=== PATIENT | male | born 1930 | race Caucasian/White ===

== ENCOUNTER 2017-08-02 07:23 | Inpatient (IN) | payer OTHER, MEDICARE ==
[~2017-08-02] VITALS: Ht 157.5 cm; Wt 77.0 kg
[2017-08-02] MEDS ORDERED: IOHEXOL 350 MG/ML 50 ML BTL (for Cath Lab) OTHER ONE (07:24)
[2017-08-02] MEDS ORDERED: MULTTAB22 (08:24)
[2017-08-02] MEDS ORDERED: VITA500T4 PO (08:24)
[2017-08-02] MEDS ORDERED: ASPI-516 CHEW (08:24)
[2017-08-02] MEDS ORDERED: LISI2.5T3 PO (08:24)
[2017-08-02] MEDS ORDERED: ROSU1TAB8 PO (08:24)
[2017-08-02] MEDS ORDERED: PANT40TA3 PO (08:24)
[2017-08-02] MEDS ORDERED: METO50TA PO (08:24)
[2017-08-02] MEDS ORDERED: CHOL1TAB42 (08:24)
[2017-08-02 08:30] VITALS: BP 143/86; PULSE 64; RESP 18; TEMP 98.4; O2SAT 97
[2017-08-02 08:54] LABS: AUTOMATED NEUTROPHIL # 3.5 TH/MM3 (1.8-7.7); BASOPHIL # 0.1 TH/MM3 (0-0.2); BASOPHIL % 0.9 % (0.0-2.0); EOSINOPHIL # 0.4 TH/MM3 (0-0.4); EOSINOPHIL % 7.3 % (0.0-4.0); HEMATOCRIT 45.4 % (39.0-51.0); HEMOGLOBIN 15.6 GM/DL (13.0-17.0); LYMPH % 21.4 % (9.0-44.0); LYMPHOCYTE # 1.2 TH/MM3 (1.0-4.8); MEAN CELL VOLUME 101.2 FL (80.0-100.0); MEAN CORPUSCULAR HEMOGLOBIN 34.9 PG (27.0-34.0); MEAN CORPUSCULAR HGB CONC 34.5 % (32.0-36.0); MEAN PLATELET VOLUME 8.4 FL (7.0-11.0); MONO % 10.1 % (0.0-8.0); MONOCYTE # 0.6 TH/MM3 (0-0.9); NEUT % 60.3 % (16.0-70.0); PLATELET COUNT 110 TH/MM3 (150-450); RED BLOOD COUNT 4.48 MIL/MM3 (4.50-5.90); RED CELL DISTRIBUTION WIDTH 16.3 % (11.6-17.2); WHITE BLOOD COUNT 5.8 TH/MM3 (4.0-11.0)
[2017-08-02 09:03] LABS: INTERNATIONAL NORMALIZED RATIO 1.3 RATIO; PROTHROMBIN TIME - PATIENT 12.7 SEC (9.8-11.6)
[2017-08-02 09:16] LABS: BICARBONATE 25.7 MEQ/L (21.0-32.0); CALCIUM 9.3 MG/DL (8.5-10.1); CREATININE 1.1 MG/DL (0.60-1.30)
[2017-08-02] MEDS ORDERED: HEPARIN-NS/PF FLUSH BAG 2,000 ML IV FLUSH ONE (11:02)
[2017-08-02] MEDS ORDERED: HEPARIN SODIUM - IV 10,000 UNITS/10 ML VIAL ONE (11:03)
[2017-08-02] MEDS ORDERED: MIDAZOLAM HCL 2 MG/2 ML VIAL ONE (11:03)
--- NOTE | 2017-08-02 11:08 | EKG ---
Date Performed: 08/02/2017 Time Performed: 08:22:54 PTAGE: 87 years EKG: Atrial pacing Abnormal ECG NO PREVIOUS TRACING DOCTOR: Willy Alvarado Interpretating Date/Time 08/02/2017 11:06:43
[2017-08-02] MEDS ORDERED: SODIUM CHLOR 0.9% 250 ML INJ 250 ML IV PRN (12:15)
[2017-08-02] MEDS ORDERED: ONDANSETRON HCL 4 MG/2 ML VIAL IV PUSH PRN (12:15)
[2017-08-02] MEDS ORDERED: ATROPINE SULFATE 1 MG/ML VIAL IV PUSH PRN (12:15)
--- NOTE | 2017-08-02 12:16 | CATHPROC ---
[facility] HIS Report Study Information Study Number Admission Scheduled Start Study Start [id number] Aug 02 2017 7:23AM 08/02/2017 Aug 02 2017 10:05AM [facility] Cardiac Catheterization Admit Source Facility Department Other [facility] - [facility] Physician and Clinical Staff Initial Evaristo Wilkerson Process Safety Manager Olesya Mchugh,ABBEY Other cathlab, cathlab Recorder Yasmany Simental RCIS(BS) Scrub Lety Sadler,RT(R) (BS) Procedures Performed Procedure Location (Site) Vessel Name Coronary Angiograms LCA Left Coronary Coronary Angiograms RCA Right Coronary Equipment Time Nutrition Internship Description Size Mfg Part Number Used/Scraped ARROW INTERNATIONAL CATHETER, FR.7 BALLOON [id number] 10:34 FR 7 Used INC. WEDGE PRESSURE *[id number] TRANSDUCER, TRCase [employer] [id number] 10:34 SALMON SALDAÑA * Used W/STOCKCOCK *[id number] INTRODUCER SET, [id number] 11:16 COOK INC. FR 5 Used MICROPUNCTURE *[id number] [id number] *[id number] [id number] *[id number] 10:34 MEDLINE INDUSTRIES PACK, CCL CUSTOM * Used *[id number] 10:34 NLT SPINE PACER PEN, SKIN DUAL W/ RULER * Used *[id number] 11:09 MEDTRONIC JR 4.0 DXTERITY CATHETER FR 5 Used *[id number] 10:34 Youth Noise MEDICAL WIRE, 3MMJ .035 180CM 180CM Used *[id number] 11:41 MERIT MEDICAL WIRE, EXCHANGE 260CM 3MMJ 260CM Used *[id number] 10:34 NAMIC MANIFOLD, 2 PORT * Used *[id number] 10:34 NAMIC MANIFOLD, 4 PORT * Used *[id number] 10:34 NYCOMED OMNIPAQUE, 350 MG, 150ML 150ML [id number] Used [id number] 10:34 GONZALEZ MEDICAL BLANKET,WARM AIR CCL * Used *[id number] 10:34 TERUMO MEDICAL SHEATH, FR5 TERUMO (10CM) FR 5 Used *[id number] 11:42 TERUMO MEDICAL SHEATH, FR6 TERUMO (10CM) FR 6 Used *[id number] 10:34 TERUMO MEDICAL SHEATH, FR7 TERUMO (10CM) FR 7 Used *[id number] 11:42 VASCULAR SOLUTIONS PIGTAIL DUAL LUMEN CATHETER FR 6 5540 *[id number] Used Equipment Model, Serial, Lot Number and Expiration Data Description Model Number Serial Number Lot Number Expiration Date JR 4.0 DXTERITY CATHETER [id number] 02-26-2020 WIRE, EXCHANGE 260CM 3MMJ [id number] 05-19-2020 History: Current Medications Medication Dosage/Unit Route Frequency Last Date/Time Taken Statins (any) ASA Beta Lalit History: Allergies Allergy Reaction No Known Allergies History: Risk Factors Family History of Hypertension Dyslipidemia Previous [place] Previous Heart Failure Premature CAD No Yes No No No Prior Valve Prior PCI Prior CABG Surgery No No No Cerebrovascular Peripheral Artery Chronic Lung On Dialysis Diabetes Disease Disease Disease No Yes No No No History: Symptoms/Diagnosis Selection Items BETANCOURT SOB History: Stress Tests Stress or Imaging Studies Performed No History: Other Disease Selection Items HTN History: Other Current Smoker Method Quit Packs a Day Years Used Pack Years No Cigarettes 70 Years Ago 1 2 2 Labs Hgb (g/dl) Hct (%) WBC (l/cumm) Platelets (thousands) 11.60-17.00 35.00-51.00 4.00-11.00 150.00-450.00 15.0 45 4.9 110 Glucose (mg/dl) BUN (mg/dl) Creatinine (mg/dl) BUN:Creatinine (1:x) 74.00-106.00 7.00-18.00 0.50-1.30 10.00-20.00 99 23 1.1 20.9 Na (meq/l) K (meq/l) 136.00-145.00 3.50-5.10 138 4.1 INR (PTT:PT) 0.90-1.10 1.3 CPK-MB (ng/ML) 0.50-3.60 Not Drawn Medication Medication Total Dose (Bolus/Oral) Medication Total Dosage/Unit 1% XYLOCAINE 20 mL FENTANYL 25 mcg Medications (Bolus/Oral) Medication Time Given Dosage/Unit Administered By Reason FENTANYL 08/02/2017 11:14:08 AM 25 mcg Olesya Mchugh 25 mcg FENTANYL given in lab by Olesya Mchugh RN in Left Antecubital via Peripheral IV. Ordered by Evaristo Potts 1% XYLOCAINE 08/02/2017 11:14:19 AM 20 mL Evaristo Potts 20 mL 1% XYLOCAINE given in lab by Evaristo Potts in Right Groin via Subcutaneous. Medication (Drip) Medication Time Given Dosage/Unit Concentration/Unit Diluent (ml) Solutio n IV Solutions 08/02/2017 10:45:26 AM 0 mL (IV) 500 NaCl .9 Patient arrived on IV Solutions given by cathlab, cathlab in Left Antecubital via Peripheral IV. Pump /Drip Flow = 20 ml/hr using NaCl .9. Ordered by Evaristo Potts. Initial Case Assessment Cardiovascular HR Rhythm NIBP Chest Pain 65 nsr 154/86 0 Edema Present Skin color Skin None Normal Warm Dry Circulatory - Right Pulses Dorsalis Pedis Femoral 2 2 Scale (0,1,2,3,4,d) Circulatory - Left Pulses Dorsalis Pedis Femoral 2 2 Scale (0,1,2,3,4,d) Neurological State Oriented to time-place- Alert Moves all extremities person Respiration - General Respiration Rate SpO2 (%) (B/min) 15 95 Final Case Assessment Cardiovascular HR Rhythm NIBP Chest Pain 76 nsr 149/89 0 Edema Present Skin color Skin None Normal Warm Dry Circulatory - Right Pulses Dorsalis Pedis Femoral 2 2 Scale (0,1,2,3,4,d) Circulatory - Left Pulses Dorsalis Pedis Femoral 2 2 Scale (0,1,2,3,4,d) Neurological State Oriented to time-place- Alert Moves all extremities person Respiration - General Respiration Rate SpO2 (%) (B/min) 15 95 Chronological Log Time Study Chronological Log 10:45:19 Patient arrived via Bed. 10:45:19 Patient Name, D.O.B, / Armband Verified By R.N. 10:45:20 Consent signed by the physician and the patient and verified by the [facility] staff. 10:45:20 Pre-op and post- op instructions given; patient acknowledges understanding of instructions. 10:45:21 Verbal Stimulation=2 Physical Stimulation=2 Airway=2 Respiration=2 TOTAL=8. (0=absent, 1=li mited, 2=present) 10:45:21 Presedation assessment performed by [facility] RN. 10:45:22 Immediate Presedation assesment performed by physician. 10:45:23 Patient has been NPO for More than 6Hrs. 10:45:23 Skin Breakdown-none per patient 10:45:24 Patient Warmer Placed on the Table. 10:45:24 Anthony Prominences Protected 10:45:26 A # 20 IV was noted in the Antecubital (left). Grade = 0 Patient arrived on IV Solutions given by cathlab, cathlab in Left Antecubital via Peripheral IV . Pump/Drip Flow = 20 10:45:26 ml/hr using NaCl .9. Ordered by Evaristo Potts 10:45:27 History and physical on the chart or being dictated. 10:52:16 Reference ECG taken Assessment: Initial Case, HR=65 BPM, Rhythm=nsr, FPNI=670/86 mmhg, Chest Pain=0, Edema=None, Co wong=Normal, Skin = Warm, Dry Right Pulses: Lazaro Ped=2, Femoral=2 10:53:00 Left Pulses: Lazaro Ped=2, Femoral=2 Neurological: State=Alert, Ox3, STORY Respiration: Resp=15 B/min, SpO2=95 % Vitals capture started with the following parameters, Patient=Adult, Interval=5 min, Initial Pr nqekea=953 mmHg, 10:53:20 Deflation Rate=5 mmHg, Cuff placed on Left Leg 10:53:59 HA=382 bpm, ESAM=029/86 mmhg, SpO2=95.0 %, Resp=16 B/min, Pain=0, Juan Diego=10, Banegas=2 10:59:02 HR=68 bpm, WRAV=849/87 mmhg, SpO2=95.0 %, Resp=15 B/min, Pain=0, Juan Diego=10, Banegas=2 11:01:05 Bilateral groins prepped with 2% chlorhexidine, and draped after a 3 minute waiting time. 11:04:03 HR=68 bpm, QIIN=195/87 mmhg, SpO2=95.0 %, Resp=19 B/min, Pain=0, Juan Diego=10, Banegas=2 11:05:17 Pressure channel 1 zeroed. 11:05:18 MD paged 11:07:49 MD arrived. 11:07:55 Contrast Scanned 11:07:55 Immediate Presedation assesment performed by physician. 11:09:02 HR=63 bpm, YFWC=189/74 mmhg, SpO2=95.0 %, Resp=19 B/min, Pain=0, Juan Diego=10, Banegas=2 Time Out. Correct patient, correct procedure, correct physician, power injector not loaded with contrast with surgical 11:13:38 team present. Time Out Concurred by MD and individual staff in procedure. 11:13:45 Case Start 11:13:46 Verbal Stimulation=2 Physical Stimulation=2 Airway=2 Respiration=2 TOTAL=8. (0=absent, 1=li mited, 2=present) 11:14:01 HR=71 bpm, HLWR=258/82 mmhg, SpO2=95.0 %, Resp=19 B/min, Pain=0, Juan Diego=10, Banegas=2 25 mcg FENTANYL given in lab by Olesya Mchugh RN in Left Antecubital via Peripheral IV. Orde red by Delroy, 11:14:08 Evaristo Bocanegra. 11:14:19 20 mL 1% XYLOCAINE given in lab by Evaristo Potts in Right Groin via Subcutaneous. 11:16:01 Access site was Right Femoral Artery. 11:16:06 A INTRODUCER SET, MICROPUNCTURE FR 5 was advanced into the Fem Art (right) using the Percut aneous technique. A SHEATH, FR5 TERUMO (10CM) FR 5 was exchanged in the Fem Art (right). This was necessary in or anna to 11:16:27 accomodate a larger catheter. 11:17:56 Access site was Right Femoral Vein. 11:18:02 A INTRODUCER SET, MICROPUNCTURE FR 5 was advanced into the Fem Vein (right) using the Percu taneous technique. A SHEATH, FR7 TERUMO (10CM) FR 7 was exchanged in the Fem Art (right). This was necessary in or anna to 11:18:07 accomodate a larger catheter. 11:19:27 An injection in the Fem Art (right) was made through the SHEATH, FR5 TERUMO (10CM) FR 5. 11:19:33 A CATHETER, FR.7 BALLOON WEDGE PRESSURE FR 7 was inserted via Fem Vein (right) 11:19:41 HR=73 bpm, WEZB=951/82 mmhg, SpO2=91.0 %, Resp=15 B/min, Pain=0, Juan Diego=10, Banegas=2 11:24:07 HR=75 bpm, YFMK=143/79 mmhg, SpO2=92.0 %, Resp=14 B/min, Pain=0, Juan Diego=10, Banegas=2 Recorded Pressure: PCW, HR=76, Condition=Condition 1 11:25:36 (Pulmonary Capillary Wedge) PCW 11:26:17 Saturation: Site=PA (Pulmonary Artery) , O2=72.9 %, Hgb=15 gm/dl, Condition=Condition 1. Us ed in calculation. Recorded Pressure: MPA, HR=84, Condition=Condition 1 11:26:56 (Main Pulmonary Artery) MPA 46/20/32 11:27:10 Saturation: Site=Ao (Aorta) , O2=93.1 %, Hgb=15 gm/dl, Condition=Condition 1. Used in calcu lation. Recorded Pressure: RV, HR=71, Condition=Condition 1 11:28:11 (Right Ventricle) RV 42/4/9 Recorded Pressure: RA, HR=69, Condition=Condition 1 11:28:33 (Right Atrium) RA 11:28:44 [place] Daniel Catheter Removed A JR 4.0 DXTERITY CATHETER FR 5 was advanced over a wire. OMNIPAQUE, 350 MG, 150ML 150ML was us ed for 11:28:59 injections. 11:29:02 HR=72 bpm, OICY=056/88 mmhg, SpO2=95.0 %, Resp=15 B/min, Pain=0, Juan Diego=10, Banegas=2 Recorded Pressure: Ao, HR=71, Condition=Condition 1 11:31:14 (Aorta) Ao 159/73/110 11:32:11 The RCA was injected and visualized at various angles. OMNIPAQUE, 350 MG, 150ML 150ML used . 11:34:01 HR=82 bpm, TUKW=492/90 mmhg, SpO2=91.0 %, Resp=17 B/min, Pain=0, Juan Diego=10, Banegas=2 After removing the current catheter a JL 4.5 INFINITI CATHETER FR 5 was advanced over a WIRE, 3 MMJ .035 180CM 11:34:21 180CM. 11:36:24 The LCA was injected and visualized at various angles. OMNIPAQUE, 350 MG, 150ML 150ML used . After removing the current catheter a AL 1 INFINITI CATHETER FR 5 was advanced over a WIRE, 3MM J .035 180CM 11:38:19 180CM. 11:39:04 HR=77 bpm, WPUE=680/89 mmhg, SpO2=92.0 %, Resp=13 B/min, Pain=0, Juan Diego=10, Banegas=2 11:44:05 HR=77 bpm, VRRF=805/87 mmhg, SpO2=91.0 %, Resp=20 B/min, Pain=0, Juan Diego=10, Banegas=2 11:44:22 Catheter was removed A SHEATH, FR6 TERUMO (10CM) FR 6 was exchanged in the Fem Art (right). This was necessary in or anna to 11:44:24 accomodate a larger catheter. A PIGTAIL DUAL LUMEN CATHETER FR 6 was advanced over a wire. OMNIPAQUE, 350 MG, 150ML 150ML was used for 11:45:10 injections. 11:45:22 Pressure channel 2 zeroed. Recorded Pressure: LV, HR=75, Condition=Condition 1 11:47:16 (Left Ventricle) LV 162/8/16 Recorded Pressure: LV, Ao, HR=83, Condition=Condition 1 11:48:14 (Left Ventricle) LV 155/8/15, (Aorta) Ao 147/75/107 Recorded Pressure: LV, Ao, HR=55, Condition=Condition 1 11:48:42 (Left Ventricle) LV 159/6/17, (Aorta) Ao 142/51/96 11:49:02 HR=75 bpm, GQRJ=358/89 mmhg, SpO2=91.0 %, Resp=15 B/min, Pain=0, Juan Diego=10, Banegas=2 11:49:07 Catheter was removed 11:49:31 Case End Assessment: Final Case, HR=76 BPM, Rhythm=nsr, TICG=088/89 mmhg, Chest Pain=0, Edema=None, Katy r=Normal, Skin = Warm, Dry Right Pulses: Lazaro Ped=2, Femoral=2 11:49:37 Left Pulses: Lazaro Ped=2, Femoral=2 Neurological: State=Alert, Ox3, STORY Respiration: Resp=15 B/min, SpO2=95 % 11:49:46 Catheter(s) removed without difficulty 11:50:06 No case complications noted. 11:50:06 Cine recording checked. 11:50:08 Bedside Report will be given. 11:50:11 Verbal Stimulation=2 Physical Stimulation=2 Airway=2 Respiration=2 TOTAL=8. (0=absent, 1=li mited, 2=present) 11:50:19 A Left and Right Heart Cath was performed. 11:54:06 HR=74 bpm, LARM=622/88 mmhg, SpO2=93.0 %, Resp=16 B/min, Pain=0, Juan Diego=10, Banegas=2 11:56:25 Arterial Sheath removed; pressure applied to access site. 11:59:09 HR=76 bpm, KDYW=398/82 mmhg, SpO2=91.0 %, Resp=16 B/min, Pain=0, Juan Diego=10, Banegas=2 12:04:06 HR=72 bpm, OPLH=434/80 mmhg, SpO2=91.0 %, Resp=16 B/min, Pain=0, Juan Diego=10, Banegas=2 12:07:56 Venous Sheath removed; pressure applied to access site. 12:09:05 HR=73 bpm, UCCS=019/87 mmhg, SpO2=93.0 %, Resp=16 B/min 12:14:06 HR=76 bpm, AAOF=621/88 mmhg, SpO2=91.0 %, Resp=16 B/min 12:14:06 Hemostasis obtained 12:14:27 Sterile dressing applied to site 12:14:51 Patient moved to bed 12:15:00 Patient transported to DOCU. End Study - Contrast Media Used In Study Contrast Total Opened (mL) Total Used (mL) Total Wasted (mL) Omnipaque 40 40 0 End Study - Maximum Contrast Load Max Contrast Load (mL) 318.2 End Study - Radiation Exposure Fluoro Time (minutes) 9.0 End Study - Sheaths Sheaths Pulled By Sheath Hold Time (min) Lety Sadler 20 End Study - Patient Disposition Complications Transferred To Interventional Outcome No [facility] Holding No attempt made
--- NOTE | 2017-08-02 14:16 | PD.CAR.PN ---
CVT Progress Note Subjective/Hospital Course: pt seen and evaluated , full consult to follow RISK SCORES About the STS Risk Calculator Procedure: CAB Only Risk of Mortality: 4.488% Morbidity or Mortality: 25.388% Long Length of Stay: 13.595% Short Length of Stay: 20.052% Permanent Stroke: 3.269% Prolonged Ventilation: 16.745% DSW Infection: 0.336% Renal Failure: 5.293% Reoperation: 9.139% Objective: Vital Signs Date Time Temp Pulse Resp B/P (MAP) Pulse Ox O2 Delivery O2 Flow Rate FiO2 08/02/17 12:27 93 Room Air 08/02/17 08:30 98.4 64 18 143/86 (105) 97 Labs: Laboratory Tests Test 08/02/17 08:15 08/02/17 08:35 Blood Urea Nitrogen 23 MG/DL (7-18) Creatinine 1.10 MG/DL (0.60-1.30) Random Glucose 94 MG/DL (74-106) Calcium Level 9.3 MG/DL (8.5-10.1) Sodium Level 138 MEQ/L (136-145) Potassium Level 4.1 MEQ/L (3.5-5.1) Chloride Level 104 MEQ/L (98-107) Carbon Dioxide Level 25.7 MEQ/L (21.0-32.0) Anion Gap 8 MEQ/L (5-15) Estimat Glomerular Filtration Rate 63 ML/MIN (>89) White Blood Count 5.8 TH/MM3 (4.0-11.0) Red Blood Count 4.48 MIL/MM3 (4.50-5.90) Hemoglobin 15.6 GM/DL (13.0-17.0) Hematocrit 45.4 % (39.0-51.0) Mean Corpuscular Volume 101.2 FL (80.0-100.0) Mean Corpuscular Hemoglobin 34.9 PG (27.0-34.0) Mean Corpuscular Hemoglobin Concent 34.5 % (32.0-36.0) Red Cell Distribution Width 16.3 % (11.6-17.2) Platelet Count 110 TH/MM3 (150-450) Mean Platelet Volume 8.4 FL (7.0-11.0) Neutrophils (%) (Auto) 60.3 % (16.0-70.0) Lymphocytes (%) (Auto) 21.4 % (9.0-44.0) Monocytes (%) (Auto) 10.1 % (0.0-8.0) Eosinophils (%) (Auto) 7.3 % (0.0-4.0) Basophils (%) (Auto) 0.9 % (0.0-2.0) Neutrophils # (Auto) 3.5 TH/MM3 (1.8-7.7) Lymphocytes # (Auto) 1.2 TH/MM3 (1.0-4.8) Monocytes # (Auto) 0.6 TH/MM3 (0-0.9) Eosinophils # (Auto) 0.4 TH/MM3 (0-0.4) Basophils # (Auto) 0.1 TH/MM3 (0-0.2) CBC Comment DIFF FINAL Differential Comment Prothrombin Time 12.7 SEC (9.8-11.6) Prothromb Time International Ratio 1.3 RATIO Activated Partial Thromboplast Time 27.2 SEC (24.3-30.1) Result Diagram: 08/02/17 0835 08/02/17 0815 Juanita Cohen Aug 02, 2017 14:16
[2017-08-02 14:57] LABS: BILIRUBIN, URINE NEG (NEG); BLOOD, URINE SMALL (NEG); GLUCOSE,URINE NEG (NEG); KETONE, URINE NEG (NEG); MUCUS URINE FEW /lpf (OCC); NITRITE,URINE NEG (NEG); PH, URINE 6.5 (5.0-8.5); URINE COLOR YELLOW (YELLW/STRAW); URINE LEUKOCYTE ESTERASE NEG (NEG)
[2017-08-02 15:00] LABS: ALBUMIN 3.9 GM/DL (3.4-5.0); ALT (GPT) 40 U/L (12-78); AST (GOT) 38 U/L (15-37); DIRECT BILIRUBIN ADULT 0.1 MG/DL (0.0-0.2)
[2017-08-02 15:01] LABS: ALKALINE PHOSPHATASE 127 U/L (45-117); INDIRECT BILIRUBIN 0.5 MG/DL (0.0-0.8); TOTAL BILIRUBIN ADULT 0.6 MG/DL (0.2-1.0); TOTAL PROTEIN 8.4 GM/DL (6.4-8.2)
--- NOTE | 2017-08-02 15:22 | RADRPT ---
EXAM DATE/TIME: 08/02/2017 14:05 [facility] COMPARISON: No previous studies available for comparison. INDICATIONS : Evaluate for pneumonia, pneumothorax or communicable disease. Pre op for CABG. MEDICAL HISTORY : none known SURGICAL HISTORY : Pacemaker. ENCOUNTER: Initial ACUITY: 1 day PAIN SCORE: 0/10 LOCATION: Bilateral chest FINDINGS: The heart is enlarged. Left subclavian dual lead pacemaker has its tips in right atrium and right marisela tricle. Minimal bibasilar streakiness is noted. Degenerative changes are noted throughout the thoraci c spine. CONCLUSION: Cardiomegaly. Minimal bibasilar streakiness consistent with atelectasis or scarring.. Primitivo Chance MD on August 02, 2017 at 15:19 Board Certified Radiologist. This report was verified electronically.
--- NOTE | 2017-08-02 15:48 | RADRPT ---
EXAM DATE/TIME: 08/02/2017 14:47 [facility] COMPARISON: No previous studies available for comparison. INDICATIONS : Pre-op cardiac surgery. MEDICAL HISTORY : Hypertension. Bladder cancer. SURGICAL HISTORY : Cardiac catheterization. ENCOUNTER: Initial ACUITY: 1 day PAIN SCORE: 0/10 LOCATION: Bilateral legs. TECHNIQUE: Venous ultrasound of the left and right leg was performed from the inguinal ligament to the proximal calf. Real-time, color Doppler and spectral tracing, compression and augmentation techniques were us ed. FINDINGS: RIGHT LEG: There is normal compressibility of the deep venous system from the inguinal region to the proximal ca lf. No echogenic clot is seen in the lumen of the common femoral, femoral, popliteal, and posterior tibial veins. There is a normal response of the venous system to proximal and distal augmentation an d respiration. LEFT LEG: There is normal compressibility of the deep venous system from the inguinal region to the proximal ca lf. No echogenic clot is seen in the lumen of the common femoral, femoral, popliteal, and posterior tibial veins. There is a normal response of the venous system to proximal and distal augmentation an d respiration. CONCLUSION: No evidence of deep venous thrombosis within the lower extremities. Primitivo Chance MD on August 02, 2017 at 15:45 Board Certified Radiologist. This report was verified electronically.
--- NOTE | 2017-08-02 16:01 | RADRPT ---
EXAM DATE/TIME: 08/02/2017 15:11 [facility] COMPARISON: No previous studies available for comparison. INDICATIONS : Pre-op cardiac surgery. MEDICAL HISTORY : Hypertension. Bladder cancer. SURGICAL HISTORY : Cardiac catheterization. ENCOUNTER: Initial ACUITY: 1 day PAIN SCORE: 0/10 LOCATION: Bilateral neck PEAK SYSTOLIC VELOCITIES (cm/sec): ICA/CCA RATIO: Right: 1.7 Left: 1.1 ICA: Right: 97 Left: 72 CCA: Right: 58 Left: 68 ECA: Right: 214 Left: 126 VERTEBRAL: Right: 43 antegrade Left: 126 antegrade Elevated flow velocities and ICA/CCA ratios have been found to correlate with increased degrees of vessel stenosis, calculated as percentage of diameter relative to a normal segment of distal ICA/CCA FINDINGS: No hemodynamically significant stenoses within the internal carotid arteries bilaterally. There is pr obable 50-69% stenosis of the right external carotid artery. Mild calcified atherosclerotic plaque is noted bilaterally. Antegrade flow is noted within the vertebral arteries bilaterally. CONCLUSION: No hemodynamically significant stenosis within the internal carotid arteries grace del real. Primitivo Chance MD on August 02, 2017 at 15:57 Board Certified Radiologist. This report was verified electronically.
--- NOTE | 2017-08-02 16:24 | RADRPT ---
EXAM DATE/TIME: 08/02/2017 15:55 [facility] COMPARISON: No previous studies available for comparison. INDICATIONS : Preoperative CABG. RADIATION DOSE: 8.91 CTDIvol (mGy) MEDICAL HISTORY : Cardiovascular disease. Hypertension. Carcinoma, bladder. SURGICAL HISTORY : Pacemaker. ENCOUNTER: Initial ACUITY: 1 day PAIN SCALE: 0/10 LOCATION: chest TECHNIQUE: Volumetric scanning of the chest was performed. Using automated exposure control and adjustment of t he mA and/or kV according to patient size, radiation dose was kept as low as reasonably achievable to obtain optimal diagnostic quality images. DICOM format image data is available electronically for r eview and comparison. Follow-up recommendations for detected pulmonary nodules are based at a minimum on nodule size and pa tient risk factors according to Fleischner Society Guidelines. FINDINGS: LUNGS: Minimal scattered peripheral interstitial fibrotic changes are noted. There is no consolidation or pn eumothorax. No concerning pulmonary nodule is visualized. PLEURAE: There is no pleural thickening or pleural effusion. MEDIASTINUM: The heart and great vessels demonstrate no acute abnormality. There is no mediastinal or hilar lymph adenopathy. Coronary artery calcifications are noted. Left subclavian dual lead pacemaker has its tip s in the right atrium and right ventricle. AXILLAE: Within normal limits. No lymphadenopathy. MUSCULOSKELETAL: Degenerative changes and scoliosis of the thoracic spine are noted. MISCELLANEOUS: The visualized upper abdominal organs demonstrate no acute abnormality. CONCLUSION: 1. Coronary artery calcifications. 2. Minimal scattered peripheral interstitial fibrotic changes are noted. 3. Degenerative changes and scoliosis of the thoracic spine are noted. Primitivo Chance MD on August 02, 2017 at 16:17 Board Certified Radiologist. This report was verified electronically.
[2017-08-02 16:59] LABS: HEMOGLOBIN A1C 5.6 % (4.3-6.0)
--- NOTE | 2017-08-02 17:44 | MB ---
cc: Isa Medina MD, Jacqueline R ARNP DATE: 08/02/2017 HISTORY OF PRESENT ILLNESS: An 87-year-old male patient of [place], Dr. Brandon Parks, history of having some dizziness and lightheadedness for the last 3 weeks, some presyncope episodes, also preceded all the time by shortness of breath, which he has noticed more progressively over the past 1 month. The shortness of breath occurs with minimal exertion. He normally is very active. He walks about 3-4 miles, but back in January he purchased a mobile home and has been repairing that, but has been unable to do so secondary to the shortness of breath. He has a history of some mild aortic stenosis. Therefore, he underwent cardiac catheterization today to evaluate the valve further which showed a 10% stenosis in the left main, proximal LAD 95%, mid distal 70%, diagonal 80%, the circumflex is 90%, ejection fraction 58%. PA pressure is 46/20 with a wedge pressure of 12. Cardiac output of 5.2. Aortic valve area of 1.35. We were consulted to evaluate for coronary artery bypass grafting. 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 He has had a history of a stroke in the past with some residual oral paresthesias, paroxysmal ventricular tachycardia. PAST SURGICAL HISTORY: Surgeries include the pacer in situ, also a right hernia repair. ALLERGIES: NO KNOWN DRUG ALLERGIES. HOME MEDICATIONS: Aspirin. Lisinopril. Metoprolol. Multivitamin. Crestor. FAMILY HISTORY: Noncontributory. SOCIAL HISTORY: , 3 children, retired building attendant. Remote tobacco, quit 1949. REVIEW OF SYSTEMS: GENERAL: No night sweats, fever, heat and cold intolerance. SKIN: No psoriasis, itching or hives. HEENT: No blurred vision or hearing loss. He does wear dentures. RESPIRATORY: As above in the HPI. CARDIOVASCULAR: No chest pain. No paroxysmal nocturnal dyspnea or orthopnea. GASTROINTESTINAL: No diarrhea or vomiting. GENITOURINARY: No burning, frequency, urgency. CENTRAL NERVOUS SYSTEM: He has had a history of prior cerebrovascular accident. ENDOCRINOLOGY: No diabetes or hypothyroidism. PHYSICAL EXAMINATION: VITAL SIGNS: Blood pressure 140/80, heart rate is 64, temperature max 98.4, room air sat 94. The patient is awake, alert, and in no acute distress. HEENT: Head is normocephalic, atraumatic. Pupils equal and reactive. Oral mucosa pink, moist. NECK: Supple. No JVD. HEART: Sounds S1, S2, grade 2/6 systolic murmur. LUNGS: Clear to auscultation. No wheezes, rales or rhonchi. ABDOMEN: Soft, nontender. No masses or organomegaly. EXTREMITIES: Reveal no cyanosis, clubbing, or edema. LABORATORY DATA: Hemoglobin 15, hematocrit of 45, white cell count of 5.8, platelet count of 110. Sodium 130, potassium 4.1, BUN of 23, creatinine 1.10. INR 1.3. Urinalysis is unremarkable. MRSA screen undetected. CT chest: Some coronary artery calcifications and minimal peripheral interstitial fibrotic changes. Some degenerative changes in the spine. Carotid ultrasound showed no hemodynamically significant stenosis within the internal carotid arteries bilaterally. There was no DVT. ASSESSMENT AND PLAN: This is an 87-year-old male, STS score 4.4, being evaluated for coronary artery bypass grafting x3. The cardiac srivastava will be evaluated by Dr. Maribell Vela and evaluation for candidacy for bypass grafting further planning as per Dr. Isa Medina. Dictated by KAZ Rod MD [place]/TANIYA , 04:56 PM , 05:42 PM
[2017-08-02] MEDS ORDERED: INSULIN REGULAR (IV INFUSION) 100 UNITS in SODIUM CHLORIDE 0.9% INJ 99 ML IV PRN (17:45)
[2017-08-02] MEDS ORDERED: METOPROLOL TARTRATE 25 MG TAB PO SCH (17:45)
[2017-08-02] MEDS ORDERED: PAPAVERINE INJ 60 MG, NITROGLYCERIN INJ 100 MCG, DILTIAZEM INJ 100 MG in SODIUM CHLORID... IRRIGATION SCH (17:45)
[2017-08-02] MEDS ORDERED: DEXTROSE 50% IN WATER 50 ML VIAL(D50) IV PUSH PRN (17:45)
[2017-08-02] MEDS ORDERED: CHLORHEXIDINE GLUCONATE 4% SOLN 120 ML BTL TOPICAL SCH (17:45)
[2017-08-02] MEDS ORDERED: CEFAZOLIN INJ 500 MG in SODIUM CHLORIDE 0.9% IRR BTL 500 ML IRRIGATION SCH (17:45)
[2017-08-02] MEDS ORDERED: SODIUM CHLORIDE 0.9% FLUSH 10 ML FLUSH IV FLUSH PRN (17:45)
[2017-08-02 19:00] VITALS: BP 115/68; PULSE 90; PULSE 92; TEMP 98.1; O2SAT 92
[2017-08-02 20:00] VITALS: PULSE 100
[2017-08-02 20:09] LABS: HEMATOCRIT 43.6 % (39.0-51.0); MEAN CELL VOLUME 99.8 FL (80.0-100.0); MEAN CORPUSCULAR HEMOGLOBIN 34.5 PG (27.0-34.0); MEAN CORPUSCULAR HGB CONC 34.5 % (32.0-36.0); MEAN PLATELET VOLUME 8.2 FL (7.0-11.0); PLATELET COUNT 96 TH/MM3 (150-450); RED BLOOD COUNT 4.36 MIL/MM3 (4.50-5.90); RED CELL DISTRIBUTION WIDTH 15.8 % (11.6-17.2); WHITE BLOOD COUNT 7.4 TH/MM3 (4.0-11.0)
[2017-08-02 20:23] LABS: INTERNATIONAL NORMALIZED RATIO 1.3 RATIO; PROTHROMBIN TIME - PATIENT 12.8 SEC (9.8-11.6)
--- NOTE | 2017-08-02 20:55 | RADRPT ---
EXAM DATE/TIME: 08/02/2017 14:55 [facility] COMPARISON: US LEG BILATERAL VENOUS DOPPLER, August 02, 2017, 14:47. INDICATIONS : Pre-op cardiac surgery. MEDICAL HISTORY : Hypertension. Bladder cancer. SURGICAL HISTORY : Cardiac catheterization. ENCOUNTER: Initial ACUITY: 1 day PAIN SCORE: 0/10 LOCATION: Bilateral legs. GREATER SAPHENOUS VEIN THIGH: PROXIMAL: Right 2 mm Left 4 mm MID: Right 3 mm Left 4 mm DISTAL: Right 3 mm Left 3 mm CALF: PROXIMAL: Right 2 mm Left 4 mm MID: Right 2 mm Left 2 mm DISTAL: Right 2 mm Left 1 mm FINDINGS: The venous system of the lower extremities are patent by color Doppler imaging. Measurements of the leg veins (in mm) are listed above. CONCLUSION: Bilateral greater saphenous vein mapping as above. Sam Mathews MD on August 02, 2017 at 20:52 Board Certified Radiologist. This report was verified electronically.
[2017-08-02 21:00] VITALS: PULSE 80
[2017-08-02] MEDS: METOPROLOL TARTRATE 50 MG TAB PO SCH (21:20)
[2017-08-02] MEDS: SODIUM CHLORIDE 0.9% FLUSH 10 ML FLUSH IV FLUSH SCH (21:23)
[2017-08-02] MEDS: HEPARIN-D5W 25,000 U/250 ML 250 ML IV PRN (21:23)
[2017-08-02 22:00] VITALS: PULSE 72
[2017-08-02 23:00] VITALS: BP 101/55; PULSE 64; PULSE 68; TEMP 97.6; O2SAT 95
[2017-08-02] MEDS ORDERED: HEPARIN SODIUM - IV 10,000 UNITS/10 ML VIAL IV PUSH PRN ×2 (23:30)
[2017-08-03] VITALS (25 sets, daily range): BP systolic 101–128; BP diastolic 55–66; PULSE 59–73; RESP 16–17; TEMP 97.2–98.1; O2SAT 92–98
--- NOTE | 2017-08-03 01:42 | MH ---
cc: Evaristo Potts DO DATE OF ADMISSION: 08/02/2017 CHIEF COMPLAINT: Shortness of breath, syncope. HISTORY OF CHIEF COMPLAINT: Steve Shaver is a pleasant 87-year-old male who sees my partner, Dr. Parks in the office and was recommended cardiac catheterization due to shortness of breath and syncopal episodes. The patient has had episodes of getting significantly short of breath with very little activity and he has also noticed lightheaded dizziness and syncopal episodes over the past few weeks. Per the family, he has gone downhill significantly over the past 2 months. He states that whenever he starts doing activities he gets short of breath and when he gets too short of breath, he starts getting lightheaded and dizzy. He underwent an echocardiogram and the aortic valve was difficult to determine how significant it was, although the gradients were not very high. Because of this, he was recommended cardiac catheterization to evaluate not only his coronary anatomy, but also his aortic valve to make sure that he did not have significant aortic stenosis as his symptoms were felt to be more towards this. He underwent the procedures today on 08/02/2017 and he was found to have significant multivessel disease as well as mild aortic stenosis. It was felt that due to his symptoms, as well as his significant multivessel disease that he should be admitted for consideration of coronary artery bypass grafting. PAST MEDICAL HISTORY: 1. Mild aortic stenosis by cardiac catheterization (aortic valve area 1.35, mean gradient 20). 2. History of bradycardia. 3. History of CVA with some residual oral ____. 4. Paroxysmal ventricular tachycardia. PAST SURGICAL HISTORY: 1. Cardiac catheterization (08/02/2017) significant multivessel disease including proximal LAD 95%, mid LAD 70%, diagonal 80%, left circumflex 90%, RCA 99%, aortic valve area 1.35, mean gradient 20. 2[address] St. Nic pacemaker (2008). 3. Right hernia repair. ALLERGIES: NO KNOWN DRUG ALLERGIES. MEDICATIONS: 1. Crestor 20 mg daily. 2. Metoprolol tartrate 50 mg b.i.d. 3. Lisinopril 2.5 mg daily. 4. Aspirin 81 mg daily. 5. Protonix 40 mg daily. FAMILY HISTORY: Denies premature coronary artery disease or sudden cardiac within the family. SOCIAL HISTORY: The patient is and lives with his . He has 3 adult children. He previously smoked but quit in 1950. Denies alcohol or drug abuse. REVIEW OF SYSTEMS: Fourteen systems were reviewed including osteopathic. Pertinent positives and negatives above, otherwise negative. PHYSICAL EXAMINATION: VITAL SIGNS: Temperature 98.4, heart rate 64, blood pressure 143/86, respirations 18, pulse oximetry 97% on room air. GENERAL: The patient appears well in no acute distress. Alert, awake and oriented x 3. HEENT: Extraocular muscles intact. Mucous membranes moist. NECK: Supple. No JVD at 45 degrees. No carotid bruits heard bilaterally. Upstroke is brisk in nature. HEART: Regular rate and rhythm. Positive first and second heart sounds with a II/ crescendo decrescendo murmur which is mid to late peaking to the right sternal border. LUNGS: Clear to auscultation bilaterally. No wheezes, rales or rhonchi. ABDOMEN: Soft, nontender, nondistended. No organomegaly noted. EXTREMITIES: Show no clubbing, cyanosis or edema. Femoral and distal pulses are intact bilaterally. NEUROLOGIC: No focal deficits. SKIN: Warm, dry and intact. OSTEOPATHIC: Mild kyphoscoliosis. No lordosis or paraspinal tender points. LABORATORY DATA: Hemoglobin 15.6, hematocrit 45.4, platelets 110. Potassium 4.1, BUN 23, creatinine 1.1. Electrocardiogram (08/02/2017 at 0822) atrial paced, nonspecific ST-T wave changes. IMPRESSION: 1. Multivessel coronary artery disease as above. 2. Unstable angina with significant shortness of breath with activities as well as lightheadedness and presyncopal and syncopal episodes. 3. Mild aortic stenosis as above. 4. Hypertension. RECOMMENDATIONS: 1. Mr. Shavre underwent cardiac catheterization as above, and was found to have significant multivessel coronary artery disease. Because of his symptoms, as well as his significant disease, it was felt reasonable that he should be admitted and be evaluated by CT surgery for possible coronary artery bypass grafting. 2. Due to the significance of his disease he will be placed on a heparin drip. 3. His shortness of breath and presyncopal to syncopal episodes are most likely anginal equivalents. During these episodes of presyncope and syncope his pacemaker was evaluated and showed no arrhythmias at that time. 4. His lisinopril will be held in anticipation of coronary artery bypass grafting. 5. He did have an echocardiogram done in the office on 05/21/2017, which showed a normal ejection fraction of 55% to 60%, mild aortic stenosis (peak gradient 34, mean gradient 18), mild mitral regurgitation. 6. Further recommendations will be made after evaluated by CT surgery. Thank you for allowing me to see Steve Shaver. If there are any questions, please do not hesitate to call. Evaristo Potts, VGP/rt , 12:55 AM , 01:40 AM
--- NOTE | 2017-08-03 01:50 | MA ---
cc: Evaristo Potts DO 08/02/2017 PROCEDURE: Left heart catheterization, right heart catheterization, coronary angiogram, aortic stenosis evaluation. PREPROCEDURE DIAGNOSIS: Shortness of breath with exertion, presyncopal episodes. POSTPROCEDURE DIAGNOSIS: Multivessel coronary artery disease, mild aortic stenosis (aortic valve area of 1.35, mean gradient 20). MEDICATIONS: Fentanyl 25 mcg. CONTRAST USED: 40 mL. FLUOROSCOPY: 9.0 minutes. SEDATION: Moderate sedation 0 minutes. ESTIMATED BLOOD LOSS: 10 mL PROCEDURAL SUMMARY: Steve Shaver is a pleasant 87-year-old male who sees my partner, Dr. Parks, in the office and was noted to have significant shortness of breath with activity and presyncopal to syncopal episodes with activity. There was concern that his aortic stenosis was more significant than noted by exam and by echo, and so he was recommended left and right heart catheterization. Risks, benefits and alternatives were explained to him and he consented as such. He was brought to the lab and prepped in the usual sterile fashion. The right femoral artery was accessed using a modified Seldinger technique and placement of a 5-Japanese sheath. Right femoral vein was accessed using a modified Seldinger technique and placement of a 7-Japanese sheath. Both were easily aspirated and flushed. A [place] catheter was advanced to a wedge position and oxygen saturations as well as pressures were recorded upon pullback through the heart in a standard fashion. [place] catheter was removed. A JR4 was advanced over a J-wire to the ascending aorta and used for selective angiography of the right coronary artery system. This was exchanged out for a JL4.5, which was used for selective angiography of the left coronary artery system. A JL3.5 was exchanged for an AL1, and a straight wire was advanced across the aortic valve. The AL1 was advanced into the left ventricle and then exchanged out over a long J-wire. Right femoral sheath was upgraded to a 6-Japanese and a Odilon catheter was placed for simultaneous pressures of the left ventricle as well as the aorta. Odilon catheter was removed. Arterial and femoral sheaths were removed and pressure held for hemostasis. The patient left the laborer brush clearing cardiovascularly stable. FINDINGS: Left main: Normal size vessel with adequate reflux. It bifurcates into an LAD and circumflex. LAD: Normal size vessel with 95% ostial stenosis. Distal to this, there is diffuse disease with 70% stenosis in the mid portion. It gives off 1 major diagonal with 80% ostial stenosis. Left circumflex: Normal size vessel with a 90% stenosis in the mid portion. It gives off 2 major obtuse marginals, with the first one having diffuse 50% disease and the other one being more of a posterolateral branch having a 90% stenosis. RCA: 99% stenosis at the ostial portion. The mid to distal portion has a 99% stenosis. Distally it supplies a PDA, which is diffusely diseased. HEMODYNAMIC SUMMARY: RA 6. RV 39/5, RVEDP 9. PA 46/20, mean PA 32. Wedge 12. Cardiac output 5.2. Cardiac index 3.0. Aortic valve area 1.35 Mean gradient 20. LVEDP 15. IMPRESSION: 1. Unstable angina. 2. Multivessel disease as above. 3. Mild aortic stenosis (mean gradient 20, aortic valve area 1.35). 4. Mild pulmonary hypertension. RECOMMENDATIONS: 1. Mr. Shaver has significant multivessel disease and appears to have anginal equivalent with shortness of breath and presyncopal to syncopal episodes. 2. He will be admitted inpatient due to his significance of disease and symptoms and placed on a heparin drip. 3. He will be seen by CT surgery for consideration of coronary artery bypass grafting. 4. Further recommendations will be made after evaluation by CT surgery. Thank you for allowing me to see Steve Shaver. If there are any questions, please do not hesitate to call. DO VENANCIO Callaway/ANGELIA , 01:06 AM , 01:48 AM
[2017-08-03 07:19] LABS: AUTOMATED NEUTROPHIL # 3.1 TH/MM3 (1.8-7.7); BASOPHIL # 0.1 TH/MM3 (0-0.2); BASOPHIL % 1.2 % (0.0-2.0); EOSINOPHIL # 0.4 TH/MM3 (0-0.4); EOSINOPHIL % 7.7 % (0.0-4.0); HEMATOCRIT 39.5 % (39.0-51.0); HEMOGLOBIN 13.7 GM/DL (13.0-17.0); LYMPH % 24.4 % (9.0-44.0); LYMPHOCYTE # 1.4 TH/MM3 (1.0-4.8); MEAN CELL VOLUME 100.6 FL (80.0-100.0); MEAN CORPUSCULAR HEMOGLOBIN 34.9 PG (27.0-34.0); MEAN CORPUSCULAR HGB CONC 34.7 % (32.0-36.0); MEAN PLATELET VOLUME 8.6 FL (7.0-11.0); MONO % 11.6 % (0.0-8.0); MONOCYTE # 0.6 TH/MM3 (0-0.9); NEUT % 55.1 % (16.0-70.0); PLATELET COUNT 77 TH/MM3 (150-450); RED BLOOD COUNT 3.93 MIL/MM3 (4.50-5.90); RED CELL DISTRIBUTION WIDTH 15.9 % (11.6-17.2); WHITE BLOOD COUNT 5.6 TH/MM3 (4.0-11.0)
[2017-08-03 07:50] LABS: BICARBONATE 25.2 MEQ/L (21.0-32.0); CALCIUM 8.3 MG/DL (8.5-10.1); CREATININE 0.88 MG/DL (0.60-1.30)
[2017-08-03] MEDS: SODIUM CHLORIDE 0.9% FLUSH 10 ML FLUSH IV FLUSH SCH ×2 (08:41→21:00)
[2017-08-03] MEDS: PANTOPRAZOLE SOD 40 MG DELAYED RELEASE TAB PO SCH (08:42)
[2017-08-03] MEDS: METOPROLOL TARTRATE 50 MG TAB PO SCH ×2 (08:42→21:00)
[2017-08-03] MEDS: ATORVASTATIN 40 MG TAB PO SCH (08:42)
[2017-08-03] MEDS: ASPIRIN 81 MG CHEW TAB CHEW SCH (08:43)
--- NOTE | 2017-08-03 15:03 | HHI.PR ---
Subjective Remarks Follow-up unstable angina/multivessel disease 08/03/17-patient seen and examined, denies any chest pain or shortness of breath. Family by the bedside. Objective Vitals Vital Signs Date Time Temp Pulse Resp B/P (MAP) Pulse Ox O2 Delivery O2 Flow Rate FiO2 08/03/17 14:00 65 08/03/17 13:00 63 08/03/17 12:00 60 08/03/17 11:00 93 Nasal Cannula 2.00 08/03/17 11:00 60 08/03/17 11:00 97.8 63 16 128/62 (84) 92 08/03/17 10:00 72 08/03/17 09:00 69 08/03/17 07:00 97.6 64 16 101/61 (74) 95 08/03/17 07:00 64 08/03/17 07:00 95 Nasal Cannula 2.00 08/03/17 06:00 61 08/03/17 05:00 68 08/03/17 04:00 60 08/03/17 03:00 97.8 68 101/61 (74) 94 08/03/17 03:00 68 08/03/17 02:00 60 08/03/17 01:00 64 08/03/17 00:00 62 08/02/17 23:00 64 08/02/17 23:00 95 Nasal Cannula 2.00 08/02/17 23:00 97.6 68 101/55 (70) 95 08/02/17 22:00 72 08/02/17 21:00 80 08/02/17 20:00 100 08/02/17 19:00 98.1 92 115/68 (84) 92 08/02/17 19:00 90 I/O 08/02/17 08/02/17 08/02/17 08/03/17 08/03/17 08/03/17 07:00 15:00 23:00 07:00 15:00 23:00 Intake Total 360 ml Output Total 600 ml Balance -240 ml Intake Oral 360 ml Output Urine Total 600 ml Result Diagram: 08/03/1730 08/03/1730 Imaging Last Impressions Lower Extremity Ultrasound 08/02/17 0000 Signed Impressions: Service Date/Time: Wednesday, August 02, 2017 14:55 - CONCLUSION: Bilateral greater saphenous vein mapping as above. Sam Mathews MD Chest X-Ray 08/02/17 0000 Signed Impressions: Service Date/Time: Wednesday, August 02, 2017 14:05 - CONCLUSION: Cardiomegaly. Minimal bibasilar streakiness consistent with atelectasis or scarring.. Primitivo Chance MD Chest CT 08/02/17 0000 Signed Impressions: Service Date/Time: Wednesday, August 02, 2017 15:55 - CONCLUSION: 1. Coronary artery calcifications. 2. Minimal scattered peripheral interstitial fibrotic changes are noted. 3. Degenerative changes and scoliosis of the thoracic spine are noted. Primitivo Chance MD Carotid Artery Ultrasound 08/02/17 0000 Signed Impressions: Service Date/Time: Wednesday, August 02, 2017 15:11 - CONCLUSION: No hemodynamically significant stenosis within the internal carotid arteries bilaterally. Primitivo Chance MD Objective Remarks GENERAL: NAD SKIN: Warm and dry. HEAD: Normocephalic. EYES: No scleral icterus. No injection or drainage. NECK: Supple, trachea midline. No JVD or lymphadenopathy. CARDIOVASCULAR: Regular rate and rhythm without murmurs, gallops, or rubs. RESPIRATORY: Breath sounds equal bilaterally. No accessory muscle use. GASTROINTESTINAL: Abdomen soft, non-tender, nondistended. MUSCULOSKELETAL: No cyanosis, or edema. BACK: Nontender without obvious deformity. No CVA tenderness. A/P Problem List: (1) Multi-vessel coronary artery stenosis ICD Code: I25.10 - Atherosclerotic heart disease of [place] coronary artery without angina pectoris (2) Unstable angina ICD Code: I20.0 - Unstable angina Assessment and Plan 87 year-old man with Unstable angina Status post left heart catheterization with finding of multivessel disease Currently on heparin drip, beta lance, aspirin, GEO inhibitor, statin Multivessel coronary artery stenosis CTS consulted for evaluation for possible CABG Continue with above treatment DVT prophylaxis: Alex Spain MD Aug 03, 2017 15:03
[2017-08-03] MEDS: HEPARIN-D5W 25,000 U/250 ML 250 ML IV PRN (18:32)
[2017-08-04] VITALS (23 sets, daily range): BP systolic 91–151; BP diastolic 52–69; PULSE 60–79; RESP 16–19; TEMP 97.2–98.4; O2SAT 95–100
[2017-08-04] MEDS: PANTOPRAZOLE SOD 40 MG DELAYED RELEASE TAB PO SCH (08:29)
[2017-08-04] MEDS: SODIUM CHLORIDE 0.9% FLUSH 10 ML FLUSH IV FLUSH SCH (08:30)
[2017-08-04] MEDS: METOPROLOL TARTRATE 50 MG TAB PO SCH ×2 (08:30→22:02)
[2017-08-04] MEDS: ATORVASTATIN 40 MG TAB PO SCH (08:30)
[2017-08-04] MEDS: ASPIRIN 81 MG CHEW TAB CHEW SCH (09:00)
[2017-08-04] MEDS: HEPARIN-D5W 25,000 U/250 ML 250 ML IV PRN (22:05)
--- NOTE | 2017-08-04 22:45 | HHI.PR ---
Subjective Remarks late entry..patient was seen at 9:00AM Follow-up unstable angina/multivessel disease 08/03/17-patient seen and examined, denies any chest pain or shortness of breath. Family by the bedside. 08/04/17-patient seen and examined had no complaint and stable. Objective Vitals Vital Signs Date Time Temp Pulse Resp B/P (MAP) Pulse Ox O2 Delivery O2 Flow Rate FiO2 08/04/17 22:00 98.1 60 18 113/63 (80) 96 08/04/17 18:00 68 08/04/17 17:00 66 08/04/17 16:09 79 08/04/17 15:25 95 Room Air 08/04/17 15:24 98.1 76 19 105/60 (75) 95 08/04/17 15:00 69 08/04/17 14:00 62 08/04/17 13:00 72 08/04/17 12:00 60 08/04/17 11:21 99 Nasal Cannula 1.00 08/04/17 11:18 97.2 61 19 151/69 (96) 97 08/04/17 11:00 60 08/04/17 10:00 64 08/04/17 09:14 67 08/04/17 08:00 68 08/04/17 07:37 97 Nasal Cannula 1.00 08/04/17 07:33 97.6 62 19 115/56 (75) 98 08/04/17 07:00 66 08/04/17 06:00 60 08/04/17 05:09 61 08/04/17 04:04 72 08/04/17 03:55 97.9 60 16 115/57 (76) 100 08/04/17 03:55 96 Nasal Cannula 2.00 08/04/17 03:00 60 08/04/17 02:00 60 08/04/17 00:00 98.4 60 18 91/52 (65) 96 08/04/17 00:00 60 08/03/17 23:14 96 Nasal Cannula 2.00 08/03/17 23:07 64 I/O 08/03/17 08/03/17 08/03/17 08/04/17 08/04/17 08/04/17 07:00 15:00 23:00 07:00 15:00 23:00 Intake Total 360 ml 960 ml 240 ml 940 ml Output Total 600 ml 1050 ml 400 ml 1125 ml Balance -240 ml -90 ml -160 ml -185 ml Intake Oral 360 ml 960 ml 240 ml 940 ml Output Urine Total 600 ml 1050 ml 400 ml 1125 ml # Bowel Movements 1 Result Diagram: 08/03/17 0630 08/03/17 0630 Objective Remarks GENERAL: NAD SKIN: Warm and dry. HEAD: Normocephalic. EYES: No scleral icterus. No injection or drainage. NECK: Supple, trachea midline. No JVD or lymphadenopathy. CARDIOVASCULAR: Regular rate and rhythm without murmurs, gallops, or rubs. RESPIRATORY: Breath sounds equal bilaterally. No accessory muscle use. GASTROINTESTINAL: Abdomen soft, non-tender, nondistended. MUSCULOSKELETAL: No cyanosis, or edema. BACK: Nontender without obvious deformity. No CVA tenderness. A/P Problem List: (1) Multi-vessel coronary artery stenosis ICD Code: I25.10 - Atherosclerotic heart disease of [place] coronary artery without angina pectoris (2) Unstable angina ICD Code: I20.0 - Unstable angina Assessment and Plan 87 year-old man with Unstable angina Status post left heart catheterization with finding of multivessel disease Currently on heparin drip, beta lance, aspirin, GEO inhibitor, statin Multivessel coronary artery stenosis CTS consulted for evaluation for possible CABG Continue with above treatment DVT prophylaxis: Alex Spain MD Aug 04, 2017 22:45
[2017-08-05] VITALS (25 sets, daily range): BP systolic 103–157; BP diastolic 55–70; PULSE 60–100; RESP 16–19; TEMP 97.3–99; O2SAT 93–96
[2017-08-05 05:52] LABS: HEMATOCRIT 42.6 % (39.0-51.0); HEMOGLOBIN 14.6 GM/DL (13.0-17.0); MEAN CELL VOLUME 100.6 FL (80.0-100.0); MEAN CORPUSCULAR HEMOGLOBIN 34.5 PG (27.0-34.0); MEAN CORPUSCULAR HGB CONC 34.3 % (32.0-36.0); MEAN PLATELET VOLUME 8.8 FL (7.0-11.0); PLATELET COUNT 73 TH/MM3 (150-450); RED BLOOD COUNT 4.23 MIL/MM3 (4.50-5.90); RED CELL DISTRIBUTION WIDTH 16.3 % (11.6-17.2); WHITE BLOOD COUNT 5.6 TH/MM3 (4.0-11.0)
[2017-08-05] MEDS: METOPROLOL TARTRATE 50 MG TAB PO SCH ×2 (08:49→21:14)
[2017-08-05] MEDS: ATORVASTATIN 40 MG TAB PO SCH (08:49)
[2017-08-05] MEDS: PANTOPRAZOLE SOD 40 MG DELAYED RELEASE TAB PO SCH (08:49)
[2017-08-05] MEDS: ASPIRIN 81 MG CHEW TAB CHEW SCH (08:50)
[2017-08-05] MEDS: SODIUM CHLORIDE 0.9% FLUSH 10 ML FLUSH IV FLUSH SCH ×2 (08:52→21:14)
--- NOTE | 2017-08-05 12:00 | HHI.PR ---
Subjective Remarks Follow-up unstable angina/multivessel disease 08/03/17-patient seen and examined, denies any chest pain or shortness of breath. Family by the bedside. 08/04/17-patient seen and examined had no complaint and stable. 08/05/17-patient seen and examined, denies any chest pain or shortness of breath. Plan for CABG 08/06/17 Objective Vitals Vital Signs Date Time Temp Pulse Resp B/P (MAP) Pulse Ox O2 Delivery O2 Flow Rate FiO2 08/05/17 10:00 70 08/05/17 09:00 66 08/05/17 08:00 76 08/05/17 07:30 97.8 66 19 157/70 (99) 93 08/05/17 07:30 95 Room Air 08/05/17 07:00 76 08/05/17 06:04 100 08/05/17 05:00 68 08/05/17 04:00 67 08/05/17 03:20 96 Nasal Cannula 2.00 08/05/17 03:00 67 08/05/17 02:00 65 08/05/17 01:30 98.1 76 18 103/56 (72) 96 08/05/17 00:00 96 Nasal Cannula 2.00 08/04/17 22:00 98.1 60 18 113/63 (80) 96 08/04/17 20:00 96 Nasal Cannula 2.00 08/04/17 18:00 68 08/04/17 17:00 66 08/04/17 16:09 79 08/04/17 15:25 95 Room Air 08/04/17 15:24 98.1 76 19 105/60 (75) 95 08/04/17 15:00 69 08/04/17 14:00 62 08/04/17 13:00 72 I/O 08/04/17 08/04/17 08/04/17 08/05/17 08/05/17 08/05/17 07:00 15:00 23:00 07:00 15:00 23:00 Intake Total 240 ml 940 ml 240 ml Output Total 400 ml 1125 ml 700 ml Balance -160 ml -185 ml -460 ml Intake Oral 240 ml 940 ml 240 ml Output Urine Total 400 ml 1125 ml 700 ml # Bowel Movements 1 Result Diagram: 08/05/17 0451 08/03/17 0630 Objective Remarks GENERAL: NAD SKIN: Warm and dry. HEAD: Normocephalic. EYES: No scleral icterus. No injection or drainage. NECK: Supple, trachea midline. No JVD or lymphadenopathy. CARDIOVASCULAR: Regular rate and rhythm without murmurs, gallops, or rubs. RESPIRATORY: Breath sounds equal bilaterally. No accessory muscle use. GASTROINTESTINAL: Abdomen soft, non-tender, nondistended. MUSCULOSKELETAL: No cyanosis, or edema. BACK: Nontender without obvious deformity. No CVA tenderness. A/P Problem List: (1) Multi-vessel coronary artery stenosis ICD Code: I25.10 - Atherosclerotic heart disease of [place] coronary artery without angina pectoris (2) Unstable angina ICD Code: I20.0 - Unstable angina Assessment and Plan 87 year-old man with Unstable angina Status post left heart catheterization with finding of multivessel disease Currently on heparin drip, beta lance, aspirin, GEO inhibitor, statin Multivessel coronary artery stenosis CTS consulted and plan for CABG 08/06/17 Continue with above treatment DVT prophylaxis: Heparin Alex Strickland MD Aug 05, 2017 12:00
--- NOTE | 2017-08-05 12:48 | PD.CAR.PN ---
CVT Progress Note Subjective/Hospital Course: 87-year-old male patient of Dr. Kush Lawrence, Dr. Brandon Parks, history of having some dizziness and lightheadedness for the last 3 weeks, some presyncope episodes, also preceded all the time by shortness of breath, which he has noticed more progressively over the past 1 month. The shortness of breath occurs with minimal exertion. He normally is very active. He walks about 3-4 miles, but back in January he purchased a mobile home and has been repairing that, but has been unable to do so secondary to the shortness of breath. He has a history of some mild aortic stenosis. Therefore, he underwent cardiac catheterization today to evaluate the valve further which showed a 10% stenosis in the left main, proximal LAD 95%, mid distal 70%, diagonal 80%, the circumflex is 90%, ejection fraction 58%. PA pressure is 46/ 20 with a wedge pressure of 12. Cardiac output of 5.2. Aortic valve area of 1.35. We were consulted to evaluate for coronary artery bypass grafting. 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 He has had a history of a stroke in the past with some residual oral paresthesias, paroxysmal ventricular tachycardia. 08/05 doing well, no chest pain plan for surgery in am Objective: GENERAL: SKIN: Warm and dry. HEAD: Normocephalic. EYES: No scleral icterus. No injection or drainage. NECK: Supple, trachea midline. No JVD or lymphadenopathy. CARDIOVASCULAR: Regular rate and rhythm without murmurs, gallops, or rubs. RESPIRATORY: Breath sounds equal bilaterally. No accessory muscle use. GASTROINTESTINAL: Abdomen soft, non-tender, nondistended. MUSCULOSKELETAL: No cyanosis, or edema. BACK: Nontender without obvious deformity. No CVA tenderness. Vital Signs Date Time Temp Pulse Resp B/P (MAP) Pulse Ox O2 Delivery O2 Flow Rate FiO2 08/05/17 10:00 70 08/05/17 09:00 66 08/05/17 08:00 76 08/05/17 07:30 97.8 66 19 157/70 (99) 93 08/05/17 07:30 95 Room Air 08/05/17 07:00 76 08/05/17 06:04 100 08/05/17 05:00 68 08/05/17 04:00 67 08/05/17 03:20 96 Nasal Cannula 2.00 08/05/17 03:00 67 08/05/17 02:00 65 08/05/17 01:30 98.1 76 18 103/56 (72) 96 08/05/17 00:00 96 Nasal Cannula 2.00 08/04/17 22:00 98.1 60 18 113/63 (80) 96 08/04/17 20:00 96 Nasal Cannula 2.00 08/04/17 18:00 68 08/04/17 17:00 66 08/04/17 16:09 79 08/04/17 15:25 95 Room Air 08/04/17 15:24 98.1 76 19 105/60 (75) 95 08/04/17 15:00 69 08/04/17 14:00 62 08/04/17 13:00 72 Labs: Laboratory Tests Test 08/05/17 04:51 White Blood Count 5.6 TH/MM3 (4.0-11.0) Red Blood Count 4.23 MIL/MM3 (4.50-5.90) Hemoglobin 14.6 GM/DL (13.0-17.0) Hematocrit 42.6 % (39.0-51.0) Mean Corpuscular Volume 100.6 FL (80.0-100.0) Mean Corpuscular Hemoglobin 34.5 PG (27.0-34.0) Mean Corpuscular Hemoglobin Concent 34.3 % (32.0-36.0) Red Cell Distribution Width 16.3 % (11.6-17.2) Platelet Count 73 TH/MM3 (150-450) Mean Platelet Volume 8.8 FL (7.0-11.0) Activated Partial Thromboplast Time 66.0 SEC (24.3-30.1) Result Diagram: 08/05/17 0451 08/03/17 0630 (1) Hx of ventricular tachycardia (2) History of CVA (cerebrovascular accident) (3) Artificial cardiac pacemaker (4) Unstable angina (5) Multi-vessel coronary artery stenosis Juanita Cohen Aug 05, 2017 12:48
--- NOTE | 2017-08-05 12:48 | PD.CARD.PN ---
Subjective Subjective Remarks Doing well No chest pain No bleeding Objective Medications Current Medications Medications (Trade) Dose Ordered Sig/Cody Route Start Time Stop Time Status Last Admin (Atropine Inj) 0.5 mg UNSCH PRN IV PUSH 08/02/17 12:15 (Zofran Inj) 4 mg Q4H PRN IV PUSH 08/02/17 12:15 (Aspirin Chew) 81 mg DAILY CHEW 08/03/17 09:00 (Lopressor) 50 mg BID PO 08/02/17 21:00 08/05/17 08:49 (Protonix) 40 mg DAILY PO 08/03/17 09:00 08/05/17 08:49 (Lipitor) 40 mg DAILY PO 08/03/17 09:00 08/05/17 08:49 (Heparin Inj) 5,000 units UNSCH PRN IV PUSH 08/02/17 23:30 (Heparin Inj) 2,500 units UNSCH PRN IV PUSH 08/02/17 23:30 Heparin Sodium/ Dextrose 250 ml @ 8 mls/hr TITRATE PRN IV 08/02/17 17:30 08/04/17 22:05 (NS Flush) 2 ml BID IV FLUSH 08/02/17 21:00 08/05/17 08:52 (NS Flush) 2 ml UNSCH PRN IV FLUSH 08/02/17 17:45 08/05/17 08:52 Papaverine HCl 60 mg/Nitroglycerin 100 mcg/Diltiazem HCl 100 mg/Sodium Chloride 100 ml @ 0 mls/hr DISPATCHER RELAY IRRIGATION 08/02/17 17:45 08/09/17 17:44 Cefazolin Sodium 500 mg/Sodium Chloride 505 ml @ 0 mls/hr DISPATCHER RELAY IRRIGATION 08/02/17 17:45 08/09/17 17:44 Cefazolin Sodium/ Dextrose 50 ml @ 150 mls/hr DISPATCHER RELAY IV 08/02/17 17:45 08/09/17 17:44 (Lopressor) 12.5 mg DISPATCHER RELAY PO 08/02/17 17:45 08/09/17 17:44 (Hibiclens 4% Top Soln) 1 applic DISPATCHER RELAY TOPICAL 08/02/17 17:45 08/09/17 17:44 Insulin Human Regular 100 units/ Sodium Chloride 100 ml @ 3 mls/hr TITRATE PRN IV 08/02/17 17:45 08/09/17 17:44 (D50w (Vial) Inj) 50 ml UNSCH PRN IV PUSH 08/02/17 17:45 Vital Signs / I&O Vital Signs Date Time Temp Pulse Resp B/P (MAP) Pulse Ox O2 Delivery O2 Flow Rate FiO2 08/05/17 10:00 70 08/05/17 09:00 66 08/05/17 08:00 76 08/05/17 07:30 97.8 66 19 157/70 (99) 93 08/05/17 07:30 95 Room Air 08/05/17 07:00 76 08/05/17 06:04 100 08/05/17 05:00 68 08/05/17 04:00 67 08/05/17 03:20 96 Nasal Cannula 2.00 08/05/17 03:00 67 08/05/17 02:00 65 08/05/17 01:30 98.1 76 18 103/56 (72) 96 08/05/17 00:00 96 Nasal Cannula 2.00 08/04/17 22:00 98.1 60 18 113/63 (80) 96 08/04/17 20:00 96 Nasal Cannula 2.00 08/04/17 18:00 68 08/04/17 17:00 66 08/04/17 16:09 79 08/04/17 15:25 95 Room Air 08/04/17 15:24 98.1 76 19 105/60 (75) 95 08/04/17 15:00 69 08/04/17 14:00 62 08/04/17 13:00 72 I/O 08/04/17 08/04/17 08/04/17 08/05/17 08/05/17 08/05/17 07:00 15:00 23:00 07:00 15:00 23:00 Intake Total 240 ml 940 ml 240 ml Output Total 400 ml 1125 ml 700 ml Balance -160 ml -185 ml -460 ml Intake Oral 240 ml 940 ml 240 ml Output Urine Total 400 ml 1125 ml 700 ml # Bowel Movements 1 Physical Exam GENERAL: NAD, AAOx3 SKIN: Warm and dry. HEAD: Atraumatic. Normocephalic. EYES: Pupils equal and round. No scleral icterus. No injection or drainage. ENT: No nasal bleeding or discharge. Mucous membranes pink and moist. NECK: Trachea midline. No JVD. CARDIOVASCULAR: Regular rate and rhythm. RESPIRATORY: No accessory muscle use. Clear to auscultation. Breath sounds equal bilaterally. GASTROINTESTINAL: Abdomen soft, non-tender, nondistended. Hepatic and splenic margins not palpable. MUSCULOSKELETAL: Extremities without clubbing, cyanosis, or edema. No obvious deformities. NEUROLOGICAL: Awake and alert. No obvious cranial nerve deficits. Motor grossly within normal limits. Five out of 5 muscle strength in the arms and legs. Normal speech. PSYCHIATRIC: Appropriate mood and affect; insight and judgment normal. Laboratory Laboratory Tests Test 08/05/17 04:51 White Blood Count 5.6 TH/MM3 Red Blood Count 4.23 MIL/MM3 Hemoglobin 14.6 GM/DL Hematocrit 42.6 % Mean Corpuscular Volume 100.6 FL Mean Corpuscular Hemoglobin 34.5 PG Mean Corpuscular Hemoglobin Concent 34.3 % Red Cell Distribution Width 16.3 % Platelet Count 73 TH/MM3 Mean Platelet Volume 8.8 FL Activated Partial Thromboplast Time 66.0 SEC Assessment and Plan Problem List: (1) Multi-vessel coronary artery stenosis ICD Codes: I25.10 - Atherosclerotic heart disease of [place] coronary artery without angina pectoris (2) Unstable angina ICD Codes: I20.0 - Unstable angina Assessment and Plan 1) CAD/[place] MVCAD for possible CABG tomorrow Con't heparin drip 2) SOB leading to syncope Most likely anginal equivalent 3) Thrombocytopenia Con't on heparin drip No bleeding Evaristo Potts DO Aug 05, 2017 12:48
[2017-08-06] VITALS (17 sets, daily range): BP systolic 92–145; BP diastolic 50–76; PULSE 60–95; RESP 12–18; TEMP 94–98.7; O2SAT 93–98
[2017-08-06] MEDS ORDERED: ceFAZolin 2 GM PREMIX 50 ML ONE (06:22)
[2017-08-06] MEDS ORDERED: VANCOMYCIN HCL 1000 MG VIAL ONE (06:22)
[2017-08-06] MEDS ORDERED: HEPARIN SODIUM - SQ 10,000 UNITS/ML VIAL ONE ×2 (06:22)
[2017-08-06] MEDS ORDERED: methylPREDNISolone SOD SUCC 125 MG/2 ML VIAL ONE (06:22)
[2017-08-06] MEDS ORDERED: SUGAMMADEX SODIUM 200 MG/2 ML VIAL IV PUSH ONE (06:51)
[2017-08-06] MEDS ORDERED: ACETAMINOPHEN 1000 MG/100 ML 100 ML IV ONE (06:52)
[2017-08-06] MEDS ORDERED: fentaNYL CITRATE 250 MCG/5 ML AMP ONE (06:52)
[2017-08-06] MEDS ORDERED: MIDAZOLAM HCL 5 MG/5 ML VIAL ONE (06:52)
[2017-08-06] MEDS ORDERED: CARDIOPLEGIC IRR 2,000 ML ONE (07:28)
[2017-08-06] MEDS ORDERED: HEPARIN SODIUM - IV 10,000 UNITS/10 ML VIAL ONE (07:29)
[2017-08-06] MEDS ORDERED: POTASSIUM CHLORIDE 20 MEQ/10 ML VIAL ONE (07:29)
[2017-08-06] MEDS ORDERED: SODIUM BICARBONATE 8.4% INJ 50 ML ONE (07:29)
[2017-08-06] MEDS ORDERED: MANNITOL INJ 100 ML ONE (07:29)
[2017-08-06] MEDS ORDERED: ALBUMIN 25% INJ 50 ML IV ONE (07:30)
[2017-08-06] MEDS ORDERED: CALCIUM CHLORIDE 10% SOLN 1 GRAM/10 ML SYR ONE (07:30)
[2017-08-06] MEDS: ceFAZolin 2 GM PREMIX 50 ML IV SCH ×2 (08:10→10:10)
[2017-08-06] MEDS: ATORVASTATIN 40 MG TAB PO SCH (09:00)
[2017-08-06] MEDS: SODIUM CHLORIDE 0.9% FLUSH 10 ML FLUSH IV FLUSH SCH ×2 (09:00→21:00)
[2017-08-06] MEDS: PANTOPRAZOLE SOD 40 MG DELAYED RELEASE TAB PO SCH (09:00)
[2017-08-06] MEDS ORDERED: PROTAMINE SULFATE 50 MG/5 ML VIAL ONE (09:42)
[2017-08-06] MEDS ORDERED: ceFAZolin INJ 1,000 MG VIAL ONE (09:43)
--- NOTE | 2017-08-06 10:09 | RSPPFT ---
DATE OF PROCEDURE: 08/02/17 COMMENTS: VOLUMES DYNAMIC: FVC and FEV1 normal. FLOWS: FEV1% and FEF 25-75 normal. IMPRESSION: This is normal simple spirometry.
--- NOTE | 2017-08-06 11:44 | RSPPFT ---
DATE OF PROCEDURE: 08/02/17 COMMENTS: VOLUMES DYNAMIC: FVC and FEV1 normal. FLOWS: FEV1% and FEF 25-75 normal. IMPRESSION: This is normal simple spirometry.
[2017-08-06] MEDS ORDERED: MAGNESIUM SULFATE 1 GM/2 ML VIAL IV ONE (12:00)
[2017-08-06] MEDS ORDERED: TRANEXAMIC ACID INJ 1,000 MG/10 ML AMP IV ONE (12:00)
[2017-08-06] MEDS ORDERED: NITROGLYCERIN 50 MG/DEXTROSE 5% SOLN 250 ML BTL IV ONE (12:00)
[2017-08-06] MEDS ORDERED: SODIUM CHLOR 0.9% 250 ML INJ 1,000 ML IV ONE (12:00)
[2017-08-06] MEDS ORDERED: VECURONIUM BROMIDE 10 MG VIAL IV ONE (12:00)
[2017-08-06] MEDS ORDERED: ARTIFICIAL TEARS OPTH OINT 3.5 APPLIC/3.5 GM TUBO EACH EYE ONE (12:00)
[2017-08-06] MEDS ORDERED: NS 100 ML (PAB BAG) 300 ML IV ONE (12:00)
[2017-08-06] MEDS ORDERED: PHENYLEPHRINE HCL 10 MG/ML VIAL IV ONE (12:00)
[2017-08-06] MEDS ORDERED: LACTATED RINGER'S 1000 ML INJ 3,000 ML IV ONE (12:00)
[2017-08-06] MEDS ORDERED: PHENYLEPH/NS 1000 MCG/10 ML SYR IV ONE (12:00)
[2017-08-06] MEDS ORDERED: DEXMEDETOMIDINE HCL 200 MCG/2 ML VIAL IV ONE (12:00)
[2017-08-06] MEDS ORDERED: NORMOSOL R INJ 2,000 ML IV ONE (12:00)
[2017-08-06] MEDS ORDERED: PROTAMINE SULFATE 50 MG/5 ML VIAL IV ONE (12:00)
[2017-08-06] MEDS ORDERED: HEPARIN SODIUM - SQ 10,000 UNITS/ML VIAL OTHER ONE (12:00)
[2017-08-06] MEDS ORDERED: SODIUM CHLORID 0.9% 500 ML INJ 500 ML IV ONE (12:00)
[2017-08-06] MEDS ORDERED: LIDOCAINE HCL 2% 100 MG/5 ML SYRINGE IV PUSH ONE (12:00)
[2017-08-06] MEDS ORDERED: LACTATED RINGER'S 1000 ML INJ 500 ML IV PRN (12:23)
[2017-08-06] MEDS ORDERED: POTASSIUM CHLOR 20 MEQ PREMIX 100 ML IV PRN ×2 (12:30)
[2017-08-06] MEDS ORDERED: METOPROLOL TARTRATE 5 MG/5 ML VIAL IV PUSH PRN (12:30)
[2017-08-06] MEDS ORDERED: ACETAMINOPHEN 325 MG TAB PO PRN (12:30)
[2017-08-06] MEDS ORDERED: CALCIUM CHLORIDE 10% 1 GRAM/10 ML VIAL IV PUSH PRN (12:30)
[2017-08-06] MEDS ORDERED: RESP: RACEPINEPHRINE 2.25% 0.5 ML NEB NEB PRN (12:30)
[2017-08-06] MEDS ORDERED: CALCIUM CHLORIDE INJ 1 GM in SODIUM CHLORIDE 0.9% INJ 100 ML IV PRN (12:30)
[2017-08-06] MEDS ORDERED: hydrALAZINE HCL 20 MG/ML VIAL IV PUSH PRN (12:30)
[2017-08-06] MEDS ORDERED: MAGNESIUM SULFATE INJ 2 GM in SODIUM CHLORIDE 0.9% INJ 100 ML IV PRN ×4 (12:30)
[2017-08-06] MEDS ORDERED: ONDANSETRON HCL 4 MG/2 ML VIAL IV PUSH PRN (12:30)
[2017-08-06] MEDS ORDERED: DEXMEDETOMIDINE INJ 200 MCG in SODIUM CHLORIDE 0.9% INJ 50 ML IV PRN (12:30)
[2017-08-06] MEDS ORDERED: SODIUM BICARBONATE 8.4% SOLN 50 MEQ/50 ML VIAL IV PUSH PRN (12:30)
[2017-08-06] MEDS ORDERED: DEXTROSE 50% IN WATER 50 ML VIAL(D50) IV PUSH PRN (12:30)
[2017-08-06] MEDS ORDERED: CLEVIDIPINE INJ 50 ML IV PRN (12:30)
[2017-08-06] MEDS ORDERED: oxyCODONE/ACETAMINOPHEN 5 MG/325 MG TAB PO PRN (12:30)
[2017-08-06] MEDS ORDERED: POTASSIUM CHLORIDE 20 MEQ CONTROLLED RELEASE TAB PO PRN ×2 (12:30)
--- NOTE | 2017-08-06 12:40 | PD.OP ---
cc: Isa Medina MD; Evaristo Potts DO Operative Report Date of Surgery: Aug 06, 2017 Preoperative Diagnosis: (1) Unstable angina (2) Multi-vessel coronary artery stenosis Postoperative Diagnosis: same Procedure: CABG x 3 VILCHIS to LAD - fair SVG to D1 - good SVG to OM1 - fair EVH (R) Anesthesia: Dr. Askew Surgeon: Isa Medina Float Remover(s): CALI Mckeon Operation and Findings: The risks, benefits, complications, treatment options, and expected outcomes were discussed with the patient. The possibilities of reaction to medication, pulmonary aspiration, perforation of viscus, bleeding, recurrent infection, the need for additional procedures, failure to diagnose a condition, and creating a complication requiring transfusion or operation were discussed with the patient. The patient concurred with the proposed plan, giving informed consent. The site of surgery properly noted/marked. The patient was taken to Operating Room, identified as Steve Wilson and the procedure verified as CABG, EVH. A Time Out was held and the above information confirmed. Standard monitoring lines and Mckeon catheter were placed. General anesthesia was induced. The patient was prepped and draped in a sterile fashion. A median sternotomy was performed and electrocautery was used to obtain hemostasis. The left internal mammary artery was procured as a pedicle from the 7th rib to the 1st rib in the usual manner. Simultaneously right greater saphenous vein was procured from the right leg using a minimally invasive endoscopic technique. The vein was prepared for anastomosis and the leg wound was irrigated and closed in 2 layers. The pericardium was opened and a pericardial sling was created using interrupted 0 silk sutures. The patient was heparinized for cardiopulmonary bypass and the distal mammary pedicle was instrumented for anastomosis. The heart was instrumented for cardiopulmonary bypass in the usual manner. Antegrade blood cardioplegia was employed. The patient was placed on cardiopulmonary bypass. An aortic cross-clamp was applied and the heart was arrested using cold blood cardioplegia. Antegrade cardioplegia was administered after he each anastomosis. After adequate arrest, the distal right coronary circulation was investigated and was diffusely calcified with no graftable site. The OM1 was opened with a Quechan blade and found to be a 1 millimeter fair target. Saphenous vein was approximated to the OM1 artery using a running 7 0 Prolene suture. The graft was measured for length and orientation and the proximal anastomosis was constructed to the ascending aorta using a running 5 0 Prolene suture after creating an aortotomy with a 5 millimeter punch. The 1st diagonal artery was then opened with a Quechan blade and found to be a 1.5 millimeter good target. Saphenous vein was approximated to the D1 artery using a running 7 0 Prolene suture. The graft was measured for length and orientation and was suspended from the pericardium. The distal LAD was opened with a Quechan blade and found to be a 1.5 millimeter fair target. The left internal mammary artery was approximated to the LAD using a running 7 0 Prolene suture. The pedicle was attached to the epicardium using interrupted 5 0 silk suture. The patient was systemically rewarmed and received a hotshot dose of warm blood cardioplegia. The aorta was vented and the proximal anastomosis to the D1 graft was accomplished using a running 5 0 Prolene suture after creating an aortotomy was a 5 millimeter punch. The cross-clamp was removed and all proximal and distal anastomoses were examined for hemostasis. The patient was weaned from cardiopulmonary bypass. Protamine was given. There was no adverse reaction. Decannulation was carried out without incident. Wound was checked for hemostasis which was obtained using electrocautery. A 36 Yi mediastinal and 32 Yi left pleural chest tubes were placed and secured to the skin with 0 silk suture. The sternum was closed with stainless steel wire. The fascia was closed with 1. PDS. The subcutaneous tissue was closed using a running 2-0 Vicryl suture. The skin was closed with 4-0 Monocryl. Sterile dressings were placed. At the end of the operation, all sponge, instruments, and needle counts were correct. The patient was transferred to the CICU in stable condition. Findings: Diffuse CAD XC: 61 min CPB: 72 min Drains: mediastinal x 1 pleural x 1 Complications: none Disposition: to CVICU in stable condition Isa Medina MD Aug 06, 2017 12:40
[2017-08-06] MEDS ORDERED: Post-op Orders (for Pharmacy) OTHER ONE (13:08)
[2017-08-06] MEDS: INSULIN REGULAR (IV INFUSION) 100 UNITS in SODIUM CHLORIDE 0.9% INJ 99 ML IV PRN (13:13)
--- NOTE | 2017-08-06 13:50 | RADRPT ---
EXAM DATE/TIME: 08/06/2017 13:24 [facility] COMPARISON: CHEST SINGLE AP, August 02, 2017, 14:05. INDICATIONS : Post CABG. MEDICAL HISTORY : Cardiovascular disease. Hypertension Carcinoma, bladder. SURGICAL HISTORY : Pacemaker. ENCOUNTER: Initial ACUITY: 1 day PAIN SCORE: Non-responsive. LOCATION: Bilateral chest FINDINGS: Status post CABG. The support devices appear to be in place in good position. No evidence of pneumoth orax. Heart size within normal limits. There is a pacemaker on the left chest. The lungs are grossly clear. CONCLUSION: Satisfactory postoperative view of the chest. Harsh Ardon MD on August 06, 2017 at 13:48 Board Certified Radiologist. This report was verified electronically.
[2017-08-06] MEDS: ALBUMIN 5% INJ 250 ML IV PRN ×2 (14:00→19:45)
[2017-08-06] MEDS ORDERED: TERBUTALINE INJ 1 MG/ML AMP SQ PRN (15:00)
[2017-08-06] MEDS ORDERED: PHENYLEPHRINE 40 MG in D5W 500 ML IV PRN (15:00)
[2017-08-06] MEDS: SODIUM BICARBONATE 8.4% SOLN 50 MEQ/50 ML VIAL IV PUSH PRN (15:05)
[2017-08-06] MEDS ORDERED: CALCIUM CHLORIDE INJ 1 GM in SODIUM CHLORIDE 0.9% INJ 100 ML IV ONE (16:30)
[2017-08-06] MEDS: RESP: ALBUTEROL 2.5 MG/IPRATROPIUM 0.5 MG NEB (PRN) NEB ×2 (17:09→23:16)
--- NOTE | 2017-08-06 17:10 | PD.CARD.PN ---
Subjective Subjective Remarks Post CABG Just extubated Objective Medications Current Medications Medications (Trade) Dose Ordered Sig/Cody Route Start Time Stop Time Status Last Admin (Atropine Inj) 0.5 mg UNSCH PRN IV PUSH 08/02/17 12:15 (Protonix) 40 mg DAILY PO 08/03/17 09:00 08/05/17 08:49 (Lipitor) 40 mg DAILY PO 08/03/17 09:00 08/05/17 08:49 (NS Flush) 2 ml BID IV FLUSH 08/02/17 21:00 08/05/17 21:14 (NS Flush) 2 ml UNSCH PRN IV FLUSH 08/02/17 17:45 08/05/17 08:52 Papaverine HCl 60 mg/Nitroglycerin 100 mcg/Diltiazem HCl 100 mg/Sodium Chloride 100 ml @ 0 mls/hr RV SERVICE TECHNICIAN IRRIGATION 08/02/17 17:45 08/09/17 17:44 08/06/17 10:18 Cefazolin Sodium 500 mg/Sodium Chloride 505 ml @ 0 mls/hr RV SERVICE TECHNICIAN IRRIGATION 08/02/17 17:45 08/09/17 17:44 08/06/17 10:12 (Lopressor) 12.5 mg RV SERVICE TECHNICIAN PO 08/02/17 17:45 08/09/17 17:44 08/06/17 04:53 (Hibiclens 4% Top Soln) 1 applic RV SERVICE TECHNICIAN TOPICAL 08/02/17 17:45 08/09/17 17:44 08/06/17 05:17 Dexmedetomidine HCl 200 mcg/ Sodium Chloride 52 ml @ 3.64 mls/hr TITRATE PRN IV 08/06/17 12:30 Clevidipine 50 ml @ 2 mls/hr TITRATE PRN IV 08/06/17 12:30 Albumin Human 250 ml @ 250 mls/hr UNSCH PRN IV 08/06/17 12:30 08/06/17 14:00 Lactated Ringer's 500 ml @ 500 mls/hr Q1H PRN IV 08/06/17 12:23 Cefazolin Sodium 1000 mg/Sodium Chloride 100 ml @ 200 mls/hr Q8H IV 08/06/17 18:00 08/08/17 02:29 (Aspirin Chew) 81 mg DAILY PO 08/07/17 09:00 (Tylenol) 650 mg Q4H PRN PO 08/06/17 12:30 Acetaminophen 100 ml @ 400 mls/hr Q6H IV 08/06/17 17:00 08/07/17 11:14 (Percocet 5-325 Mg) 1 tab Q3H PRN PO 08/06/17 12:30 (fentaNYL INJ) 25 mcg Q1H PRN IV PUSH 08/06/17 12:30 (Zofran Inj) 4 mg Q6H PRN IV PUSH 08/06/17 12:30 (Apresoline Inj) 10 mg Q4H PRN IV PUSH 08/06/17 12:30 (Lopressor Inj) 2.5 mg Q1H PRN IV PUSH 08/06/17 12:30 Potassium Chloride 100 ml @ 50 mls/hr UNSCH PRN IV 08/06/17 12:30 Potassium Chloride 100 ml @ 50 mls/hr UNSCH PRN IV 08/06/17 12:30 (KCl) 20 meq UNSCH PRN PO 08/06/17 12:30 (KCl) 40 meq UNSCH PRN PO 08/06/17 12:30 Magnesium Sulfate 2 gm/Sodium Chloride 104 ml @ 100 mls/hr UNSCH PRN IV 08/06/17 12:30 Magnesium Sulfate 2 gm/Sodium Chloride 104 ml @ 50 mls/hr UNSCH PRN IV 08/06/17 12:30 Calcium Chloride 1 gm/Sodium Chloride 110 ml @ 100 mls/hr UNSCH PRN IV 08/06/17 12:30 08/06/17 14:00 (Calcium Chloride Inj) 0.5 gm UNSCH PRN IV PUSH 08/06/17 12:30 Insulin Human Regular 100 units/ Sodium Chloride 100 ml @ 3 mls/hr TITRATE PRN IV 08/06/17 12:30 08/06/17 13:13 (D50w (Vial) Inj) 50 ml UNSCH PRN IV PUSH 08/06/17 12:30 (Sodium Bicarbonate 8.4% Inj) 50 meq UNSCH PRN IV PUSH 08/06/17 12:30 08/06/17 15:05 (Sodium Bicarbonate 8.4% Inj) 100 meq UNSCH PRN IV PUSH 08/06/17 12:30 08/06/17 15:05 (Duoneb Neb) 1 ampule Q2HR NEB PRN NEB 08/06/17 12:30 (Racepinephrine 2.25% Neb) 0.5 ml UNSCH X1 PRN NEB 08/06/17 12:30 08/07/17 12:29 Phenylephrine HCl 40 mg/Dextrose 500 ml @ 30 mls/hr TITRATE PRN IV 08/06/17 15:00 (Brethine Inj) 1 mg UNSCH PRN SQ 08/06/17 15:00 Calcium Chloride 1 gm/Sodium Chloride 110 ml @ 110 mls/hr NOW ONCE IV 08/06/17 16:30 08/06/17 17:29 Vital Signs / I&O Vital Signs Date Time Temp Pulse Resp B/P (MAP) Pulse Ox O2 Delivery O2 Flow Rate FiO2 08/06/17 16:39 96 Nasal Cannula 4.00 08/06/17 16:39 96 Nasal Cannula 4 08/06/17 15:24 98 40 08/06/17 15:00 94.0 80 12 123/75 (91) 96 08/06/17 15:00 94.0 08/06/17 15:00 80 08/06/17 13:16 97 50 08/06/17 13:15 08/06/17 13:13 88 08/06/17 13:13 97.1 88 13 109/70 (83) 98 08/06/17 06:00 62 08/06/17 05:00 66 08/06/17 04:00 94 Room Air 08/06/17 04:00 65 08/06/17 04:00 98.7 73 16 145/76 (99) 94 08/06/17 03:00 64 08/06/17 02:00 65 08/06/17 01:00 63 08/06/17 00:00 60 08/05/17 23:00 99.0 67 16 112/66 (81) 96 08/05/17 23:00 62 08/05/17 23:00 96 Room Air 08/05/17 22:00 64 08/05/17 21:00 72 08/05/17 20:00 74 08/05/17 20:00 93 Room Air 08/05/17 20:00 98.0 72 18 105/62 (76) 93 08/05/17 19:00 84 I/O 08/05/17 08/05/17 08/05/17 08/06/17 08/06/1718 07:00 15:00 23:00 07:00 15:00 23:00 Intake Total 240 ml 540 ml 480 ml 4650 ml 100 ml Output Total 700 ml 450 ml 825 ml 1550 ml Balance -460 ml 90 ml -345 ml 3100 ml 100 ml Intake Oral 240 ml 540 ml 480 ml IV Total 350 ml 100 ml Autotransfusion 500 ml Other 3800 ml Output Urine Total 700 ml 450 ml 825 ml 550 ml Estimated Blood Loss 1000 ml # Bowel Movements 1 Physical Exam GENERAL: NAD SKIN: Warm and dry. HEAD: Atraumatic. Normocephalic. EYES: Pupils equal and round. No scleral icterus. No injection or drainage. ENT: No nasal bleeding or discharge. Mucous membranes pink and moist. NECK: Trachea midline. No JVD. CARDIOVASCULAR: Regular rate and rhythm. RESPIRATORY: No accessory muscle use. Decreased breath sounds bilaterally GASTROINTESTINAL: Abdomen soft, non-tender, nondistended. Hepatic and splenic margins not palpable. MUSCULOSKELETAL: Extremities without clubbing, cyanosis, or edema. No obvious deformities. NEUROLOGICAL: No focal deficits noted Imaging Last 24 hours Impressions Chest X-Ray 08/06/17 0000 Signed Impressions: Service Date/Time: Sunday, August 06, 2017 13:24 - CONCLUSION: Satisfactory postoperative view of the chest. Harsh Ardon MD Assessment and Plan Problem List: (1) Hx of ventricular tachycardia ICD Codes: Z86.79 - Personal history of other diseases of the circulatory system (2) History of CVA (cerebrovascular accident) ICD Codes: Z86.73 - Personal history of transient ischemic attack (TIA), and cerebral infarction without residual deficits (3) Artificial cardiac pacemaker ICD Codes: Z95.0 - Presence of cardiac pacemaker (4) Unstable angina ICD Codes: I20.0 - Unstable angina (5) Multi-vessel coronary artery stenosis ICD Codes: I25.10 - Atherosclerotic heart disease of [place] coronary artery without angina pectoris Assessment and Plan 1) CAD/[place] s/p CABGx3 POD #0 VILCHIS to LAD SVG to D1 SVG to OM1 2) SOB leading to syncope Most likely anginal equivalent 3) ASA/Statin Eventually restart Evaristo Adkins DO Aug 06, 2017 17:10
[2017-08-06] MEDS: ACETAMINOPHEN 1000 MG/100 ML 100 ML IV SCH ×2 (18:04→23:02)
[2017-08-07] VITALS (9 sets, daily range): BP systolic 61–136; BP diastolic 24–78; PULSE 92–122; RESP 16–23; TEMP 98–98.8; O2SAT 94–99
[2017-08-07] MEDS: RESP: ALBUTEROL 2.5 MG/IPRATROPIUM 0.5 MG NEB (SCH) NEB ×4 (03:02→19:20)
[2017-08-07 04:43] LABS: HEMATOCRIT 30.1 % (39.0-51.0); HEMOGLOBIN 10.2 GM/DL (13.0-17.0); MEAN CELL VOLUME 102.1 FL (80.0-100.0); MEAN CORPUSCULAR HEMOGLOBIN 34.8 PG (27.0-34.0); MEAN PLATELET VOLUME 8.8 FL (7.0-11.0); PLATELET COUNT 72 TH/MM3 (150-450); RED BLOOD COUNT 2.95 MIL/MM3 (4.50-5.90); RED CELL DISTRIBUTION WIDTH 16.4 % (11.6-17.2); WHITE BLOOD COUNT 17.4 TH/MM3 (4.0-11.0)
[2017-08-07] MEDS: ACETAMINOPHEN 1000 MG/100 ML 100 ML IV SCH ×2 (05:00→10:55)
--- NOTE | 2017-08-07 05:06 | RADRPT ---
EXAM DATE/TIME: 08/07/2017 03:25 [facility] COMPARISON: CHEST SINGLE AP, August 06, 2017, 13:24. INDICATIONS : Post CABG MEDICAL HISTORY : Hypertension. Cardiovascular disease. Carcinoma, bladder. SURGICAL HISTORY : Pacemaker. ENCOUNTER: Subsequent ACUITY: 2 days PAIN SCORE: Non-responsive. LOCATION: Bilateral chest FINDINGS: Right internal jugular catheter tip projects over the distal superior vena cava. Cardiac pacer leads in place. No focal areas of consolidation or infiltrate. The heart is normal size. CONCLUSION: The lungs are clear. Jorje Alberto MD on August 07, 2017 at 5:04 Board Certified Radiologist. This report was verified electronically.
[2017-08-07] MEDS ORDERED: SODIUM BICARBONATE 8.4% SOLN 50 MEQ/50 ML VIAL IV SCH (05:10)
[2017-08-07 05:12] LABS: BICARBONATE 21.7 MEQ/L (21.0-32.0); CALCIUM 8.5 MG/DL (8.5-10.1); CREATININE 1.34 MG/DL (0.60-1.30); MAGNESIUM 2.3 MG/DL (1.5-2.5)
[2017-08-07] MEDS: SODIUM BICARBONATE 8.4% SOLN 50 MEQ/50 ML VIAL IV PUSH PRN (05:37)
[2017-08-07] MEDS ORDERED: CALCIUM CHLORIDE INJ 1 GM in SODIUM CHLORIDE 0.9% INJ 100 ML IV SCH (06:00)
[2017-08-07] MEDS ORDERED: SODIUM BICARBONATE 8.4% INJ 50 MEQ/50 ML SYR IV PUSH ONE ×2 (08:00→13:45)
--- NOTE | 2017-08-07 08:02 | PD.CAR.PN ---
CVT Progress Note CVT: POD #: 1 Subjective/Hospital Course: 87-year-old male patient of Dr. Kush Lawrence, Dr. Brandon Parks, history of having some dizziness and lightheadedness for the last 3 weeks, some presyncope episodes, also preceded all the time by shortness of breath, which he has noticed more progressively over the past 1 month. The shortness of breath occurs with minimal exertion. He normally is very active. He walks about 3-4 miles, but back in January he purchased a mobile home and has been repairing that, but has been unable to do so secondary to the shortness of breath. He has a history of some mild aortic stenosis. Therefore, he underwent cardiac catheterization today to evaluate the valve further which showed a 10% stenosis in the left main, proximal LAD 95%, mid distal 70%, diagonal 80%, the circumflex is 90%, ejection fraction 58%. PA pressure is 46/ 20 with a wedge pressure of 12. Cardiac output of 5.2. Aortic valve area of 1.35. We were consulted to evaluate for coronary artery bypass grafting. 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 He has had a history of a stroke in the past with some residual oral paresthesias, paroxysmal ventricular tachycardia. 08/05 doing well, no chest pain plan for surgery in am 08/07/17 No complaints. Denies any pain. Metabolic acidosis overnight with intermittent hypotension. Objective: Vital Signs Date Time Temp Pulse Resp B/P (MAP) Pulse Ox O2 Delivery O2 Flow Rate FiO2 08/07/17 05:25 100 124/61 08/07/17 05:15 103 121/59 08/07/17 05:00 101 122/61 08/07/17 04:00 108 104/65 08/07/17 03:40 106 111/58 08/07/17 03:00 98.2 103 16 96/58 (71) 94 118/61 (80) 08/07/17 03:00 93 Nasal Cannula 4.00 08/07/17 03:00 92 08/06/17 23:18 96 Nasal Cannula 4.00 08/06/17 23:00 92 08/06/17 23:00 97.5 93 16 93/62 (72) 96 104/55 (71) 08/06/17 21:32 96 60/45 08/06/17 21:00 97 Nasal Cannula 4.00 08/06/17 20:13 93 Nasal Cannula 5.00 08/06/17 20:00 96 Nasal Cannula 5.00 08/06/17 19:00 97.8 95 18 104/68 (80) 96 92/50 (64) 08/06/17 19:00 84 08/06/17 18:00 97.7 08/06/17 16:39 93 Nasal Cannula 5.00 08/06/17 16:39 50 08/06/17 16:39 96 Nasal Cannula 4.00 08/06/17 16:39 96 Nasal Cannula 4 08/06/17 15:24 98 40 08/06/17 15:00 94.0 80 12 123/75 (91) 96 08/06/17 15:00 94.0 08/06/17 15:00 80 08/06/17 13:16 97 50 08/06/17 13:15 08/06/17 13:13 88 08/06/17 13:13 50 08/06/17 13:13 97.1 88 13 109/70 (83) 98 Labs: Laboratory Tests Test 08/07/17 04:00 White Blood Count 17.4 TH/MM3 (4.0-11.0) Red Blood Count 2.95 MIL/MM3 (4.50-5.90) Hemoglobin 10.2 GM/DL (13.0-17.0) Hematocrit 30.1 % (39.0-51.0) Mean Corpuscular Volume 102.1 FL (80.0-100.0) Mean Corpuscular Hemoglobin 34.8 PG (27.0-34.0) Mean Corpuscular Hemoglobin Concent 34.0 % (32.0-36.0) Red Cell Distribution Width 16.4 % (11.6-17.2) Platelet Count 72 TH/MM3 (150-450) Mean Platelet Volume 8.8 FL (7.0-11.0) Blood Urea Nitrogen 25 MG/DL (7-18) Creatinine 1.34 MG/DL (0.60-1.30) Random Glucose 121 MG/DL (74-106) Calcium Level 8.5 MG/DL (8.5-10.1) Magnesium Level 2.3 MG/DL (1.5-2.5) Sodium Level 145 MEQ/L (136-145) Potassium Level 4.6 MEQ/L (3.5-5.1) Chloride Level 110 MEQ/L (98-107) Carbon Dioxide Level 21.7 MEQ/L (21.0-32.0) Anion Gap 13 MEQ/L (5-15) Estimat Glomerular Filtration Rate 50 ML/MIN (>89) Result Diagram: 08/07/1739908/07/17399 Imaging: Last 24 hours Impressions Chest X-Ray 08/07/17499 Signed Impressions: Service Date/Time: Monday, August 07, 2017 03:25 - CONCLUSION: The lungs are clear. Jorje Alberto MD Cardiovascular: RRR Telemetry: NSR Pulmonary: Few crackles bilat GI/: Decreased BS, NT Incision: dry and intact CT: ~220ml/12hrs Plan: Monitor GEM - correct acid-base status Up to chair, ambulate Critical Care consult Continue chest tubes Continue Mckeon secondary to increase creatinine NO beta lance today D/C LIV drip Will not transfer from ICU today. STAT ECHO (1) Hx of ventricular tachycardia (2) History of CVA (cerebrovascular accident) (3) Artificial cardiac pacemaker (4) Unstable angina (5) Multi-vessel coronary artery stenosis Isa Medina MD Aug 07, 2017 08:02
--- NOTE | 2017-08-07 08:11 | PD.CONS ---
[facility] Service Critical Care Medicine Consult Requested By Dr. Vela Reason for Consult Hypotension/cardiogenic shock Lactic acidosis Acute Kidney injury Leukocytosis s/p CABG x3 Multi-vessel CAD RV dilation/dysfunction on echo Primary Care Physician Non-Staff History of Present Illness Patient is a 87-year-old male patient who was admitted to Dr. Potts service with a diagnosis of unstable angina. He underwent cardiac catheterization which showed proximal LAD 95%, mid distal 70%, diagonal 80%, the circumflex is 90%, ejection fraction 58%. MARCELLO 1.35. CTS was consulted and patient underwent coronary artery bypass grafting x3 on 08/06/17 (CABG x 3, VILCHIS to LAD, SVG to D1 , SVG to OM1) Postop patient was extubated 08/06, but overnight patient was intermittently hypotensive required Eyal-Synephrine to maintain map about 65. Also increasing metabolic acidosis,GEM labs showed lactic acidosis of 6.9. Critical care medicine was consulted for worsening shock. On my evaluation patient is sitting up in the cardiac chair slightly tachypneic. He is getting 2 Amps of bicarb per Dr. Vela. At this time he is off Eyal-Synephrine but the blood pressure is trending down, with MAP 59-60. I have ordered 500 mL of fluid bolus with normal saline and will start maintenance fluid at 75 mL/h. Dobutamine to be started at 2.5 mcg/kg/min ( is mild); also pacemaker rep was contacted to increase the back up pacing rate to 80 bpm. CVP 3. Reinsert Mckeon for accurate intake output, creat increased to 1.34. Trends lactic acid. A stat 2D echo showed dilated RV with evidence of RV dysfunction. 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 Remote tobacco, quit 1949. Reported Medications Aspirin Lisinopril Metoprolol Multivitamin Crestor Active Ordered Medications Reviewed Family History Not contributing current condition Social History Quit smoking in 1949 Physical Exam Vital Signs Vital Signs Date Time Temp Pulse Resp B/P (MAP) Pulse Ox O2 Delivery O2 Flow Rate FiO2 08/07/17 05:25 100 124/61 08/07/17 05:15 103 121/59 08/07/17 05:00 101 122/61 08/07/17 04:00 108 104/65 08/07/17 03:40 106 111/58 08/07/17 03:00 98.2 103 16 96/58 (71) 94 118/61 (80) 08/07/17 03:00 93 Nasal Cannula 4.00 08/07/17 03:00 92 08/06/17 23:18 96 Nasal Cannula 4.00 08/06/17 23:00 92 08/06/17 23:00 97.5 93 16 93/62 (72) 96 104/55 (71) 08/06/17 21:32 96 60/45 08/06/17 21:00 97 Nasal Cannula 4.00 08/06/17 20:13 93 Nasal Cannula 5.00 08/06/17 20:00 96 Nasal Cannula 5.00 08/06/17 19:00 97.8 95 18 104/68 (80) 96 92/50 (64) 08/06/17 19:00 84 08/06/17 18:00 97.7 08/06/17 16:39 93 Nasal Cannula 5.00 08/06/17 16:39 50 08/06/17 16:39 96 Nasal Cannula 4.00 08/06/17 16:39 96 Nasal Cannula 4 08/06/17 15:24 98 40 08/06/17 15:00 94.0 80 12 123/75 (91) 96 08/06/17 15:00 94.0 08/06/17 15:00 80 08/06/17 13:16 97 50 08/06/17 13:15 08/06/17 13:13 88 08/06/17 13:13 50 08/06/17 13:13 97.1 88 13 109/70 (83) 98 Physical Exam GENERAL: The patient appears slightly tachypneic mildly anxious tachycardic. Alert, awake and oriented x 3. HEENT: CHAS. Mucous membranes moist. NECK: Supple. No carotid bruits heard. Right IJ central line in place CVS: Sinus rhythm intermittently tachycardic, hypotensive. Midline CABG incision dressing C/D/I LUNGS: Clear to auscultation bilaterally. Expected rub from chest tubes. Sanguinous output from chest tube ABDOMEN: Soft, nontender, nondistended. No organomegaly noted. EXTREMITIES: Distal pulses are intact bilaterally. NEUROLOGIC: Alert awake oriented, no focal deficits. Anxious Laboratory Laboratory Tests Test 08/07/17 04:00 White Blood Count 17.4 Red Blood Count 2.95 Hemoglobin 10.2 Hematocrit 30.1 Mean Corpuscular Volume 102.1 Mean Corpuscular Hemoglobin 34.8 Mean Corpuscular Hemoglobin Concent 34.0 Red Cell Distribution Width 16.4 Platelet Count 72 Mean Platelet Volume 8.8 Blood Urea Nitrogen 25 Creatinine 1.34 Random Glucose 121 Calcium Level 8.5 Magnesium Level 2.3 Sodium Level 145 Potassium Level 4.6 Chloride Level 110 Carbon Dioxide Level 21.7 Anion Gap 13 Estimat Glomerular Filtration Rate 50 Result Diagram: 08/07/170 08/07/17 040 Imaging Chest x-ray shows no acute cardiopulmonary disease Septic Shock Reassessment Septic shock perfusion: reassessment completed Assessment and Plan Assessment and Plan ASSESSMENT: Hypotension/cardiogenic shock Lactic acidosis Acute Kidney injury Leukocytosis Thrombocytopenia s/p CABG x3 Multi-vessel CAD RV dysfunction on echo Mild aortic stenosis History of bradycardia s/p St. Nic pacemaker placed in 2008 History of CVA PLAN: NEURO: -As needed Tylenol and Percocet for pain -Fentanyl for breakthrough pain -Resume aspirin today RESP: -Nasal cannula oxygen -DuoNeb every 6 hours scheduled and as needed -Aggressive pulmonary toilet -Monitor chest tube output CV: -Normal saline IV fluids 1000 ml bolus and 84 ml per hour -Start dobutamine at 2.5 mcg/kg/min ( is mild). Start guerline trac monitoring -Trend lactic acid, check central venous gas -Cardiology Dr. Potts, CTS Dr. Vela -Resume aspirin if thrombocytopenia not worse, start Lipitor -Hold metoprolol, hold lisinopril due to hypotension GI: -NPO except meds until more hemodynamically stable -Mesenteric ischemia cannot be ruled out, even though no abdominal pain or tenderness -Continue Protonix -If worsening lactic acid will check CT of the abdomen without contrast : -Monitor renal function closely. Replace Mckeon catheter. -Patient received 2 Amps of bicarb for metabolic acidosis -Acute kidney failure most likely secondary to ATN from hypotension ID: -Perioperative antibiotics per CT surgery -Check blood cultures check UA -Leukocytosis most likely reactive HEME: -Monitor CBC, CMP, coags -Resume aspirin but closely follow platelet count ENDO: -Electrolyte replacement per protocol -Tight sugar control PROPH: -Hold of chemical DVT prophylaxis until cleared by CT surgery. Increase mobility. Protonix for GI prophylaxis LINES: -RIJ central line in place CC time 82 min Patient is postop CABG patient who is currently critically ill. He is hypotensive with worsening renal function creatinine has increased to 1.34 and significant lactic acidosis (lactic acid of 6.9). He is getting volume loss resuscitation and is being started on dobutamine. Await 2D echo full report. Discussed with the Dr. Vela and Dr. Potts Code Status Full Discussed Condition With Awais Canchola MD Aug 07, 2017 08:11
[2017-08-07] MEDS ORDERED: ASPIRIN 81 MG CHEW TAB PO SCH (09:00)
--- NOTE | 2017-08-07 09:28 | ECHRPT ---
Indication: Pericardial Effusion CONCLUSIONS Technically limited study Small pericardial effusion adjacent to the right atrium No evidence of hemodynamic compromise Mild to moderate RV dilatation Borderline normal LV systolic function Mild TR Mild pulmonary hypertension BP: 124 / 61 HR: 100 Rhythm: Sinus MEASUREMENTS (Male / Female) Normal Values Technical Quality:Technically difficult study DOPPLER TR Peak Velocity 278.0 cm/s TR Peak Gradient 30.9 mmHg Right Atrial Pressure 10.0 mmHg Pulmonary Artery Systolic Pressu 40.9 mmHg Right Ventricular Systolic Press 40.9 mmHg Kamilla Ospina MD, FACC (Electronically Signed) Final Date:07 August 2017 09:27
[2017-08-07] MEDS: DOBUTamine PREMIX DRIP 250 ML IV PRN (09:44)
[2017-08-07] MEDS: ATORVASTATIN 40 MG TAB PO SCH (10:56)
[2017-08-07] MEDS: PANTOPRAZOLE SOD 40 MG DELAYED RELEASE TAB PO SCH (10:58)
[2017-08-07] MEDS: SODIUM CHLORIDE 0.9% FLUSH 10 ML FLUSH IV FLUSH SCH ×2 (10:58→20:37)
[2017-08-07 11:32] LABS: BACTERIA, URINE MOD /hpf; BILIRUBIN, URINE NEG (NEG); BLOOD, URINE SMALL (NEG); GLUCOSE,URINE NEG (NEG); HYALINE CAST, URINE 9 /lpf (RARE); KETONE, URINE 10 mg/dL (NEG); NITRITE,URINE NEG (NEG); SQUAMOUS EPITHELIAL CELL URINE 1 /hpf (0-5); URINE COLOR YELLOW (YELLW/STRAW); URINE LEUKOCYTE ESTERASE NEG (NEG)
[2017-08-07 14:19] LABS: BASOPHIL % 0.2 % (0.0-2.0); HEMATOCRIT 26.2 % (39.0-51.0); HEMOGLOBIN 8.8 GM/DL (13.0-17.0); LYMPH % 8.2 % (9.0-44.0); LYMPHOCYTE # 0.7 TH/MM3 (1.0-4.8); MEAN CELL VOLUME 104.4 FL (80.0-100.0); MEAN CORPUSCULAR HGB CONC 33.5 % (32.0-36.0); MEAN PLATELET VOLUME 8.7 FL (7.0-11.0); MONO % 11.1 % (0.0-8.0); NEUT % 80.5 % (16.0-70.0); PLATELET COUNT 40 TH/MM3 (150-450); RED BLOOD COUNT 2.51 MIL/MM3 (4.50-5.90); RED CELL DISTRIBUTION WIDTH 16.6 % (11.6-17.2); WHITE BLOOD COUNT 8.7 TH/MM3 (4.0-11.0)
[2017-08-07 14:37] LABS: ALBUMIN 2.6 GM/DL (3.4-5.0); ALT (GPT) 30 U/L (12-78); AST (GOT) 76 U/L (15-37); BICARBONATE 18.8 MEQ/L (21.0-32.0); BLOOD UREA NITROGEN 26 MG/DL (7-18); CALCIUM 7.8 MG/DL (8.5-10.1); CHLORIDE 113 MEQ/L (98-107); GLOMERULAR FILTRATION RATE 44 ML/MIN (>89); GLUCOSE,RANDOM 210 MG/DL (74-106); MAGNESIUM 1.9 MG/DL (1.5-2.5); SODIUM (NA) 148 MEQ/L (136-145)
[2017-08-07 14:39] LABS: ALKALINE PHOSPHATASE 53 U/L (45-117); TOTAL BILIRUBIN ADULT 0.4 MG/DL (0.2-1.0); TOTAL PROTEIN 4.9 GM/DL (6.4-8.2)
[2017-08-07 14:48] LABS: INTERNATIONAL NORMALIZED RATIO 1.7 RATIO; PROTHROMBIN TIME - PATIENT 16.7 SEC (9.8-11.6)
[2017-08-07] MEDS ORDERED: SODIUM BICARBONATE 8.4% INJ 75 MEQ in SODIUM CHLOR 0.45% 1000 ML INJ 1,000 ML IV SCH (15:00)
--- NOTE | 2017-08-07 15:15 | RADRPT ---
EXAM DATE/TIME: 08/07/2017 14:27 [facility] COMPARISON: No previous studies available for comparison. INDICATIONS : Worsening lactic acid levels ORAL CONTRAST: No oral contrast ingested. RADIATION DOSE: 17.04 CTDIvol (mGy) MEDICAL HISTORY : Cerebrovascular disease. Cardiovascular disease Hypertension. SURGICAL HISTORY : CABG Pacemaker. ENCOUNTER: Initial ACUITY: 1 day PAIN SCALE: 0/10 LOCATION: abdomen TECHNIQUE: Volumetric scanning of the abdomen and pelvis was performed. Using automated exposure control and ad justment of the mA and/or kV according to patient size, radiation dose was kept as low as reasonably achievable to obtain optimal diagnostic quality images. DICOM format image data is available electro nically for review and comparison. FINDINGS: Minimal consolidative changes right base. Liver and gallbladder unremarkable Spleen and pancreas appear normal There is minimal induration in the root of mesentery and Both kidneys are unremarkable In the pelvis bladder is decompressed by Mckeon. I do not see anything to suggest mesenteric ischemia at this point. Extensive vascular calcification s are evident. CONCLUSION: Nonspecific findings. There is minimal induration root of the mesentery Sammy Melissa MD FACR on August 07, 2017 at 15:11 Board Certified Radiologist. This report was verified electronically.
[2017-08-07] MEDS ORDERED: CALCIUM GLUCONATE INJ 1 GM in DEXTROSE 5% IN WATER 100ML INJ 100 ML IV ONE ×2 (15:30)
[2017-08-07] MEDS: PIPERACIL-TAZO 3.375 GM PREMIX 50 ML IV SCH (17:00)
--- NOTE | 2017-08-07 18:14 | RADRPT ---
EXAM DATE/TIME: 08/07/2017 16:12 [facility] COMPARISON: No previous studies available for comparison. INDICATIONS : Hypoxia. DOSE: 8.1 mCi Tc99m MAA IV 0.5 mCi Tc99m DTPA aerosol MEDICAL HISTORY : Hypercholesterolemia. Gastroesophageal reflux disease. Hypertension. Coronary artery disease. SURGICAL HISTORY : Inguinal hernia repair. Bladder. ENCOUNTER: Initial ACUITY: 1 day PAIN SCALE: 0/10 LOCATION: chest TECHNIQUE: Following five minutes of tidal breathing of DTPA aerosol, planar images of the lungs were performed in eight projections. The patient was then injected with MAA, and eight-view perfusion scan was perf ormed. FINDINGS: There is a homogeneous pattern of aerosol delivery to the periphery of both lungs. No focal ventilat ory defects are seen. The perfusion lung scan demonstrates a homogenous pattern of uptake in both lungs. Minimal blunting o f the costophrenic angles and lung apices. No segmental or subsegmental defects are seen. CONCLUSION: 1. Low probability for pulmonary embolus. Addison Sanchez MD on August 07, 2017 at 18:11 Board Certified Radiologist. This report was verified electronically.
--- NOTE | 2017-08-07 18:17 | PD.CARD.PN ---
Subjective Subjective Remarks Patient was seen this morning, late entry Overnight hypotensive requiring Eyal drip Objective Medications Current Medications Medications (Trade) Dose Ordered Sig/Cody Route Start Time Stop Time Status Last Admin (Atropine Inj) 0.5 mg UNSCH PRN IV PUSH 08/02/17 12:15 (Protonix) 40 mg DAILY PO 08/03/17 09:00 08/07/17 10:58 (Lipitor) 40 mg DAILY PO 08/03/17 09:00 08/07/17 10:56 (NS Flush) 2 ml BID IV FLUSH 08/02/17 21:00 08/07/17 10:58 (NS Flush) 2 ml UNSCH PRN IV FLUSH 08/02/17 17:45 08/05/17 08:52 Papaverine HCl 60 mg/Nitroglycerin 100 mcg/Diltiazem HCl 100 mg/Sodium Chloride 100 ml @ 0 mls/hr [employer]SELOR IRRIGATION 08/02/17 17:45 08/09/17 17:44 08/06/17 10:18 Cefazolin Sodium 500 mg/Sodium Chloride 505 ml @ 0 mls/hr [employer] COUNSELOR IRRIGATION 08/02/17 17:45 08/09/17 17:44 08/06/17 10:12 (Lopressor) 12.5 mg LOAN COUNSELOR PO 08/02/17 17:45 08/09/17 17:44 08/06/17 04:53 (Hibiclens 4% Top Soln) 1 applic LOAN COUNSELOR TOPICAL 08/02/17 17:45 08/09/17 17:44 08/06/17 05:17 Clevidipine 50 ml @ 2 mls/hr TITRATE PRN IV 08/06/17 12:30 Albumin Human 250 ml @ 250 mls/hr UNSCH PRN IV 08/06/17 12:30 08/06/17 19:45 Lactated Ringer's 500 ml @ 500 mls/hr Q1H PRN IV 08/06/17 12:23 Cefazolin Sodium 1000 mg/Sodium Chloride 100 ml @ 200 mls/hr Q8H IV 08/06/17 18:00 08/08/17 02:29 08/07/17 17:16 (Aspirin Chew) 81 mg DAILY PO 08/07/17 09:00 Future Hold 08/07/17 10:56 (Tylenol) 650 mg Q4H PRN PO 08/06/17 12:30 (Percocet 5-325 Mg) 1 tab Q3H PRN PO 08/06/17 12:30 (fentaNYL INJ) 25 mcg Q1H PRN IV PUSH 08/06/17 12:30 (Zofran Inj) 4 mg Q6H PRN IV PUSH 08/06/17 12:30 08/06/17 19:55 (Apresoline Inj) 10 mg Q4H PRN IV PUSH 08/06/17 12:30 (Lopressor Inj) 2.5 mg Q1H PRN IV PUSH 08/06/17 12:30 Potassium Chloride 100 ml @ 50 mls/hr UNSCH PRN IV 08/06/17 12:30 Potassium Chloride 100 ml @ 50 mls/hr UNSCH PRN IV 08/06/17 12:30 (KCl) 20 meq UNSCH PRN PO 08/06/17 12:30 (KCl) 40 meq UNSCH PRN PO 08/06/17 12:30 Magnesium Sulfate 2 gm/Sodium Chloride 104 ml @ 100 mls/hr UNSCH PRN IV 08/06/17 12:30 Magnesium Sulfate 2 gm/Sodium Chloride 104 ml @ 50 mls/hr UNSCH PRN IV 08/06/17 12:30 Calcium Chloride 1 gm/Sodium Chloride 110 ml @ 100 mls/hr UNSCH PRN IV 08/06/17 12:30 08/06/17 14:00 (Calcium Chloride Inj) 0.5 gm UNSCH PRN IV PUSH 08/06/17 12:30 Insulin Human Regular 100 units/ Sodium Chloride 100 ml @ 3 mls/hr TITRATE PRN IV 08/06/17 12:30 08/06/17 13:13 (D50w (Vial) Inj) 50 ml UNSCH PRN IV PUSH 08/06/17 12:30 (Sodium Bicarbonate 8.4% Inj) 50 meq UNSCH PRN IV PUSH 08/06/17 12:30 08/06/17 15:05 (Sodium Bicarbonate 8.4% Inj) 100 meq UNSCH PRN IV PUSH 08/06/17 12:30 08/07/17 05:37 (Duoneb Neb) 1 ampule Q2HR NEB PRN NEB 08/06/17 12:30 08/06/17 23:16 (Brethine Inj) 1 mg UNSCH PRN SQ 08/06/17 15:00 (Duoneb Neb) 1 ampule Q6HR NEB NEB 08/07/17 04:00 08/07/17 08:39 Dobutamine HCl/ Dextrose 250 ml @ 11.625 mls/ hr [id number] PRN IV 08/07/17 08:20 08/07/17 09:44 Sodium Bicarbonate 75 meq/Sodium Chloride 1,075 ml @ 125 mls/hr [id number] IV 08/07/17 15:00 08/07/17 17:10 Piperacillin Sod/ Tazobactam Sod 50 ml @ 100 mls/hr Q8H IV 08/07/17 17:00 Vital Signs / I&O Vital Signs Date Time Temp Pulse Resp B/P (MAP) Pulse Ox O2 Delivery O2 Flow Rate FiO2 08/07/17 15:00 98.0 120 23 120/78 (92) 94 91/46 (61) 08/07/17 15:00 120 08/07/17 15:00 91 Nasal Cannula 6.00 08/07/17 12:32 18 08/07/17 09:44 95 85/43 08/07/17 08:39 96 Nasal Cannula 6.00 08/07/17 08:30 98.3 08/07/17 08:00 61/24 (36) 08/07/17 07:00 110 08/07/17 07:00 95 Nasal Cannula 6.00 08/07/17 07:00 98.8 110 18 120/78 (92) 94 135/62 (86) 08/07/17 07:00 120/78 (92) 08/07/17 05:25 100 124/61 08/07/17 05:15 103 121/59 08/07/17 05:00 101 122/61 08/07/17 04:00 108 104/65 08/07/17 03:40 106 111/58 08/07/17 03:00 98.2 103 16 96/58 (71) 94 118/61 (80) 08/07/17 03:00 93 Nasal Cannula 4.00 08/07/17 03:00 92 08/06/17 23:18 96 Nasal Cannula 4.00 08/06/17 23:00 92 08/06/17 23:00 97.5 93 16 93/62 (72) 96 104/55 (71) 08/06/17 21:32 96 60/45 08/06/17 21:00 97 Nasal Cannula 4.00 08/06/17 20:13 93 Nasal Cannula 5.00 08/06/17 20:00 96 Nasal Cannula 5.00 08/06/17 19:00 97.8 95 18 104/68 (80) 96 92/50 (64) 08/06/17 19:00 84 I/O 08/06/17 08/06/17 08/06/17 08/07/17 08/07/17 08/07/17 07:00 15:00 23:00 07:00 15:00 23:00 Intake Total 480 ml 4650 ml 2650 ml 2350 ml 1060 ml Output Total 825 ml 1550 ml 915 ml 650 ml Balance -345 ml 3100 ml 1735 ml 1700 ml 1060 ml Intake Oral 480 ml 50 ml IV Total 350 ml 650 ml 2300 ml Autotransfusion 500 ml Packed Cells 400 ml Platelets 510 ml Blood Product IV Normal Saline Flush 150 ml Other 3800 ml 2000 ml Output Urine Total 825 ml 550 ml 460 ml 430 ml Gastric Drainage Total 125 ml Chest Tube Drainage Total 330 ml 220 ml Estimated Blood Loss 1000 ml # Bowel Movements 0 Physical Exam GENERAL: NAD SKIN: Warm and dry. HEAD: Atraumatic. Normocephalic. EYES: Pupils equal and round. No scleral icterus. No injection or drainage. ENT: No nasal bleeding or discharge. Mucous membranes pink and moist. NECK: Trachea midline. No JVD. CARDIOVASCULAR: Regular rate and rhythm. RESPIRATORY: No accessory muscle use. Decreased breath sounds bilaterally GASTROINTESTINAL: Abdomen soft, non-tender, nondistended. Hepatic and splenic margins not palpable. MUSCULOSKELETAL: Extremities without clubbing, cyanosis, or edema. No obvious deformities. NEUROLOGICAL: No focal deficits noted Laboratory Laboratory Tests Test 08/07/17 04:00 08/07/17 09:15 08/07/17 10:08 08/07/17 10:35 White Blood Count 17.4 TH/MM3 Red Blood Count 2.95 MIL/MM3 Hemoglobin 10.2 GM/DL Hematocrit 30.1 % Mean Corpuscular Volume 102.1 FL Mean Corpuscular Hemoglobin 34.8 PG Mean Corpuscular Hemoglobin Concent 34.0 % Red Cell Distribution Width 16.4 % Platelet Count 72 TH/MM3 Mean Platelet Volume 8.8 FL Blood Urea Nitrogen 25 MG/DL Creatinine 1.34 MG/DL Random Glucose 121 MG/DL Calcium Level 8.5 MG/DL Magnesium Level 2.3 MG/DL Sodium Level 145 MEQ/L Potassium Level 4.6 MEQ/L Chloride Level 110 MEQ/L Carbon Dioxide Level 21.7 MEQ/L Anion Gap 13 MEQ/L Estimat Glomerular Filtration Rate 50 ML/MIN Lactic Acid Level 8.4 mmol/L Blood Gas Puncture Site SEE RN CHARTING CENTRAL LINE Blood Gas Patient Temperature 98.6 98.6 Venous Blood pH 7.37 7.29 Venous Blood Partial Pressure CO2 34 mmHg 43 mmHg Venous Blood Partial Pressure O2 85 mmHg 38 mmHg Venous Blood HCO3 19 mmol/L 20 mmol/L Venous Blood Oxygen Saturation 94 % 59 % Venous Blood Oxygen Content 11.9 Vol % 8.4 Vol % Venous Blood Base Excess -5.2 mmol/L -5.6 mmol/L Oxygen Delivery Device NASAL CANNULA NASAL CANNULA Blood Gas Liter Flow 6 L/M 6 L/M Blood Gas HCO3 18 mmol/L Blood Gas Base Excess -7.1 mmol/L Blood Gas Oxygen Saturation 94 % Arterial Blood pH 7.33 Arterial Blood Partial Pressure CO2 34 mmHg Arterial Blood Partial Pressure O2 85 mmHg Arterial Blood Oxygen Content 11.9 Vol % Arterial Blood Carboxyhemoglobin 1.1 % Arterial Blood Methemoglobin 1.1 % Blood Gas Hemoglobin 8.9 G/DL Test 08/07/17 11:15 08/07/17 13:55 08/07/17 17:30 Urine Color YELLOW Urine Turbidity HAZY Urine pH 5.0 Urine Specific [place] 1.029 Urine Protein 30 mg/dL Urine Glucose (UA) NEG mg/dL Urine Ketones 10 mg/dL Urine Occult Blood SMALL Urine Nitrite NEG Urine Bilirubin NEG Urine Urobilinogen LESS THAN 2.0 MG/DL Urine Leukocyte Esterase NEG Urine RBC 4 /hpf Urine WBC 9 /hpf Urine Squamous Epithelial Cells 1 /hpf Urine Bacteria MOD /hpf Urine Hyaline Casts 9 /lpf Microscopic Urinalysis Comment CATH-CULTURE IND White Blood Count 8.7 TH/MM3 Red Blood Count 2.51 MIL/MM3 Hemoglobin 8.8 GM/DL Hematocrit 26.2 % Mean Corpuscular Volume 104.4 FL Mean Corpuscular Hemoglobin 35.0 PG Mean Corpuscular Hemoglobin Concent 33.5 % Red Cell Distribution Width 16.6 % Platelet Count 40 TH/MM3 Mean Platelet Volume 8.7 FL Neutrophils (%) (Auto) 80.5 % Lymphocytes (%) (Auto) 8.2 % Monocytes (%) (Auto) 11.1 % Eosinophils (%) (Auto) 0.0 % Basophils (%) (Auto) 0.2 % Neutrophils # (Auto) 7.0 TH/MM3 Lymphocytes # (Auto) 0.7 TH/MM3 Monocytes # (Auto) 1.0 TH/MM3 Eosinophils # (Auto) 0.0 TH/MM3 Basophils # (Auto) 0.0 TH/MM3 CBC Comment AUTO DIFF Differential Comment AUTO DIFF CONFIRMED Platelet Estimate LOW Platelet Morphology Comment NORMAL Prothrombin Time 16.7 SEC Prothromb Time International Ratio 1.7 RATIO Activated Partial Thromboplast Time 30.1 SEC Fibrinogen 181 mg/dL Blood Urea Nitrogen 26 MG/DL Creatinine 1.50 MG/DL Random Glucose 210 MG/DL Total Protein 4.9 GM/DL Albumin 2.6 GM/DL Calcium Level 7.8 MG/DL Magnesium Level 1.9 MG/DL Alkaline Phosphatase 53 U/L Aspartate Amino Transf (AST/SGOT) 76 U/L Alanine Aminotransferase (ALT/SGPT) 30 U/L Total Bilirubin 0.4 MG/DL Sodium Level 148 MEQ/L Potassium Level 4.3 MEQ/L Chloride Level 113 MEQ/L Carbon Dioxide Level 18.8 MEQ/L Anion Gap 16 MEQ/L Estimat Glomerular Filtration Rate 44 ML/MIN Lactic Acid Level 11.1 mmol/L Imaging Last 24 hours Impressions Chest X-Ray 08/07/17 0500 Signed Impressions: Service Date/Time: Monday, August 07, 2017 03:25 - CONCLUSION: The lungs are clear. Jorje Alberto MD Abdomen/Pelvis CT 08/07/17 0000 Signed Impressions: Service Date/Time: Monday, August 07, 2017 14:27 - CONCLUSION: Nonspecific findings. There is minimal induration root of the mesentery Sammy Melissa MD FACR Assessment and Plan Problem List: (1) Hx of ventricular tachycardia ICD Codes: Z86.79 - Personal history of other diseases of the circulatory system (2) History of CVA (cerebrovascular accident) ICD Codes: Z86.73 - Personal history of transient ischemic attack (TIA), and cerebral infarction without residual deficits (3) Artificial cardiac pacemaker ICD Codes: Z95.0 - Presence of cardiac pacemaker (4) Unstable angina ICD Codes: I20.0 - Unstable angina (5) Multi-vessel coronary artery stenosis ICD Codes: I25.10 - Atherosclerotic heart disease of [place] coronary artery without angina pectoris Assessment and Plan 1) CAD/[place] s/p CABGx3 POD #1 VILCHIS to LAD SVG to D1 SVG to OM1 2) SOB leading to syncope Most likely anginal equivalent 3) ASA/Statin Eventually restart BB 4) Clinically appears well 5) Lactic acid increasing Echo with RV dilatation CVPs low, increase fluids to fill RV for forward flow Dobutamine low dose Evaristo Potts DO Aug 07, 2017 18:17
--- NOTE | 2017-08-07 18:38 | PD.PROCEDR ---
Procedure Note Procedure REASON FOR PROCEDURE Invasive BP monitoring PROCEDURE PERFORMED Right radial art line placement CONSENT Informed consent for procedure was obtained ANESTHESIA Local injection of 1% Lidocaine DESCRIPTION OF THE PROCEDURE The patient was placed in supine, position. The area was exposed and cleansed with ChloraPrep, times two. Large sterile drape was used to cover the patient, with the site exposed, under sterile conditions on single attempt, the introducer needle was inserted and arterial flash was obtained. The guide wire was then advanced without any restriction and the needle was removed. Using Seldinger technique the arterial catheter was advanced over the guide wire. The guide wire was removed. Good arterial wave form obtained. Antibiotic disc was placed around puncture site. The arterial line was secured to the skin with one interrupted 2.0 silk sutures. The area was bandaged with sterile see- through central line bandage. COMPLICATIONS: No apparent complications ESTIMATED BLOOD LOSS: Less than 1 cc. Awais Vargas MD Aug 07, 2017 18:38
[2017-08-07] MEDS ORDERED: FUROSEMIDE 100 MG/10 ML VIAL IV PUSH ONE (19:15)
--- NOTE | 2017-08-07 20:20 | EKG ---
Date Performed: 08/07/2017 Time Performed: 05:07:42 PTAGE: 87 years EKG: Accelerated junctional rhythm Possible inferior infarct - age undetermined Lateral T wave c hanges may be due to myocardial ischemia Abnormal ECG PREVIOUS TRACING : 08/02/2017 08.22 DOCTOR: Sunny Varela Interpretating Date/Time 08/07/2017 20:19:29
--- NOTE | 2017-08-07 20:34 | PD.VS.CON ---
History of Present Illness Chief Complaint: lactic acidosis, concern for mesenteric ischemia Consult Requested by: Dr. Vargas, ICU History of Present Illness 87 yo male POD#1 s/p CABG x 3. Post-op has been on pressors and lactate increased to 11. At present, pt extubated, resting comfortably, and no complaints of abdominal pain. No diarrhea. Only of 5 mcg of dobutamine. No other pressors Past/Family/Social History Past Medical History CAD aortic stenosis HTN XOL CVA Past Surgical History CABG yesterday pacer R IHR Social History NC Family History NC Home Medications Reported Medications Cholecalciferol (Vitamin D-3) 2,000 Unit Tab 08/02/17 Cyanocobalamin (Vitamin B-12) 500 Mcg Tab, 1000 MCG PO DAILY for Nutritional Supplement, #1 BOTTLE 0 Refills 08/02/17 Rosuvastatin (Rosuvastatin) 20 Mg Tab, 20 MG PO DAILY for Cholesterol Management , #30 TAB 0 Refills 08/02/17 Pantoprazole (Pantoprazole) 40 Mg Tab, 40 MG PO DAILY for Reflux, #30 TAB 0 Refills 08/02/17 Multiple Vitamins W/ Minerals (Multi For Him) 0.4 Mg-2 Mg-250 Mcg Tab 08/02/17 Metoprolol Tartrate (Metoprolol Tartrate) 50 Mg Tab, 50 MG PO BID, #60 TAB 0 Refills 08/02/17 Lisinopril (Lisinopril) 2.5 Mg Tab, 2.5 MG PO DAILY, #30 TAB 0 Refills 08/02/17 Aspirin (Aspirin) 81 Mg Chew, 81 MG CHEW DAILY, TAB 0 Refills 08/02/17 Coded Allergies: No Known Allergies (Unverified , 08/02/17) Review of Systems Constitutional: DENIES: Diaphoretic episodes, Fatigue, Fever, Weight gain, Weight loss, Chills, Dizziness, Change in appetite, Night Sweats Physical Exam Vitals/I&O Date Time Temp Pulse Resp B/P (MAP) Pulse Ox O2 Delivery O2 Flow Rate FiO2 08/07/17 19:21 99 Venturi Mask 50 08/07/17 15:00 98.0 120 23 120/78 (92) 94 91/46 (61) 08/07/17 15:00 120 08/07/17 15:00 91 Nasal Cannula 6.00 08/07/17 12:32 18 08/07/17 09:44 95 85/43 08/07/17 08:39 96 Nasal Cannula 6.00 08/07/17 08:30 98.3 08/07/17 08:00 61/24 (36) 08/07/17 07:00 110 08/07/17 07:00 95 Nasal Cannula 6.00 08/07/17 07:00 98.8 110 18 120/78 (92) 94 135/62 (86) 08/07/17 07:00 120/78 (92) 08/07/17 05:25 100 124/61 08/07/17 05:15 103 121/59 08/07/17 05:00 101 122/61 08/07/17 04:00 108 104/65 08/07/17 03:40 106 111/58 08/07/17 03:00 98.2 103 16 96/58 (71) 94 118/61 (80) 08/07/17 03:00 93 Nasal Cannula 4.00 08/07/17 03:00 92 08/06/17 23:18 96 Nasal Cannula 4.00 08/06/17 23:00 92 08/06/17 23:00 97.5 93 16 93/62 (72) 96 104/55 (71) 08/06/17 21:32 96 60/45 08/06/17 21:00 97 Nasal Cannula 4.00 08/07/17 08/07/17 08/07/17 07:00 15:00 23:00 Intake Total 2350 ml 4180 ml Output Total 650 ml 270 ml Balance 1700 ml 3910 ml Neuro: alert, oriented, no complaints of pain HEENT: NC/AT Neck: no JVD Heart: reg rate Lungs: nonlabored breathing Abdomen: soft, NT, mild distension Laboratory Tests Test 08/07/17 04:00 08/07/17 09:15 08/07/17 10:08 08/07/17 10:35 White Blood Count 17.4 Red Blood Count 2.95 Hemoglobin 10.2 Hematocrit 30.1 Mean Corpuscular Volume 102.1 Mean Corpuscular Hemoglobin 34.8 Mean Corpuscular Hemoglobin Concent 34.0 Red Cell Distribution Width 16.4 Platelet Count 72 Mean Platelet Volume 8.8 Blood Urea Nitrogen 25 Creatinine 1.34 Random Glucose 121 Calcium Level 8.5 Magnesium Level 2.3 Sodium Level 145 Potassium Level 4.6 Chloride Level 110 Carbon Dioxide Level 21.7 Anion Gap 13 Estimat Glomerular Filtration Rate 50 Lactic Acid Level 8.4 Blood Gas Puncture Site SEE RN CHARTING CENTRAL LINE Blood Gas Patient Temperature 98.6 98.6 Venous Blood pH 7.37 7.29 Venous Blood Partial Pressure CO2 34 43 Venous Blood Partial Pressure O2 85 38 Venous Blood HCO3 19 20 Venous Blood Oxygen Saturation 94 59 Venous Blood Oxygen Content 11.9 8.4 Venous Blood Base Excess -5.2 -5.6 Oxygen Delivery Device NASAL CANNULA NASAL CANNULA Blood Gas Liter Flow 6 6 Blood Gas HCO3 18 Blood Gas Base Excess -7.1 Blood Gas Oxygen Saturation 94 Arterial Blood pH 7.33 Arterial Blood Partial Pressure CO2 34 Arterial Blood Partial Pressure O2 85 Arterial Blood Oxygen Content 11.9 Arterial Blood Carboxyhemoglobin 1.1 Arterial Blood Methemoglobin 1.1 Blood Gas Hemoglobin 8.9 Test 08/07/17 11:15 08/07/17 13:55 08/07/17 17:30 08/07/17 18:25 Urine Color YELLOW Urine Turbidity HAZY Urine pH 5.0 Urine Specific Cameron 1.029 Urine Protein 30 Urine Glucose (UA) NEG Urine Ketones 10 Urine Occult Blood SMALL Urine Nitrite NEG Urine Bilirubin NEG Urine Urobilinogen LESS THAN 2.0 Urine Leukocyte Esterase NEG Urine RBC 4 Urine WBC 9 Urine Squamous Epithelial Cells 1 Urine Bacteria MOD Urine Hyaline Casts 9 Microscopic Urinalysis Comment CATH-CULTURE IND White Blood Count 8.7 Red Blood Count 2.51 Hemoglobin 8.8 Hematocrit 26.2 Mean Corpuscular Volume 104.4 Mean Corpuscular Hemoglobin 35.0 Mean Corpuscular Hemoglobin Concent 33.5 Red Cell Distribution Width 16.6 Platelet Count 40 Mean Platelet Volume 8.7 Neutrophils (%) (Auto) 80.5 Lymphocytes (%) (Auto) 8.2 Monocytes (%) (Auto) 11.1 Eosinophils (%) (Auto) 0.0 Basophils (%) (Auto) 0.2 Neutrophils # (Auto) 7.0 Lymphocytes # (Auto) 0.7 Monocytes # (Auto) 1.0 Eosinophils # (Auto) 0.0 Basophils # (Auto) 0.0 CBC Comment AUTO DIFF Differential Comment AUTO DIFF CONFIRMED Platelet Estimate LOW Platelet Morphology Comment NORMAL Prothrombin Time 16.7 Prothromb Time International Ratio 1.7 Activated Partial Thromboplast Time 30.1 Fibrinogen 181 Blood Urea Nitrogen 26 Creatinine 1.50 Random Glucose 210 Total Protein 4.9 Albumin 2.6 Calcium Level 7.8 Magnesium Level 1.9 Alkaline Phosphatase 53 Aspartate Amino Transf (AST/SGOT) 76 Alanine Aminotransferase (ALT/SGPT) 30 Total Bilirubin 0.4 Sodium Level 148 Potassium Level 4.3 Chloride Level 113 Carbon Dioxide Level 18.8 Anion Gap 16 Estimat Glomerular Filtration Rate 44 Lactic Acid Level 11.1 8.2 Blood Gas Puncture Site CENTRAL LINE Blood Gas Patient Temperature 98.6 Venous Blood pH 7.36 Venous Blood Partial Pressure CO2 43 Venous Blood Partial Pressure O2 26 Venous Blood HCO3 24 Venous Blood Oxygen Saturation 42 Venous Blood Oxygen Content 5.4 Venous Blood Base Excess -1.0 Oxygen Delivery Device NASAL CANNULA Blood Gas Liter Flow 6 Test 08/07/17 18:55 Blood Gas Puncture Site CENTRAL LINE Blood Gas Patient Temperature 98.6 Venous Blood pH 7.33 Venous Blood Partial Pressure CO2 48 Venous Blood Partial Pressure O2 33 Venous Blood HCO3 24 Venous Blood Oxygen Saturation 55 Venous Blood Oxygen Content 7.0 Venous Blood Base Excess -0.9 Oxygen Delivery Device Non-Rebreathing Mask Blood Gas Liter Flow 15 Date/Time Source Procedure Growth Status 08/07/17 16:00 Blood Peripheral Aerobic Blood Culture Pending Received 08/07/17 16:00 Blood Peripheral Anaerobic Blood Culture Pending Received 08/07/17 11:15 Urine Catheterized Urine Urine Culture Pending Received Last 48 hours Impressions Chest X-Ray 08/07/17 0500 Signed Impressions: Service Date/Time: Monday, August 07, 2017 03:25 - CONCLUSION: The lungs are clear. Jorje Alberto MD Lung Scan- Nuclear Medicine 08/07/17 0000 Signed Impressions: Service Date/Time: Monday, August 07, 2017 16:12 - CONCLUSION: 1. Low probability for pulmonary embolus. Addison Sanchez MD Abdomen/Pelvis CT 08/07/17 0000 Signed Impressions: Service Date/Time: Monday, August 07, 2017 14:27 - CONCLUSION: Nonspecific findings. There is minimal induration root of the mesentery Sammy Melissa MD FACR Chest X-Ray 08/06/17 0000 Signed Impressions: Service Date/Time: Sunday, August 06, 2017 13:24 - CONCLUSION: Satisfactory postoperative view of the chest. Harsh Ardon MD Assessment and Plan Plan Lactic acidosis after CABG. LA 8 from 11 and clinically he looks great - no abdominal pain, no diarrhea and no pneumatosis on NC CT. NC CT does show aortic calcifications that may be HD significant. Other causes of mesenteric ischemia (RAGINI, MVT, SMA embolism) all require IV contrasted CT scan. Given excellent clinical appearance, down-trending lactate, and minimal pressor requirement, I think it is reasonable to hold off that study for now. Needs serial examination and trending lactate. Will follow closely. Discussed w. Dr. Vargas. Primitivo Berry MD FACS RPVI control and recovery special tactics [facility] [phone] Primitivo Berry MD Aug 07, 2017 20:34
[2017-08-07 21:43] LABS: AUTOMATED NEUTROPHIL # 7.2 TH/MM3 (1.8-7.7); BASOPHIL % 0.2 % (0.0-2.0); EOSINOPHIL % 0.1 % (0.0-4.0); HEMATOCRIT 27.9 % (39.0-51.0); HEMOGLOBIN 9.7 GM/DL (13.0-17.0); LYMPH % 7.6 % (9.0-44.0); LYMPHOCYTE # 0.7 TH/MM3 (1.0-4.8); MEAN CORPUSCULAR HEMOGLOBIN 34.5 PG (27.0-34.0); MEAN CORPUSCULAR HGB CONC 34.8 % (32.0-36.0); MEAN PLATELET VOLUME 8.4 FL (7.0-11.0); MONOCYTE # 0.8 TH/MM3 (0-0.9); NEUT % 83.1 % (16.0-70.0); PLATELET COUNT 69 TH/MM3 (150-450); RED BLOOD COUNT 2.82 MIL/MM3 (4.50-5.90); RED CELL DISTRIBUTION WIDTH 17.7 % (11.6-17.2); WHITE BLOOD COUNT 8.7 TH/MM3 (4.0-11.0)
[2017-08-07 22:09] LABS: ALBUMIN 2.9 GM/DL (3.4-5.0); ALKALINE PHOSPHATASE 57 U/L (45-117); ALT (GPT) 34 U/L (12-78); AST (GOT) 87 U/L (15-37); BICARBONATE 24.9 MEQ/L (21.0-32.0); BLOOD UREA NITROGEN 27 MG/DL (7-18); CALCIUM 9.1 MG/DL (8.5-10.1); CHLORIDE 112 MEQ/L (98-107); CREATININE 1.27 MG/DL (0.60-1.30); GLOMERULAR FILTRATION RATE 54 ML/MIN (>89); GLUCOSE,RANDOM 120 MG/DL (74-106); SODIUM (NA) 148 MEQ/L (136-145); TOTAL BILIRUBIN ADULT 0.6 MG/DL (0.2-1.0); TOTAL PROTEIN 5.7 GM/DL (6.4-8.2)
[2017-08-07] MEDS: POTASSIUM CHLOR 20 MEQ PREMIX 100 ML IV PRN (23:34)
[2017-08-08] VITALS (10 sets, daily range): BP systolic 90–118; BP diastolic 47–95; PULSE 109–123; RESP 16–23; TEMP 97.6–98.4; O2SAT 92–99
[2017-08-08] MEDS: PIPERACIL-TAZO 3.375 GM PREMIX 50 ML IV SCH ×3 (01:25→17:00)
[2017-08-08] MEDS: DOBUTamine PREMIX DRIP 250 ML IV PRN (01:26)
[2017-08-08] MEDS: POTASSIUM CHLOR 20 MEQ PREMIX 100 ML IV PRN (01:43)
[2017-08-08] MEDS: INSULIN REGULAR (IV INFUSION) 100 UNITS in SODIUM CHLORIDE 0.9% INJ 99 ML IV PRN (02:13)
[2017-08-08] MEDS: RESP: ALBUTEROL 2.5 MG/IPRATROPIUM 0.5 MG NEB (SCH) NEB ×4 (02:53→19:39)
[2017-08-08 04:52] LABS: HEMATOCRIT 27.6 % (39.0-51.0); HEMOGLOBIN 9.7 GM/DL (13.0-17.0); MEAN CELL VOLUME 98.9 FL (80.0-100.0); MEAN CORPUSCULAR HEMOGLOBIN 34.8 PG (27.0-34.0); MEAN CORPUSCULAR HGB CONC 35.2 % (32.0-36.0); PLATELET COUNT 66 TH/MM3 (150-450); RED BLOOD COUNT 2.79 MIL/MM3 (4.50-5.90); RED CELL DISTRIBUTION WIDTH 17.5 % (11.6-17.2); WHITE BLOOD COUNT 9.2 TH/MM3 (4.0-11.0)
[2017-08-08 05:02] LABS: INTERNATIONAL NORMALIZED RATIO 1.4 RATIO; PROTHROMBIN TIME - PATIENT 14.4 SEC (9.8-11.6)
[2017-08-08 05:14] LABS: BICARBONATE 28.4 MEQ/L (21.0-32.0); CALCIUM 8.4 MG/DL (8.5-10.1); CREATININE 1.33 MG/DL (0.60-1.30); MAGNESIUM 2.3 MG/DL (1.5-2.5)
[2017-08-08 05:16] LABS: DIRECT BILIRUBIN ADULT 0.2 MG/DL (0.0-0.2)
[2017-08-08 05:18] LABS: INDIRECT BILIRUBIN 0.5 MG/DL (0.0-0.8); TOTAL BILIRUBIN ADULT 0.7 MG/DL (0.2-1.0); TOTAL PROTEIN 5.5 GM/DL (6.4-8.2)
[2017-08-08] MEDS ORDERED: FUROSEMIDE 100 MG/10 ML VIAL IV PUSH ONE (06:15)
[2017-08-08] MEDS ORDERED: CALCIUM CHLORIDE INJ 1 GM in SODIUM CHLORIDE 0.9% INJ 100 ML IV ONE (06:15)
--- NOTE | 2017-08-08 06:24 | RADRPT ---
EXAM DATE/TIME: 08/08/2017 04:46 [place] COMPARISON: CT ABDOMEN & PELVIS W/O CONTRAST, August 07, 2017, 14:27. CHEST SINGLE AP, August 07, 2017, 3:25. INDICATIONS : Shortness of breath, possible pulmonary disease. MEDICAL HISTORY : Cerebrovascular disease. Cardiovascular disease. Hypertension. SURGICAL HISTORY : CABG. Pacemaker. ENCOUNTER: Subsequent ACUITY: 4 - 6 days PAIN SCORE: Non-responsive. LOCATION: Bilateral chest FINDINGS: Right internal jugular catheter tip projects over the mid superior vena cava stop mediastinal and lef t chest tube unchanged. Patchy areas of infiltrate at the left base stable. No evidence of pneumoth orax. Hazy opacity in the lower right chest with blurring of the right costophrenic angle suggests e ffusion. CONCLUSION: Stable patchy infiltrates left lung base. Small to moderate right pleural effusion. Jorje Alberto MD on August 08, 2017 at 6:20 Board Certified Radiologist. This report was verified electronically.
[2017-08-08] MEDS: INSULIN ASPART SUPPLEMENTAL SCALE SQ SCH ×5 (06:45→20:00)
[2017-08-08] MEDS ORDERED: GLUCAGON 1 MG/ML VIAL OTHER PRN (07:15)
[2017-08-08] MEDS ORDERED: DEXTROSE 50% IN WATER 50 ML VIAL(D50) IV PUSH PRN (07:15)
--- NOTE | 2017-08-08 07:47 | EKG ---
Date Performed: 08/07/2017 Time Performed: 17:14:04 PTAGE: 87 years EKG: Unclear underlying supraventricular rhythm Inferior infarct - age undetermined Anterolatera l ST-T changes are nonspecific Abnormal ECG Compared to prior electrocardiogram, No significant douglas es although I cannot accurately compare rhythm. PREVIOUS TRACING : 08/07/2017 05.07 DOCTOR: Akshat Zelaya Interpretating Date/Time 08/08/2017 07:46:15
[2017-08-08] MEDS ORDERED: FUROSEMIDE 40 MG/4 ML VIAL IV PUSH SCH ×3 (08:00→21:00)
--- NOTE | 2017-08-08 08:29 | HHI.CCPN ---
Subjective Remarks/Hospital Course Patient is a 87-year-old male patient who was admitted to Dr. Potts service with a diagnosis of unstable angina. He underwent cardiac catheterization which showed proximal LAD 95%, mid distal 70%, diagonal 80%, the circumflex is 90%, ejection fraction 58%. MARCELLO 1.35. CTS was consulted and patient underwent coronary artery bypass grafting x3 on 08/06/17 (CABG x 3, VILCHIS to LAD, SVG to D1 , SVG to OM1) Postop patient was extubated 08/06, but overnight patient was intermittently hypotensive required Eyal-Synephrine to maintain map about 65. Also increasing metabolic acidosis,GEM labs showed lactic acidosis of 6.9. Critical care medicine was consulted for worsening shock. On my evaluation patient is sitting up in the cardiac chair slightly tachypneic. He is getting 2 Amps of bicarb per Dr. Vela. At this time he is off Eyal-Synephrine but the blood pressure is trending down, with MAP 59-60. I have ordered 500 mL of fluid bolus with normal saline and will start maintenance fluid at 75 mL/h. Dobutamine to be started at 2.5 mcg/kg/min ( is mild); also pacemaker rep was contacted to increase the back up pacing rate to 80 bpm. CVP 3. Reinsert Mckeon for accurate intake output, creat increased to 1.34. Trends lactic acid. A stat 2D echo showed dilated RV with evidence of RV dysfunction. Also initiate Higinio Trac monitoring SUBJ 08/08: Remains critically ill but stabilizing now. Appears adequately resuscitated. Due to increasing oxygen requirement and CVP more than 20, IV Lasix 100 mg given yesterday evening. Urine output excellent after this approximately 1.5 L overnight. Currently patient is on 50% oxygen by facemask, acidosis has improved, lactic acid trended down to 3. Remains on dobutamine at 2.5 mcg/kg/min. denies abdominal pain. Place on scheduled IV Lasix 40 mg every 8 hours, frequent lab monitoring Objective Vital Signs Date Time Temp Pulse Resp B/P (MAP) Pulse Ox O2 Delivery O2 Flow Rate FiO2 08/08/17 07:00 97.6 115 23 110/73 (85) 99 90/63 (72) 08/08/17 07:00 Partial Non-Rebreather 08/08/17 05:35 50 08/07/17 20:31 10.00 Intake and Output 08/08/17 08/08/17 08/09/17 08:00 16:00 00:00 Intake Total 1050 ml Output Total 1920 ml Balance -870 ml Result Diagram: 08/08/17 0425 08/08/17 0425 Other Results Laboratory Tests Test 08/07/17 10:08 08/07/17 10:35 08/07/17 18:25 08/07/17 18:55 Blood Gas Puncture Site SEE RN CHARTING CENTRAL LINE CENTRAL LINE CENTRAL LINE Blood Gas Patient Temperature 98.6 98.6 98.6 98.6 Venous Blood pH 7.37 (7.360-7.400) 7.29 (7.360-7.400) 7.36 (7.360-7.400) 7.33 (7.360-7.400) Venous Blood Partial Pressure CO2 34 mmHg (44-48) 43 mmHg (44-48) 43 mmHg (44-48) 48 mmHg (44-48) Venous Blood Partial Pressure O2 85 mmHg (35-40) 38 mmHg (35-40) 26 mmHg (35-40) 33 mmHg (35-40) Venous Blood HCO3 19 mmol/L (22-26) 20 mmol/L (22-26) 24 mmol/L (22-26) 24 mmol/L (22-26) Venous Blood Oxygen Saturation 94 % (70-76) 59 % (70-76) 42 % (70-76) 55 % ( 70-76) Venous Blood Oxygen Content 11.9 Vol % (9.0-17.0) 8.4 Vol % (9.0-17.0) 5.4 Vol % (9.0-17.0) 7.0 Vol % (9.0-17.0) Venous Blood Base Excess -5.2 mmol/L (-2-2) -5.6 mmol/L (-2-2) -1.0 mmol/L (-2-2) -0.9 mmol/L (-2-2) Oxygen Delivery Device NASAL CANNULA NASAL CANNULA NASAL CANNULA Non-Rebreathing Mask Blood Gas Liter Flow 6 L/M 6 L/M 6 L/M 15 L/M Blood Gas HCO3 18 mmol/L (22-26) Blood Gas Base Excess -7.1 mmol/L (-2-2) Blood Gas Oxygen Saturation 94 % (90-100) Arterial Blood pH 7.33 (7.380-7.420) Arterial Blood Partial Pressure CO2 34 mmHg (38-42) Arterial Blood Partial Pressure O2 85 mmHg (61-120) Arterial Blood Oxygen Content 11.9 Vol % (12.0-20.0) Arterial Blood Carboxyhemoglobin 1.1 % (0-4) Arterial Blood Methemoglobin 1.1 % (0-2) Blood Gas Hemoglobin 8.9 G/DL (12.0-16.0) Test 08/07/17 22:49 08/08/17 05:11 Blood Gas Puncture Site CENTRAL LINE CENTRAL LINE Blood Gas Patient Temperature 98.6 98.6 Venous Blood pH 7.39 (7.360-7.400) 7.41 (7.360-7.400) Venous Blood Partial Pressure CO2 48 mmHg (44-48) 47 mmHg (44-48) Venous Blood Partial Pressure O2 36 mmHg (35-40) 35 mmHg (35-40) Venous Blood HCO3 29 mmol/L (22-26) 29 mmol/L (22-26) Venous Blood Oxygen Saturation 64 % (70-76) 62 % (70-76) Venous Blood Oxygen Content 8.7 Vol % (9.0-17.0) 8.1 Vol % (9.0-17.0) Venous Blood Base Excess 4.0 mmol/L (-2-2) 4.6 mmol/L (-2-2) Oxygen Delivery Device Partial Rebreather PRB Blood Gas Liter Flow 10 L/M 10 L/M Imaging Chest x-ray shows no acute cardiopulmonary disease Objective Remarks GENERAL: The patient appears slightly tachypneic anxious tachycardic. Appears critical HEENT: CHAS. Mucous membranes dry. NECK: Supple. No carotid bruits heard. Right IJ central line in place. CVP 16 -18 CVS: Sinus rhythm intermittently tachycardic, hypotensive. Midline CABG incision dressing C/D/I. Currently on dobutamine 2.5 mcg/kg/min LUNGS: Few basilar crackles. Expected rub from chest tubes. Sanguinous output from chest tube ABDOMEN: Soft, mildly tender, mildly distended. No organomegaly noted. EXTREMITIES: Distal pulses are intact bilaterally. NEUROLOGIC: Alert awake oriented, no focal deficits. 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 Change to high flow nasal cannula -Incentive spirometry, Acapella, EzPAP every 4 hours -DuoNeb every 4 hours scheduled and as needed -Aggressive pulmonary toilet -Monitor chest tube output CV: -Dobutamine at 2.5 mcg/kg/min ( is mild). Higinio trac monitoring -Adequately resuscitated due to increased CVP, Low urine output -Good response to 100 mg IV Lasix yesterday. Received 60 mg today morning -Scheduled Lasix 40 mg IV every 8 hours with frequent CMP monitoring -Trend lactic acid, central venous gas, CVP, urine output -Cardiology Dr. Potts, CTS Dr. Vela -Resume aspirin if thrombocytopenia improved, continue Lipitor -Hold metoprolol, hold lisinopril due to hypotension -Lactic acidosis improved with resuscitation. Unable to rule out mesenteric ischemia at this time GI: -NPO except meds until more hemodynamically stable. If lactate continues to be normal, start clear liquid diet -Mesenteric ischemia cannot be ruled out, even though no abdominal pain or tenderness -Continue Protonix -CT of the abdomen without contrast essentially unremarkable : -Monitor renal function closely. Mckeon catheter. -IV Lasix as above. Off bicarb infusion -Acute kidney failure most likely secondary to ATN from hypotension ID: -Perioperative antibiotics per CT surgery. Empirically started on Zosyn as sepsis cannot be ruled out -Follow-up blood cultures check UA -Leukocytosis most likely reactive HEME: -Monitor CBC, CMP, coags -Resume aspirin but closely follow platelet count -Thrombocytopenia multifactorial ENDO: -Electrolyte replacement per protocol -Tight sugar control PROPH: -Hold of chemical DVT prophylaxis until cleared by CT surgery, and due to thrombocytopenia. Increase mobility. Protonix for GI prophylaxis LINES: -RIJ central line in place, left radial arterial line placed 08/07/2017 CC time 42 min Patient is postop CABG patient who is currently critically ill, but stabilizing. Worsening cardiogenic shock with severe lactic acidosis yesterday. Adequately resuscitated yesterday now lactic acid trending down remains on dobutamine IV diuresis started. Discussed with the Dr. Vela and Awais Luna MD Aug 08, 2017 08:29
[2017-08-08] MEDS: PANTOPRAZOLE SOD 40 MG DELAYED RELEASE TAB PO SCH (08:59)
[2017-08-08] MEDS: ATORVASTATIN 40 MG TAB PO SCH (08:59)
[2017-08-08] MEDS: SODIUM CHLORIDE 0.9% FLUSH 10 ML FLUSH IV FLUSH SCH ×2 (09:00→22:19)
--- NOTE | 2017-08-08 09:15 | PD.VS.PN ---
Subjective Subjective/Hospital Course Pt looks great this morning. OOB TC No abdominal tenderness lactate down to 3 Objective Vitals/I&O Date Time Temp Pulse Resp B/P (MAP) Pulse Ox O2 Delivery O2 Flow Rate FiO2 08/08/17 08:00 90/63 (72) 110/73 (85) 08/08/17 07:00 97.6 115 23 110/73 (85) 99 90/63 (72) 08/08/17 07:00 97 Partial Non-Rebreather 08/08/17 07:00 123 08/08/17 05:35 93 Venturi Mask 50 08/08/17 05:30 92 Venturi Mask 50 08/08/17 04:00 96 Partial Non-Rebreather 08/08/17 04:00 98.4 118 18 99/64 (76) 98 118/60 (79) 08/08/17 04:00 118 08/08/17 01:26 114 111/59 08/08/17 00:00 122 08/08/17 00:00 96 Partial Non-Rebreather 08/08/17 00:00 98.3 122 16 94/62 (73) 96 108/95 (99) 08/07/17 20:31 94 Partial Rebreather 10.00 08/07/17 20:00 97 Partial Non-Rebreather 08/07/17 20:00 98.0 122 16 119/69 (86) 97 136/67 (90) 08/07/17 20:00 122 08/07/17 19:21 99 Venturi Mask 50 08/07/17 19:00 98 Non-Rebreather 08/07/17 19:00 125 119/69 08/07/17 15:00 98.0 120 23 120/78 (92) 94 91/46 (61) 08/07/17 15:00 120 08/07/17 15:00 91 Nasal Cannula 6.00 08/07/17 12:32 18 08/07/17 09:44 95 85/43 08/08/17 08/08/17 08/08/17 07:00 15:00 23:00 Intake Total 940 ml 110 ml Output Total 1920 ml Balance -980 ml 110 ml Physical Exam sitting in chair no distress abdomen still slightly distended but nontender Laboratory Laboratory Tests Test 08/07/17 09:15 08/07/17 10:08 08/07/17 10:35 08/07/17 11:15 Lactic Acid Level 8.4 Blood Gas Puncture Site SEE RN CHARTING CENTRAL LINE Blood Gas Patient Temperature 98.6 98.6 Venous Blood pH 7.37 7.29 Venous Blood Partial Pressure CO2 34 43 Venous Blood Partial Pressure O2 85 38 Venous Blood HCO3 19 20 Venous Blood Oxygen Saturation 94 59 Venous Blood Oxygen Content 11.9 8.4 Venous Blood Base Excess -5.2 -5.6 Oxygen Delivery Device NASAL CANNULA NASAL CANNULA Blood Gas Liter Flow 6 6 Blood Gas HCO3 18 Blood Gas Base Excess -7.1 Blood Gas Oxygen Saturation 94 Arterial Blood pH 7.33 Arterial Blood Partial Pressure CO2 34 Arterial Blood Partial Pressure O2 85 Arterial Blood Oxygen Content 11.9 Arterial Blood Carboxyhemoglobin 1.1 Arterial Blood Methemoglobin 1.1 Blood Gas Hemoglobin 8.9 Urine Color YELLOW Urine Turbidity HAZY Urine pH 5.0 Urine Specific [place] 1.029 Urine Protein 30 Urine Glucose (UA) NEG Urine Ketones 10 Urine Occult Blood SMALL Urine Nitrite NEG Urine Bilirubin NEG Urine Urobilinogen LESS THAN 2.0 Urine Leukocyte Esterase NEG Urine RBC 4 Urine WBC 9 Urine Squamous Epithelial Cells 1 Urine Bacteria MOD Urine Hyaline Casts 9 Microscopic Urinalysis Comment CATH-CULTURE IND Test 08/07/17 13:55 08/07/17 17:30 08/07/17 18:25 08/07/17 18:55 White Blood Count 8.7 Red Blood Count 2.51 Hemoglobin 8.8 Hematocrit 26.2 Mean Corpuscular Volume 104.4 Mean Corpuscular Hemoglobin 35.0 Mean Corpuscular Hemoglobin Concent 33.5 Red Cell Distribution Width 16.6 Platelet Count 40 Mean Platelet Volume 8.7 Neutrophils (%) (Auto) 80.5 Lymphocytes (%) (Auto) 8.2 Monocytes (%) (Auto) 11.1 Eosinophils (%) (Auto) 0.0 Basophils (%) (Auto) 0.2 Neutrophils # (Auto) 7.0 Lymphocytes # (Auto) 0.7 Monocytes # (Auto) 1.0 Eosinophils # (Auto) 0.0 Basophils # (Auto) 0.0 CBC Comment AUTO DIFF Differential Comment AUTO DIFF CONFIRMED Platelet Estimate LOW Platelet Morphology Comment NORMAL Prothrombin Time 16.7 Prothromb Time International Ratio 1.7 Activated Partial Thromboplast Time 30.1 Fibrinogen 181 Blood Urea Nitrogen 26 Creatinine 1.50 Random Glucose 210 Total Protein 4.9 Albumin 2.6 Calcium Level 7.8 Magnesium Level 1.9 Alkaline Phosphatase 53 Aspartate Amino Transf (AST/SGOT) 76 Alanine Aminotransferase (ALT/SGPT) 30 Total Bilirubin 0.4 Sodium Level 148 Potassium Level 4.3 Chloride Level 113 Carbon Dioxide Level 18.8 Anion Gap 16 Estimat Glomerular Filtration Rate 44 Lactic Acid Level 11.1 8.2 Blood Gas Puncture Site CENTRAL LINE CENTRAL LINE Blood Gas Patient Temperature 98.6 98.6 Venous Blood pH 7.36 7.33 Venous Blood Partial Pressure CO2 43 48 Venous Blood Partial Pressure O2 26 33 Venous Blood HCO3 24 24 Venous Blood Oxygen Saturation 42 55 Venous Blood Oxygen Content 5.4 7.0 Venous Blood Base Excess -1.0 -0.9 Oxygen Delivery Device NASAL CANNULA Non-Rebreathing Mask Blood Gas Liter Flow 6 15 Test 08/07/17 21:10 08/07/17 22:49 08/08/17 04:25 08/08/17 05:11 White Blood Count 8.7 9.2 Red Blood Count 2.82 2.79 Hemoglobin 9.7 9.7 Hematocrit 27.9 27.6 Mean Corpuscular Volume 99.0 98.9 Mean Corpuscular Hemoglobin 34.5 34.8 Mean Corpuscular Hemoglobin Concent 34.8 35.2 Red Cell Distribution Width 17.7 17.5 Platelet Count 69 66 Mean Platelet Volume 8.4 9.0 Neutrophils (%) (Auto) 83.1 Lymphocytes (%) (Auto) 7.6 Monocytes (%) (Auto) 9.0 Eosinophils (%) (Auto) 0.1 Basophils (%) (Auto) 0.2 Neutrophils # (Auto) 7.2 Lymphocytes # (Auto) 0.7 Monocytes # (Auto) 0.8 Eosinophils # (Auto) 0.0 Basophils # (Auto) 0.0 CBC Comment AUTO DIFF Differential Comment AUTO DIFF CONFIRMED Platelet Estimate LOW Platelet Morphology Comment NORMAL Blood Urea Nitrogen 27 28 Creatinine 1.27 1.33 Random Glucose 120 114 Total Protein 5.7 5.5 Albumin 2.9 3.0 Calcium Level 9.1 8.4 Alkaline Phosphatase 57 57 Aspartate Amino Transf (AST/SGOT) 87 96 Alanine Aminotransferase (ALT/SGPT) 34 35 Total Bilirubin 0.6 0.7 Sodium Level 148 148 Potassium Level 3.5 4.2 Chloride Level 112 112 Carbon Dioxide Level 24.9 28.4 Anion Gap 11 8 Estimat Glomerular Filtration Rate 54 51 Lactic Acid Level 5.4 3.0 Blood Gas Puncture Site CENTRAL LINE CENTRAL LINE Blood Gas Patient Temperature 98.6 98.6 Venous Blood pH 7.39 7.41 Venous Blood Partial Pressure CO2 48 47 Venous Blood Partial Pressure O2 36 35 Venous Blood HCO3 29 29 Venous Blood Oxygen Saturation 64 62 Venous Blood Oxygen Content 8.7 8.1 Venous Blood Base Excess 4.0 4.6 Oxygen Delivery Device Partial Rebreather PRB Blood Gas Liter Flow 10 10 Prothrombin Time 14.4 Prothromb Time International Ratio 1.4 Activated Partial Thromboplast Time 26.2 Fibrinogen 242 Magnesium Level 2.3 Direct Bilirubin 0.2 Indirect Bilirubin 0.5 Date/Time Source Procedure Growth Status 08/07/17 16:00 Blood Peripheral Aerobic Blood Culture Pending Received 08/07/17 16:00 Blood Peripheral Anaerobic Blood Culture Pending Received 08/07/17 11:15 Urine Catheterized Urine Urine Culture Pending Received Imaging Last 48 hours Impressions Chest X-Ray 08/08/17 0600 Signed Impressions: Service Date/Time: July 04:46 - CONCLUSION: Stable patchy infiltrates left lung base. Small to moderate right pleural effusion. Jorje Alberto MD Chest X-Ray 08/07/17 0500 Signed Impressions: Service Date/Time: Monday, August 07, 2017 03:25 - CONCLUSION: The lungs are clear. Jorje Alberto MD Lung Scan- Nuclear Medicine 08/07/17 0000 Signed Impressions: Service Date/Time: Monday, August 07, 2017 16:12 - CONCLUSION: 1. Low probability for pulmonary embolus. Addison Sanchez MD Abdomen/Pelvis CT 08/07/17 0000 Signed Impressions: Service Date/Time: Monday, August 07, 2017 14:27 - CONCLUSION: Nonspecific findings. There is minimal induration root of the mesentery Sammy Melissa MD FACR Assessment and Plan Plan Lactate normalizing. Ileus resolving. Doubt he'll need vascular intervention. Call with any questions. Discussed with primary service Primitivo Berry MD [facility] at [facility] [phone] Primitivo Berry MD Aug 08, 2017 09:15
--- NOTE | 2017-08-08 12:35 | PD.CARD.PN ---
Subjective Subjective Remarks Clinically still appears well Lactate down Objective Medications Current Medications Medications (Trade) Dose Ordered Sig/Cody Route Start Time Stop Time Status Last Admin (Atropine Inj) 0.5 mg UNSCH PRN IV PUSH 08/02/17 12:15 (Protonix) 40 mg DAILY PO 08/03/17 09:00 08/08/17 08:59 (Lipitor) 40 mg DAILY PO 08/03/17 09:00 08/08/17 08:59 (NS Flush) 2 ml BID IV FLUSH 08/02/17 21:00 08/08/17 09:00 (NS Flush) 2 ml UNSCH PRN IV FLUSH 08/02/17 17:45 08/05/17 08:52 Albumin Human 250 ml @ 250 mls/hr UNSCH PRN IV 08/06/17 12:30 08/06/17 19:45 Lactated Ringer's 500 ml @ 500 mls/hr Q1H PRN IV 08/06/17 12:23 (Aspirin Chew) 81 mg DAILY PO 08/07/17 09:00 Future Hold 08/07/17 10:56 (Tylenol) 650 mg Q4H PRN PO 08/06/17 12:30 08/08/17 01:25 (Percocet 5-325 Mg) 1 tab Q3H PRN PO 08/06/17 12:30 (Zofran Inj) 4 mg Q6H PRN IV PUSH 08/06/17 12:30 08/06/17 19:55 Potassium Chloride 100 ml @ 50 mls/hr UNSCH PRN IV 08/06/17 12:30 (KCl) 20 meq UNSCH PRN PO 08/06/17 12:30 (KCl) 40 meq UNSCH PRN PO 08/06/17 12:30 Magnesium Sulfate 2 gm/Sodium Chloride 104 ml @ 100 mls/hr UNSCH PRN IV 08/06/17 12:30 Calcium Chloride 1 gm/Sodium Chloride 110 ml @ 100 mls/hr UNSCH PRN IV 08/06/17 12:30 08/06/17 14:00 (Calcium Chloride Inj) 0.5 gm UNSCH PRN IV PUSH 08/06/17 12:30 (Duoneb Neb) 1 ampule Q2HR NEB PRN NEB 08/06/17 12:30 08/06/17 23:16 Piperacillin Sod/ Tazobactam Sod 50 ml @ 100 mls/hr Q8H IV 08/07/17 17:00 08/08/17 09:00 (NovoLOG SUPPLEMENTAL SCALE) 1 Q4HR SQ 08/08/17 06:45 08/08/17 11:29 (Duoneb Neb) 1 ampule Q6HR NEB NEB 08/08/17 06:45 08/08/17 09:37 (D50w (Vial) Inj) 50 ml UNSCH PRN IV PUSH 08/08/17 07:15 (Glucagon Inj) 1 mg UNSCH PRN OTHER 08/08/17 07:15 (Lasix Inj) 40 mg Q12HR IV PUSH 08/08/17 21:00 Vital Signs / I&O Vital Signs Date Time Temp Pulse Resp B/P (MAP) Pulse Ox O2 Delivery O2 Flow Rate FiO2 08/08/17 11:01 98.1 115 23 98/73 (81) 95 100/69 (79) 08/08/17 11:01 95 Partial Non-Rebreather 08/08/17 11:01 115 08/08/17 09:25 97 High Flow Nasal Cannula 25.00 50 08/08/17 08:00 90/63 (72) 110/73 (85) 08/08/17 07:00 97.6 115 23 110/73 (85) 99 90/63 (72) 08/08/17 07:00 97 Partial Non-Rebreather 08/08/17 07:00 123 08/08/17 05:35 93 Venturi Mask 50 08/08/17 05:30 92 Venturi Mask 50 08/08/17 04:00 96 Partial Non-Rebreather 08/08/17 04:00 98.4 118 18 99/64 (76) 98 118/60 (79) 08/08/17 04:00 118 08/08/17 01:26 114 111/59 08/08/17 00:00 122 08/08/17 00:00 96 Partial Non-Rebreather 08/08/17 00:00 98.3 122 16 94/62 (73) 96 108/95 (99) 08/07/17 20:31 94 Partial Rebreather 10.00 08/07/17 20:00 97 Partial Non-Rebreather 08/07/17 20:00 98.0 122 16 119/69 (86) 97 136/67 (90) 08/07/17 20:00 122 08/07/17 19:21 99 Venturi Mask 50 08/07/17 19:00 98 Non-Rebreather 08/07/17 19:00 125 119/69 08/07/17 15:00 98.0 120 23 120/78 (92) 94 91/46 (61) 08/07/17 15:00 120 08/07/17 15:00 91 Nasal Cannula 6.00 I/O 08/07/17 08/07/17 08/07/17 08/08/17 08/08/17 08/08/17 07:00 15:00 23:00 07:00 15:00 23:00 Intake Total 2460 ml 100 ml 4844 ml 940 ml 110 ml Output Total 650 ml 270 ml 1920 ml Balance 1810 ml 100 ml 4574 ml -980 ml 110 ml Intake Oral 50 ml 400 ml 240 ml IV Total 2410 ml 100 ml 2784 ml 700 ml 110 ml Packed Cells 1000 ml Platelets 510 ml Blood Product IV Normal Saline Flush 150 ml Output Urine Total 430 ml 270 ml 1540 ml Chest Tube Drainage Total 220 ml 380 ml # Bowel Movements 0 0 Physical Exam GENERAL: NAD SKIN: Warm and dry. HEAD: Atraumatic. Normocephalic. EYES: Pupils equal and round. No scleral icterus. No injection or drainage. ENT: No nasal bleeding or discharge. Mucous membranes pink and moist. NECK: Trachea midline. No JVD. CARDIOVASCULAR: Regular rate and rhythm. RESPIRATORY: No accessory muscle use. Decreased breath sounds bilaterally GASTROINTESTINAL: Abdomen soft, non-tender, nondistended. Hepatic and splenic margins not palpable. MUSCULOSKELETAL: Extremities without clubbing, cyanosis, or edema. No obvious deformities. NEUROLOGICAL: No focal deficits noted Laboratory Laboratory Tests Test 08/07/17 13:55 08/07/17 17:30 08/07/17 18:25 08/07/17 18:55 White Blood Count 8.7 TH/MM3 Red Blood Count 2.51 MIL/MM3 Hemoglobin 8.8 GM/DL Hematocrit 26.2 % Mean Corpuscular Volume 104.4 FL Mean Corpuscular Hemoglobin 35.0 PG Mean Corpuscular Hemoglobin Concent 33.5 % Red Cell Distribution Width 16.6 % Platelet Count 40 TH/MM3 Mean Platelet Volume 8.7 FL Neutrophils (%) (Auto) 80.5 % Lymphocytes (%) (Auto) 8.2 % Monocytes (%) (Auto) 11.1 % Eosinophils (%) (Auto) 0.0 % Basophils (%) (Auto) 0.2 % Neutrophils # (Auto) 7.0 TH/MM3 Lymphocytes # (Auto) 0.7 TH/MM3 Monocytes # (Auto) 1.0 TH/MM3 Eosinophils # (Auto) 0.0 TH/MM3 Basophils # (Auto) 0.0 TH/MM3 CBC Comment AUTO DIFF Differential Comment AUTO DIFF CONFIRMED Platelet Estimate LOW Platelet Morphology Comment NORMAL Prothrombin Time 16.7 SEC Prothromb Time International Ratio 1.7 RATIO Activated Partial Thromboplast Time 30.1 SEC Fibrinogen 181 mg/dL Blood Urea Nitrogen 26 MG/DL Creatinine 1.50 MG/DL Random Glucose 210 MG/DL Total Protein 4.9 GM/DL Albumin 2.6 GM/DL Calcium Level 7.8 MG/DL Magnesium Level 1.9 MG/DL Alkaline Phosphatase 53 U/L Aspartate Amino Transf (AST/SGOT) 76 U/L Alanine Aminotransferase (ALT/SGPT) 30 U/L Total Bilirubin 0.4 MG/DL Sodium Level 148 MEQ/L Potassium Level 4.3 MEQ/L Chloride Level 113 MEQ/L Carbon Dioxide Level 18.8 MEQ/L Anion Gap 16 MEQ/L Estimat Glomerular Filtration Rate 44 ML/MIN Lactic Acid Level 11.1 mmol/L 8.2 mmol/L Blood Gas Puncture Site CENTRAL LINE CENTRAL LINE Blood Gas Patient Temperature 98.6 98.6 Venous Blood pH 7.36 7.33 Venous Blood Partial Pressure CO2 43 mmHg 48 mmHg Venous Blood Partial Pressure O2 26 mmHg 33 mmHg Venous Blood HCO3 24 mmol/L 24 mmol/L Venous Blood Oxygen Saturation 42 % 55 % Venous Blood Oxygen Content 5.4 Vol % 7.0 Vol % Venous Blood Base Excess -1.0 mmol/L -0.9 mmol/L Oxygen Delivery Device NASAL CANNULA Non-Rebreathing Mask Blood Gas Liter Flow 6 L/M 15 L/M Test 08/07/17 21:10 08/07/17 22:49 08/08/17 04:25 08/08/17 05:11 White Blood Count 8.7 TH/MM3 9.2 TH/MM3 Red Blood Count 2.82 MIL/MM3 2.79 MIL/MM3 Hemoglobin 9.7 GM/DL 9.7 GM/DL Hematocrit 27.9 % 27.6 % Mean Corpuscular Volume 99.0 FL 98.9 FL Mean Corpuscular Hemoglobin 34.5 PG 34.8 PG Mean Corpuscular Hemoglobin Concent 34.8 % 35.2 % Red Cell Distribution Width 17.7 % 17.5 % Platelet Count 69 TH/MM3 66 TH/MM3 Mean Platelet Volume 8.4 FL 9.0 FL Neutrophils (%) (Auto) 83.1 % Lymphocytes (%) (Auto) 7.6 % Monocytes (%) (Auto) 9.0 % Eosinophils (%) (Auto) 0.1 % Basophils (%) (Auto) 0.2 % Neutrophils # (Auto) 7.2 TH/MM3 Lymphocytes # (Auto) 0.7 TH/MM3 Monocytes # (Auto) 0.8 TH/MM3 Eosinophils # (Auto) 0.0 TH/MM3 Basophils # (Auto) 0.0 TH/MM3 CBC Comment AUTO DIFF Differential Comment AUTO DIFF CONFIRMED Platelet Estimate LOW Platelet Morphology Comment NORMAL Blood Urea Nitrogen 27 MG/DL 28 MG/DL Creatinine 1.27 MG/DL 1.33 MG/DL Random Glucose 120 MG/DL 114 MG/DL Total Protein 5.7 GM/DL 5.5 GM/DL Albumin 2.9 GM/DL 3.0 GM/DL Calcium Level 9.1 MG/DL 8.4 MG/DL Alkaline Phosphatase 57 U/L 57 U/L Aspartate Amino Transf (AST/SGOT) 87 U/L 96 U/L Alanine Aminotransferase (ALT/SGPT) 34 U/L 35 U/L Total Bilirubin 0.6 MG/DL 0.7 MG/DL Sodium Level 148 MEQ/L 148 MEQ/L Potassium Level 3.5 MEQ/L 4.2 MEQ/L Chloride Level 112 MEQ/L 112 MEQ/L Carbon Dioxide Level 24.9 MEQ/L 28.4 MEQ/L Anion Gap 11 MEQ/L 8 MEQ/L Estimat Glomerular Filtration Rate 54 ML/MIN 51 ML/MIN Lactic Acid Level 5.4 mmol/L 3.0 mmol/L Blood Gas Puncture Site CENTRAL LINE CENTRAL LINE Blood Gas Patient Temperature 98.6 98.6 Venous Blood pH 7.39 7.41 Venous Blood Partial Pressure CO2 48 mmHg 47 mmHg Venous Blood Partial Pressure O2 36 mmHg 35 mmHg Venous Blood HCO3 29 mmol/L 29 mmol/L Venous Blood Oxygen Saturation 64 % 62 % Venous Blood Oxygen Content 8.7 Vol % 8.1 Vol % Venous Blood Base Excess 4.0 mmol/L 4.6 mmol/L Oxygen Delivery Device Partial Rebreather PRB Blood Gas Liter Flow 10 L/M 10 L/M Prothrombin Time 14.4 SEC Prothromb Time International Ratio 1.4 RATIO Activated Partial Thromboplast Time 26.2 SEC Fibrinogen 242 mg/dL Magnesium Level 2.3 MG/DL Direct Bilirubin 0.2 MG/DL Indirect Bilirubin 0.5 MG/DL Imaging Last 24 hours Impressions Chest X-Ray 08/08/17 0600 Signed Impressions: Service Date/Time: July 04:46 - CONCLUSION: Stable patchy infiltrates left lung base. Small to moderate right pleural effusion. Jorje Alberto MD Assessment and Plan Problem List: (1) Hx of ventricular tachycardia ICD Codes: Z86.79 - Personal history of other diseases of the circulatory system (2) History of CVA (cerebrovascular accident) ICD Codes: Z86.73 - Personal history of transient ischemic attack (TIA), and cerebral infarction without residual deficits (3) Artificial cardiac pacemaker ICD Codes: Z95.0 - Presence of cardiac pacemaker (4) Unstable angina ICD Codes: I20.0 - Unstable angina (5) Multi-vessel coronary artery stenosis ICD Codes: I25.10 - Atherosclerotic heart disease of [place] coronary artery without angina pectoris Assessment and Plan 1) CAD/[place] s/p CABGx3 POD #2 VILCHIS to LAD SVG to D1 SVG to OM1 2) SOB leading to syncope Most likely anginal equivalent 3) ASA/Statin Eventually restart BB 4) Clinically appears well 5) Lactic acid decreasing 6) Clinically appears great 7) Dobutamine off due to tachycardia 8) Gentle diuresis now Evaristo Potts DO Aug 08, 2017 12:35
[2017-08-08 14:16] LABS: AUTOMATED NEUTROPHIL # 8.9 TH/MM3 (1.8-7.7); BASOPHIL % 0.1 % (0.0-2.0); EOSINOPHIL % 0.1 % (0.0-4.0); HEMATOCRIT 29.5 % (39.0-51.0); HEMOGLOBIN 10.1 GM/DL (13.0-17.0); LYMPH % 8.5 % (9.0-44.0); MEAN CELL VOLUME 98.9 FL (80.0-100.0); MEAN CORPUSCULAR HEMOGLOBIN 33.7 PG (27.0-34.0); MEAN CORPUSCULAR HGB CONC 34.1 % (32.0-36.0); MEAN PLATELET VOLUME 9.7 FL (7.0-11.0); MONO % 13.1 % (0.0-8.0); MONOCYTE # 1.5 TH/MM3 (0-0.9); NEUT % 78.2 % (16.0-70.0); PLATELET COUNT 79 TH/MM3 (150-450); RED BLOOD COUNT 2.98 MIL/MM3 (4.50-5.90); RED CELL DISTRIBUTION WIDTH 17.9 % (11.6-17.2); WHITE BLOOD COUNT 11.3 TH/MM3 (4.0-11.0)
[2017-08-08 14:36] LABS: AST (GOT) 102 U/L (15-37); BICARBONATE 27.8 MEQ/L (21.0-32.0); BLOOD UREA NITROGEN 28 MG/DL (7-18); CALCIUM 9.1 MG/DL (8.5-10.1); CHLORIDE 109 MEQ/L (98-107); CREATININE 1.43 MG/DL (0.60-1.30); GLOMERULAR FILTRATION RATE 47 ML/MIN (>89); GLUCOSE,RANDOM 175 MG/DL (74-106); MAGNESIUM 2.2 MG/DL (1.5-2.5); SODIUM (NA) 147 MEQ/L (136-145)
[2017-08-08 14:37] LABS: ALT (GPT) 39 U/L (12-78)
[2017-08-08 14:47] LABS: ALKALINE PHOSPHATASE 70 U/L (45-117); PHOSPHORUS 2.4 MG/DL (2.5-4.9); TOTAL BILIRUBIN ADULT 0.8 MG/DL (0.2-1.0); TOTAL PROTEIN 6.1 GM/DL (6.4-8.2)
--- NOTE | 2017-08-08 16:36 | PD.CAR.PN ---
CVT Progress Note Subjective/Hospital Course: 87-year-old male patient of Dr. Kush Lawrence, Dr. Brandon Parks, history of having some dizziness and lightheadedness for the last 3 weeks, some presyncope episodes, also preceded all the time by shortness of breath, which he has noticed more progressively over the past 1 month. The shortness of breath occurs with minimal exertion. He normally is very active. He walks about 3-4 miles, but back in January he purchased a mobile home and has been repairing that, but has been unable to do so secondary to the shortness of breath. He has a history of some mild aortic stenosis. Therefore, he underwent cardiac catheterization today to evaluate the valve further which showed a 10% stenosis in the left main, proximal LAD 95%, mid distal 70%, diagonal 80%, the circumflex is 90%, ejection fraction 58%. PA pressure is 46/ 20 with a wedge pressure of 12. Cardiac output of 5.2. Aortic valve area of 1.35. We were consulted to evaluate for coronary artery bypass grafting. 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 He has had a history of a stroke in the past with some residual oral paresthesias, paroxysmal ventricular tachycardia. 08/05 doing well, no chest pain plan for surgery in am 08/06 surgery: CABG x 3, VILCHIS to LAD - fair, SVG to D1 - good, SVG to OM1 - fair , EVH (R) 08/07/17 No complaints. Denies any pain. Metabolic acidosis overnight with intermittent hypotension. 08/08 weaned off dobutamine/ 2/2 tachycardia lasix decreased now on partial NRB feels fair, up in chair keep in ICU today pulm toileting lactic acid improved / off pressors Objective: GENERAL: A&O x 3 SKIN: Warm and dry. HEAD: Normocephalic. EYES: No scleral icterus. No injection or drainage. NECK: Supple, trachea midline. No JVD or lymphadenopathy. CARDIOVASCULAR: Regular rate and rhythm without murmurs, gallops, or rubs. RESPIRATORY: Breath sounds equal bilaterally. No accessory muscle use. GASTROINTESTINAL: Abdomen soft, non-tender, nondistended. MUSCULOSKELETAL: No cyanosis, or edema. BACK: Nontender without obvious deformity. No CVA tenderness. Vital Signs Date Time Temp Pulse Resp B/P (MAP) Pulse Ox O2 Delivery O2 Flow Rate FiO2 08/08/17 15:00 94 Partial Non-Rebreather 08/08/17 15:00 109 08/08/17 15:00 97.8 109 21 97/66 (76) 95 Arterial Line 08/08/17 11:01 98.1 115 23 98/73 (81) 95 100/69 (79) 08/08/17 11:01 95 Partial Non-Rebreather 08/08/17 11:01 115 08/08/17 09:25 97 High Flow Nasal Cannula 25.00 50 08/08/17 08:00 90/63 (72) 110/73 (85) 08/08/17 07:00 97.6 115 23 110/73 (85) 99 90/63 (72) 08/08/17 07:00 97 Partial Non-Rebreather 08/08/17 07:00 123 08/08/17 05:35 93 Venturi Mask 50 08/08/17 05:30 92 Venturi Mask 50 08/08/17 04:00 96 Partial Non-Rebreather 08/08/17 04:00 98.4 118 18 99/64 (76) 98 118/60 (79) 08/08/17 04:00 118 08/08/17 01:26 114 111/59 08/08/17 00:00 122 08/08/17 00:00 96 Partial Non-Rebreather 08/08/17 00:00 98.3 122 16 94/62 (73) 96 108/95 (99) 08/07/17 20:31 94 Partial Rebreather 10.00 08/07/17 20:00 97 Partial Non-Rebreather 08/07/17 20:00 98.0 122 16 119/69 (86) 97 136/67 (90) 08/07/17 20:00 122 08/07/17 19:21 99 Venturi Mask 50 08/07/17 19:00 98 Non-Rebreather 08/07/17 19:00 125 119/69 Labs: Laboratory Tests Test 08/08/17 05:11 08/08/17 14:00 Blood Gas Puncture Site CENTRAL LINE Blood Gas Patient Temperature 98.6 Venous Blood pH 7.41 (7.360-7.400) Venous Blood Partial Pressure CO2 47 mmHg (44-48) Venous Blood Partial Pressure O2 35 mmHg (35-40) Venous Blood HCO3 29 mmol/L (22-26) Venous Blood Oxygen Saturation 62 % (70-76) Venous Blood Oxygen Content 8.1 Vol % (9.0-17.0) Venous Blood Base Excess 4.6 mmol/L (-2-2) Oxygen Delivery Device PRB Blood Gas Liter Flow 10 L/M White Blood Count 11.3 TH/MM3 (4.0-11.0) Red Blood Count 2.98 MIL/MM3 (4.50-5.90) Hemoglobin 10.1 GM/DL (13.0-17.0) Hematocrit 29.5 % (39.0-51.0) Mean Corpuscular Volume 98.9 FL (80.0-100.0) Mean Corpuscular Hemoglobin 33.7 PG (27.0-34.0) Mean Corpuscular Hemoglobin Concent 34.1 % (32.0-36.0) Red Cell Distribution Width 17.9 % (11.6-17.2) Platelet Count 79 TH/MM3 (150-450) Mean Platelet Volume 9.7 FL (7.0-11.0) Neutrophils (%) (Auto) 78.2 % (16.0-70.0) Lymphocytes (%) (Auto) 8.5 % (9.0-44.0) Monocytes (%) (Auto) 13.1 % (0.0-8.0) Eosinophils (%) (Auto) 0.1 % (0.0-4.0) Basophils (%) (Auto) 0.1 % (0.0-2.0) Neutrophils # (Auto) 8.9 TH/MM3 (1.8-7.7) Lymphocytes # (Auto) 1.0 TH/MM3 (1.0-4.8) Monocytes # (Auto) 1.5 TH/MM3 (0-0.9) Eosinophils # (Auto) 0.0 TH/MM3 (0-0.4) Basophils # (Auto) 0.0 TH/MM3 (0-0.2) CBC Comment AUTO DIFF Differential Comment AUTO DIFF CONFIRMED Platelet Estimate LOW (NORMAL) Platelet Morphology Comment NORMAL (NORMAL) Blood Urea Nitrogen 28 MG/DL (7-18) Creatinine 1.43 MG/DL (0.60-1.30) Random Glucose 175 MG/DL (74-106) Total Protein 6.1 GM/DL (6.4-8.2) Albumin 3.0 GM/DL (3.4-5.0) Calcium Level 9.1 MG/DL (8.5-10.1) Phosphorus Level 2.4 MG/DL (2.5-4.9) Magnesium Level 2.2 MG/DL (1.5-2.5) Alkaline Phosphatase 70 U/L (45-117) Aspartate Amino Transf (AST/SGOT) 102 U/L (15-37) Alanine Aminotransferase (ALT/SGPT) 39 U/L (12-78) Total Bilirubin 0.8 MG/DL (0.2-1.0) Sodium Level 147 MEQ/L (136-145) Potassium Level 4.0 MEQ/L (3.5-5.1) Chloride Level 109 MEQ/L (98-107) Carbon Dioxide Level 27.8 MEQ/L (21.0-32.0) Anion Gap 10 MEQ/L (5-15) Estimat Glomerular Filtration Rate 47 ML/MIN (>89) Lactic Acid Level 4.2 mmol/L (0.4-2.0) Thyroid Stimulating Hormone 3rd Gen 0.887 uIU/ML (0.358-3.740) Result Diagram: 08/08/17 1400 08/08/17 1400 (1) Hx of ventricular tachycardia (2) History of CVA (cerebrovascular accident) Plan: PT/OT (3) Artificial cardiac pacemaker (4) Unstable angina (5) Multi-vessel coronary artery stenosis (6) S/P CABG x 3 Plan: ASA on hold PLT 66 on statin , hold on BB for now OOB, pulm toileting keep in ICU (7) Hypotension (8) Metabolic acidosis Plan: resolved Jaunita Cohen Aug 08, 2017 16:36
[2017-08-08] MEDS ORDERED: DOBUTamine PREMIX DRIP 250 ML IV PRN (23:30)
[2017-08-09] VITALS (9 sets, daily range): BP systolic 95–118; BP diastolic 59–76; PULSE 106–116; RESP 18–22; TEMP 97.6–98.4; O2SAT 93–97
[2017-08-09] MEDS: PIPERACIL-TAZO 3.375 GM PREMIX 50 ML IV SCH ×3 (01:00→16:45)
[2017-08-09] MEDS: RESP: ALBUTEROL 2.5 MG/IPRATROPIUM 0.5 MG NEB (SCH) NEB ×4 (02:50→20:04)
[2017-08-09] MEDS: INSULIN ASPART SUPPLEMENTAL SCALE SQ SCH ×5 (04:00→18:00)
[2017-08-09 04:41] LABS: AUTOMATED NEUTROPHIL # 5.8 TH/MM3 (1.8-7.7); BASOPHIL % 0.1 % (0.0-2.0); EOSINOPHIL % 0.2 % (0.0-4.0); HEMATOCRIT 27.5 % (39.0-51.0); HEMOGLOBIN 9.6 GM/DL (13.0-17.0); LYMPH % 13.4 % (9.0-44.0); MEAN CELL VOLUME 99.7 FL (80.0-100.0); MEAN CORPUSCULAR HEMOGLOBIN 34.8 PG (27.0-34.0); MEAN PLATELET VOLUME 8.5 FL (7.0-11.0); MONO % 9.8 % (0.0-8.0); MONOCYTE # 0.7 TH/MM3 (0-0.9); NEUT % 76.5 % (16.0-70.0); PLATELET COUNT 59 TH/MM3 (150-450); RED BLOOD COUNT 2.76 MIL/MM3 (4.50-5.90); RED CELL DISTRIBUTION WIDTH 17.3 % (11.6-17.2); WHITE BLOOD COUNT 7.5 TH/MM3 (4.0-11.0)
[2017-08-09 05:09] LABS: ALBUMIN 2.8 GM/DL (3.4-5.0); AST (GOT) 80 U/L (15-37); BICARBONATE 32.4 MEQ/L (21.0-32.0); BLOOD UREA NITROGEN 31 MG/DL (7-18); CALCIUM 8.3 MG/DL (8.5-10.1); CHLORIDE 107 MEQ/L (98-107); CREATININE 1.23 MG/DL (0.60-1.30); GLOMERULAR FILTRATION RATE 56 ML/MIN (>89); GLUCOSE,RANDOM 140 MG/DL (74-106); MAGNESIUM 2.2 MG/DL (1.5-2.5); SODIUM (NA) 145 MEQ/L (136-145)
[2017-08-09 05:10] LABS: ALT (GPT) 40 U/L (12-78)
[2017-08-09 05:12] LABS: ALKALINE PHOSPHATASE 81 U/L (45-117); TOTAL BILIRUBIN ADULT 0.8 MG/DL (0.2-1.0)
--- NOTE | 2017-08-09 06:07 | RADRPT ---
EXAM DATE/TIME: 08/09/2017 04:45 [place] COMPARISON: CHEST SINGLE AP, August 08, 2017, 4:46. INDICATIONS : Shortness of breath and patchy lung infiltrates.. MEDICAL HISTORY : Cerebrovascular disease. Cardiovascular disease. Hypertension SURGICAL HISTORY : CABG. Pacemaker. ENCOUNTER: Subsequent ACUITY: 1 week PAIN SCORE: Non-responsive. LOCATION: chest FINDINGS: A single AP semierect view of the chest was obtained and again demonstrate the patient is status post median sternotomy. The left subclavian transvenous pacer remains in place. The right internal jugula r central venous line remains in place. There is increased hazy opacity in the right lung. Patchy opa city remains at the left lung base. The mediastinal chest tube and left-sided chest tube remain in pl [place] with no visualized pneumothorax. Both costophrenic angles may be slightly blunted. The heart size is at the upper limits of normal. CONCLUSION: 1. The left-sided chest tube remains in place with no pneumothorax. 2. Increased hazy opacity in the right lung. This could represent posterior fusion or infiltrate. 3. Patchy opacity remains the right lung base. Esteban Stone MD on August 09, 2017 at 6:03 Board Certified Radiologist. This report was verified electronically.
[2017-08-09] MEDS ORDERED: POTASSIUM PHOSPHATE INJ 30 MMOL in SODIUM CHLOR 0.9% 250 ML INJ 250 ML IV PRN (06:45)
[2017-08-09] MEDS ORDERED: MAGNESIUM SULFATE INJ 2 GM in SODIUM CHLORIDE 0.9% INJ 96 ML IV PRN (06:45)
[2017-08-09] MEDS ORDERED: POTASSIUM CHLORIDE 25 MEQ EFFERVESCENT TAB PO PRN (06:45)
[2017-08-09] MEDS ORDERED: POTASSIUM CHLOR 20 MEQ PREMIX 100 ML IV PRN ×2 (06:45)
[2017-08-09] MEDS ORDERED: POTASSIUM PHOSPHATE MONOBASIC 500 MG TAB PO PRN (06:45)
[2017-08-09] MEDS ORDERED: POTASSIUM PHOSPHATE MONOBASIC 500 MG TAB PO/TUBE PRN (06:45)
[2017-08-09] MEDS ORDERED: MAGNESIUM OXIDE 400 MG TAB PO PRN (06:45)
[2017-08-09] MEDS ORDERED: POTASSIUM CHLOR 40 MEQ PREMIX 100 ML IV PRN ×2 (06:45)
[2017-08-09] MEDS ORDERED: SODIUM PHOSPHATE INJ 30 MMOL in SODIUM CHLOR 0.9% 250 ML INJ 240 ML IV PRN (06:45)
[2017-08-09] MEDS ORDERED: MAGNESIUM SULFATE INJ 4 GM in SODIUM CHLORIDE 0.9% INJ 92 ML IV PRN (06:45)
[2017-08-09] MEDS ORDERED: FUROSEMIDE 20 MG/2 ML VIAL IV PUSH ONE (07:15)
--- NOTE | 2017-08-09 07:25 | HHI.CCPN ---
Subjective Remarks/Hospital Course Patient is a 87-year-old male patient who was admitted to Dr. Potts service with a diagnosis of unstable angina. He underwent cardiac catheterization which showed proximal LAD 95%, mid distal 70%, diagonal 80%, the circumflex is 90%, ejection fraction 58%. MARCELLO 1.35. CTS was consulted and patient underwent coronary artery bypass grafting x3 on 08/06/17 (CABG x 3, VILCHIS to LAD, SVG to D1 , SVG to OM1) Postop patient was extubated 08/06, but overnight patient was intermittently hypotensive required Eyal-Synephrine to maintain map about 65. Also increasing metabolic acidosis,GEM labs showed lactic acidosis of 6.9. Critical care medicine was consulted for worsening shock. On my evaluation patient is sitting up in the cardiac chair slightly tachypneic. He is getting 2 Amps of bicarb per Dr. Vela. At this time he is off Eyal-Synephrine but the blood pressure is trending down, with MAP 59-60. I have ordered 500 mL of fluid bolus with normal saline and will start maintenance fluid at 75 mL/h. Dobutamine to be started at 2.5 mcg/kg/min ( is mild); also pacemaker rep was contacted to increase the back up pacing rate to 80 bpm. CVP 3. Reinsert Mckeon for accurate intake output, creat increased to 1.34. Trends lactic acid. A stat 2D echo showed dilated RV with evidence of RV dysfunction. Also initiate Higinio Trac monitoring SUBJ 08/08: Remains critically ill but stabilizing now. Appears adequately resuscitated. Due to increasing oxygen requirement and CVP more than 20, IV Lasix 100 mg given yesterday evening. Urine output excellent after this approximately 1.5 L overnight. Currently patient is on 50% oxygen by facemask, acidosis has improved, lactic acid trended down to 3. Remains on dobutamine at 2.5 mcg/kg/min. denies abdominal pain. Place on scheduled IV Lasix 40 mg every 8 hours, frequent lab monitoring 08/09: Remains on dobutamine at 1 mcg/kg/min for RV dysfunction. Repeat 2dEcho limited today. Attempt to wean Dobut as tolerated. Lactate climbed yesterday with oliguria when dobutamine was stopped yesterday. UP 2L in 24 hours. CXR shows increasing R effusion. Will increase Lasix to 20 mg IV q8, with 1 additional dose now 20 mg IV. Creat improving Objective Vital Signs Date Time Temp Pulse Resp B/P (MAP) Pulse Ox O2 Delivery O2 Flow Rate FiO2 08/09/17 00:00 106 08/09/17 00:00 98.0 20 107/75 (86) 94 08/09/17 00:00 Nasal Cannula 25.00 50 Intake and Output 08/09/17 08/09/17 08/10/17 08:00 16:00 00:00 Intake Total 480 ml Output Total 945 ml Balance -465 ml Result Diagram: 08/09/17 0425 08/09/17 0425 Imaging Chest x-ray shows no acute cardiopulmonary disease Objective Remarks GENERAL: The patient appears sitting up in cardiac chair tachycardic. HEENT: CHAS. Mucous membranes dry. NECK: Supple. No carotid bruits heard. Right IJ central line in place. CVS: Sinus rhythm intermittently tachycardic, hypotensive. Midline CABG incision dressing C/D/I. Currently on dobutamine 1 mcg/kg/min LUNGS: Few basilar crackles. Expected rub from chest tubes. Sanguinous output from chest tube 430 ml in 24 hours ABDOMEN: Soft, mildly tender, mildly distended. No organomegaly noted. EXTREMITIES: Distal pulses are intact bilaterally. NEUROLOGIC: Alert awake oriented, no focal deficits. Anxious A/P Assessment and Plan ASSESSMENT: Cardiogenic shock Lactic acidosis Acute respiratory insufficiency/hypoxemia Acute Kidney injury RV dilation on echo Leukocytosis Thrombocytopenia Fluid overload s/p CABG x3 Multi-vessel CAD Mild aortic stenosis History of bradycardia s/p St. Nic pacemaker placed in 2008 History of CVA PLAN: NEURO: -As needed Tylenol and Percocet for pain -Fentanyl for breakthrough pain -Resume aspirin once platelet count is more than 80,000 RESP: -Currently on oxygen by high flow NC. -Increasing pl effusion, will increase Lasix-see below -Incentive spirometry, Acapella, EzPAP every 4 hours -DuoNeb every 4 hours scheduled and as needed -Aggressive pulmonary toilet -Monitor chest tube output-430 ml in last 24 hours CV: -Dobutamine at 1 mcg/kg/min ( is mild, tolerating mild tachycardia well). -Adequately resuscitated, now diuresing for fluid overload -Scheduled Lasix 20 mg IV every 8 hours with frequent CMP monitoring, additional 20 mg IV now -Trend lactic acid, central venous gas, CVP, urine output -Cardiology Dr. Potts, CTS Dr. Vela -Resume aspirin if thrombocytopenia improved, continue Lipitor -Hold metoprolol, hold lisinopril due to hypotension -Lactic acidosis improved with restarting Dobutamine. GI: -Started on clear liquid diet, advance as tolerated, passing flatus -Mesenteric ischemia cannot be ruled out, even though no abdominal pain or tenderness, seems less likely now -Continue Protonix -CT of the abdomen without contrast essentially unremarkable : -Monitor renal function closely. Mckeon catheter. -IV Lasix as above. Creat improved -Acute kidney failure most likely secondary to ATN from hypotension, and reduced perfusion ID: -Perioperative antibiotics per CT surgery. Empirically started on Zosyn as sepsis cannot be ruled out, worsening lung infiltrate -Follow-up blood cultures urine culture. DC in 24 hours if cx remain negative -Leukocytosis most likely reactive-resolved HEME: -Monitor CBC, CMP, coags -Resume aspirin but closely follow platelet count -Thrombocytopenia multifactorial ENDO: -Electrolyte replacement per protocol -Tight sugar control, now on SSI PROPH: -Hold of chemical DVT prophylaxis until cleared by CT surgery, and due to thrombocytopenia. Increase mobility. Protonix for GI prophylaxis LINES: -RIJ central line in place, left radial arterial line placed 08/07/2017, now DCd CC time 32 min Patient is postop CABG patient who is currently critically ill, but stabilizing. Cardiogenic shock worsened when Dobutamine was weaned. Repeat Limited echo today to evaluate RV/LV function Awais Vargas MD Aug 09, 2017 07:25
[2017-08-09] MEDS: ATORVASTATIN 40 MG TAB PO SCH (08:49)
[2017-08-09] MEDS: PANTOPRAZOLE SOD 40 MG DELAYED RELEASE TAB PO SCH (08:49)
[2017-08-09] MEDS: SODIUM CHLORIDE 0.9% FLUSH 10 ML FLUSH IV FLUSH SCH ×2 (08:49→20:50)
--- NOTE | 2017-08-09 10:39 | ECHRPT ---
Indication: CHF, Eval RV/LV Function CONCLUSIONS The left ventricular systolic function is low normal with an estimated ejection fraction in the rang e of 50- 55%. There is abnormal (paradoxical) septal motion consistent with postoperative state. There is a flattened septum in diastole consistent with right ventricle volume overload. In limited views, the septum may be flat in systole consistent with right ventricle pressure overloa d. The right ventricle is moderately dilated. The right ventricular systoilc function is moderately decreased. Trace mitral valve regurgitation. Mild to moderate aortic valve stenosis (Mean gradient 20). There is mild to moderate tricuspid valve regurgitation. There is a small pericardial effusion present. No hemodynamically significant echocardiographic features were observed (no pre-tamponade physiology). BP: 107 / 75 HR: 107 Rhythm: MEASUREMENTS (Male / Female) Normal Values Technical Quality:Fair 2D ECHO LVOT Diameter 1.8 cm DOPPLER AV Peak Velocity 319.0 cm/s AV Peak Gradient 40.7 mmHg AV Mean Gradient 21.0 mmHg AV Velocity Time Integral 45.8 cm LVOT Peak Velocity 88.0 cm/s LVOT Peak Gradient 3.1 mmHg LVOT Velocity Time Integral 13.0 cm LVOT Cardiac Index 1839.8 cm/minm AV Area Cont Eq vti 0.7 cm AV Area Cont Eq pk 0.7 cm TR Peak Velocity 250.0 cm/s TR Peak Gradient 25.0 mmHg Right Atrial Pressure 10.0 mmHg Pulmonary Artery Systolic Pressu 35.0 mmHg Right Ventricular Systolic Press 35.0 mmHg FINDINGS LEFT VENTRICLE The left ventricular systolic function is low normal with an estimated ejection fraction in the rang e of 50- 55%. There is abnormal (paradoxical) septal motion consistent with postoperative state. There is a flattened septum in diastole consistent with right ventricle volume overload. In limited views, the septum may be flat in systole consistent with right ventricle pressure overloa d. RIGHT VENTRICLE The right ventricle is moderately dilated. The right ventricular systoilc function is moderately decreased. LEFT ATRIUM The left atrial size is mildly dilated. RIGHT ATRIUM The right atrial size is upper limits of normal. ATRIAL SEPTUM Normal atrial septal thickness. MITRAL VALVE Grossly normal Trace mitral valve regurgitation. AORTIC VALVE Diffuse calcification of the aortic valve. Trileaflet aortic valve. Diffuse calcification of the aortic valve. No aortic valve regurgitation. Mild to moderate aortic valve stenosis (Mean gradient 20) TRICUSPID VALVE Structurally normal tricuspid valve. There is mild to moderate tricuspid valve regurgitation. The estimated pulmonary arterial pressure is 35 mmHg. PULMONARY VALVE The pulmonary valve is not well visualized. PERICARDIUM There is a small pericardial effusion present. No hemodynamically significant echocardiographic features were observed (no pre-tamponade physiology). Evaristo Potts DO (Electronically Signed) Final Date:09 August 2017 10:38
--- NOTE | 2017-08-09 11:27 | PD.CARD.PN ---
Subjective Subjective Remarks Clinically still appears well, no complaints Lactate down Dobutamine at 0.5 mcg/kg/min Objective Medications Current Medications Medications (Trade) Dose Ordered Sig/Cody Route Start Time Stop Time Status Last Admin (Atropine Inj) 0.5 mg UNSCH PRN IV PUSH 08/02/17 12:15 (Protonix) 40 mg DAILY PO 08/03/17 09:00 08/09/17 08:49 (Lipitor) 40 mg DAILY PO 08/03/17 09:00 08/09/17 08:49 (NS Flush) 2 ml BID IV FLUSH 08/02/17 21:00 08/09/17 08:49 (NS Flush) 2 ml UNSCH PRN IV FLUSH 08/02/17 17:45 08/05/17 08:52 Albumin Human 250 ml @ 250 mls/hr UNSCH PRN IV 08/06/17 12:30 08/06/17 19:45 Lactated Ringer's 500 ml @ 500 mls/hr Q1H PRN IV 08/06/17 12:23 (Aspirin Chew) 81 mg DAILY PO 08/07/17 09:00 Future Hold 08/07/17 10:56 (Tylenol) 650 mg Q4H PRN PO 08/06/17 12:30 08/08/17 01:25 (Percocet 5-325 Mg) 1 tab Q3H PRN PO 08/06/17 12:30 (Zofran Inj) 4 mg Q6H PRN IV PUSH 08/06/17 12:30 08/06/17 19:55 Potassium Chloride 100 ml @ 50 mls/hr UNSCH PRN IV 08/06/17 12:30 (KCl) 20 meq UNSCH PRN PO 08/06/17 12:30 (KCl) 40 meq UNSCH PRN PO 08/06/17 12:30 Magnesium Sulfate 2 gm/Sodium Chloride 104 ml @ 100 mls/hr UNSCH PRN IV 08/06/17 12:30 Calcium Chloride 1 gm/Sodium Chloride 110 ml @ 100 mls/hr UNSCH PRN IV 08/06/17 12:30 08/06/17 14:00 (Calcium Chloride Inj) 0.5 gm UNSCH PRN IV PUSH 08/06/17 12:30 (Duoneb Neb) 1 ampule Q2HR NEB PRN NEB 08/06/17 12:30 08/06/17 23:16 Piperacillin Sod/ Tazobactam Sod 50 ml @ 100 mls/hr Q8H IV 08/07/17 17:00 08/09/17 08:49 (NovoLOG SUPPLEMENTAL SCALE) 1 Q4HR SQ 08/08/17 06:45 08/08/17 11:29 (Duoneb Neb) 1 ampule Q6HR NEB NEB 08/08/17 06:45 08/09/17 09:39 (D50w (Vial) Inj) 50 ml UNSCH PRN IV PUSH 08/08/17 07:15 (Glucagon Inj) 1 mg UNSCH PRN OTHER 08/08/17 07:15 Dobutamine HCl/ Dextrose 250 ml @ 4.65 mls/hr Q24H PRN IV 08/08/17 23:30 Potassium Chloride 100 ml @ 50 mls/hr Q2H PRN IV 08/09/17 06:45 Potassium Chloride 100 ml @ 50 mls/hr Q2H PRN IV 08/09/17 06:45 (K-Lyte Cl Eff) 50 meq UNSCH PRN PO 08/09/17 06:45 Potassium Chloride 100 ml @ 25 mls/hr UNSCH PRN IV 08/09/17 06:45 Potassium Chloride 100 ml @ 50 mls/hr Q2H PRN IV 08/09/17 06:45 Magnesium Sulfate 4 gm/Sodium Chloride 100 ml @ 50 mls/hr UNSCH PRN IV 08/09/17 06:45 (Mag-Ox) 800 mg UNSCH PRN PO 08/09/17 06:45 Magnesium Sulfate 2 gm/Sodium Chloride 100 ml @ 50 mls/hr UNSCH PRN IV 08/09/17 06:45 (K-Phos) 2,000 mg Q4H PRN PO 08/09/17 06:45 Sodium Phosphate 30 mmol/Sodium Chloride 250 ml @ 42 mls/hr UNSCH PRN IV 08/09/17 06:45 (K-Phos) 2,000 mg UNSCH PRN PO/TUBE 08/09/17 06:45 Potassium Phosphate 30 mmol/ Sodium Chloride 260 ml @ 42 mls/hr UNSCH PRN IV 08/09/17 06:45 (Lasix Inj) 20 mg Q8HR IV PUSH 08/09/17 14:00 Vital Signs / I&O Vital Signs Date Time Temp Pulse Resp B/P (MAP) Pulse Ox O2 Delivery O2 Flow Rate FiO2 08/09/17 09:40 96 High Flow Nasal Cannula 25.00 50 08/09/17 07:00 97.6 112 18 98/69 (79) 95 08/09/17 07:00 109 08/09/17 07:00 95 Nasal Cannula 25.00 50 08/09/17 04:00 93 Nasal Cannula 25.00 50 08/09/17 04:00 109 08/09/17 04:00 98.4 109 18 117/76 (90) 93 08/09/17 00:00 106 08/09/17 00:00 98.0 107 20 107/75 (86) 94 08/09/17 00:00 94 Nasal Cannula 25.00 50 08/08/17 20:00 92 Nasal Cannula 25.00 50 08/08/17 20:00 118 08/08/17 20:00 98.2 119 16 95/47 (63) 92 08/08/17 19:43 95 High Flow Nasal Cannula 25.00 45 08/08/17 16:42 117 90/56 08/08/17 15:00 94 Partial Non-Rebreather 08/08/17 15:00 109 08/08/17 15:00 97.8 109 21 97/66 (76) 95 Arterial Line I/O 08/08/17 08/08/17 08/08/17 08/09/17 08/09/17 08/09/17 07:00 15:00 23:00 07:00 15:00 23:00 Intake Total 940 ml 110 ml 1556 ml 663 ml Output Total 1920 ml 1460 ml 945 ml Balance -980 ml 110 ml 96 ml -282 ml Intake Oral 240 ml 1100 ml 480 ml IV Total 700 ml 110 ml 456 ml 183 ml Output Urine Total 1540 ml 1250 ml 725 ml Chest Tube Drainage Total 380 ml 210 ml 220 ml # Bowel Movements 0 0 Physical Exam GENERAL: NAD SKIN: Warm and dry. HEAD: Atraumatic. Normocephalic. EYES: Pupils equal and round. No scleral icterus. No injection or drainage. ENT: No nasal bleeding or discharge. Mucous membranes pink and moist. NECK: Trachea midline. No JVD. CARDIOVASCULAR: Regular rate and rhythm. RESPIRATORY: No accessory muscle use. Decreased breath sounds bilaterally GASTROINTESTINAL: Abdomen soft, non-tender, nondistended. Hepatic and splenic margins not palpable. MUSCULOSKELETAL: Extremities without clubbing, cyanosis, or edema. No obvious deformities. NEUROLOGICAL: No focal deficits noted Laboratory Laboratory Tests Test 08/08/17 14:00 08/08/17 17:00 08/08/17 22:20 08/09/17 04:25 White Blood Count 11.3 TH/MM3 7.5 TH/MM3 Red Blood Count 2.98 MIL/MM3 2.76 MIL/MM3 Hemoglobin 10.1 GM/DL 9.6 GM/DL Hematocrit 29.5 % 27.5 % Mean Corpuscular Volume 98.9 FL 99.7 FL Mean Corpuscular Hemoglobin 33.7 PG 34.8 PG Mean Corpuscular Hemoglobin Concent 34.1 % 35.0 % Red Cell Distribution Width 17.9 % 17.3 % Platelet Count 79 TH/MM3 59 TH/MM3 Mean Platelet Volume 9.7 FL 8.5 FL Neutrophils (%) (Auto) 78.2 % 76.5 % Lymphocytes (%) (Auto) 8.5 % 13.4 % Monocytes (%) (Auto) 13.1 % 9.8 % Eosinophils (%) (Auto) 0.1 % 0.2 % Basophils (%) (Auto) 0.1 % 0.1 % Neutrophils # (Auto) 8.9 TH/MM3 5.8 TH/MM3 Lymphocytes # (Auto) 1.0 TH/MM3 1.0 TH/MM3 Monocytes # (Auto) 1.5 TH/MM3 0.7 TH/MM3 Eosinophils # (Auto) 0.0 TH/MM3 0.0 TH/MM3 Basophils # (Auto) 0.0 TH/MM3 0.0 TH/MM3 CBC Comment AUTO DIFF AUTO DIFF Differential Comment AUTO DIFF CONFIRMED AUTO DIFF CONFIRMED Platelet Estimate LOW LOW Platelet Morphology Comment NORMAL NORMAL Blood Urea Nitrogen 28 MG/DL 31 MG/DL Creatinine 1.43 MG/DL 1.23 MG/DL Random Glucose 175 MG/DL 140 MG/DL Total Protein 6.1 GM/DL 6.0 GM/DL Albumin 3.0 GM/DL 2.8 GM/DL Calcium Level 9.1 MG/DL 8.3 MG/DL Phosphorus Level 2.4 MG/DL 2.5 MG/DL Magnesium Level 2.2 MG/DL 2.2 MG/DL Alkaline Phosphatase 70 U/L 81 U/L Aspartate Amino Transf (AST/SGOT) 102 U/L 80 U/L Alanine Aminotransferase (ALT/SGPT) 39 U/L 40 U/L Total Bilirubin 0.8 MG/DL 0.8 MG/DL Sodium Level 147 MEQ/L 145 MEQ/L Potassium Level 4.0 MEQ/L 3.8 MEQ/L Chloride Level 109 MEQ/L 107 MEQ/L Carbon Dioxide Level 27.8 MEQ/L 32.4 MEQ/L Anion Gap 10 MEQ/L 6 MEQ/L Estimat Glomerular Filtration Rate 47 ML/MIN 56 ML/MIN Lactic Acid Level 4.2 mmol/L 3.1 mmol/L 2.6 mmol/L 1.8 mmol/L Thyroid Stimulating Hormone 3rd Gen 0.887 uIU/ML Imaging Last 24 hours Impressions Chest X-Ray 08/09/17 0600 Signed Impressions: Service Date/Time: Wednesday, August 09, 2017 04:45 - CONCLUSION: 1. The left-sided chest tube remains in place with no pneumothorax. 2. Increased hazy opacity in the right lung. This could represent posterior fusion or infiltrate. 3. Patchy opacity remains the right lung base. Esteban Stone MD Assessment and Plan Problem List: (1) Hx of ventricular tachycardia ICD Codes: Z86.79 - Personal history of other diseases of the circulatory system (2) History of CVA (cerebrovascular accident) ICD Codes: Z86.73 - Personal history of transient ischemic attack (TIA), and cerebral infarction without residual deficits (3) Artificial cardiac pacemaker ICD Codes: Z95.0 - Presence of cardiac pacemaker (4) Unstable angina ICD Codes: I20.0 - Unstable angina (5) Multi-vessel coronary artery stenosis ICD Codes: I25.10 - Atherosclerotic heart disease of craig coronary artery without angina pectoris (6) S/P CABG x 3 ICD Codes: Z95.1 - Presence of aortocoronary bypass graft (7) Hypotension ICD Codes: I95.9 - Hypotension, unspecified (8) Metabolic acidosis ICD Codes: E87.2 - Acidosis Assessment and Plan 1) CAD/[place] s/p CABGx3 POD #3 VILCHIS to LAD SVG to D1 SVG to OM1 2) SOB leading to syncope Most likely anginal equivalent 3) ASA/Statin Eventually restart BB 4) Clinically appears well 5) Lactic acid decreasing 6) Clinically appears great 7) Dobutamine on at low dose 8) Repeat echo with low normal LV function, RV dilated with moderate decreased function, septal motion consistent with post-operative state, some septal flattening noted mostly in diastole ? RV injury as not bypassed, con't supportive care Evaristo Potts DO Aug 09, 2017 11:27
[2017-08-09] MEDS: ALBUMIN 25% INJ 50 ML IV SCH ×3 (13:30→20:49)
[2017-08-09] MEDS ORDERED: INSULIN ASPART SUPPLEMENTAL SCALE SQ SCH (14:00)
[2017-08-09] MEDS: FUROSEMIDE 20 MG/2 ML VIAL IV PUSH SCH ×2 (14:54→20:50)
[2017-08-09 15:16] LABS: ALBUMIN 2.8 GM/DL (3.4-5.0); ALT (GPT) 39 U/L (12-78); AST (GOT) 69 U/L (15-37); BICARBONATE 30.7 MEQ/L (21.0-32.0); BLOOD UREA NITROGEN 30 MG/DL (7-18); CALCIUM 8.2 MG/DL (8.5-10.1); CHLORIDE 107 MEQ/L (98-107); CREATININE 1.26 MG/DL (0.60-1.30); GLOMERULAR FILTRATION RATE 54 ML/MIN (>89); GLUCOSE,RANDOM 166 MG/DL (74-106); SODIUM (NA) 146 MEQ/L (136-145)
--- NOTE | 2017-08-09 15:18 | PD.CAR.PN ---
CVT Progress Note Subjective/Hospital Course: 87-year-old male patient of Dr. Kush Lawrence, Dr. Brandon Parks, history of having some dizziness and lightheadedness for the last 3 weeks, some presyncope episodes, also preceded all the time by shortness of breath, which he has noticed more progressively over the past 1 month. The shortness of breath occurs with minimal exertion. He normally is very active. He walks about 3-4 miles, but back in January he purchased a mobile home and has been repairing that, but has been unable to do so secondary to the shortness of breath. He has a history of some mild aortic stenosis. Therefore, he underwent cardiac catheterization today to evaluate the valve further which showed a 10% stenosis in the left main, proximal LAD 95%, mid distal 70%, diagonal 80%, the circumflex is 90%, ejection fraction 58%. PA pressure is 46/ 20 with a wedge pressure of 12. Cardiac output of 5.2. Aortic valve area of 1.35. We were consulted to evaluate for coronary artery bypass grafting. 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 He has had a history of a stroke in the past with some residual oral paresthesias, paroxysmal ventricular tachycardia. 08/05 doing well, no chest pain plan for surgery in am 08/06 surgery: CABG x 3, VILCHIS to LAD - fair, SVG to D1 - good, SVG to OM1 - fair , EVH (R) 08/07/17 No complaints. Denies any pain. Metabolic acidosis overnight with intermittent hypotension. 08/08 weaned off dobutamine/ 2/2 tachycardia lasix decreased now on partial NRB feels fair, up in chair keep in ICU today pulm toileting lactic acid improved / off pressors 08/09 lactic increased 4 yesterday, now back to 1.8 placed back on low dose dobutamine remains tachycardic, repeat echo noted some RV failure / not bypassed / slow progress wean 02 as tolerated, gentle diuresis Bipap at night PT/OT Objective: GENERAL: A&O x 3, weak SKIN: Warm and dry. prevena to chest , incision intact right EVH bonding and composite fabricator: Normocephalic. EYES: No scleral icterus. No injection or drainage. NECK: Supple, trachea midline. No JVD or lymphadenopathy. CARDIOVASCULAR: sinus tach without murmurs, gallops, or rubs. + distal pulses RESPIRATORY: Breath sounds equal bilaterally. No accessory muscle use. few basilar crackles , chest tube to wall suction/ drained 220cc/ 12/ hrs GASTROINTESTINAL: Abdomen soft, non-tender, nondistended. MUSCULOSKELETAL: No cyanosis, or edema. BACK: Nontender without obvious deformity. No CVA tenderness. Vital Signs Date Time Temp Pulse Resp B/P (MAP) Pulse Ox O2 Delivery O2 Flow Rate FiO2 08/09/17 11:00 113 08/09/17 11:00 95 Nasal Cannula 25.00 50 08/09/17 11:00 97.8 115 18 97/59 (72) 96 08/09/17 09:40 96 High Flow Nasal Cannula 25.00 50 08/09/17 07:00 97.6 112 18 98/69 (79) 95 08/09/17 07:00 109 08/09/17 07:00 95 Nasal Cannula 25.00 50 08/09/17 07:00 112 87/63 08/09/17 04:00 93 Nasal Cannula 25.00 50 08/09/17 04:00 109 08/09/17 04:00 98.4 109 18 117/76 (90) 93 08/09/17 00:00 106 08/09/17 00:00 98.0 107 20 107/75 (86) 94 08/09/17 00:00 94 Nasal Cannula 25.00 50 08/08/17 20:00 92 Nasal Cannula 25.00 50 08/08/17 20:00 118 08/08/17 20:00 98.2 119 16 95/47 (63) 92 08/08/17 19:43 95 High Flow Nasal Cannula 25.00 45 08/08/17 16:42 117 90/56 Labs: Laboratory Tests Test 08/09/17 04:25 08/09/17 14:25 White Blood Count 7.5 TH/MM3 (4.0-11.0) Red Blood Count 2.76 MIL/MM3 (4.50-5.90) Hemoglobin 9.6 GM/DL (13.0-17.0) Hematocrit 27.5 % (39.0-51.0) Mean Corpuscular Volume 99.7 FL (80.0-100.0) Mean Corpuscular Hemoglobin 34.8 PG (27.0-34.0) Mean Corpuscular Hemoglobin Concent 35.0 % (32.0-36.0) Red Cell Distribution Width 17.3 % (11.6-17.2) Platelet Count 59 TH/MM3 (150-450) Mean Platelet Volume 8.5 FL (7.0-11.0) Neutrophils (%) (Auto) 76.5 % (16.0-70.0) Lymphocytes (%) (Auto) 13.4 % (9.0-44.0) Monocytes (%) (Auto) 9.8 % (0.0-8.0) Eosinophils (%) (Auto) 0.2 % (0.0-4.0) Basophils (%) (Auto) 0.1 % (0.0-2.0) Neutrophils # (Auto) 5.8 TH/MM3 (1.8-7.7) Lymphocytes # (Auto) 1.0 TH/MM3 (1.0-4.8) Monocytes # (Auto) 0.7 TH/MM3 (0-0.9) Eosinophils # (Auto) 0.0 TH/MM3 (0-0.4) Basophils # (Auto) 0.0 TH/MM3 (0-0.2) CBC Comment AUTO DIFF Differential Comment AUTO DIFF CONFIRMED Platelet Estimate LOW (NORMAL) Platelet Morphology Comment NORMAL (NORMAL) Blood Urea Nitrogen 31 MG/DL (7-18) Creatinine 1.23 MG/DL (0.60-1.30) Random Glucose 140 MG/DL (74-106) Total Protein 6.0 GM/DL (6.4-8.2) Albumin 2.8 GM/DL (3.4-5.0) Calcium Level 8.3 MG/DL (8.5-10.1) Magnesium Level 2.2 MG/DL (1.5-2.5) Alkaline Phosphatase 81 U/L (45-117) Aspartate Amino Transf (AST/SGOT) 80 U/L (15-37) Alanine Aminotransferase (ALT/SGPT) 40 U/L (12-78) Total Bilirubin 0.8 MG/DL (0.2-1.0) Sodium Level 145 MEQ/L (136-145) Potassium Level 3.8 MEQ/L (3.5-5.1) Chloride Level 107 MEQ/L (98-107) Carbon Dioxide Level 32.4 MEQ/L (21.0-32.0) Anion Gap 6 MEQ/L (5-15) Estimat Glomerular Filtration Rate 56 ML/MIN (>89) Lactic Acid Level 1.8 mmol/L (0.4-2.0) Phosphorus Level 2.5 MG/DL (2.5-4.9) Result Diagram: 08/09/1742408/09/17424 (1) Hx of ventricular tachycardia (2) History of CVA (cerebrovascular accident) Plan: PT/OT (3) Artificial cardiac pacemaker (4) Unstable angina (5) Multi-vessel coronary artery stenosis (6) S/P CABG x 3 Plan: ASA on hold PLT 66> 59 on statin , hold on BB for now OOB, pulm toileting keep in ICU continue low dose dobutamine gentle diuresis (7) Hypotension (8) Metabolic acidosis Plan: resolved (9) Acute respiratory failure with hypoxia Plan: high flow 02 and Bipap at night appreciate CCM , bedside US small right effusion Juanita Cohen Aug 09, 2017 15:18
[2017-08-09 15:19] LABS: ALKALINE PHOSPHATASE 86 U/L (45-117); TOTAL BILIRUBIN ADULT 0.6 MG/DL (0.2-1.0); TOTAL PROTEIN 6.1 GM/DL (6.4-8.2)
[2017-08-09] MEDS ORDERED: DOBUTamine PREMIX DRIP 250 ML IV PRN (17:00)
[2017-08-10] VITALS (8 sets, daily range): BP systolic 99–117; BP diastolic 60–76; PULSE 108–118; RESP 16–22; TEMP 97.5–98.2; O2SAT 95–99
[2017-08-10] MEDS: INSULIN ASPART SUPPLEMENTAL SCALE SQ SCH ×7 (00:11→21:04)
[2017-08-10] MEDS: PIPERACIL-TAZO 3.375 GM PREMIX 50 ML IV SCH ×2 (00:11→08:45)
[2017-08-10] MEDS: ARTIFICIAL TEARS OPTH OINT 3.5 APPLIC/3.5 GM TUBO RIGHT EYE SCH ×3 (02:45→20:55)
[2017-08-10] MEDS: RESP: ALBUTEROL 2.5 MG/IPRATROPIUM 0.5 MG NEB (SCH) NEB ×2 (03:00→10:13)
--- NOTE | 2017-08-10 04:37 | RADRPT ---
EXAM DATE/TIME: 08/10/2017 03:47 [facility] COMPARISON: CHEST SINGLE AP, August 09, 2017, 4:45. INDICATIONS : Shortness of breath, status post recent median sternotomy.. MEDICAL HISTORY : Cerebrovascular disease. Cardiovascular disease. Hypertension. SURGICAL HISTORY : CABG. Pacemaker. ENCOUNTER: Subsequent ACUITY: 1 week PAIN SCORE: Non-responsive. LOCATION: Bilateral chest FINDINGS: A single AP semierect view the chest was obtained and again demonstrates the patient is status post m edian sternotomy. The right internal jugular central venous line remains in place. The left subclavia n AV sequential transvenous pacer remains in place. The mediastinal chest tube and left-sided chest t ube remain in place with no pneumothorax. Hazy opacity remains in both lungs right greater than left. The heart size is mildly enlarged. The bony thorax is intact. CONCLUSION: 1. The mediastinal chest tube and left-sided chest tube remain in place with no pneumothorax. 2. Hazy opacity remains in both lungs right greater than left. 3. Mild cardiomegaly. Esteban Stone MD on August 10, 2017 at 4:33 Board Certified Radiologist. This report was verified electronically.
[2017-08-10 05:50] LABS: AUTOMATED NEUTROPHIL # 5.1 TH/MM3 (1.8-7.7); BASOPHIL % 0.3 % (0.0-2.0); EOSINOPHIL # 0.1 TH/MM3 (0-0.4); EOSINOPHIL % 0.8 % (0.0-4.0); HEMATOCRIT 25.9 % (39.0-51.0); LYMPH % 15.1 % (9.0-44.0); MEAN CELL VOLUME 101.1 FL (80.0-100.0); MEAN CORPUSCULAR HEMOGLOBIN 35.3 PG (27.0-34.0); MEAN CORPUSCULAR HGB CONC 34.9 % (32.0-36.0); MEAN PLATELET VOLUME 9.3 FL (7.0-11.0); MONO % 9.8 % (0.0-8.0); MONOCYTE # 0.7 TH/MM3 (0-0.9); PLATELET COUNT 58 TH/MM3 (150-450); RED BLOOD COUNT 2.56 MIL/MM3 (4.50-5.90); WHITE BLOOD COUNT 6.9 TH/MM3 (4.0-11.0)
[2017-08-10] MEDS: FUROSEMIDE 20 MG/2 ML VIAL IV PUSH SCH ×3 (06:00→20:57)
[2017-08-10] MEDS: ALBUMIN 25% INJ 50 ML IV SCH ×2 (06:00→13:49)
[2017-08-10 06:13] LABS: AST (GOT) 48 U/L (15-37); BICARBONATE 30.2 MEQ/L (21.0-32.0); BLOOD UREA NITROGEN 32 MG/DL (7-18); CALCIUM 8.8 MG/DL (8.5-10.1); CHLORIDE 106 MEQ/L (98-107); CREATININE 1.18 MG/DL (0.60-1.30); GLOMERULAR FILTRATION RATE 58 ML/MIN (>89); GLUCOSE,RANDOM 124 MG/DL (74-106); MAGNESIUM 2.2 MG/DL (1.5-2.5); SODIUM (NA) 145 MEQ/L (136-145)
[2017-08-10 06:14] LABS: ALT (GPT) 33 U/L (12-78); PHOSPHORUS 2.5 MG/DL (2.5-4.9)
[2017-08-10 06:17] LABS: ALKALINE PHOSPHATASE 85 U/L (45-117)
[2017-08-10] MEDS: PANTOPRAZOLE SOD 40 MG DELAYED RELEASE TAB PO SCH (08:44)
[2017-08-10] MEDS: SODIUM CHLORIDE 0.9% FLUSH 10 ML FLUSH IV FLUSH SCH ×2 (08:45→20:55)
[2017-08-10] MEDS: ATORVASTATIN 40 MG TAB PO SCH (08:45)
--- NOTE | 2017-08-10 10:39 | PD.CAR.PN ---
CVT Progress Note CVT: POD #: 4 Subjective/Hospital Course: 87-year-old male patient of Dr. Kush Lawrence, Dr. Brandon Parks, history of having some dizziness and lightheadedness for the last 3 weeks, some presyncope episodes, also preceded all the time by shortness of breath, which he has noticed more progressively over the past 1 month. The shortness of breath occurs with minimal exertion. He normally is very active. He walks about 3-4 miles, but back in January he purchased a mobile home and has been repairing that, but has been unable to do so secondary to the shortness of breath. He has a history of some mild aortic stenosis. Therefore, he underwent cardiac catheterization today to evaluate the valve further which showed a 10% stenosis in the left main, proximal LAD 95%, mid distal 70%, diagonal 80%, the circumflex is 90%, ejection fraction 58%. PA pressure is 46/ 20 with a wedge pressure of 12. Cardiac output of 5.2. Aortic valve area of 1.35. We were consulted to evaluate for coronary artery bypass grafting. 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 He has had a history of a stroke in the past with some residual oral paresthesias, paroxysmal ventricular tachycardia. 08/05 doing well, no chest pain plan for surgery in am 08/06 surgery: CABG x 3, VILCHIS to LAD - fair, SVG to D1 - good, SVG to OM1 - fair , EVH (R) 08/07/17 No complaints. Denies any pain. Metabolic acidosis overnight with intermittent hypotension. 08/08 weaned off dobutamine/ 2/2 tachycardia lasix decreased now on partial NRB feels fair, up in chair keep in ICU today pulm toileting lactic acid improved / off pressors 08/09 lactic increased 4 yesterday, now back to 1.8 placed back on low dose dobutamine remains tachycardic, repeat echo noted some RV failure / not bypassed / slow progress wean 02 as tolerated, gentle diuresis Bipap at night PT/OT 08/10/17 Improving on 6l NC. No complaints Objective: Vital Signs Date Time Temp Pulse Resp B/P (MAP) Pulse Ox O2 Delivery O2 Flow Rate FiO2 08/10/17 07:49 98 Nasal Cannula 20.00 40 08/10/17 07:49 108 08/10/17 07:48 98.2 108 22 111/76 (88) 98 08/10/17 03:00 97 Nasal Cannula 20.00 40 08/10/17 03:00 97 High Flow Nasal Cannula 20.00 40 08/10/17 03:00 109 08/10/17 03:00 98.2 109 18 117/72 (87) 97 08/09/17 23:00 97.9 113 18 113/75 (88) 94 08/09/17 23:00 113 08/09/17 23:00 94 Nasal Cannula 25.00 40 08/09/17 19:53 95 High Flow Nasal Cannula 25.00 40 08/09/17 19:00 95 Nasal Cannula 25.00 40 08/09/17 19:00 116 08/09/17 19:00 98.2 116 22 95/63 (74) 95 08/09/17 15:01 25.00 08/09/17 15:01 97.6 109 20 118/74 (89) 97 08/09/17 11:00 113 08/09/17 11:00 95 Nasal Cannula 25.00 50 08/09/17 11:00 97.8 115 18 97/59 (72) 96 Labs: Laboratory Tests Test 08/10/17 04:22 White Blood Count 6.9 TH/MM3 (4.0-11.0) Red Blood Count 2.56 MIL/MM3 (4.50-5.90) Hemoglobin 9.0 GM/DL (13.0-17.0) Hematocrit 25.9 % (39.0-51.0) Mean Corpuscular Volume 101.1 FL (80.0-100.0) Mean Corpuscular Hemoglobin 35.3 PG (27.0-34.0) Mean Corpuscular Hemoglobin Concent 34.9 % (32.0-36.0) Red Cell Distribution Width 17.0 % (11.6-17.2) Platelet Count 58 TH/MM3 (150-450) Mean Platelet Volume 9.3 FL (7.0-11.0) Neutrophils (%) (Auto) 74.0 % (16.0-70.0) Lymphocytes (%) (Auto) 15.1 % (9.0-44.0) Monocytes (%) (Auto) 9.8 % (0.0-8.0) Eosinophils (%) (Auto) 0.8 % (0.0-4.0) Basophils (%) (Auto) 0.3 % (0.0-2.0) Neutrophils # (Auto) 5.1 TH/MM3 (1.8-7.7) Lymphocytes # (Auto) 1.0 TH/MM3 (1.0-4.8) Monocytes # (Auto) 0.7 TH/MM3 (0-0.9) Eosinophils # (Auto) 0.1 TH/MM3 (0-0.4) Basophils # (Auto) 0.0 TH/MM3 (0-0.2) CBC Comment AUTO DIFF Differential Comment AUTO DIFF CONFIRMED Platelet Estimate LOW (NORMAL) Platelet Morphology Comment NORMAL (NORMAL) Blood Urea Nitrogen 32 MG/DL (7-18) Creatinine 1.18 MG/DL (0.60-1.30) Random Glucose 124 MG/DL (74-106) Total Protein 6.0 GM/DL (6.4-8.2) Albumin 3.0 GM/DL (3.4-5.0) Calcium Level 8.8 MG/DL (8.5-10.1) Phosphorus Level 2.5 MG/DL (2.5-4.9) Magnesium Level 2.2 MG/DL (1.5-2.5) Alkaline Phosphatase 85 U/L (45-117) Aspartate Amino Transf (AST/SGOT) 48 U/L (15-37) Alanine Aminotransferase (ALT/SGPT) 33 U/L (12-78) Total Bilirubin 1.0 MG/DL (0.2-1.0) Sodium Level 145 MEQ/L (136-145) Potassium Level 3.5 MEQ/L (3.5-5.1) Chloride Level 106 MEQ/L (98-107) Carbon Dioxide Level 30.2 MEQ/L (21.0-32.0) Anion Gap 9 MEQ/L (5-15) Estimat Glomerular Filtration Rate 58 ML/MIN (>89) Result Diagram: 08/10/1742108/10/17421 Cardiovascular: ST Telemetry: ST Pulmonary: CTA GI/: NABS, NT Incision: dry and intact CT: 300ml/24hrs Plan: Transfer to [facility] if Dr. Beckford concurs Diurese Supp K Continue chest tubes one more day PT/OT Discharge planning (1) Hx of ventricular tachycardia (2) History of CVA (cerebrovascular accident) Plan: PT/OT (3) Artificial cardiac pacemaker (4) Unstable angina (5) Multi-vessel coronary artery stenosis (6) S/P CABG x 3 Plan: ASA on hold PLT 66> 59 on statin , hold on BB for now OOB, pulm toileting keep in ICU continue low dose dobutamine gentle diuresis (7) Hypotension (8) Metabolic acidosis Plan: resolved (9) Acute respiratory failure with hypoxia Plan: high flow 02 and Bipap at night appreciate CCM , bedside US small right effusion Isa Medina MD Aug 10, 2017 10:39
[2017-08-10] MEDS ORDERED: GLUCAGON 1 MG/ML VIAL OTHER PRN (10:45)
[2017-08-10] MEDS ORDERED: BISACODYL 10 MG SUPP RECTAL PRN (10:45)
[2017-08-10] MEDS ORDERED: DEXTROSE 50% IN WATER 50 ML VIAL(D50) IV PUSH PRN (10:45)
--- NOTE | 2017-08-10 11:24 | PD.CARD.PN ---
Subjective Subjective Remarks Clinically still appears well, no complaints Lactate down Dobutamine off Up and ambulating Objective Medications Current Medications Medications (Trade) Dose Ordered Sig/Cody Route Start Time Stop Time Status Last Admin (Atropine Inj) 0.5 mg UNSCH PRN IV PUSH 08/02/17 12:15 (Protonix) 40 mg DAILY PO 08/03/17 09:00 08/10/17 08:44 (Lipitor) 40 mg DAILY PO 08/03/17 09:00 08/10/17 08:45 (NS Flush) 2 ml BID IV FLUSH 08/02/17 21:00 08/10/17 08:45 (NS Flush) 2 ml UNSCH PRN IV FLUSH 08/02/17 17:45 08/05/17 08:52 Albumin Human 250 ml @ 250 mls/hr UNSCH PRN IV 08/06/17 12:30 08/06/17 19:45 (Aspirin Chew) 81 mg DAILY PO 08/07/17 09:00 Future Hold 08/07/17 10:56 (Tylenol) 650 mg Q4H PRN PO 08/06/17 12:30 08/08/17 01:25 (Zofran Inj) 4 mg Q6H PRN IV PUSH 08/06/17 12:30 08/06/17 19:55 Potassium Chloride 100 ml @ 50 mls/hr UNSCH PRN IV 08/06/17 12:30 (KCl) 20 meq UNSCH PRN PO 08/06/17 12:30 (KCl) 40 meq UNSCH PRN PO 08/06/17 12:30 Magnesium Sulfate 2 gm/Sodium Chloride 104 ml @ 100 mls/hr UNSCH PRN IV 08/06/17 12:30 Calcium Chloride 1 gm/Sodium Chloride 110 ml @ 100 mls/hr UNSCH PRN IV 08/06/17 12:30 08/06/17 14:00 (Calcium Chloride Inj) 0.5 gm UNSCH PRN IV PUSH 08/06/17 12:30 (Duoneb Neb) 1 ampule Q2HR NEB PRN NEB 08/06/17 12:30 08/06/17 23:16 (D50w (Vial) Inj) 50 ml UNSCH PRN IV PUSH 08/08/17 07:15 (Glucagon Inj) 1 mg UNSCH PRN OTHER 08/08/17 07:15 Potassium Chloride 100 ml @ 50 mls/hr Q2H PRN IV 08/09/17 06:45 Potassium Chloride 100 ml @ 50 mls/hr Q2H PRN IV 08/09/17 06:45 (K-Lyte Cl Eff) 50 meq UNSCH PRN PO 08/09/17 06:45 Potassium Chloride 100 ml @ 25 mls/hr UNSCH PRN IV 08/09/17 06:45 Potassium Chloride 100 ml @ 50 mls/hr Q2H PRN IV 08/09/17 06:45 Magnesium Sulfate 4 gm/Sodium Chloride 100 ml @ 50 mls/hr UNSCH PRN IV 08/09/17 06:45 (Mag-Ox) 800 mg UNSCH PRN PO 08/09/17 06:45 Magnesium Sulfate 2 gm/Sodium Chloride 100 ml @ 50 mls/hr UNSCH PRN IV 08/09/17 06:45 (K-Phos) 2,000 mg Q4H PRN PO 08/09/17 06:45 Sodium Phosphate 30 mmol/Sodium Chloride 250 ml @ 42 mls/hr UNSCH PRN IV 08/09/17 06:45 (K-Phos) 2,000 mg UNSCH PRN PO/TUBE 08/09/17 06:45 Potassium Phosphate 30 mmol/ Sodium Chloride 260 ml @ 42 mls/hr UNSCH PRN IV 08/09/17 06:45 Albumin Human 50 ml @ 60 mls/hr Q8HR IV 08/09/17 13:30 08/10/17 06:00 (NovoLOG SUPPLEMENTAL SCALE) 1 Q6HR SQ 08/09/17 18:00 08/10/17 00:11 (Lacrilube Opht Oint) 1 applic Q12HR RIGHT EYE 08/10/17 02:45 08/10/17 08:44 (Lasix Inj) 40 mg BID IV PUSH 08/10/17 11:00 08/13/17 10:59 08/10/17 11:18 (Colace) 100 mg BID PO 08/10/17 21:00 (Theragran M Tab) 1 tab DAILY PO 08/11/17 09:00 (Milk Of Magnesia Liq) 30 ml DAILY PO 08/11/17 09:00 (Dulcolax Supp) 10 mg UNSCH PRN RECTAL 08/10/17 10:45 (Miralax) 17 gm DAILY PO 08/11/17 09:00 (Senokot) 8.6 mg HS PO 08/10/17 21:00 (NovoLOG SUPPLEMENTAL SCALE) 1 02,06,10,14,18,22 SQ 08/10/17 14:00 (D50w (Vial) Inj) 50 ml UNSCH PRN IV PUSH 08/10/17 10:45 (Glucagon Inj) 1 mg UNSCH PRN OTHER 08/10/17 10:45 Vital Signs / I&O Vital Signs Date Time Temp Pulse Resp B/P (MAP) Pulse Ox O2 Delivery O2 Flow Rate FiO2 08/10/17 11:10 99 Nasal Cannula 4.00 08/10/17 11:09 118 08/10/17 11:09 97.6 118 22 Automatic Cuff 98 08/10/17 07:49 98 Nasal Cannula 20.00 40 08/10/17 07:49 108 08/10/17 07:48 98.2 108 22 111/76 (88) 98 08/10/17 03:00 97 Nasal Cannula 20.00 40 08/10/17 03:00 97 High Flow Nasal Cannula 20.00 40 08/10/17 03:00 109 08/10/17 03:00 98.2 109 18 117/72 (87) 97 08/09/17 23:00 97.9 113 18 113/75 (88) 94 08/09/17 23:00 113 08/09/17 23:00 94 Nasal Cannula 25.00 40 08/09/17 19:53 95 High Flow Nasal Cannula 25.00 40 08/09/17 19:00 95 Nasal Cannula 25.00 40 08/09/17 19:00 116 08/09/17 19:00 98.2 116 22 95/63 (74) 95 08/09/17 15:01 25.00 08/09/17 15:01 97.6 109 20 118/74 (89) 97 I/O 08/09/17 08/09/17 08/09/17 08/10/17 08/10/17 08/10/17 07:00 15:00 23:00 07:00 15:00 23:00 Intake Total 663 ml 1060 ml 580 ml 300 ml Output Total 945 ml 1060 ml 640 ml Balance -282 ml 0 ml -60 ml 300 ml Intake Oral 480 ml 960 ml 480 ml IV Total 183 ml 100 ml 100 ml 300 ml Output Urine Total 725 ml 880 ml 520 ml Chest Tube Drainage Total 220 ml 180 ml 120 ml # Bowel Movements 0 0 Physical Exam GENERAL: NAD SKIN: Warm and dry. HEAD: Atraumatic. Normocephalic. EYES: Pupils equal and round. No scleral icterus. No injection or drainage. ENT: No nasal bleeding or discharge. Mucous membranes pink and moist. NECK: Trachea midline. No JVD. CARDIOVASCULAR: Regular rate and rhythm. RESPIRATORY: No accessory muscle use. Decreased breath sounds bilaterally GASTROINTESTINAL: Abdomen soft, non-tender, nondistended. Hepatic and splenic margins not palpable. MUSCULOSKELETAL: Extremities without clubbing, cyanosis, or edema. No obvious deformities. NEUROLOGICAL: No focal deficits noted Laboratory Laboratory Tests Test 08/09/17 14:25 08/10/17 04:22 Blood Urea Nitrogen 30 MG/DL 32 MG/DL Creatinine 1.26 MG/DL 1.18 MG/DL Random Glucose 166 MG/DL 124 MG/DL Total Protein 6.1 GM/DL 6.0 GM/DL Albumin 2.8 GM/DL 3.0 GM/DL Calcium Level 8.2 MG/DL 8.8 MG/DL Alkaline Phosphatase 86 U/L 85 U/L Aspartate Amino Transf (AST/SGOT) 69 U/L 48 U/L Alanine Aminotransferase (ALT/SGPT) 39 U/L 33 U/L Total Bilirubin 0.6 MG/DL 1.0 MG/DL Sodium Level 146 MEQ/L 145 MEQ/L Potassium Level 3.6 MEQ/L 3.5 MEQ/L Chloride Level 107 MEQ/L 106 MEQ/L Carbon Dioxide Level 30.7 MEQ/L 30.2 MEQ/L Anion Gap 8 MEQ/L 9 MEQ/L Estimat Glomerular Filtration Rate 54 ML/MIN 58 ML/MIN White Blood Count 6.9 TH/MM3 Red Blood Count 2.56 MIL/MM3 Hemoglobin 9.0 GM/DL Hematocrit 25.9 % Mean Corpuscular Volume 101.1 FL Mean Corpuscular Hemoglobin 35.3 PG Mean Corpuscular Hemoglobin Concent 34.9 % Red Cell Distribution Width 17.0 % Platelet Count 58 TH/MM3 Mean Platelet Volume 9.3 FL Neutrophils (%) (Auto) 74.0 % Lymphocytes (%) (Auto) 15.1 % Monocytes (%) (Auto) 9.8 % Eosinophils (%) (Auto) 0.8 % Basophils (%) (Auto) 0.3 % Neutrophils # (Auto) 5.1 TH/MM3 Lymphocytes # (Auto) 1.0 TH/MM3 Monocytes # (Auto) 0.7 TH/MM3 Eosinophils # (Auto) 0.1 TH/MM3 Basophils # (Auto) 0.0 TH/MM3 CBC Comment AUTO DIFF Differential Comment AUTO DIFF CONFIRMED Platelet Estimate LOW Platelet Morphology Comment NORMAL Phosphorus Level 2.5 MG/DL Magnesium Level 2.2 MG/DL Assessment and Plan Problem List: (1) Hx of ventricular tachycardia ICD Codes: Z86.79 - Personal history of other diseases of the circulatory system (2) History of CVA (cerebrovascular accident) ICD Codes: Z86.73 - Personal history of transient ischemic attack (TIA), and cerebral infarction without residual deficits (3) Artificial cardiac pacemaker ICD Codes: Z95.0 - Presence of cardiac pacemaker (4) Unstable angina ICD Codes: I20.0 - Unstable angina (5) Multi-vessel coronary artery stenosis ICD Codes: I25.10 - Atherosclerotic heart disease of habematolel coronary artery without angina pectoris (6) S/P CABG x 3 ICD Codes: Z95.1 - Presence of aortocoronary bypass graft (7) Hypotension ICD Codes: I95.9 - Hypotension, unspecified (8) Metabolic acidosis ICD Codes: E87.2 - Acidosis (9) Acute respiratory failure with hypoxia ICD Codes: J96.01 - Acute respiratory failure with hypoxia Assessment and Plan 1) CAD/USA s/p CABGx3 POD #4 VILCHIS to LAD SVG to D1 SVG to OM1 2) SOB leading to syncope Most likely anginal equivalent 3) ASA/Statin Eventually restart BB 4) Clinically appears well 5) Lactic acid decreasing 6) Dobutamine off 7) Repeat echo with low normal LV function, RV dilated with moderate decreased function, septal motion consistent with post-operative state, some septal flattening noted mostly in diastole ? RV injury as not bypassed, con't supportive care Evaristo Potts DO Aug 10, 2017 11:24
--- NOTE | 2017-08-10 17:40 | HHI.CCPN ---
Subjective Remarks/Hospital Course Patient is a 87-year-old male patient who was admitted to Dr. Potts service with a diagnosis of unstable angina. He underwent cardiac catheterization which showed proximal LAD 95%, mid distal 70%, diagonal 80%, the circumflex is 90%, ejection fraction 58%. MARCELLO 1.35. CTS was consulted and patient underwent coronary artery bypass grafting x3 on 08/06/17 (CABG x 3, VILCHIS to LAD, SVG to D1 , SVG to OM1) Postop patient was extubated 08/06, but overnight patient was intermittently hypotensive required Eyal-Synephrine to maintain map about 65. Also increasing metabolic acidosis,GEM labs showed lactic acidosis of 6.9. Critical care medicine was consulted for worsening shock. On my evaluation patient is sitting up in the cardiac chair slightly tachypneic. He is getting 2 Amps of bicarb per Dr. Vela. At this time he is off Eyal-Synephrine but the blood pressure is trending down, with MAP 59-60. I have ordered 500 mL of fluid bolus with normal saline and will start maintenance fluid at 75 mL/h. Dobutamine to be started at 2.5 mcg/kg/min ( is mild); also pacemaker rep was contacted to increase the back up pacing rate to 80 bpm. CVP 3. Reinsert Mckeon for accurate intake output, creat increased to 1.34. Trends lactic acid. A stat 2D echo showed dilated RV with evidence of RV dysfunction. Also initiate Higinio Trac monitoring SUBJ 08/08: Remains critically ill but stabilizing now. Appears adequately resuscitated. Due to increasing oxygen requirement and CVP more than 20, IV Lasix 100 mg given yesterday evening. Urine output excellent after this approximately 1.5 L overnight. Currently patient is on 50% oxygen by facemask, acidosis has improved, lactic acid trended down to 3. Remains on dobutamine at 2.5 mcg/kg/min. denies abdominal pain. Place on scheduled IV Lasix 40 mg every 8 hours, frequent lab monitoring 08/09: Remains on dobutamine at 1 mcg/kg/min for RV dysfunction. Repeat 2dEcho limited today. Attempt to wean Dobut as tolerated. Lactate climbed yesterday with oliguria when dobutamine was stopped yesterday. UP 2L in 24 hours. CXR shows increasing R effusion. Will increase Lasix to 20 mg IV q8, with 1 additional dose now 20 mg IV. Creat improving 08/10: clinically improving. off dobutamine. worked with PT. subjectively feels better. ROS negative. Objective Vital Signs Date Time Temp Pulse Resp B/P (MAP) Pulse Ox O2 Delivery O2 Flow Rate FiO2 08/10/17 11:10 99 Nasal Cannula 4.00 08/10/17 11:09 118 08/10/17 11:09 97.6 22 Automatic Cuff 08/10/17 07:49 40 Intake and Output 08/10/17 08/10/17 08/11/17 08:00 16:00 00:00 Intake Total 580 ml 300 ml Output Total 640 ml Balance -60 ml 300 ml Result Diagram: 08/10/1742108/10/17421 Imaging Chest x-ray shows no acute cardiopulmonary disease Objective Remarks GENERAL: The patient appears sitting up in cardiac chair tachycardic. HEENT: CHAS. Mucous membranes moist NECK: Supple. Right IJ central line in place. CVS: Sinus rhythm intermittently tachycardic Midline CABG incision dressing C/D/ I. LUNGS: equal chest rise. NC o2. ABDOMEN: Soft, mildly tender, mildly distended. EXTREMITIES: Distal pulses are intact bilaterally. NEUROLOGIC: Alert awake oriented, no focal deficits. Anxious A/P Assessment and Plan ASSESSMENT: Cardiogenic shock- resolved. Lactic acidosis- resolved. Acute respiratory insufficiency/hypoxemia- improving. Acute Kidney injury- resolving. RV dilation on echo Leukocytosis- resolving. Thrombocytopenia- resolving. Fluid overload- resolving. s/p CABG x3 Multi-vessel CAD Mild aortic stenosis History of bradycardia s/p St. Nic pacemaker placed in 2008 History of CVA PLAN: NEURO: -As needed Tylenol and Percocet for pain -Fentanyl for breakthrough pain -Resume aspirin once platelet count is more than 80,000 RESP: -Currently on oxygen by [place]. -Increasing pl effusion, will increase Lasix-see below -Incentive spirometry, Acapella, EzPAP every 4 hours -DuoNeb every 4 hours scheduled and as needed -Aggressive pulmonary toilet -Monitor chest tube output-430 ml in last 24 hours CV: - off dobutamine -Adequately resuscitated, now diuresing for fluid overload -Scheduled Lasix 20 mg IV every 8 hours with frequent CMP monitoring, additional 20 mg IV now -Cardiology Dr. Potts, CTS Dr. Vela -Resume aspirin if thrombocytopenia improved, continue Lipitor -Hold metoprolol, hold lisinopril due to hypotension GI: -tolerating heart healthy diet. -Mesenteric ischemia cannot be ruled out, even though no abdominal pain or tenderness, seems less likely now -Continue Protonix -CT of the abdomen without contrast essentially unremarkable : -Monitor renal function closely. Mckeon catheter. -IV Lasix as above. Creat improved -Acute kidney failure most likely secondary to ATN from hypotension, and reduced perfusion, now improving. ID: -Perioperative antibiotics per CT surgery. -Leukocytosis most likely reactive-resolved HEME: -Monitor CBC, CMP, coags -Resume aspirin but closely follow platelet count -Thrombocytopenia multifactorial ENDO: -Electrolyte replacement per protocol -Tight sugar control, now on SSI PROPH: -Hold of chemical DVT prophylaxis until cleared by CT surgery, and due to thrombocytopenia. Increase mobility. Protonix for GI prophylaxis LINES: -RIJ central line in place, Patient is postop CABG patient now stabilized. s/p cardiogenic shock and worsening RCA ischemia. stable for transfer to floor. [facility] will sign off. Rj Beckford MD Aug 10, 2017 17:40
[2017-08-10] MEDS: SENNOSIDES 8.6 MG TAB PO SCH (20:55)
[2017-08-10] MEDS: DOCUSATE SODIUM 100 MG CAP PO SCH (20:55)
[2017-08-11] VITALS (26 sets, daily range): BP systolic 91–125; BP diastolic 61–74; PULSE 98–115; RESP 20; TEMP 97.8–98.4; O2SAT 93–98
[2017-08-11] MEDS: INSULIN ASPART SUPPLEMENTAL SCALE SQ SCH ×8 (02:00→21:00)
[2017-08-11 05:06] LABS: AUTOMATED NEUTROPHIL # 3.9 TH/MM3 (1.8-7.7); BASOPHIL % 0.2 % (0.0-2.0); EOSINOPHIL # 0.2 TH/MM3 (0-0.4); EOSINOPHIL % 3.4 % (0.0-4.0); HEMATOCRIT 25.6 % (39.0-51.0); HEMOGLOBIN 8.9 GM/DL (13.0-17.0); LYMPHOCYTE # 0.9 TH/MM3 (1.0-4.8); MEAN CELL VOLUME 101.2 FL (80.0-100.0); MEAN CORPUSCULAR HGB CONC 34.6 % (32.0-36.0); MEAN PLATELET VOLUME 9.2 FL (7.0-11.0); MONO % 12.8 % (0.0-8.0); MONOCYTE # 0.7 TH/MM3 (0-0.9); NEUT % 67.6 % (16.0-70.0); PLATELET COUNT 60 TH/MM3 (150-450); RED BLOOD COUNT 2.53 MIL/MM3 (4.50-5.90); RED CELL DISTRIBUTION WIDTH 17.2 % (11.6-17.2); WHITE BLOOD COUNT 5.8 TH/MM3 (4.0-11.0)
[2017-08-11 05:26] LABS: BICARBONATE 31.8 MEQ/L (21.0-32.0); CALCIUM 8.5 MG/DL (8.5-10.1); CREATININE 1.03 MG/DL (0.60-1.30); MAGNESIUM 2.1 MG/DL (1.5-2.5)
[2017-08-11] MEDS: ARTIFICIAL TEARS OPTH OINT 3.5 APPLIC/3.5 GM TUBO RIGHT EYE SCH ×2 (09:00→20:44)
[2017-08-11] MEDS: MAGNESIUM HYDROXIDE SUSP 30 ML CUP PO SCH (09:00)
[2017-08-11] MEDS: SODIUM CHLORIDE 0.9% FLUSH 10 ML FLUSH IV FLUSH SCH ×2 (09:00→20:43)
[2017-08-11] MEDS: POLYETHYLENE GLYCOL 17 GM PKG PO SCH (09:53)
[2017-08-11] MEDS: DOCUSATE SODIUM 100 MG CAP PO SCH ×2 (09:53→20:44)
[2017-08-11] MEDS: ATORVASTATIN 40 MG TAB PO SCH (09:53)
[2017-08-11] MEDS: PANTOPRAZOLE SOD 40 MG DELAYED RELEASE TAB PO SCH (09:53)
[2017-08-11] MEDS: MULTIVITAMINS/MINERALS THERAPEUTIC TAB PO SCH (09:53)
[2017-08-11] MEDS: FUROSEMIDE 20 MG/2 ML VIAL IV PUSH SCH (09:54)
--- NOTE | 2017-08-11 10:50 | PD.CARD.PN ---
Subjective Subjective Remarks Clinically still appears well, no complaints Up and ambulating around 50 feet down the [place] Still tired with activity Breathing appears better Objective Medications Current Medications Medications (Trade) Dose Ordered Sig/Cody Route Start Time Stop Time Status Last Admin (Atropine Inj) 0.5 mg UNSCH PRN IV PUSH 08/02/17 12:15 (Protonix) 40 mg DAILY PO 08/03/17 09:00 08/11/17 09:53 (Lipitor) 40 mg DAILY PO 08/03/17 09:00 08/11/17 09:53 (NS Flush) 2 ml BID IV FLUSH 08/02/17 21:00 08/11/17 09:00 (NS Flush) 2 ml UNSCH PRN IV FLUSH 08/02/17 17:45 08/05/17 08:52 Albumin Human 250 ml @ 250 mls/hr UNSCH PRN IV 08/06/17 12:30 08/06/17 19:45 (Aspirin Chew) 81 mg DAILY PO 08/07/17 09:00 Future Hold 08/07/17 10:56 (Tylenol) 650 mg Q4H PRN PO 08/06/17 12:30 08/08/17 01:25 (Zofran Inj) 4 mg Q6H PRN IV PUSH 08/06/17 12:30 08/06/17 19:55 Potassium Chloride 100 ml @ 50 mls/hr UNSCH PRN IV 08/06/17 12:30 (KCl) 20 meq UNSCH PRN PO 08/06/17 12:30 (KCl) 40 meq UNSCH PRN PO 08/06/17 12:30 Magnesium Sulfate 2 gm/Sodium Chloride 104 ml @ 100 mls/hr UNSCH PRN IV 08/06/17 12:30 Calcium Chloride 1 gm/Sodium Chloride 110 ml @ 100 mls/hr UNSCH PRN IV 08/06/17 12:30 08/06/17 14:00 (Calcium Chloride Inj) 0.5 gm UNSCH PRN IV PUSH 08/06/17 12:30 (Duoneb Neb) 1 ampule Q2HR NEB PRN NEB 08/06/17 12:30 08/06/17 23:16 (D50w (Vial) Inj) 50 ml UNSCH PRN IV PUSH 08/08/17 07:15 (Glucagon Inj) 1 mg UNSCH PRN OTHER 08/08/17 07:15 Potassium Chloride 100 ml @ 50 mls/hr Q2H PRN IV 08/09/17 06:45 Potassium Chloride 100 ml @ 50 mls/hr Q2H PRN IV 08/09/17 06:45 (K-Lyte Cl Eff) 50 meq UNSCH PRN PO 08/09/17 06:45 Potassium Chloride 100 ml @ 25 mls/hr UNSCH PRN IV 08/09/17 06:45 Potassium Chloride 100 ml @ 50 mls/hr Q2H PRN IV 08/09/17 06:45 Magnesium Sulfate 4 gm/Sodium Chloride 100 ml @ 50 mls/hr UNSCH PRN IV 08/09/17 06:45 (Mag-Ox) 800 mg UNSCH PRN PO 08/09/17 06:45 Magnesium Sulfate 2 gm/Sodium Chloride 100 ml @ 50 mls/hr UNSCH PRN IV 08/09/17 06:45 (K-Phos) 2,000 mg Q4H PRN PO 08/09/17 06:45 Sodium Phosphate 30 mmol/Sodium Chloride 250 ml @ 42 mls/hr UNSCH PRN IV 08/09/17 06:45 (K-Phos) 2,000 mg UNSCH PRN PO/TUBE 08/09/17 06:45 Potassium Phosphate 30 mmol/ Sodium Chloride 260 ml @ 42 mls/hr UNSCH PRN IV 08/09/17 06:45 (NovoLOG SUPPLEMENTAL SCALE) 1 Q6HR SQ 08/09/17 18:00 08/10/17 00:11 (Lacrilube Opht Oint) 1 applic Q12HR RIGHT EYE 08/10/17 02:45 08/11/17 09:00 (Lasix Inj) 40 mg BID IV PUSH 08/10/17 11:00 08/13/17 10:59 08/11/17 09:54 (Colace) 100 mg BID PO 08/10/17 21:00 08/11/17 09:53 (Theragran M Tab) 1 tab DAILY PO 08/11/17 09:00 08/11/17 09:53 (Milk Of Magnesia Liq) 30 ml DAILY PO 08/11/17 09:00 (Dulcolax Supp) 10 mg UNSCH PRN RECTAL 08/10/17 10:45 (Miralax) 17 gm DAILY PO 08/11/17 09:00 08/11/17 09:53 (Senokot) 8.6 mg HS PO 08/10/17 21:00 08/10/17 20:55 (NovoLOG SUPPLEMENTAL SCALE) 1 02,06,10,14,18,22 SQ 08/10/17 14:00 08/10/17 18:40 (D50w (Vial) Inj) 50 ml UNSCH PRN IV PUSH 08/10/17 10:45 (Glucagon Inj) 1 mg UNSCH PRN OTHER 08/10/17 10:45 Vital Signs / I&O Vital Signs Date Time Temp Pulse Resp B/P (MAP) Pulse Ox O2 Delivery O2 Flow Rate FiO2 08/11/17 07:55 95 Nasal Cannula 2.00 08/11/17 07:15 98 08/11/17 07:15 98.1 103 20 125/62 (83) 95 08/11/17 07:15 95 Nasal Cannula 2.00 08/11/17 06:00 101 08/11/17 05:14 102 08/11/17 04:00 102 08/11/17 03:00 97.9 103 106/74 (85) 97 08/11/17 03:00 102 08/11/17 03:00 97 Nasal Cannula 2.00 08/11/17 02:00 106 08/11/17 01:00 104 08/11/17 00:00 106 08/10/17 23:00 99 Nasal Cannula 2.00 08/10/17 23:00 98.0 109 99/60 (73) 99 08/10/17 19:58 97 Nasal Cannula 4.00 08/10/17 19:00 98.0 113 18 106/68 (81) 95 08/10/17 19:00 110 08/10/17 19:00 95 Nasal Cannula 3.00 08/10/17 16:00 97.5 114 16 100/76 (84) 95 08/10/17 16:00 115 08/10/17 16:00 95 Nasal Cannula 4.00 08/10/17 11:10 99 Nasal Cannula 4.00 08/10/17 11:09 118 08/10/17 11:09 97.6 118 22 Automatic Cuff 98 I/O 08/10/17 08/10/17 08/10/17 08/11/17 08/11/1725/18 07:00 15:00 23:00 07:00 15:00 23:00 Intake Total 580 ml 350 ml 940 ml 120 ml Output Total 640 ml 1660 ml 870 ml Balance -60 ml 350 ml -720 ml -750 ml Intake Oral 480 ml 940 ml 120 ml IV Total 100 ml 350 ml Output Urine Total 520 ml 1360 ml 800 ml Chest Tube Drainage Total 120 ml 300 ml 70 ml # Bowel Movements 0 0 Physical Exam GENERAL: NAD SKIN: Warm and dry. HEAD: Atraumatic. Normocephalic. EYES: Pupils equal and round. No scleral icterus. No injection or drainage. ENT: No nasal bleeding or discharge. Mucous membranes pink and moist. NECK: Trachea midline. No JVD. CARDIOVASCULAR: Regular rate and rhythm. RESPIRATORY: No accessory muscle use. Decreased breath sounds bilaterally GASTROINTESTINAL: Abdomen soft, non-tender, nondistended. Hepatic and splenic margins not palpable. MUSCULOSKELETAL: Extremities without clubbing, cyanosis, or edema. No obvious deformities. NEUROLOGICAL: No focal deficits noted Laboratory Laboratory Tests Test 08/11/17 04:15 White Blood Count 5.8 TH/MM3 Red Blood Count 2.53 MIL/MM3 Hemoglobin 8.9 GM/DL Hematocrit 25.6 % Mean Corpuscular Volume 101.2 FL Mean Corpuscular Hemoglobin 35.0 PG Mean Corpuscular Hemoglobin Concent 34.6 % Red Cell Distribution Width 17.2 % Platelet Count 60 TH/MM3 Mean Platelet Volume 9.2 FL Neutrophils (%) (Auto) 67.6 % Lymphocytes (%) (Auto) 16.0 % Monocytes (%) (Auto) 12.8 % Eosinophils (%) (Auto) 3.4 % Basophils (%) (Auto) 0.2 % Neutrophils # (Auto) 3.9 TH/MM3 Lymphocytes # (Auto) 0.9 TH/MM3 Monocytes # (Auto) 0.7 TH/MM3 Eosinophils # (Auto) 0.2 TH/MM3 Basophils # (Auto) 0.0 TH/MM3 CBC Comment AUTO DIFF Differential Comment AUTO DIFF CONFIRMED Platelet Estimate LOW Platelet Morphology Comment NORMAL Basophilic Stippling FAINT Blood Urea Nitrogen 33 MG/DL Creatinine 1.03 MG/DL Random Glucose 110 MG/DL Calcium Level 8.5 MG/DL Magnesium Level 2.1 MG/DL Sodium Level 144 MEQ/L Potassium Level 3.3 MEQ/L Chloride Level 104 MEQ/L Carbon Dioxide Level 31.8 MEQ/L Anion Gap 8 MEQ/L Estimat Glomerular Filtration Rate 68 ML/MIN Assessment and Plan Problem List: (1) Hx of ventricular tachycardia ICD Codes: Z86.79 - Personal history of other diseases of the circulatory system (2) History of CVA (cerebrovascular accident) ICD Codes: Z86.73 - Personal history of transient ischemic attack (TIA), and cerebral infarction without residual deficits (3) Artificial cardiac pacemaker ICD Codes: Z95.0 - Presence of cardiac pacemaker (4) Unstable angina ICD Codes: I20.0 - Unstable angina (5) Multi-vessel coronary artery stenosis ICD Codes: I25.10 - Atherosclerotic heart disease of hoh coronary artery without angina pectoris (6) S/P CABG x 3 ICD Codes: Z95.1 - Presence of aortocoronary bypass graft (7) Hypotension ICD Codes: I95.9 - Hypotension, unspecified (8) Metabolic acidosis ICD Codes: E87.2 - Acidosis (9) Acute respiratory failure with hypoxia ICD Codes: J96.01 - Acute respiratory failure with hypoxia Assessment and Plan 1) CAD/[place] s/p CABGx3 POD #5 VILCHIS to LAD SVG to D1 SVG to OM1 2) SOB leading to syncope Most likely anginal equivalent 3) ASA/Statin Restart BB tomorrow if blood pressure stable 4) Clinically appears well 5) Repeat echo with low normal LV function, RV dilated with moderate decreased function, septal motion consistent with post-operative state, some septal flattening noted mostly in diastole [place] to be RV injury as not bypassed, con't supportive care Evaristo Potts DO Aug 11, 2017 10:50
[2017-08-11] MEDS: METOPROLOL TARTRATE 25 MG TAB PO SCH ×2 (11:00→20:44)
--- NOTE | 2017-08-11 11:03 | PD.CAR.PN ---
CVT Progress Note CVT: POD #: 5 Subjective/Hospital Course: 87-year-old male patient of Dr. Kush Lawrence, Dr. Brandon Parks, history of having some dizziness and lightheadedness for the last 3 weeks, some presyncope episodes, also preceded all the time by shortness of breath, which he has noticed more progressively over the past 1 month. The shortness of breath occurs with minimal exertion. He normally is very active. He walks about 3-4 miles, but back in January he purchased a mobile home and has been repairing that, but has been unable to do so secondary to the shortness of breath. He has a history of some mild aortic stenosis. Therefore, he underwent cardiac catheterization today to evaluate the valve further which showed a 10% stenosis in the left main, proximal LAD 95%, mid distal 70%, diagonal 80%, the circumflex is 90%, ejection fraction 58%. PA pressure is 46/ 20 with a wedge pressure of 12. Cardiac output of 5.2. Aortic valve area of 1.35. We were consulted to evaluate for coronary artery bypass grafting. 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 He has had a history of a stroke in the past with some residual oral paresthesias, paroxysmal ventricular tachycardia. 08/05 doing well, no chest pain plan for surgery in am 08/06 surgery: CABG x 3, VILCHIS to LAD - fair, SVG to D1 - good, SVG to OM1 - fair , EVH (R) 08/07/17 No complaints. Denies any pain. Metabolic acidosis overnight with intermittent hypotension. 08/08 weaned off dobutamine/ 2/2 tachycardia lasix decreased now on partial NRB feels fair, up in chair keep in ICU today pulm toileting lactic acid improved / off pressors 08/09 lactic increased 4 yesterday, now back to 1.8 placed back on low dose dobutamine remains tachycardic, repeat echo noted some RV failure / not bypassed / slow progress wean 02 as tolerated, gentle diuresis Bipap at night PT/OT 08/10/17 Improving on 6l NC. No complaints 08/11/17 Doing well, no complaints today. Objective: Vital Signs Date Time Temp Pulse Resp B/P (MAP) Pulse Ox O2 Delivery O2 Flow Rate FiO2 3/25/18 10:00 104 08/11/17 09:00 104 08/11/17 08:00 104 08/11/17 07:55 95 Nasal Cannula 2.00 08/11/17 07:15 98 08/11/17 07:15 98.1 103 20 125/62 (83) 95 08/11/17 07:15 95 Nasal Cannula 2.00 08/11/17 06:00 101 08/11/17 05:14 102 08/11/17 04:00 102 08/11/17 03:00 97.9 103 106/74 (85) 97 08/11/17 03:00 102 08/11/17 03:00 97 Nasal Cannula 2.00 08/11/17 02:00 106 08/11/17 01:00 104 08/11/17 00:00 106 08/10/17 23:00 99 Nasal Cannula 2.00 08/10/17 23:00 98.0 109 99/60 (73) 99 08/10/17 19:58 97 Nasal Cannula 4.00 08/10/17 19:00 98.0 113 18 106/68 (81) 95 08/10/17 19:00 110 08/10/17 19:00 95 Nasal Cannula 3.00 08/10/17 16:00 97.5 114 16 100/76 (84) 95 08/10/17 16:00 115 08/10/17 16:00 95 Nasal Cannula 4.00 08/10/17 11:10 99 Nasal Cannula 4.00 08/10/17 11:09 118 08/10/17 11:09 97.6 118 22 Automatic Cuff 98 Labs: Laboratory Tests Test 08/11/17 04:15 White Blood Count 5.8 TH/MM3 (4.0-11.0) Red Blood Count 2.53 MIL/MM3 (4.50-5.90) Hemoglobin 8.9 GM/DL (13.0-17.0) Hematocrit 25.6 % (39.0-51.0) Mean Corpuscular Volume 101.2 FL (80.0-100.0) Mean Corpuscular Hemoglobin 35.0 PG (27.0-34.0) Mean Corpuscular Hemoglobin Concent 34.6 % (32.0-36.0) Red Cell Distribution Width 17.2 % (11.6-17.2) Platelet Count 60 TH/MM3 (150-450) Mean Platelet Volume 9.2 FL (7.0-11.0) Neutrophils (%) (Auto) 67.6 % (16.0-70.0) Lymphocytes (%) (Auto) 16.0 % (9.0-44.0) Monocytes (%) (Auto) 12.8 % (0.0-8.0) Eosinophils (%) (Auto) 3.4 % (0.0-4.0) Basophils (%) (Auto) 0.2 % (0.0-2.0) Neutrophils # (Auto) 3.9 TH/MM3 (1.8-7.7) Lymphocytes # (Auto) 0.9 TH/MM3 (1.0-4.8) Monocytes # (Auto) 0.7 TH/MM3 (0-0.9) Eosinophils # (Auto) 0.2 TH/MM3 (0-0.4) Basophils # (Auto) 0.0 TH/MM3 (0-0.2) CBC Comment AUTO DIFF Differential Comment AUTO DIFF CONFIRMED Platelet Estimate LOW (NORMAL) Platelet Morphology Comment NORMAL (NORMAL) Basophilic Stippling FAINT (NORMAL) Blood Urea Nitrogen 33 MG/DL (7-18) Creatinine 1.03 MG/DL (0.60-1.30) Random Glucose 110 MG/DL (74-106) Calcium Level 8.5 MG/DL (8.5-10.1) Magnesium Level 2.1 MG/DL (1.5-2.5) Sodium Level 144 MEQ/L (136-145) Potassium Level 3.3 MEQ/L (3.5-5.1) Chloride Level 104 MEQ/L (98-107) Carbon Dioxide Level 31.8 MEQ/L (21.0-32.0) Anion Gap 8 MEQ/L (5-15) Estimat Glomerular Filtration Rate 68 ML/MIN (>89) Result Diagram: 08/11/1741408/11/17414 Cardiovascular: RRR, Telemetry: ST Pulmonary: CTA GI/: NABS, NT Incision: dry and intact CT: 200ml since 0500 today. Plan: Decrease lasix dose Start lopressor Stim BM CXR in AM Continue chest tubes one more day Encourage ambulation Discharge planning (1) Hx of ventricular tachycardia (2) History of CVA (cerebrovascular accident) Plan: PT/OT (3) Artificial cardiac pacemaker (4) Unstable angina (5) Multi-vessel coronary artery stenosis (6) S/P CABG x 3 Plan: ASA on hold PLT 66> 59 on statin , hold on BB for now OOB, pulm toileting keep in ICU continue low dose dobutamine gentle diuresis (7) Hypotension (8) Metabolic acidosis Plan: resolved (9) Acute respiratory failure with hypoxia Plan: high flow 02 and Bipap at night appreciate CCM , bedside US small right effusion Isa Medina MD Aug 11, 2017 11:03
[2017-08-11] MEDS: SENNOSIDES 8.6 MG TAB PO SCH (20:44)
[2017-08-12] VITALS (27 sets, daily range): BP systolic 104–130; BP diastolic 62–69; PULSE 92–110; RESP 16–18; TEMP 97.6–98.2; O2SAT 92–97
--- NOTE | 2017-08-12 04:08 | RADRPT ---
EXAM DATE/TIME: 08/12/2017 03:28 [facility] COMPARISON: CHEST SINGLE AP, August 10, 2017, 3:47. INDICATIONS : Shortness of breath, possible pulmonary disease. MEDICAL HISTORY : Cerebrovascular disease. Cardiovascular disease. Hypertension. SURGICAL HISTORY : CABG. Pacemaker. ENCOUNTER: Subsequent ACUITY: 1 week PAIN SCORE: 0/10 LOCATION: Bilateral chest FINDINGS: A single view of the chest demonstrates bibasilar densities and probable small pleural effusions. Car diomegaly and previous CABG. Left-sided pacemaker unchanged. Mediastinal and left-sided chest tubes a re stable position. No definite pneumothorax.. Osseous structures are intact. CONCLUSION: 1. Bibasilar densities and probable small pleural effusions. 2. Cardiomegaly and CABG. 3. Chest tubes without pneumothorax. Alex Vaz MD on August 12, 2017 at 4:05 Board Certified Radiologist. This report was verified electronically.
[2017-08-12 04:31] LABS: AUTOMATED NEUTROPHIL # 4.9 TH/MM3 (1.8-7.7); BASOPHIL % 0.2 % (0.0-2.0); EOSINOPHIL # 0.2 TH/MM3 (0-0.4); EOSINOPHIL % 2.9 % (0.0-4.0); HEMATOCRIT 27.5 % (39.0-51.0); HEMOGLOBIN 9.4 GM/DL (13.0-17.0); LYMPH % 15.4 % (9.0-44.0); LYMPHOCYTE # 1.1 TH/MM3 (1.0-4.8); MEAN CELL VOLUME 101.7 FL (80.0-100.0); MEAN CORPUSCULAR HEMOGLOBIN 34.9 PG (27.0-34.0); MEAN CORPUSCULAR HGB CONC 34.3 % (32.0-36.0); MEAN PLATELET VOLUME 9.3 FL (7.0-11.0); MONO % 12.9 % (0.0-8.0); MONOCYTE # 0.9 TH/MM3 (0-0.9); NEUT % 68.6 % (16.0-70.0); PLATELET COUNT 66 TH/MM3 (150-450); RED CELL DISTRIBUTION WIDTH 16.6 % (11.6-17.2); WHITE BLOOD COUNT 7.2 TH/MM3 (4.0-11.0)
[2017-08-12 04:46] LABS: BICARBONATE 28.1 MEQ/L (21.0-32.0); CALCIUM 8.1 MG/DL (8.5-10.1); CREATININE 1.11 MG/DL (0.60-1.30)
[2017-08-12] MEDS: INSULIN ASPART SUPPLEMENTAL SCALE SQ SCH (07:35)
[2017-08-12] MEDS: MAGNESIUM HYDROXIDE SUSP 30 ML CUP PO SCH (08:48)
[2017-08-12] MEDS: DOCUSATE SODIUM 100 MG CAP PO SCH ×2 (08:48→21:00)
[2017-08-12] MEDS: POLYETHYLENE GLYCOL 17 GM PKG PO SCH (08:49)
[2017-08-12] MEDS: PANTOPRAZOLE SOD 40 MG DELAYED RELEASE TAB PO SCH (08:54)
[2017-08-12] MEDS: ATORVASTATIN 40 MG TAB PO SCH (08:54)
[2017-08-12] MEDS: MULTIVITAMINS/MINERALS THERAPEUTIC TAB PO SCH (08:54)
[2017-08-12] MEDS: FUROSEMIDE 20 MG/2 ML VIAL IV PUSH SCH (08:54)
[2017-08-12] MEDS: SODIUM CHLORIDE 0.9% FLUSH 10 ML FLUSH IV FLUSH SCH ×2 (08:55→20:29)
[2017-08-12] MEDS: ARTIFICIAL TEARS OPTH OINT 3.5 APPLIC/3.5 GM TUBO RIGHT EYE SCH ×2 (08:55→20:29)
[2017-08-12] MEDS: POTASSIUM CHLORIDE 10 MEQ CONTROLLED RELEASE TAB PO SCH (10:35)
[2017-08-12] MEDS: METOPROLOL TARTRATE 25 MG TAB PO SCH ×2 (10:35→20:29)
--- NOTE | 2017-08-12 12:04 | PD.CAR.PN ---
CVT Progress Note Subjective/Hospital Course: 87-year-old male patient of Dr. Kush Lawrence, Dr. Brandon Parks, history of having some dizziness and lightheadedness for the last 3 weeks, some presyncope episodes, also preceded all the time by shortness of breath, which he has noticed more progressively over the past 1 month. The shortness of breath occurs with minimal exertion. He normally is very active. He walks about 3-4 miles, but back in January he purchased a mobile home and has been repairing that, but has been unable to do so secondary to the shortness of breath. He has a history of some mild aortic stenosis. Therefore, he underwent cardiac catheterization today to evaluate the valve further which showed a 10% stenosis in the left main, proximal LAD 95%, mid distal 70%, diagonal 80%, the circumflex is 90%, ejection fraction 58%. PA pressure is 46/ 20 with a wedge pressure of 12. Cardiac output of 5.2. Aortic valve area of 1.35. We were consulted to evaluate for coronary artery bypass grafting. 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 He has had a history of a stroke in the past with some residual oral paresthesias, paroxysmal ventricular tachycardia. 08/05 doing well, no chest pain plan for surgery in am 08/06 surgery: CABG x 3, VILCHIS to LAD - fair, SVG to D1 - good, SVG to OM1 - fair , EVH (R) 08/07/17 No complaints. Denies any pain. Metabolic acidosis overnight with intermittent hypotension. 08/08 weaned off dobutamine/ 2/ tachycardia lasix decreased now on partial NRB feels fair, up in chair keep in ICU today pulm toileting lactic acid improved / off pressors 08/09 lactic increased 4 yesterday, now back to 1.8 placed back on low dose dobutamine remains tachycardic, repeat echo noted some RV failure / not bypassed / slow progress wean 02 as tolerated, gentle diuresis Bipap at night PT/OT 08/10/17 Improving on 6l NC. No complaints 08/11/17 Doing well, no complaints today. 08/12 up in chair, on 2 liter 02 NSR with occasional PAC , chest tube drained 210cc/ 12 hrs on lasix, statin , BB recommend rehab at discharge BB increased K+ replaced Objective: Vital Signs Date Time Temp Pulse Resp B/P (MAP) Pulse Ox O2 Delivery O2 Flow Rate FiO2 08/12/17 11:48 95 Nasal Cannula 2.00 08/12/17 11:47 98.0 96 16 112/62 (79) 94 08/12/17 11:00 96 08/12/17 10:00 92 08/12/17 09:00 98 08/12/17 08:00 94 08/12/17 08:00 97.8 96 16 116/64 (81) 94 08/12/17 08:00 94 Nasal Cannula 2.00 08/12/17 07:40 93 Nasal Cannula 2.00 08/12/17 07:00 96 08/12/17 06:02 96 08/12/17 05:00 98 08/12/17 04:00 104 08/12/17 03:00 95 Nasal Cannula 2.00 08/12/17 03:00 98.2 104 111/68 (82) 95 08/12/17 03:00 100 08/12/17 02:00 96 08/12/17 01:00 96 08/12/17 00:00 98 08/11/17 23:00 100 08/11/17 23:00 97.8 102 100/62 (75) 93 08/11/17 23:00 93 Nasal Cannula 2.00 08/11/17 22:00 98 08/11/17 21:00 112 08/11/17 20:59 96 Nasal Cannula 2.00 08/11/17 20:00 108 08/11/17 19:00 97.9 112 105/61 (76) 95 08/11/17 19:00 112 08/11/17 19:00 95 Nasal Cannula 2.00 08/11/17 18:00 107 08/11/17 17:00 105 08/11/17 16:00 108 08/11/17 15:00 98.4 101 20 97/65 (76) 98 08/11/17 15:00 95 Nasal Cannula 2.00 08/11/17 15:00 101 08/11/17 14:00 104 08/11/17 13:00 115 Labs: Laboratory Tests Test 08/12/17 03:50 White Blood Count 7.2 TH/MM3 (4.0-11.0) Red Blood Count 2.70 MIL/MM3 (4.50-5.90) Hemoglobin 9.4 GM/DL (13.0-17.0) Hematocrit 27.5 % (39.0-51.0) Mean Corpuscular Volume 101.7 FL (80.0-100.0) Mean Corpuscular Hemoglobin 34.9 PG (27.0-34.0) Mean Corpuscular Hemoglobin Concent 34.3 % (32.0-36.0) Red Cell Distribution Width 16.6 % (11.6-17.2) Platelet Count 66 TH/MM3 (150-450) Mean Platelet Volume 9.3 FL (7.0-11.0) Neutrophils (%) (Auto) 68.6 % (16.0-70.0) Lymphocytes (%) (Auto) 15.4 % (9.0-44.0) Monocytes (%) (Auto) 12.9 % (0.0-8.0) Eosinophils (%) (Auto) 2.9 % (0.0-4.0) Basophils (%) (Auto) 0.2 % (0.0-2.0) Neutrophils # (Auto) 4.9 TH/MM3 (1.8-7.7) Lymphocytes # (Auto) 1.1 TH/MM3 (1.0-4.8) Monocytes # (Auto) 0.9 TH/MM3 (0-0.9) Eosinophils # (Auto) 0.2 TH/MM3 (0-0.4) Basophils # (Auto) 0.0 TH/MM3 (0-0.2) CBC Comment AUTO DIFF Differential Comment AUTO DIFF CONFIRMED Platelet Estimate LOW (NORMAL) Platelet Morphology Comment NORMAL (NORMAL) Blood Urea Nitrogen 34 MG/DL (7-18) Creatinine 1.11 MG/DL (0.60-1.30) Random Glucose 124 MG/DL (74-106) Calcium Level 8.1 MG/DL (8.5-10.1) Sodium Level 142 MEQ/L (136-145) Potassium Level 3.5 MEQ/L (3.5-5.1) Chloride Level 103 MEQ/L (98-107) Carbon Dioxide Level 28.1 MEQ/L (21.0-32.0) Anion Gap 11 MEQ/L (5-15) Estimat Glomerular Filtration Rate 63 ML/MIN (>89) Result Diagram: 08/12/17 0350 08/12/17 035 (1) Hx of ventricular tachycardia (2) History of CVA (cerebrovascular accident) Plan: PT/OT (3) Artificial cardiac pacemaker (4) Unstable angina (5) Multi-vessel coronary artery stenosis (6) S/P CABG x 3 Plan: ASA on hold PLT 66> 59> 66 on statin , low dose BB OOB, pulm toileting gentle diuresis recommend rehab at discharge (7) Hypotension (8) Metabolic acidosis Plan: resolved (9) Acute respiratory failure with hypoxia Plan: on 2 liter nasal cannula leave chest tube in Juanita Cohen Aug 12, 2017 12:04
--- NOTE | 2017-08-12 17:56 | PD.CARD.PN ---
Subjective Subjective Remarks Clinically still appears well, no complaints Breathing appears better Objective Medications Current Medications Medications (Trade) Dose Ordered Sig/Cody Route Start Time Stop Time Status Last Admin (Protonix) 40 mg DAILY PO 08/03/17 09:00 08/12/17 08:54 (Lipitor) 40 mg DAILY PO 08/03/17 09:00 08/12/17 08:54 (NS Flush) 2 ml BID IV FLUSH 08/02/17 21:00 08/12/17 08:55 (NS Flush) 2 ml UNSCH PRN IV FLUSH 08/02/17 17:45 08/05/17 08:52 (Aspirin Chew) 81 mg DAILY PO 08/07/17 09:00 Future Hold 08/07/17 10:56 (Tylenol) 650 mg Q4H PRN PO 08/06/17 12:30 08/08/17 01:25 (Zofran Inj) 4 mg Q6H PRN IV PUSH 08/06/17 12:30 08/06/17 19:55 (Duoneb Neb) 1 ampule Q2HR NEB PRN NEB 08/06/17 12:30 08/06/17 23:16 (Lacrilube Opht Oint) 1 applic Q12HR RIGHT EYE 08/10/17 02:45 08/12/17 08:55 (Colace) 100 mg BID PO 08/10/17 21:00 08/11/17 20:44 (Theragran M Tab) 1 tab DAILY PO 08/11/17 09:00 08/12/17 08:54 (Milk Of Magnesia Liq) 30 ml DAILY PO 08/11/17 09:00 (Dulcolax Supp) 10 mg UNSCH PRN RECTAL 08/10/17 10:45 (Miralax) 17 gm DAILY PO 08/11/17 09:00 08/11/17 09:53 (Senokot) 8.6 mg HS PO 08/10/17 21:00 08/11/17 20:44 (Lasix Inj) 40 mg DAILY IV PUSH 08/12/17 09:00 08/13/17 10:59 08/12/17 08:54 (Lopressor) 25 mg Q12HR PO 08/12/17 10:00 08/12/17 10:35 (KCl) 30 meq DAILY PO 08/12/17 10:00 08/12/17 10:35 Vital Signs / I&O Vital Signs Date Time Temp Pulse Resp B/P (MAP) Pulse Ox O2 Delivery O2 Flow Rate FiO2 08/12/17 17:00 92 08/12/17 16:00 94 08/12/17 16:00 98.2 95 18 104/62 (76) 96 08/12/17 16:00 96 Nasal Cannula 2.00 08/12/17 15:00 94 08/12/17 14:00 92 08/12/17 13:00 96 08/12/17 12:00 92 08/12/17 11:48 95 Nasal Cannula 2.00 08/12/17 11:47 98.0 96 16 112/62 (79) 94 08/12/17 11:00 96 08/12/17 10:00 92 08/12/17 09:00 98 08/12/17 08:00 94 08/12/17 08:00 97.8 96 16 116/64 (81) 94 08/12/17 08:00 94 Nasal Cannula 2.00 08/12/17 07:40 93 Nasal Cannula 2.00 08/12/17 07:00 96 08/12/17 06:02 96 08/12/17 05:00 98 08/12/17 04:00 104 08/12/17 03:00 95 Nasal Cannula 2.00 08/12/17 03:00 98.2 104 111/68 (82) 95 08/12/17 03:00 100 08/12/17 02:00 96 08/12/17 01:00 96 08/12/17 00:00 98 08/11/17 23:00 100 08/11/17 23:00 97.8 102 100/62 (75) 93 08/11/17 23:00 93 Nasal Cannula 2.00 08/11/17 22:00 98 08/11/17 21:00 112 08/11/17 20:59 96 Nasal Cannula 2.00 08/11/17 20:00 108 08/11/17 19:00 97.9 112 105/61 (76) 95 08/11/17 19:00 112 08/11/17 19:00 95 Nasal Cannula 2.00 08/11/17 18:00 107 I/O 3/25/18 3/2508/11/17 08/12/17 08/12/17 08/12/17 07:00 15:00 23:00 07:00 15:00 23:00 Intake Total 120 ml 960 ml 360 ml 1050 ml Output Total 870 ml 615 ml 385 ml 720 ml Balance -750 ml 345 ml -25 ml 330 ml Intake Oral 120 ml 960 ml 360 ml 1050 ml Output Urine Total 800 ml 425 ml 175 ml 550 ml Chest Tube Drainage Total 70 ml 190 ml 210 ml 170 ml Bladder Scan Volume Amount 160 ml # Voids 3 3 # Bowel Movements 0 3 2 Physical Exam GENERAL: NAD SKIN: Warm and dry. HEAD: Atraumatic. Normocephalic. EYES: Pupils equal and round. No scleral icterus. No injection or drainage. ENT: No nasal bleeding or discharge. Mucous membranes pink and moist. NECK: Trachea midline. No JVD. CARDIOVASCULAR: Regular rate and rhythm. RESPIRATORY: No accessory muscle use. Decreased breath sounds bilaterally GASTROINTESTINAL: Abdomen soft, non-tender, nondistended. Hepatic and splenic margins not palpable. MUSCULOSKELETAL: Extremities without clubbing, cyanosis, or edema. No obvious deformities. NEUROLOGICAL: No focal deficits noted Laboratory Laboratory Tests Test 08/12/17 03:50 White Blood Count 7.2 TH/MM3 Red Blood Count 2.70 MIL/MM3 Hemoglobin 9.4 GM/DL Hematocrit 27.5 % Mean Corpuscular Volume 101.7 FL Mean Corpuscular Hemoglobin 34.9 PG Mean Corpuscular Hemoglobin Concent 34.3 % Red Cell Distribution Width 16.6 % Platelet Count 66 TH/MM3 Mean Platelet Volume 9.3 FL Neutrophils (%) (Auto) 68.6 % Lymphocytes (%) (Auto) 15.4 % Monocytes (%) (Auto) 12.9 % Eosinophils (%) (Auto) 2.9 % Basophils (%) (Auto) 0.2 % Neutrophils # (Auto) 4.9 TH/MM3 Lymphocytes # (Auto) 1.1 TH/MM3 Monocytes # (Auto) 0.9 TH/MM3 Eosinophils # (Auto) 0.2 TH/MM3 Basophils # (Auto) 0.0 TH/MM3 CBC Comment AUTO DIFF Differential Comment AUTO DIFF CONFIRMED Platelet Estimate LOW Platelet Morphology Comment NORMAL Blood Urea Nitrogen 34 MG/DL Creatinine 1.11 MG/DL Random Glucose 124 MG/DL Calcium Level 8.1 MG/DL Sodium Level 142 MEQ/L Potassium Level 3.5 MEQ/L Chloride Level 103 MEQ/L Carbon Dioxide Level 28.1 MEQ/L Anion Gap 11 MEQ/L Estimat Glomerular Filtration Rate 63 ML/MIN Imaging Last 24 hours Impressions Chest X-Ray 08/12/17 0600 Signed Impressions: Service Date/Time: Saturday, August 12, 2017 03:28 - CONCLUSION: 1. Bibasilar densities and probable small pleural effusions. 2. Cardiomegaly and CABG. 3. Chest tubes without pneumothorax. Alex Vaz MD Assessment and Plan Problem List: (1) Hx of ventricular tachycardia ICD Codes: Z86.79 - Personal history of other diseases of the circulatory system (2) History of CVA (cerebrovascular accident) ICD Codes: Z86.73 - Personal history of transient ischemic attack (TIA), and cerebral infarction without residual deficits (3) Artificial cardiac pacemaker ICD Codes: Z95.0 - Presence of cardiac pacemaker (4) Unstable angina ICD Codes: I20.0 - Unstable angina (5) Multi-vessel coronary artery stenosis ICD Codes: I25.10 - Atherosclerotic heart disease of [place] coronary artery without angina pectoris (6) S/P CABG x 3 ICD Codes: Z95.1 - Presence of aortocoronary bypass graft (7) Hypotension ICD Codes: I95.9 - Hypotension, unspecified (8) Metabolic acidosis ICD Codes: E87.2 - Acidosis (9) Acute respiratory failure with hypoxia ICD Codes: J96.01 - Acute respiratory failure with hypoxia Assessment and Plan 1) CAD/USA s/p CABGx3 POD #6 VILCHIS to LAD SVG to D1 SVG to OM1 2) SOB leading to syncope Most likely anginal equivalent 3) ASA/Statin/BB BB increased 4) Clinically appears well 5) Repeat echo with low normal LV function, RV dilated with moderate decreased function, septal motion consistent with post-operative state, some septal flattening noted mostly in diastole [place] to be RV injury as not bypassed, con't supportive care 6) Plan for rehab once discharged Evaristo Potts DO Aug 12, 2017 17:56
[2017-08-12] MEDS: SENNOSIDES 8.6 MG TAB PO SCH (21:00)
[2017-08-13] VITALS (29 sets, daily range): BP systolic 97–127; BP diastolic 56–71; PULSE 87–107; RESP 19–21; TEMP 97.5–98.3; O2SAT 94–97
[2017-08-13 05:36] LABS: BICARBONATE 27.7 MEQ/L (21.0-32.0); CREATININE 1.05 MG/DL (0.60-1.30)
[2017-08-13 05:37] LABS: PHOSPHORUS 3.3 MG/DL (2.5-4.9)
[2017-08-13] MEDS: PANTOPRAZOLE SOD 40 MG DELAYED RELEASE TAB PO SCH (08:59)
[2017-08-13] MEDS: MULTIVITAMINS/MINERALS THERAPEUTIC TAB PO SCH (08:59)
[2017-08-13] MEDS: POTASSIUM CHLORIDE 10 MEQ CONTROLLED RELEASE TAB PO SCH ×2 (08:59→17:26)
[2017-08-13] MEDS: METOPROLOL TARTRATE 25 MG TAB PO SCH ×2 (08:59→20:40)
[2017-08-13] MEDS: DOCUSATE SODIUM 100 MG CAP PO SCH (09:00)
[2017-08-13] MEDS: MAGNESIUM HYDROXIDE SUSP 30 ML CUP PO SCH (09:00)
[2017-08-13] MEDS: POLYETHYLENE GLYCOL 17 GM PKG PO SCH (09:00)
[2017-08-13] MEDS: ATORVASTATIN 40 MG TAB PO SCH (09:00)
[2017-08-13] MEDS: ARTIFICIAL TEARS OPTH OINT 3.5 APPLIC/3.5 GM TUBO RIGHT EYE SCH ×2 (09:00→20:40)
[2017-08-13] MEDS: FUROSEMIDE 20 MG/2 ML VIAL IV PUSH SCH (09:01)
[2017-08-13] MEDS: SODIUM CHLORIDE 0.9% FLUSH 10 ML FLUSH IV FLUSH SCH ×2 (09:01→20:40)
[2017-08-13] MEDS ORDERED: POTASSIUM CHLORIDE 10 MEQ CONTROLLED RELEASE TAB PO ONE (10:00)
[2017-08-13] MEDS ORDERED: MAGNESIUM SULFATE 1 GM PREMIX 100 ML IV ONE (10:00)
[2017-08-13] MEDS: DEXAMETHASONE SOD PHOS 4 MG/ML VIAL IV PUSH SCH ×2 (11:29→17:26)
--- NOTE | 2017-08-13 11:52 | PD.CARD.PN ---
Subjective Subjective Remarks No complaints Up to the chair Objective Medications Current Medications Medications (Trade) Dose Ordered Sig/Cody Route Start Time Stop Time Status Last Admin (Protonix) 40 mg DAILY PO 08/03/17 09:00 08/13/17 08:59 (Lipitor) 40 mg DAILY PO 08/03/17 09:00 08/13/17 09:00 (NS Flush) 2 ml BID IV FLUSH 08/02/17 21:00 08/13/17 09:01 (NS Flush) 2 ml UNSCH PRN IV FLUSH 08/02/17 17:45 08/05/17 08:52 (Aspirin Chew) 81 mg DAILY PO 08/07/17 09:00 Future Hold 08/07/17 10:56 (Tylenol) 650 mg Q4H PRN PO 08/06/17 12:30 08/08/17 01:25 (Zofran Inj) 4 mg Q6H PRN IV PUSH 08/06/17 12:30 08/06/17 19:55 (Duoneb Neb) 1 ampule Q2HR NEB PRN NEB 08/06/17 12:30 08/06/17 23:16 (Lacrilube Opht Oint) 1 applic Q12HR RIGHT EYE 08/10/17 02:45 08/13/17 09:00 (Theragran M Tab) 1 tab DAILY PO 08/11/17 09:00 08/13/17 08:59 (Milk Of Magnesia Liq) 30 ml DAILY PO 08/11/17 09:00 (Dulcolax Supp) 10 mg UNSCH PRN RECTAL 08/10/17 10:45 (Miralax) 17 gm DAILY PO 08/11/17 09:00 08/11/17 09:53 (Senokot) 8.6 mg HS PO 08/10/17 21:00 08/11/17 20:44 (Lopressor) 25 mg Q12HR PO 08/12/17 10:00 08/13/17 08:59 (KCl) 30 meq DAILY PO 08/12/17 10:00 08/13/17 08:59 (Decadron Inj) 4 mg Q6HR IV PUSH 08/13/17 12:00 08/13/17 18:01 08/13/17 11:29 (Colace) 100 mg BID PRN PO 08/13/17 21:00 Vital Signs / I&O Vital Signs Date Time Temp Pulse Resp B/P (MAP) Pulse Ox O2 Delivery O2 Flow Rate FiO2 08/13/17 11:05 97.5 92 20 104/63 (77) 97 08/13/17 11:04 97 Nasal Cannula 2.00 08/13/17 11:00 91 08/13/17 10:00 96 08/13/17 09:00 98 08/13/17 08:35 95 Nasal Cannula 2.00 08/13/17 08:00 93 08/13/17 07:36 97.6 93 20 122/66 (84) 95 08/13/17 07:36 95 Nasal Cannula 2.00 08/13/17 07:00 92 08/13/17 06:00 93 08/13/17 05:00 93 08/13/17 04:00 99 08/13/17 03:00 95 Nasal Cannula 2.00 08/13/17 03:00 92 08/13/17 03:00 97.8 99 127/71 (89) 95 08/13/17 02:00 96 08/13/17 01:00 92 08/13/17 00:00 100 08/12/17 23:00 92 08/12/17 23:00 97.6 98 122/69 (86) 92 08/12/17 23:00 92 Nasal Cannula 2.00 08/12/17 22:00 96 08/12/17 21:00 102 08/12/17 20:05 97 Nasal Cannula 2.00 08/12/17 20:00 110 08/12/17 19:00 97.9 107 130/65 (86) 94 08/12/17 19:00 102 08/12/17 19:00 94 Nasal Cannula 2.00 08/12/17 18:00 94 08/12/17 17:00 92 08/12/17 16:00 94 08/12/17 16:00 98.2 95 18 104/62 (76) 96 08/12/17 16:00 96 Nasal Cannula 2.00 08/12/17 15:00 94 08/12/17 14:00 92 08/12/17 13:00 96 08/12/17 12:00 92 I/O 08/12/17 08/12/17 08/12/17 08/13/17 08/13/17 3/27/18 07:00 15:00 23:00 07:00 15:00 23:00 Intake Total 360 ml 1050 ml 360 ml Output Total 385 ml 720 ml 200 ml Balance -25 ml 330 ml 160 ml Intake Oral 360 ml 1050 ml 360 ml Output Urine Total 175 ml 550 ml Chest Tube Drainage Total 210 ml 170 ml 200 ml # Voids 3 3 3 # Bowel Movements 3 2 3 Physical Exam GENERAL: NAD SKIN: Warm and dry. HEAD: Atraumatic. Normocephalic. EYES: Pupils equal and round. No scleral icterus. No injection or drainage. ENT: No nasal bleeding or discharge. Mucous membranes pink and moist. NECK: Trachea midline. No JVD. CARDIOVASCULAR: Regular rate and rhythm. RESPIRATORY: No accessory muscle use. Decreased breath sounds bilaterally GASTROINTESTINAL: Abdomen soft, non-tender, nondistended. Hepatic and splenic margins not palpable. MUSCULOSKELETAL: Extremities without clubbing, cyanosis, or edema. No obvious deformities. NEUROLOGICAL: No focal deficits noted Laboratory Laboratory Tests Test 08/13/17 03:18 Blood Urea Nitrogen 34 MG/DL Creatinine 1.05 MG/DL Random Glucose 99 MG/DL Calcium Level 8.0 MG/DL Phosphorus Level 3.3 MG/DL Magnesium Level 2.0 MG/DL Sodium Level 141 MEQ/L Potassium Level 3.5 MEQ/L Chloride Level 105 MEQ/L Carbon Dioxide Level 27.7 MEQ/L Anion Gap 8 MEQ/L Estimat Glomerular Filtration Rate 67 ML/MIN Assessment and Plan Problem List: (1) Hx of ventricular tachycardia ICD Codes: Z86.79 - Personal history of other diseases of the circulatory system (2) History of CVA (cerebrovascular accident) ICD Codes: Z86.73 - Personal history of transient ischemic attack (TIA), and cerebral infarction without residual deficits (3) Artificial cardiac pacemaker ICD Codes: Z95.0 - Presence of cardiac pacemaker (4) Unstable angina ICD Codes: I20.0 - Unstable angina (5) Multi-vessel coronary artery stenosis ICD Codes: I25.10 - Atherosclerotic heart disease of [place] coronary artery without angina pectoris (6) S/P CABG x 3 ICD Codes: Z95.1 - Presence of aortocoronary bypass graft (7) Hypotension ICD Codes: I95.9 - Hypotension, unspecified (8) Metabolic acidosis ICD Codes: E87.2 - Acidosis (9) Acute respiratory failure with hypoxia ICD Codes: J96.01 - Acute respiratory failure with hypoxia Assessment and Plan 1) CAD/[place] s/p CABGx3 POD #7 VILCHIS to LAD SVG to D1 SVG to OM1 2) SOB leading to syncope Most likely anginal equivalent 3) ASA/Statin/BB 4) Clinically appears well 5) Repeat echo with low normal LV function, RV dilated with moderate decreased function, septal motion consistent with post-operative state, some septal flattening noted mostly in diastole [place] to be RV injury as not bypassed, con't supportive care 6) Plan for rehab once discharged 7) Chest tubes still with 200 overnight Evaristo Potts DO Aug 13, 2017 11:52
--- NOTE | 2017-08-13 15:13 | PD.CAR.PN ---
CVT Progress Note Subjective/Hospital Course: 87-year-old male patient of Dr. Kush Lawrence, Dr. Brandon Parks, history of having some dizziness and lightheadedness for the last 3 weeks, some presyncope episodes, also preceded all the time by shortness of breath, which he has noticed more progressively over the past 1 month. The shortness of breath occurs with minimal exertion. He normally is very active. He walks about 3-4 miles, but back in January he purchased a mobile home and has been repairing that, but has been unable to do so secondary to the shortness of breath. He has a history of some mild aortic stenosis. Therefore, he underwent cardiac catheterization today to evaluate the valve further which showed a 10% stenosis in the left main, proximal LAD 95%, mid distal 70%, diagonal 80%, the circumflex is 90%, ejection fraction 58%. PA pressure is 46/ 20 with a wedge pressure of 12. Cardiac output of 5.2. Aortic valve area of 1.35. We were consulted to evaluate for coronary artery bypass grafting. 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 He has had a history of a stroke in the past with some residual oral paresthesias, paroxysmal ventricular tachycardia. 08/05 doing well, no chest pain plan for surgery in am 08/06 surgery: CABG x 3, VILCHIS to LAD - fair, SVG to D1 - good, SVG to OM1 - fair , EVH (R) 08/07/17 No complaints. Denies any pain. Metabolic acidosis overnight with intermittent hypotension. 08/08 weaned off dobutamine/ 2/ tachycardia lasix decreased now on partial NRB feels fair, up in chair keep in ICU today pulm toileting lactic acid improved / off pressors 08/09 lactic increased 4 yesterday, now back to 1.8 placed back on low dose dobutamine remains tachycardic, repeat echo noted some RV failure / not bypassed / slow progress wean 02 as tolerated, gentle diuresis Bipap at night PT/OT 08/10/17 Improving on 6l NC. No complaints 08/11/17 Doing well, no complaints today. 08/12 up in chair, on 2 liter 02 NSR with occasional PAC , chest tube drained 210cc/ 12 hrs on lasix, statin , BB recommend rehab at discharge BB increased K+ replaced 08/13 still draining from chest tube 200cc/ 12hrs serous on water seal add two doses of decadron, increase diuretics pulm toileting, OOB ambulate eval for rehab / spoke with daughter Objective: GENERAL: A&O x 3 , still somewhat weak SKIN: Warm and dry. prevena dressing to chest , incision intact to right leg HEAD: Normocephalic. EYES: No scleral icterus. No injection or drainage. NECK: Supple, trachea midline. No JVD or lymphadenopathy. CARDIOVASCULAR: Regular rate and rhythm without murmurs, gallops, or rubs. NSR, mild lower ext edema RESPIRATORY: Breath sounds equal bilaterally. No accessory muscle use. diminished in bases GASTROINTESTINAL: Abdomen soft, non-tender, nondistended. MUSCULOSKELETAL: No cyanosis, or edema. BACK: Nontender without obvious deformity. No CVA tenderness. Vital Signs Date Time Temp Pulse Resp B/P (MAP) Pulse Ox O2 Delivery O2 Flow Rate FiO2 08/13/17 14:00 96 08/13/17 13:00 92 08/13/17 12:00 87 08/13/17 11:05 97.5 92 20 104/63 (77) 97 08/13/17 11:04 97 Nasal Cannula 2.00 08/13/17 11:00 91 08/13/17 10:00 96 08/13/17 09:00 98 08/13/17 08:35 95 Nasal Cannula 2.00 08/13/17 08:00 93 08/13/17 07:36 97.6 93 20 122/66 (84) 95 08/13/17 07:36 95 Nasal Cannula 2.00 08/13/17 07:00 92 08/13/17 06:00 93 08/13/17 05:00 93 08/13/17 04:00 99 08/13/17 03:00 95 Nasal Cannula 2.00 08/13/17 03:00 92 08/13/17 03:00 97.8 99 127/71 (89) 95 08/13/17 02:00 96 08/13/17 01:00 92 08/13/17 00:00 100 08/12/17 23:00 92 08/12/17 23:00 97.6 98 122/69 (86) 92 08/12/17 23:00 92 Nasal Cannula 2.00 08/12/17 22:00 96 08/12/17 21:00 102 08/12/17 20:05 97 Nasal Cannula 2.00 08/12/17 20:00 110 08/12/17 19:00 97.9 107 130/65 (86) 94 08/12/17 19:00 102 08/12/17 19:00 94 Nasal Cannula 2.00 08/12/17 18:00 94 08/12/17 17:00 92 08/12/17 16:00 94 08/12/17 16:00 98.2 95 18 104/62 (76) 96 08/12/17 16:00 96 Nasal Cannula 2.00 Labs: Laboratory Tests Test 08/13/17 03:18 Blood Urea Nitrogen 34 MG/DL (7-18) Creatinine 1.05 MG/DL (0.60-1.30) Random Glucose 99 MG/DL (74-106) Calcium Level 8.0 MG/DL (8.5-10.1) Phosphorus Level 3.3 MG/DL (2.5-4.9) Magnesium Level 2.0 MG/DL (1.5-2.5) Sodium Level 141 MEQ/L (136-145) Potassium Level 3.5 MEQ/L (3.5-5.1) Chloride Level 105 MEQ/L (98-107) Carbon Dioxide Level 27.7 MEQ/L (21.0-32.0) Anion Gap 8 MEQ/L (5-15) Estimat Glomerular Filtration Rate 67 ML/MIN (>89) Result Diagram: 08/12/17 0350 08/13/17 0318 Telemetry: NSR with pac (1) Hx of ventricular tachycardia (2) History of CVA (cerebrovascular accident) Plan: PT/OT (3) Artificial cardiac pacemaker (4) Unstable angina (5) Multi-vessel coronary artery stenosis (6) S/P CABG x 3 Plan: ASA on hold PLT 66> 59> 66 follow up labs in am on statin , low dose BB OOB, pulm toileting gentle diuresis recommend rehab at discharge (7) Hypotension Plan: resolved (8) Metabolic acidosis Plan: resolved (9) Acute respiratory failure with hypoxia Plan: on 2 liter nasal cannula leave chest tube in add 2 doses of decadron increase diuresis Juanita Cohen Aug 13, 2017 15:13
[2017-08-13] MEDS: FUROSEMIDE 40 MG/4 ML VIAL IV PUSH SCH (17:25)
[2017-08-13] MEDS: SENNOSIDES 8.6 MG TAB PO SCH (20:40)
[2017-08-13] MEDS ORDERED: DOCUSATE SODIUM 100 MG CAP PO PRN (21:00)
[2017-08-14] VITALS (25 sets, daily range): BP systolic 97–115; BP diastolic 56–65; PULSE 85–103; RESP 18–19; TEMP 97.7–98; O2SAT 90–99
[2017-08-14 04:45] LABS: HEMATOCRIT 27.3 % (39.0-51.0); HEMOGLOBIN 9.2 GM/DL (13.0-17.0); MEAN CELL VOLUME 103.6 FL (80.0-100.0); MEAN CORPUSCULAR HEMOGLOBIN 35.1 PG (27.0-34.0); MEAN CORPUSCULAR HGB CONC 33.9 % (32.0-36.0); MEAN PLATELET VOLUME 9.9 FL (7.0-11.0); PLATELET COUNT 78 TH/MM3 (150-450); RED BLOOD COUNT 2.63 MIL/MM3 (4.50-5.90); RED CELL DISTRIBUTION WIDTH 17.9 % (11.6-17.2); WHITE BLOOD COUNT 7.2 TH/MM3 (4.0-11.0)
[2017-08-14 05:02] LABS: BICARBONATE 29.2 MEQ/L (21.0-32.0); CALCIUM 8.1 MG/DL (8.5-10.1); CREATININE 1.1 MG/DL (0.60-1.30); MAGNESIUM 2.2 MG/DL (1.5-2.5)
[2017-08-14] MEDS: METOPROLOL TARTRATE 25 MG TAB PO SCH ×2 (08:47→22:15)
[2017-08-14] MEDS: FUROSEMIDE 40 MG/4 ML VIAL IV PUSH SCH (08:48)
[2017-08-14] MEDS: MULTIVITAMINS/MINERALS THERAPEUTIC TAB PO SCH (08:48)
[2017-08-14] MEDS: PANTOPRAZOLE SOD 40 MG DELAYED RELEASE TAB PO SCH (08:48)
[2017-08-14] MEDS: ARTIFICIAL TEARS OPTH OINT 3.5 APPLIC/3.5 GM TUBO RIGHT EYE SCH ×2 (08:48→21:00)
[2017-08-14] MEDS: ATORVASTATIN 40 MG TAB PO SCH (08:48)
[2017-08-14] MEDS: SODIUM CHLORIDE 0.9% FLUSH 10 ML FLUSH IV FLUSH SCH ×2 (08:49→22:15)
[2017-08-14] MEDS: MAGNESIUM HYDROXIDE SUSP 30 ML CUP PO SCH (08:50)
[2017-08-14] MEDS: POLYETHYLENE GLYCOL 17 GM PKG PO SCH (08:50)
[2017-08-14] MEDS: POTASSIUM CHLORIDE 10 MEQ CONTROLLED RELEASE TAB PO SCH (09:00)
--- NOTE | 2017-08-14 10:27 | PD.CAR.PN ---
CVT Progress Note Subjective/Hospital Course: 87-year-old male patient of Dr. Kush Lawrence, Dr. Brandon Parks, history of having some dizziness and lightheadedness for the last 3 weeks, some presyncope episodes, also preceded all the time by shortness of breath, which he has noticed more progressively over the past 1 month. The shortness of breath occurs with minimal exertion. He normally is very active. He walks about 3-4 miles, but back in January he purchased a mobile home and has been repairing that, but has been unable to do so secondary to the shortness of breath. He has a history of some mild aortic stenosis. Therefore, he underwent cardiac catheterization today to evaluate the valve further which showed a 10% stenosis in the left main, proximal LAD 95%, mid distal 70%, diagonal 80%, the circumflex is 90%, ejection fraction 58%. PA pressure is 46/ 20 with a wedge pressure of 12. Cardiac output of 5.2. Aortic valve area of 1.35. We were consulted to evaluate for coronary artery bypass grafting. 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 He has had a history of a stroke in the past with some residual oral paresthesias, paroxysmal ventricular tachycardia. 08/05 doing well, no chest pain plan for surgery in am 08/06 surgery: CABG x 3, VILCHIS to LAD - fair, SVG to D1 - good, SVG to OM1 - fair , EVH (R) 08/07/17 No complaints. Denies any pain. Metabolic acidosis overnight with intermittent hypotension. 08/08 weaned off dobutamine/ 2/ tachycardia lasix decreased now on partial NRB feels fair, up in chair keep in ICU today pulm toileting lactic acid improved / off pressors 08/09 lactic increased 4 yesterday, now back to 1.8 placed back on low dose dobutamine remains tachycardic, repeat echo noted some RV failure / not bypassed / slow progress wean 02 as tolerated, gentle diuresis Bipap at night PT/OT 08/10/17 Improving on 6l NC. No complaints 08/11/17 Doing well, no complaints today. 08/12 up in chair, on 2 liter 02 NSR with occasional PAC , chest tube drained 210cc/ 12 hrs on lasix, statin , BB recommend rehab at discharge BB increased K+ replaced 08/13 still draining from chest tube 200cc/ 12hrs serous on water seal add two doses of decadron, increase diuretics pulm toileting, OOB ambulate eval for rehab / spoke with daughter 08/14 weight improved, still has some mild lower ext edema chest tube removed without difficulty remains on 2 liter nasal cannula slightly tachycardic, increase BB as tolerated eval for dc in am , dc IV lasix , po lasix in am OOb ambulate Objective: GENERAL: A&O x 3 SKIN: Warm and dry. sternal incision intact and well approximate, Right EVH site intact , ecchymosis right hip area HEAD: Normocephalic. EYES: No scleral icterus. No injection or drainage. NECK: Supple, trachea midline. No JVD or lymphadenopathy. CARDIOVASCULAR: Regular rate and rhythm without murmurs, gallops, or rubs. slightly tachycardic RESPIRATORY: Breath sounds equal bilaterally. No accessory muscle use. diminished in bases GASTROINTESTINAL: Abdomen soft, non-tender, nondistended. MUSCULOSKELETAL: No cyanosis, or edema. BACK: Nontender without obvious deformity. No CVA tenderness. Vital Signs Date Time Temp Pulse Resp B/P (MAP) Pulse Ox O2 Delivery O2 Flow Rate FiO2 08/14/17 10:00 94 08/14/17 10:00 94 08/14/17 09:00 98 08/14/17 09:00 102 08/14/17 08:00 93 08/14/17 08:00 98 08/14/17 07:15 93 Room Air 08/14/17 07:00 94 18 104/61 (75) 90 08/14/17 07:00 94 08/14/17 07:00 85 08/14/17 06:27 90 08/14/17 05:30 88 08/14/17 04:03 96 08/14/17 03:39 89 08/14/17 03:39 98.0 89 19 115/65 (82) 99 08/14/17 03:39 Nasal Cannula 08/14/17 02:20 88 08/14/17 01:16 89 08/14/17 00:20 93 08/13/17 23:51 98.3 94 19 111/65 (80) 97 08/13/17 23:51 88 08/13/17 23:51 Nasal Cannula 08/13/17 22:17 97 08/13/17 21:40 96 08/13/17 21:03 96 Nasal Cannula 2.00 08/13/17 20:40 88 08/13/17 19:40 Nasal Cannula 08/13/17 19:40 104 08/13/17 19:40 98.1 107 21 116/65 (82) 94 08/13/17 18:00 106 08/13/17 17:00 102 08/13/17 16:00 98 08/13/17 15:46 98.0 94 20 97/56 (70) 97 08/13/17 15:45 97 Nasal Cannula 2.00 08/13/17 15:00 99 08/13/17 14:00 96 08/13/17 13:00 92 08/13/17 12:00 87 08/13/17 11:05 97.5 92 20 104/63 (77) 97 08/13/17 11:04 97 Nasal Cannula 2.00 08/13/17 11:00 91 Labs: Laboratory Tests Test 08/14/17 03:35 White Blood Count 7.2 TH/MM3 (4.0-11.0) Red Blood Count 2.63 MIL/MM3 (4.50-5.90) Hemoglobin 9.2 GM/DL (13.0-17.0) Hematocrit 27.3 % (39.0-51.0) Mean Corpuscular Volume 103.6 FL (80.0-100.0) Mean Corpuscular Hemoglobin 35.1 PG (27.0-34.0) Mean Corpuscular Hemoglobin Concent 33.9 % (32.0-36.0) Red Cell Distribution Width 17.9 % (11.6-17.2) Platelet Count 78 TH/MM3 (150-450) Mean Platelet Volume 9.9 FL (7.0-11.0) Blood Urea Nitrogen 33 MG/DL (7-18) Creatinine 1.10 MG/DL (0.60-1.30) Random Glucose 121 MG/DL (74-106) Calcium Level 8.1 MG/DL (8.5-10.1) Magnesium Level 2.2 MG/DL (1.5-2.5) Sodium Level 144 MEQ/L (136-145) Potassium Level 4.8 MEQ/L (3.5-5.1) Chloride Level 107 MEQ/L (98-107) Carbon Dioxide Level 29.2 MEQ/L (21.0-32.0) Anion Gap 8 MEQ/L (5-15) Estimat Glomerular Filtration Rate 63 ML/MIN (>89) Result Diagram: 08/14/1733408/14/17334 (1) Hx of ventricular tachycardia (2) History of CVA (cerebrovascular accident) Plan: PT/OT (3) Artificial cardiac pacemaker (4) Unstable angina (5) Multi-vessel coronary artery stenosis (6) S/P CABG x 3 Plan: ASA on hold PLT 66> 59> 66> 78 resume ASA follow up labs in am on statin , low dose BB OOB, pulm toileting chest tube dc without difficulty recommend rehab at discharge (7) Hypotension Plan: resolved (8) Metabolic acidosis Plan: resolved (9) Acute respiratory failure with hypoxia Plan: on 2 liter nasal cannula leave chest tube in add 2 doses of decadron increase diuresis Juanita Cohen Aug 14, 2017 10:27
--- NOTE | 2017-08-14 19:25 | PD.CARD.PN ---
Subjective Subjective Remarks Patient was seen earlier today, late entry note No complaints Up to the chair Chest tubes out Objective Medications Current Medications Medications (Trade) Dose Ordered Sig/Cody Route Start Time Stop Time Status Last Admin (Protonix) 40 mg DAILY PO 08/03/17 09:00 08/14/17 08:48 (Lipitor) 40 mg DAILY PO 08/03/17 09:00 08/14/17 08:48 (NS Flush) 2 ml BID IV FLUSH 08/02/17 21:00 08/14/17 08:49 (NS Flush) 2 ml UNSCH PRN IV FLUSH 08/02/17 17:45 08/05/17 08:52 (Aspirin Chew) 81 mg DAILY PO 08/07/17 09:00 Future Hold 08/07/17 10:56 (Tylenol) 650 mg Q4H PRN PO 08/06/17 12:30 08/08/17 01:25 (Zofran Inj) 4 mg Q6H PRN IV PUSH 08/06/17 12:30 08/06/17 19:55 (Duoneb Neb) 1 ampule Q2HR NEB PRN NEB 08/06/17 12:30 08/06/17 23:16 (Lacrilube Opht Oint) 1 applic Q12HR RIGHT EYE 08/10/17 02:45 08/14/17 08:48 (Theragran M Tab) 1 tab DAILY PO 08/11/17 09:00 08/14/17 08:48 (Milk Of Magnesia Liq) 30 ml DAILY PO 08/11/17 09:00 (Dulcolax Supp) 10 mg UNSCH PRN RECTAL 08/10/17 10:45 (Miralax) 17 gm DAILY PO 08/11/17 09:00 08/11/17 09:53 (Senokot) 8.6 mg HS PO 08/10/17 21:00 08/11/17 20:44 (Lopressor) 25 mg Q12HR PO 08/12/17 10:00 08/14/17 08:47 (Colace) 100 mg BID PRN PO 08/13/17 21:00 (Lasix) 40 mg DAILY PO 08/15/17 09:00 Vital Signs / I&O Vital Signs Date Time Temp Pulse Resp B/P (MAP) Pulse Ox O2 Delivery O2 Flow Rate FiO2 08/14/17 18:00 100 08/14/17 17:00 93 08/14/17 16:00 95 08/14/17 15:13 97.8 93 18 97/57 (70) 98 08/14/17 15:12 98 Nasal Cannula 2.00 08/14/17 15:00 92 08/14/17 14:00 88 08/14/17 13:00 94 08/14/17 12:00 91 08/14/17 12:00 94 08/14/17 11:27 96 Nasal Cannula 2.00 08/14/17 11:00 97 08/14/17 11:00 97 18 97/56 (70) 96 08/14/17 11:00 92 08/14/17 10:00 Nasal Cannula 2.00 08/14/17 10:00 94 08/14/17 10:00 94 08/14/17 09:00 98 08/14/17 09:00 102 08/14/17 08:00 93 08/14/17 08:00 98 08/14/17 07:15 93 Room Air 08/14/17 07:00 94 18 104/61 (75) 90 08/14/17 07:00 94 08/14/17 07:00 85 08/14/17 06:27 90 08/14/17 05:30 88 08/14/17 04:03 96 08/14/17 03:39 89 08/14/17 03:39 98.0 89 19 115/65 (82) 99 08/14/17 03:39 Nasal Cannula 08/14/17 02:20 88 08/14/17 01:16 89 08/14/17 00:20 93 08/13/17 23:51 98.3 94 19 111/65 (80) 97 08/13/17 23:51 88 08/13/17 23:51 Nasal Cannula 08/13/17 22:17 97 08/13/17 21:40 96 08/13/17 21:03 96 Nasal Cannula 2.00 08/13/17 20:40 88 08/13/17 19:40 Nasal Cannula 08/13/17 19:40 104 08/13/17 19:40 98.1 107 21 116/65 (82) 94 I/O 08/13/17 08/13/17 08/13/17 08/14/1728/18 3/28/18 07:00 15:00 23:00 07:00 15:00 23:00 Intake Total 360 ml 720 ml 360 ml 720 ml Output Total 200 ml 830 ml 675 ml 850 ml Balance 160 ml -110 ml -315 ml -130 ml Intake Oral 360 ml 720 ml 360 ml 720 ml Output Urine Total 650 ml 575 ml 850 ml Chest Tube Drainage Total 200 ml 180 ml 100 ml # Voids 3 # Bowel Movements 3 1 0 1 Physical Exam GENERAL: NAD SKIN: Warm and dry. HEAD: Atraumatic. Normocephalic. EYES: Pupils equal and round. No scleral icterus. No injection or drainage. ENT: No nasal bleeding or discharge. Mucous membranes pink and moist. NECK: Trachea midline. No JVD. CARDIOVASCULAR: Regular rate and rhythm. RESPIRATORY: No accessory muscle use. Decreased breath sounds bilaterally GASTROINTESTINAL: Abdomen soft, non-tender, nondistended. Hepatic and splenic margins not palpable. MUSCULOSKELETAL: Extremities without clubbing, cyanosis, or edema. No obvious deformities. NEUROLOGICAL: No focal deficits noted Laboratory Laboratory Tests Test 08/14/17 03:35 White Blood Count 7.2 TH/MM3 Red Blood Count 2.63 MIL/MM3 Hemoglobin 9.2 GM/DL Hematocrit 27.3 % Mean Corpuscular Volume 103.6 FL Mean Corpuscular Hemoglobin 35.1 PG Mean Corpuscular Hemoglobin Concent 33.9 % Red Cell Distribution Width 17.9 % Platelet Count 78 TH/MM3 Mean Platelet Volume 9.9 FL Blood Urea Nitrogen 33 MG/DL Creatinine 1.10 MG/DL Random Glucose 121 MG/DL Calcium Level 8.1 MG/DL Magnesium Level 2.2 MG/DL Sodium Level 144 MEQ/L Potassium Level 4.8 MEQ/L Chloride Level 107 MEQ/L Carbon Dioxide Level 29.2 MEQ/L Anion Gap 8 MEQ/L Estimat Glomerular Filtration Rate 63 ML/MIN Assessment and Plan Problem List: (1) Hx of ventricular tachycardia ICD Codes: Z86.79 - Personal history of other diseases of the circulatory system (2) History of CVA (cerebrovascular accident) ICD Codes: Z86.73 - Personal history of transient ischemic attack (TIA), and cerebral infarction without residual deficits (3) Artificial cardiac pacemaker ICD Codes: Z95.0 - Presence of cardiac pacemaker (4) Unstable angina ICD Codes: I20.0 - Unstable angina (5) Multi-vessel coronary artery stenosis ICD Codes: I25.10 - Atherosclerotic heart disease of [place] coronary artery without angina pectoris (6) S/P CABG x 3 ICD Codes: Z95.1 - Presence of aortocoronary bypass graft (7) Hypotension ICD Codes: I95.9 - Hypotension, unspecified (8) Metabolic acidosis ICD Codes: E87.2 - Acidosis (9) Acute respiratory failure with hypoxia ICD Codes: J96.01 - Acute respiratory failure with hypoxia Assessment and Plan 1) CAD/[place] s/p CABGx3 POD #8 VILCHIS to LAD SVG to D1 SVG to OM1 2) SOB leading to syncope Most likely anginal equivalent 3) ASA/Statin/BB Agree with increasing as possible 4) Clinically appears well 5) Repeat echo with low normal LV function, RV dilated with moderate decreased function, septal motion consistent with post-operative state, some septal flattening noted mostly in diastole [place] to be RV injury as not bypassed, con't supportive care 6) Plan for rehab once discharged 7) Chest tubes out Evaristo Potts DO Aug 14, 2017 19:25
[2017-08-14] MEDS: SENNOSIDES 8.6 MG TAB PO SCH (21:00)
[2017-08-15] VITALS (13 sets, daily range): BP systolic 110–116; BP diastolic 55–70; PULSE 78–100; RESP 18–20; TEMP 97.7–98.1; O2SAT 95–98
--- NOTE | 2017-08-15 05:07 | RADRPT ---
EXAM DATE/TIME: 08/15/2017 04:02 [facility] COMPARISON: CHEST SINGLE AP, August 12, 2017, 3:28. INDICATIONS : Shortness of breath, possible pulmonary disease. MEDICAL HISTORY : Cerebrovascular disease. Cardiovascular disease. Hypertension. SURGICAL HISTORY : CABG. Pacemaker. ENCOUNTER: Subsequent ACUITY: 2 weeks PAIN SCORE: 0/10 LOCATION: Bilateral chest FINDINGS: A single view of the chest demonstrates minimal bibasilar densities. Tiny left apical pneumothorax. S tatus post CABG. Left-sided pacemaker unchanged. Chest tubes have been removed. Osseous structures a re intact. CONCLUSION: Minimal bibasilar atelectasis and tiny left apical pneumothorax. Alex Vaz MD on August 15, 2017 at 5:04 Board Certified Radiologist. This report was verified electronically.
[2017-08-15 05:20] LABS: BICARBONATE 27.2 MEQ/L (21.0-32.0); CALCIUM 7.8 MG/DL (8.5-10.1); CREATININE 1.07 MG/DL (0.60-1.30)
[2017-08-15] MEDS: ATORVASTATIN 40 MG TAB PO SCH (08:18)
[2017-08-15] MEDS: METOPROLOL TARTRATE 25 MG TAB PO SCH (08:18)
[2017-08-15] MEDS: POLYETHYLENE GLYCOL 17 GM PKG PO SCH (08:19)
[2017-08-15] MEDS: MAGNESIUM HYDROXIDE SUSP 30 ML CUP PO SCH (08:19)
[2017-08-15] MEDS: PANTOPRAZOLE SOD 40 MG DELAYED RELEASE TAB PO SCH (08:19)
[2017-08-15] MEDS: MULTIVITAMINS/MINERALS THERAPEUTIC TAB PO SCH (08:19)
[2017-08-15] MEDS: ARTIFICIAL TEARS OPTH OINT 3.5 APPLIC/3.5 GM TUBO RIGHT EYE SCH (08:22)
[2017-08-15] MEDS: SODIUM CHLORIDE 0.9% FLUSH 10 ML FLUSH IV FLUSH SCH (08:23)
[2017-08-15] MEDS ORDERED: FUROSEMIDE 40 MG TAB PO SCH (09:00)
[2017-08-15] MEDS ORDERED: KLOR10TA PO (09:28)
[2017-08-15] MEDS ORDERED: FURO40TA PO (09:28)
[2017-08-15] MEDS ORDERED: TYLE325T PO (09:28)
[2017-08-15] MEDS ORDERED: METO25TA3 PO (09:28)
[2017-08-15] MEDS ORDERED: DOCU1CAP39 PO (09:28)
[2017-08-15] MEDS ORDERED: ARTI3.5O RIGHT EYE (09:28)
[2017-08-15] MEDS ORDERED: POTASSIUM CHLORIDE 10 MEQ CONTROLLED RELEASE TAB PO ONE (09:30)
--- NOTE | 2017-08-15 10:29 | HHI.DS ---
Discharge Summary Admission Date Aug 04, 2017 at 16:21 Discharge Date: Aug 15, 2017 Admitting Diagnosis chest pain , CAD (1) Multi-vessel coronary artery stenosis Diagnosis: Principal ICD Codes: I25.10 - Atherosclerotic heart disease of [place] coronary artery without angina pectoris (2) Unstable angina Diagnosis: Principal ICD Codes: I20.0 - Unstable angina (3) History of CVA (cerebrovascular accident) ICD Codes: Z86.73 - Personal history of transient ischemic attack (TIA), and cerebral infarction without residual deficits (4) Artificial cardiac pacemaker ICD Codes: Z95.0 - Presence of cardiac pacemaker (5) S/P CABG x 3 Diagnosis: Secondary ICD Codes: Z95.1 - Presence of aortocoronary bypass graft Procedures 08/06 CABG x 3 VILCHIS to LAD - fair SVG to D1 - good SVG to OM1 - fair EVH (R) Brief History 87-year-old male patient of Dr. Kush Lawrence, Dr. Brandon Parks, history of having some dizziness and lightheadedness for the last 3 weeks, some presyncope episodes, also preceded all the time by shortness of breath, which he has noticed more progressively over the past 1 month. The shortness of breath occurs with minimal exertion. He normally is very active. He walks about 3-4 miles, but back in January he purchased a mobile home and has been repairing that, but has been unable to do so secondary to the shortness of breath. He has a history of some mild aortic stenosis. Therefore, he underwent cardiac catheterization today to evaluate the valve further which showed a 10% stenosis in the left main, proximal LAD 95%, mid distal 70%, diagonal 80%, the circumflex is 90%, ejection fraction 58%. PA pressure is 46/ 20 with a wedge pressure of 12. Cardiac output of 5.2. Aortic valve area of 1.35. We were consulted to evaluate for coronary artery bypass grafting. 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 He has had a history of a stroke in the past with some residual oral paresthesias, paroxysmal ventricular tachycardia. CBC/BMP: 08/14/17 0335 08/15/17 0411 Significant Findings Laboratory Tests Test 08/13/17 03:18 08/14/17 03:35 08/15/17 04:11 Blood Urea Nitrogen 34 MG/DL (7-18) 33 MG/DL (7-18) 34 MG/DL (7-18) Calcium Level 8.0 MG/DL (8.5-10.1) 8.1 MG/DL (8.5-10.1) 7.8 MG/DL (8.5-10.1) Estimat Glomerular Filtration Rate 67 ML/MIN (>89) 63 ML/MIN (>89) 65 ML/MIN (>89) Red Blood Count 2.63 MIL/MM3 (4.50-5.90) Hemoglobin 9.2 GM/DL (13.0-17.0) Hematocrit 27.3 % (39.0-51.0) Mean Corpuscular Volume 103.6 FL (80.0-100.0) Mean Corpuscular Hemoglobin 35.1 PG (27.0-34.0) Red Cell Distribution Width 17.9 % (11.6-17.2) Platelet Count 78 TH/MM3 (150-450) Random Glucose 121 MG/DL (74-106) Chloride Level 109 MEQ/L (98-107) Imaging Last Impressions Chest X-Ray 08/15/17 0600 Signed Impressions: Service Date/Time: July 04:02 - CONCLUSION: Minimal bibasilar atelectasis and tiny left apical pneumothorax. Alex Vaz MD Lung Scan- Nuclear Medicine 08/07/17 0000 Signed Impressions: Service Date/Time: Monday, August 07, 2017 16:12 - CONCLUSION: 1. Low probability for pulmonary embolus. Addison Sanchez MD Abdomen/Pelvis CT 08/07/17 0000 Signed Impressions: Service Date/Time: Monday, August 07, 2017 14:27 - CONCLUSION: Nonspecific findings. There is minimal induration root of the mesentery Sammy Melissa MD FACR Lower Extremity Ultrasound 08/02/17 0000 Signed Impressions: Service Date/Time: Wednesday, August 02, 2017 14:55 - CONCLUSION: Bilateral greater saphenous vein mapping as above. Sam Mathews MD Chest CT 08/02/17 0000 Signed Impressions: Service Date/Time: Wednesday, August 02, 2017 15:55 - CONCLUSION: 1. Coronary artery calcifications. 2. Minimal scattered peripheral interstitial fibrotic changes are noted. 3. Degenerative changes and scoliosis of the thoracic spine are noted. Primitivo Chance MD Carotid Artery Ultrasound 08/02/17 0000 Signed Impressions: Service Date/Time: Wednesday, August 02, 2017 15:11 - CONCLUSION: No hemodynamically significant stenosis within the internal carotid arteries bilaterally. Primitivo Chance MD PE at Discharge GENERAL: A&O x 3 SKIN: Warm and dry. sternal incision intact and well approximated HEAD: Normocephalic. EYES: No scleral icterus. No injection or drainage. NECK: Supple, trachea midline. No JVD or lymphadenopathy. CARDIOVASCULAR: Regular rate and rhythm without murmurs, gallops, or rubs. RESPIRATORY: Breath sounds equal bilaterally. No accessory muscle use. diminished in bases, still on 2 liter nasal cannula GASTROINTESTINAL: Abdomen soft, non-tender, nondistended. MUSCULOSKELETAL: No cyanosis, or edema. BACK: Nontender without obvious deformity. No CVA tenderness. Hospital Course 08/05 doing well, no chest pain plan for surgery in am 08/06 surgery: CABG x 3, VILCHIS to LAD - fair, SVG to D1 - good, SVG to OM1 - fair , EVH (R) 08/07/17 No complaints. Denies any pain. Metabolic acidosis overnight with intermittent hypotension. 08/08 weaned off dobutamine/ 2/2 tachycardia lasix decreased now on partial NRB feels fair, up in chair keep in ICU today pulm toileting lactic acid improved / off pressors 08/09 lactic increased 4 yesterday, now back to 1.8 placed back on low dose dobutamine remains tachycardic, repeat echo noted some RV failure / not bypassed / slow progress wean 02 as tolerated, gentle diuresis Bipap at night PT/OT 08/10/17 Improving on 6l NC. No complaints 08/11/17 Doing well, no complaints today. 08/12 up in chair, on 2 liter 02 NSR with occasional PAC , chest tube drained 210cc/ 12 hrs on lasix, statin , BB recommend rehab at discharge BB increased K+ replaced 08/13 still draining from chest tube 200cc/ 12hrs serous on water seal add two doses of decadron, increase diuretics pulm toileting, OOB ambulate eval for rehab / spoke with daughter 08/14 weight improved, still has some mild lower ext edema chest tube removed without difficulty remains on 2 liter nasal cannula slightly tachycardic, increase BB as tolerated eval for dc in am , dc IV lasix , po lasix in am 08/15 doing well, remains on 02 at 2liters, HR 80-90, increase BB stable for dc to rehab today Pt Condition on Discharge: Good Discharge Disposition: Discharge to SNF Discharge Instructions DIET: Follow Instructions for: Heart Healthy Diet Activities you can perform: Full Weight Bearing, Shower Only-No Bath Activities to avoid: Strenuous Activity, Driving Additional Activity Instructio: no lifting > 8lbs or gallon of milk Follow up Referrals: Cardiology - 4 Weeks with Brandon Parks MD PCP Follow-up with Dr eKhinde Powers [address]; [address], [place] [address] Surgical - 2 Weeks with Juanita Cohen New Orders: BASIC METABOLIC PROF - 2 Weeks CBC NO DIFF - 2 Weeks X-RAY CHEST PA & LAT - 2 Weeks New Medications: Acetaminophen (Tylenol) 325 Mg Tab 650 MG PO Q6H PRN for PAIN SCALE 1 TO 5, #30 TAB 0 Refills Artificial Tear Opth Ointment (Akwa Tears Opth Ointment) 2-15-83% Oint 1 APPLIC RIGHT EYE Q12HR for dry eyes, #1 TUBE Docusate Sodium (Dok) 100 Mg Cap 100 MG PO BID PRN for CONSTIPATION, #60 CAP 0 Refills Furosemide (Furosemide) 40 Mg Tab 40 MG PO DAILY for edema, #7 TAB 1 Refill Metoprolol Tartrate (Metoprolol Tartrate) 25 Mg Tab 25 MG PO TID for Blood Pressure Management, #90 TAB 2 Refills Potassium Chloride ER (Klor-Con 10) 10 Meq Tab 10 MEQ PO ONCE for take with lasix, #7 TAB 1 Refill Continued Medications: Aspirin (Aspirin) 81 Mg Chew 81 MG CHEW DAILY, TAB 0 Refills Cholecalciferol (Vitamin D-3) 2,000 Unit Tab Cyanocobalamin (Vitamin B-12) 500 Mcg Tab 1000 MCG PO DAILY for Nutritional Supplement, #1 BOTTLE 0 Refills Multiple Vitamins W/ Minerals (Multi For Him) 0.4 Mg-2 Mg-250 Mcg Tab Pantoprazole (Pantoprazole) 40 Mg Tab 40 MG PO DAILY for Reflux, #30 TAB 0 Refills Rosuvastatin (Rosuvastatin) 20 Mg Tab 20 MG PO DAILY for Cholesterol Management, #30 TAB 0 Refills Discontinued Medications: Lisinopril (Lisinopril) 2.5 Mg Tab 2.5 MG PO DAILY, #30 TAB 0 Refills Metoprolol Tartrate (Metoprolol Tartrate) 50 Mg Tab 50 MG PO BID, #60 TAB 0 Refills Juanita Cohen Aug 15, 2017 10:29
== END 2017-08-15 13:00 | DRG 233 ==
LOC: HDOC 07:23 → HDIC 07:24 → HCPC 17:38 → HDOC 08-04 16:20 → HCPC 08-04 16:21 → HCIS 08-06 07:30 → HCVI 08-06 13:20 → HCPC 08-10 23:18
PROVIDERS: ADMIT Nuclear Medicine Nuclear Cardiology; ATTEND Internal Medicine
PROC: 4A023N8 Measurement of Cardiac Sampling and Pressure, Bilateral, Percutaneous Approach (ICD-10-PCS; 2017-08-02)
PROC: B2111ZZ Fluoroscopy of Multiple Coronary Arteries using Low Osmolar Contrast (ICD-10-PCS; 2017-08-02)
PROC: 021109W Bypass Coronary Artery, Two Arteries from Aorta with Autologous Venous Tissue, Open Approach (ICD-10-PCS; 2017-08-06)
PROC: 06BP4ZZ Excision of Right Saphenous Vein, Percutaneous Endoscopic Approach (ICD-10-PCS; 2017-08-06)
PROC: 5A1221Z Performance of Cardiac Output, Continuous (ICD-10-PCS; 2017-08-06)
PROC: 02100Z9 Bypass Coronary Artery, One Artery from Left Internal Mammary, Open Approach (ICD-10-PCS; principal; 2017-08-06 07:29)
PROC: 03HY32Z Insertion of Monitoring Device into Upper Artery, Percutaneous Approach (ICD-10-PCS; 2017-08-07)
DX: I25.110 Atherosclerotic heart disease of native coronary artery with unstable angina pectoris (principal); R57.0 Cardiogenic shock; N17.0 Acute kidney failure with tubular necrosis; J96.01 Acute respiratory failure with hypoxia; I47.2 Ventricular tachycardia; E87.2 Acidosis; D69.6 Thrombocytopenia, unspecified; I95.9 Hypotension, unspecified; I27.20 Pulmonary hypertension, unspecified; E87.70 Fluid overload, unspecified; I35.0 Nonrheumatic aortic (valve) stenosis; R55 Syncope and collapse; D72.829 Elevated white blood cell count, unspecified; I10 Essential (primary) hypertension; Z95.0 Presence of cardiac pacemaker; Z86.73 Personal history of transient ischemic attack (TIA), and cerebral infarction without residual deficits; Z87.891 Personal history of nicotine dependence
CPT/HCPCS: 36430; 71045; 71250; 74176; 76937; 78582; 80048; 80053; 80076; 81001; 82805; 82948; 83036; 83605; 83735; 84100; 84443; 85025; 85027; 85384; 85610; 85730; 86850; 86900; 86901; 86920; 87040; 87086; 87641; 93005; 93308; 93460; 93880; 93970; 93998; 94002; 94010; 94150; 94640; 94664; 94667; 94668; 99152; 99153; A9540; A9567; C1769; C1893; J0131; J0610; J0690; J1100; J1250; J1644; J1815; J1817; J1940; J2150; J2250; J2370; J2405; J2440; J2543; J2720; J2930; J3010; J3370; J3475; J3480; J7040; J7050; J7060; J7120; P9016; P9035; P9045; P9047; Q9967

== ENCOUNTER 2017-08-27 14:27 | Inpatient (IN) | payer OTHER, MEDICARE ==
[~2017-08-27] VITALS: Ht 157.5 cm; Wt 71.1 kg
[~2017-08-27 14:27] MED LIST: ARTI3.5O RIGHT EYE; ASPI-516 CHEW; CHOL1TAB42; DOCU1CAP39 PO; FURO40TA PO; KLOR10TA PO; METO25TA3 PO; MULTTAB22; PANT40TA3 PO; ROSU1TAB8 PO; TYLE325T PO; VITA500T4 PO
[2017-08-27 15:01] VITALS: BP 121/59; PULSE 105; RESP 20; TEMP 97.4; O2SAT 89
--- NOTE | 2017-08-27 15:23 | PD ---
HPI Chief Complaint: Respiratory Symptoms Time Seen by Provider: 15:18 Travel History International Travel<30 days: No Contact w/Intl Traveler<30days: No History of Present Illness HPI This is an 87-year-old male who presents by private vehicle for evaluation of dyspnea and hypoxia. The patient underwent triple-vessel CABG on August 06 performed by cardiothoracic surgeon Dr. Vela. He was discharged to [facility] on August 15 and discharged back home yesterday. Since surgery he has had dyspnea. He has had a cough with occasional yellow sputum production. He went to see his primary care physician today, Dr. Lawrence, and his oxygen saturation was noted to be as low as 82% on room air. He was given DuoNeb treatment and sent here for further evaluation. Reportedly Dr. Vela is on vacation and his partner Dr. Qureshi was contacted and primary care physician' s office. He denies any chest pain, fevers, chills, myalgias, headache, blurred vision, abdominal pain, nausea vomiting. He has had residual swelling lower extremities since the surgery. Symptoms are moderate, aggravated by exertion, alleviated by rest. He has no other complaints at this time. PFSH Past Medical History Arthritis: Yes Heart Rhythm Problems: Yes Cancer: Yes (bladder) Cardiovascular Problems: Yes High Cholesterol: Yes Chest Pain: Yes Cerebrovascular Accident: Yes GERD: Yes Genitourinary: No Hypertension: Yes Musculoskeletal: Yes Neurologic: No Reproductive: No Respiratory: No Past Surgical History Abdominal Surgery: Yes (hernia repair ) Cardiac Surgery: Yes (pacemaker) Eye Surgery: Yes (bilateral cataracts ) Genitourinary Surgery: Yes (3 bladder surgeries) Social History Tobacco Use: No Substance Use: No Allergies-Medications (Allergen,Severity, Reaction): Coded Allergies: No Known Allergies (Unverified , 08/02/17) Reported Meds & Prescriptions Reported Meds & Active Scripts Active Tylenol (Acetaminophen) 325 Mg Tab 650 Mg PO Q6H PRN Dok (Docusate Sodium) 100 Mg Cap 100 Mg PO BID PRN Akwa Tears Opth Ointment (Artificial Tears) 2-15-83% Oint 1 Applic RIGHT EYE Q12HR Furosemide 40 Mg Tab 40 Mg PO DAILY Klor-Con 10 (Potassium Chloride) 10 Meq Tab 10 Meq PO ONCE Metoprolol Tartrate 25 Mg Tab 25 Mg PO TID Reported Vitamin D-3 (Cholecalciferol) 2,000 Unit Tab Vitamin B-12 (Cyanocobalamin) 500 Mcg Tab 1,000 Mcg PO DAILY Rosuvastatin (Rosuvastatin Calcium) 20 Mg Tab 20 Mg PO DAILY Pantoprazole (Pantoprazole Sodium) 40 Mg Tab 40 Mg PO DAILY Multi For Him (Multiple Vitamins W/ Minerals) 0.4 Mg-2 Mg-250 Mcg Tab Aspirin 81 Mg Chew 81 Mg CHEW DAILY Review of Systems Except as stated in HPI: all other systems reviewed are Neg Physical Exam Narrative GENERAL: Well-developed well-nourished male in no acute distress SKIN: Warm and dry. Sternal incision is intact with no erythema, dehiscence or drainage. HEAD: Atraumatic. Normocephalic. EYES: Pupils equal and round. No scleral icterus. No injection or drainage. ENT: No nasal bleeding or discharge. Mucous membranes pink and moist. NECK: Trachea midline. No JVD. CARDIOVASCULAR: Regular rate and rhythm. No murmur appreciated. RESPIRATORY: No accessory muscle use. Crackles noted at the bases. GASTROINTESTINAL: Abdomen soft, non-tender, nondistended. Hepatic and splenic margins not palpable. MUSCULOSKELETAL: No obvious deformities. Trace tibial edema bilaterally. NEUROLOGICAL: Awake and alert. No obvious cranial nerve deficits. Motor grossly within normal limits. Normal speech. Data Data Last Documented VS Vital Signs Date Time Temp Pulse Resp B/P (MAP) Pulse Ox O2 Delivery O2 Flow Rate FiO2 08/27/17 19:04 90 20 98 Nasal Cannula 3.00 08/27/17 17:49 118/67 (84) 08/27/17 15:01 97.4 Orders Orders Complete Blood Count With Diff (08/27/17 15:19) Comprehensive Metabolic Panel (08/27/17 15:19) B-Type Natriuretic Peptide (08/27/17 15:19) D-Dimer (08/27/17 15:19) Act Partial Throm Time (Ptt) (08/27/17 15:19) Prothrombin Time / Inr (Pt) (08/27/17 15:19) Magnesium (Mg) (08/27/17 15:19) Ckmb (Isoenzyme) Profile (08/27/17 15:19) Troponin I (08/27/17 15:19) Iv Access Insert/Monitor (08/27/17 15:19) Electrocardiogram (08/27/17 15:19) Ecg Monitoring (08/27/17 15:19) Oximetry (08/27/17 15:19) Oxygen Administration (08/27/17 15:19) Chest, Pa & Lat (08/27/17 15:19) Sodium Chloride 0.9% Flush (Ns Flush) (08/27/17 15:30) Albuterol-Ipratropium Neb (Duoneb Neb) (08/27/17 15:30) Arterial Blood Gas (Abg) (08/27/17 ) Ct Pulmonary Angiogram (08/27/17 17:23) Iohexol 350 Inj (Omnipaque 350 Inj) (08/27/17 18:45) Cefepime Inj (Maxipime Inj) (08/27/17 19:30) Azithromycin Inj (Zithromax Inj) (08/27/17 19:30) Admit Order (Ed Use Only) (08/27/17 19:25) Labs Laboratory Tests Test 08/27/17 16:20 08/27/17 16:35 White Blood Count 6.6 TH/MM3 Red Blood Count 3.21 MIL/MM3 Hemoglobin 11.3 GM/DL Hematocrit 33.0 % Mean Corpuscular Volume 102.9 FL Mean Corpuscular Hemoglobin 35.3 PG Mean Corpuscular Hemoglobin Concent 34.3 % Red Cell Distribution Width 18.1 % Platelet Count 165 TH/MM3 Mean Platelet Volume 8.0 FL Neutrophils (%) (Auto) 72.3 % Lymphocytes (%) (Auto) 12.9 % Monocytes (%) (Auto) 11.3 % Eosinophils (%) (Auto) 2.8 % Basophils (%) (Auto) 0.7 % Neutrophils # (Auto) 4.7 TH/MM3 Lymphocytes # (Auto) 0.8 TH/MM3 Monocytes # (Auto) 0.7 TH/MM3 Eosinophils # (Auto) 0.2 TH/MM3 Basophils # (Auto) 0.0 TH/MM3 CBC Comment DIFF FINAL Differential Comment Prothrombin Time 13.6 SEC Prothromb Time International Ratio 1.3 RATIO Activated Partial Thromboplast Time 32.3 SEC D-Dimer Quantitative (PE/DVT) 3.83 MG/L FEU Blood Urea Nitrogen 16 MG/DL Creatinine 0.90 MG/DL Random Glucose 85 MG/DL Total Protein 8.1 GM/DL Albumin 3.1 GM/DL Calcium Level 8.6 MG/DL Magnesium Level 1.9 MG/DL Alkaline Phosphatase 224 U/L Aspartate Amino Transf (AST/SGOT) 28 U/L Alanine Aminotransferase (ALT/SGPT) 38 U/L Total Bilirubin 0.6 MG/DL Sodium Level 139 MEQ/L Potassium Level 3.6 MEQ/L Chloride Level 100 MEQ/L Carbon Dioxide Level 28.5 MEQ/L Anion Gap 11 MEQ/L Estimat Glomerular Filtration Rate 80 ML/MIN Total Creatine Kinase 43 U/L Troponin I 0.03 NG/ML B-Type Natriuretic Peptide 254 PG/ML Blood Gas Puncture Site RT RADIAL Blood Gas Patient Temperature 98.6 Blood Gas HCO3 26 mmol/L Blood Gas Base Excess 3.0 mmol/L Blood Gas Oxygen Saturation 87 % Arterial Blood pH 7.50 Arterial Blood Partial Pressure CO2 34 mmHg Arterial Blood Partial Pressure O2 55 mmHG Arterial Blood Oxygen Content 13.9 Vol % Arterial Blood Carboxyhemoglobin 2.2 % Arterial Blood Methemoglobin 0.5 % Blood Gas Hemoglobin 11.3 G/DL Blood Gas Inspired Oxygen 21 % [facility] Medical Decision Making Medical Screen Exam Complete: Yes Emergency Medical Condition: Yes Medical Record Reviewed: Yes Differential Diagnosis Pneumonia, pleural effusion, pneumothorax, hemothorax, acute coronary syndrome, CHF, pulmonary edema, pulmonary embolism Narrative Course The patient was placed on ECG monitoring pulse oximetry. 12-lead EKG was obtained. Lab work, chest x-ray been ordered. DuoNeb treatment ordered. Thoracic surgeon Dr. Qureshi will be contacted. I discussed the case with Dr. Qureshi as well as nurse practitioner Juanita Cohen who will be happy to consult on the patient's case during his hospitalization. His chest x-ray reveals a small left pleural effusion with associated volume loss and/or airspace consolidation. CBC reveals a hemoglobin of 11.3 otherwise unremarkable. ABG reveals oxygen saturation 87, PO2 55, pH 7.5, PCO2 34. BNP 254, CMP is unremarkable. D-dimer is elevated at 3.[address] pulmonary angiogram has been ordered. CT pulmonary antrum is negative for pulmonary embolism, reveals moderate left effusion with mild consolidation in the left lower lobe. Therefore the patient will be given cefepime and azithromycin for healthcare associated pneumonia. The patient will be admitted for further treatment. Diagnosis Primary Impression: Hypoxia Additional Impressions: Pleural effusion Healthcare-associated pneumonia Admitting Information Admitting Physician Requests: Admit Berkley,Frank P. PA Aug 27, 2017 15:23
[2017-08-27] MEDS ORDERED: SODIUM CHLORIDE 0.9% FLUSH 10 ML FLUSH IVF PRN (15:30)
[2017-08-27] MEDS ORDERED: RESP: ALBUTEROL 2.5 MG/IPRATROPIUM 0.5 MG NEB (SCH) INH ONE (15:30)
--- NOTE | 2017-08-27 16:21 | RADRPT ---
EXAM DATE/TIME: 08/27/2017 15:44 [facility] COMPARISON: CHEST SINGLE AP, August 15, 2017, 4:02. INDICATIONS : Short of breath. MEDICAL HISTORY : Cerebrovascular disease. Cardiovascular disease. Hypertension. SURGICAL HISTORY : CABG. Pacemaker. ENCOUNTER: Subsequent ACUITY: 1 week PAIN SCORE: 0/10 LOCATION: Bilateral chest FINDINGS: Frontal and lateral views of the chest demonstrate a normal-sized cardiac silhouette in this patient post median sternotomy. Left chest wall cardiac pacing device remains present. There is hazy pleural- parenchymal opacity in on the left obscuring the left hemidiaphragm. No pneumothorax is identified. T here is mild atelectasis at the right lung base. The bones demonstrate no acute finding. CONCLUSION: Small left pleural effusion with associated volume loss and/or airspace consolidation. Sam Castillo MD on August 27, 2017 at 16:17 Board Certified Radiologist. This report was verified electronically.
[2017-08-27 16:22] VITALS: BP 127/70; PULSE 106; RESP 18; RESP 20; O2SAT 96
[2017-08-27 16:55] LABS: AUTOMATED NEUTROPHIL # 4.7 TH/MM3 (1.8-7.7); BASOPHIL % 0.7 % (0.0-2.0); EOSINOPHIL # 0.2 TH/MM3 (0-0.4); EOSINOPHIL % 2.8 % (0.0-4.0); HEMOGLOBIN 11.3 GM/DL (13.0-17.0); LYMPH % 12.9 % (9.0-44.0); LYMPHOCYTE # 0.8 TH/MM3 (1.0-4.8); MEAN CELL VOLUME 102.9 FL (80.0-100.0); MEAN CORPUSCULAR HEMOGLOBIN 35.3 PG (27.0-34.0); MEAN CORPUSCULAR HGB CONC 34.3 % (32.0-36.0); MONO % 11.3 % (0.0-8.0); MONOCYTE # 0.7 TH/MM3 (0-0.9); NEUT % 72.3 % (16.0-70.0); PLATELET COUNT 165 TH/MM3 (150-450); RED BLOOD COUNT 3.21 MIL/MM3 (4.50-5.90); RED CELL DISTRIBUTION WIDTH 18.1 % (11.6-17.2); WHITE BLOOD COUNT 6.6 TH/MM3 (4.0-11.0)
[2017-08-27 17:15] LABS: D-DIMER 3.83 MG/L FEU (0.00-0.50); INTERNATIONAL NORMALIZED RATIO 1.3 RATIO; PROTHROMBIN TIME - PATIENT 13.6 SEC (9.8-11.6)
[2017-08-27 17:36] LABS: ALBUMIN 3.1 GM/DL (3.4-5.0); ALT (GPT) 38 U/L (12-78); AST (GOT) 28 U/L (15-37); BICARBONATE 28.5 MEQ/L (21.0-32.0); BLOOD UREA NITROGEN 16 MG/DL (7-18); CALCIUM 8.6 MG/DL (8.5-10.1); CHLORIDE 100 MEQ/L (98-107); GLOMERULAR FILTRATION RATE 80 ML/MIN (>89); GLUCOSE,RANDOM 85 MG/DL (74-106); MAGNESIUM 1.9 MG/DL (1.5-2.5); SODIUM (NA) 139 MEQ/L (136-145)
[2017-08-27 17:41] LABS: ALKALINE PHOSPHATASE 224 U/L (45-117); TOTAL BILIRUBIN ADULT 0.6 MG/DL (0.2-1.0); TOTAL PROTEIN 8.1 GM/DL (6.4-8.2); TROPONIN I 0.03 NG/ML (0.02-0.05)
[2017-08-27 17:49] VITALS: BP 118/67; PULSE 102; RESP 18; O2SAT 98
[2017-08-27] MEDS ORDERED: IOHEXOL 350 MG/ML 10 ML VIAL (for RAD DIAG) IVCONTRAST ONE (18:45)
--- NOTE | 2017-08-27 19:10 | RADRPT ---
EXAM DATE/TIME: 08/27/2017 18:53 [facility] COMPARISON: CHEST PA & LAT, August 27, 2017, 15:44. INDICATIONS : Shortness of breath. IV CONTRAST: 75 cc Omnipaque 350 (iohexol) IV RADIATION DOSE: 10.43 CTDIvol (mGy) MEDICAL HISTORY : Cardiovascular disease. Stroke Carcinoma, bladder. SURGICAL HISTORY : None. ENCOUNTER: Initial ACUITY: 1 day PAIN SCALE: 3/10 LOCATION: Bilateral chest TECHNIQUE: Volumetric scanning of the chest was performed using a pulmonary embolism protocol MIP images were re constructed. Using automated exposure control and adjustment of the mA and/or kV according to patien t size, radiation dose was kept as low as reasonably achievable to obtain optimal diagnostic quality images. DICOM format image data is available electronically for review and comparison. Follow-up recommendations for detected pulmonary nodules are based at a minimum on nodule size and pa tient risk factors according to Fleischner Society Guidelines. FINDINGS: PULMONARY ARTERIES: No filling defects are seen in the pulmonary arteries through the segmental level. LUNGS: There is no pneumothorax there is mild consolidation in the posterior left lung base. No concerning p ulmonary nodule is visualized. PLEURAE: There is a moderate-sized left effusion. MEDIASTINUM: There is good visualization of the great vessels of the middle mediastinum. No evidence of mediastin al or hilar adenopathy/mass. Status post median sternotomy with transvenous pacer in place. Coronary artery calcifications are noted. MUSCULOSKELETAL: Within normal limits for patient age. MISCELLANEOUS: The visualized upper abdominal organs demonstrate no acute abnormality. CONCLUSION: 1. No evidence of pulmonary embolism. 2. Moderate left effusion with mild consolidation in the left lower lobe. Esteban Stone MD on August 27, 2017 at 19:04 Board Certified Radiologist. This report was verified electronically.
[2017-08-27] MEDS ORDERED: AZITHROMYCIN INJ 500 MG in SODIUM CHLOR 0.9% 250 ML INJ 250 ML IV ONE (19:30)
[2017-08-27] MEDS ORDERED: CEFEPIME INJ 2,000 MG in SODIUM CHLORIDE 0.9% INJ 100 ML IV ONE ×2 (19:30→22:00)
[2017-08-27 19:46] VITALS: BP 131/65; PULSE 105; RESP 18; O2SAT 95
[2017-08-27 20:00] VITALS: O2SAT 98
[2017-08-27] MEDS ORDERED: RESP: ALBUTEROL 2.5 MG/IPRATROPIUM 0.5 MG NEB (PRN) NEB (20:00)
[2017-08-27] MEDS ORDERED: NALOXONE HCL 0.4 MG/ML AMP IV PUSH PRN (20:00)
[2017-08-27] MEDS ORDERED: MAGNESIUM HYDROXIDE SUSP 30 ML CUP PO PRN (20:00)
[2017-08-27] MEDS ORDERED: ACETAMINOPHEN 325 MG TAB PO PRN (20:00)
[2017-08-27] MEDS ORDERED: BISACODYL 10 MG SUPP RECTAL PRN (20:00)
[2017-08-27] MEDS ORDERED: SODIUM CHLORIDE 0.9% FLUSH 10 ML FLUSH IV FLUSH PRN (20:00)
[2017-08-27] MEDS ORDERED: ONDANSETRON HCL 4 MG/2 ML VIAL IVP PRN (20:00)
[2017-08-27] MEDS ORDERED: LACTULOSE SYRUP 20 GM/30 ML CUP PO PRN (20:00)
[2017-08-27] MEDS ORDERED: SENNOSIDES 8.6 MG TAB PO PRN (20:00)
[2017-08-27] MEDS: RESP: ALBUTEROL 2.5 MG/IPRATROPIUM 0.5 MG NEB (SCH) NEB (20:01)
--- NOTE | 2017-08-27 20:13 | HHI.HP ---
HPI Service [facility] Primary Care Physician Non-Staff Admission Diagnosis Pleural effusion, pneumonia, hypoxia Diagnoses: Travel History International Travel<30 Days: No Contact w/Intl Traveler <30 Da: No History of Present Illness 87-year-old male with past medical history significant for CAD, hypertension, hyperlipidemia, history of CVA and history of bladder cancer presents to the emergency department for evaluation of acute on chronic shortness of breath. The patient had a [address] Vela on 08/06/17 and was discharged home from rehabilitation yesterday. The patient's family reports that the patient was on oxygen during his time at rehabilitation however he was never weaned from the oxygen and was sent home without any O2. The patient reports he has been feeling short of breath since his surgery however today it acutely worsened. Positive BETANCOURT. Patient also complains of a cough productive of green sputum. Denies fever but positive for chills. He denies any chest pain or diaphoresis. No abdominal pain. No nausea/vomiting/diarrhea. No lateralizing signs/symptoms. Review of Systems Except as stated in HPI: all other systems reviewed are Neg Past Family Social History Past Medical History CAD, hypertension, hyperlipidemia, history of CVA and history of bladder cancer Past Surgical History Pacemaker placement Tonsillectomy Hernia repair CABG 3 Reported Medications Reported Meds & Active Scripts Active Tylenol (Acetaminophen) 325 Mg Tab 650 Mg PO Q6H PRN Dok (Docusate Sodium) 100 Mg Cap 100 Mg PO BID PRN Akwa Tears Opth Ointment (Artificial Tears) 2-15-83% Oint 1 Applic RIGHT EYE Q12HR Furosemide 40 Mg Tab 40 Mg PO DAILY Klor-Con 10 (Potassium Chloride) 10 Meq Tab 10 Meq PO ONCE Metoprolol Tartrate 25 Mg Tab 25 Mg PO TID Reported Vitamin D-3 (Cholecalciferol) 2,000 Unit Tab Vitamin B-12 (Cyanocobalamin) 500 Mcg Tab 1,000 Mcg PO DAILY Rosuvastatin (Rosuvastatin Calcium) 20 Mg Tab 20 Mg PO DAILY Pantoprazole (Pantoprazole Sodium) 40 Mg Tab 40 Mg PO DAILY Multi For Him (Multiple Vitamins W/ Minerals) 0.4 Mg-2 Mg-250 Mcg Tab Aspirin 81 Mg Chew 81 Mg CHEW DAILY Allergies: Coded Allergies: No Known Allergies (Unverified , 08/02/17) Family History Patient does not know Social History Negative for alcohol, tobacco and illicit drugs Physical Exam Vital Signs Vital Signs Date Time Temp Pulse Resp B/P (MAP) Pulse Ox O2 Delivery O2 Flow Rate FiO2 08/27/17 19:49 105 15 95 Nasal Cannula 3.00 08/27/17 19:46 105 18 131/65 (87) 95 Nasal Cannula 3.00 08/27/17 19:04 90 20 98 Nasal Cannula 3.00 08/27/17 17:49 102 18 118/67 (84) 98 Nasal Cannula 3.00 08/27/17 16:22 106 18 127/70 (89) 96 Room Air 08/27/17 16:22 96 Nasal Cannula 08/27/17 16:22 106 20 127/70 (89) 96 Room Air 08/27/17 15:01 97.4 105 20 121/59 (79) 89 Physical Exam GENERAL: Thin, male sitting up in bed SKIN: No rashes, ecchymoses or lesions. Cool and dry. HEAD: Atraumatic. Normocephalic. No temporal or scalp tenderness. EYES: Pupils equal round and reactive. Extraocular motions intact. No scleral icterus. No injection or drainage. ENT: Nose without bleeding, purulent drainage or septal hematoma. Throat without erythema, tonsillar hypertrophy or exudate. Uvula midline. Airway patent. NECK: Trachea midline. No JVD or lymphadenopathy. Supple, nontender, no meningeal signs. CARDIOVASCULAR: Tachycardic. 3/6 murmur. RESPIRATORY: Positive accessory muscle use. Positive crackles in the bases. No wheezes. GASTROINTESTINAL: Abdomen soft, non-tender, nondistended. No hepato-splenomegaly , or palpable masses. No guarding. MUSCULOSKELETAL: Extremities without clubbing, cyanosis, or edema. No joint tenderness, effusion, or edema noted. No calf tenderness. NEUROLOGICAL: Awake and alert. Cranial nerves II through XII intact. Motor and sensory grossly within normal limits. Normal speech. Laboratory Laboratory Tests Test 08/27/17 16:20 08/27/17 16:35 White Blood Count 6.6 Red Blood Count 3.21 Hemoglobin 11.3 Hematocrit 33.0 Mean Corpuscular Volume 102.9 Mean Corpuscular Hemoglobin 35.3 Mean Corpuscular Hemoglobin Concent 34.3 Red Cell Distribution Width 18.1 Platelet Count 165 Mean Platelet Volume 8.0 Neutrophils (%) (Auto) 72.3 Lymphocytes (%) (Auto) 12.9 Monocytes (%) (Auto) 11.3 Eosinophils (%) (Auto) 2.8 Basophils (%) (Auto) 0.7 Neutrophils # (Auto) 4.7 Lymphocytes # (Auto) 0.8 Monocytes # (Auto) 0.7 Eosinophils # (Auto) 0.2 Basophils # (Auto) 0.0 CBC Comment DIFF FINAL Differential Comment Prothrombin Time 13.6 Prothromb Time International Ratio 1.3 Activated Partial Thromboplast Time 32.3 D-Dimer Quantitative (PE/DVT) 3.83 Blood Urea Nitrogen 16 Creatinine 0.90 Random Glucose 85 Total Protein 8.1 Albumin 3.1 Calcium Level 8.6 Magnesium Level 1.9 Alkaline Phosphatase 224 Aspartate Amino Transf (AST/SGOT) 28 Alanine Aminotransferase (ALT/SGPT) 38 Total Bilirubin 0.6 Sodium Level 139 Potassium Level 3.6 Chloride Level 100 Carbon Dioxide Level 28.5 Anion Gap 11 Estimat Glomerular Filtration Rate 80 Total Creatine Kinase 43 Troponin I 0.03 B-Type Natriuretic Peptide 254 Blood Gas Puncture Site RT RADIAL Blood Gas Patient Temperature 98.6 Blood Gas HCO3 26 Blood Gas Base Excess 3.0 Blood Gas Oxygen Saturation 87 Arterial Blood pH 7.50 Arterial Blood Partial Pressure CO2 34 Arterial Blood Partial Pressure O2 55 Arterial Blood Oxygen Content 13.9 Arterial Blood Carboxyhemoglobin 2.2 Arterial Blood Methemoglobin 0.5 Blood Gas Hemoglobin 11.3 Blood Gas Inspired Oxygen 21 Result Diagram: 08/27/17 1620 08/27/17 1620 Caprini VTE Risk Assessment Caprini VTE Risk Assessment: Mod/High Risk (score >= 2) Caprini Risk Assessment Model Point Value = 1 Point Value = 2 Point Value = 3 Point Value = 5 Age 41-60 Minor surgery BMI > 25 kg/m2 Swollen legs Varicose veins or History of unexplained or recurrent spontaneous Oral contraceptives or hormone replacement Sepsis (< 1 month) Serious lung disease, including pneumonia (< 1 month) Abnormal pulmonary function Acute myocardial infarction Congestive heart failure (< 1 month) History of inflammatory bowel disease Medical patient at bed rest Age 61-74 Arthroscopic surgery Major open surgery (> 45 min) Laparoscopic surgery (> 45 min) Malignancy Confined to bed (> 72 hours) Immobilizing plaster cast Central venous access Age >= 75 History of VTE Family history of VTE Factor V Leiden Prothrombin [id number] Lupus anticoagulant Anticardiolipin antibodies Elevated serum homocysteine Heparin-induced thrombocytopenia Other congenital or acquired thrombophilia Stroke (< 1 month) Elective arthroplasty Hip, pelvis, or leg fracture Acute spinal cord injury (< 1 month) Prophylaxis Regimen Total Risk Factor Score Risk Level Prophylaxis Regimen 0-1 Low Early ambulation 2 Moderate Order ONE of the following: *Sequential Compression Device (SCD) *Heparin 5000 units SQ BID 3-4 Higher Order ONE of the following medications: *Heparin 5000 units SQ TID *Enoxaparin/Lovenox 40 mg SQ daily (WT < 150 kg, CrCl > 30 mL/min) *Enoxaparin/Lovenox 30 mg SQ daily (WT < 150 kg, CrCl > 10-29 mL/min) *Enoxaparin/Lovenox 30 mg SQ BID (WT < 150 kg, CrCl > 30 mL/min) AND/OR *Sequential Compression Device (SCD) 5 or more Highest Order ONE of the following medications: *Heparin 5000 units SQ TID (Preferred with Epidurals) *Enoxaparin/Lovenox 40 mg SQ daily (WT < 150 kg, CrCl > 30 mL/min) *Enoxaparin/Lovenox 30 mg SQ daily (WT < 150 kg, CrCl > 10-29 mL/min) *Enoxaparin/Lovenox 30 mg SQ BID (WT < 150 kg, CrCl > 30 mL/min) AND *Sequential Compression Device (SCD) Assessment and Plan Assessment and Plan Assessment/plan: 1. Healthcare associated pneumonia CT chest significant for moderate left effusion with mild consolidation in the left lower lobe Azithromycin/cefepime Supplemental oxygen as needed DuoNeb's Incentive spirometry 2. Shortness of breath/pleural effusion Patient status post CABG on 08/06/17 Cardiothoracic surgery consulted, appreciate recommendations 3. Hypertension/hyperlipidemia/CAD Continue home medications 4. Status post CABG Physical therapy consulted Case management consulted to assist with home health care Management per CT surgery FEN Nothing by mouth after midnight Electrolytes: Monitor and replete when necessary Holding pharmacologic anticoagulation for possible thoracentesis Physician Certification 2 Midnight Certification Type: Admission for Inpatient Services Order for Inpatient Services The services are ordered in accordance with Medicare regulations or non- Medicare payer requirements, as applicable. In the case of services not specified as inpatient-only, they are appropriately provided as inpatient services in accordance with the 2-midnight benchmark. Estimated LOS (days): 2 2 days is the estimated time the patient will need to remain in the hospital, assuming treatment plan goals are met and no additional complications. Post-Hospital Plan: Not yet determined Louise Del Rio MD Aug 27, 2017 20:13
[2017-08-27 21:00] VITALS: BP 115/59; PULSE 111; RESP 18; TEMP 97.6; O2SAT 97
[2017-08-27] MEDS: DOCUSATE SODIUM 50 MG/SENNA 8.6 MG TAB PO SCH (21:00)
[2017-08-27] MEDS: SODIUM CHLORIDE 0.9% FLUSH 10 ML FLUSH IV FLUSH SCH (21:00)
[2017-08-28] VITALS (16 sets, daily range): BP systolic 100–138; BP diastolic 57–82; PULSE 82–109; RESP 16–20; TEMP 97.2–97.8; O2SAT 92–97
[2017-08-28] MEDS ORDERED: CEFEPIME INJ 2,000 MG in SODIUM CHLORIDE 0.9% INJ 100 ML IV SCH (03:30)
[2017-08-28] MEDS: CEFEPIME INJ 2,000 MG in SODIUM CHLORIDE 0.9% INJ 100 ML IV SCH ×3 (05:16→22:49)
[2017-08-28 05:21] LABS: AUTOMATED NEUTROPHIL # 3.8 TH/MM3 (1.8-7.7); BASOPHIL % 0.7 % (0.0-2.0); EOSINOPHIL # 0.2 TH/MM3 (0-0.4); EOSINOPHIL % 2.8 % (0.0-4.0); HEMATOCRIT 30.6 % (39.0-51.0); HEMOGLOBIN 10.2 GM/DL (13.0-17.0); LYMPH % 15.1 % (9.0-44.0); LYMPHOCYTE # 0.8 TH/MM3 (1.0-4.8); MEAN CELL VOLUME 103.6 FL (80.0-100.0); MEAN CORPUSCULAR HEMOGLOBIN 34.5 PG (27.0-34.0); MEAN CORPUSCULAR HGB CONC 33.3 % (32.0-36.0); MEAN PLATELET VOLUME 7.9 FL (7.0-11.0); MONO % 13.3 % (0.0-8.0); MONOCYTE # 0.7 TH/MM3 (0-0.9); NEUT % 68.1 % (16.0-70.0); PLATELET COUNT 142 TH/MM3 (150-450); RED BLOOD COUNT 2.95 MIL/MM3 (4.50-5.90); WHITE BLOOD COUNT 5.6 TH/MM3 (4.0-11.0)
[2017-08-28 05:39] LABS: BICARBONATE 25.6 MEQ/L (21.0-32.0); CALCIUM 8.4 MG/DL (8.5-10.1); CREATININE 0.82 MG/DL (0.60-1.30)
[2017-08-28] MEDS ORDERED: NON-FORMULARY DRUG (Rosuvastatin 20 MG) PO SCH (09:00)
[2017-08-28] MEDS: RESP: ALBUTEROL 2.5 MG/IPRATROPIUM 0.5 MG NEB (SCH) NEB ×4 (09:16→20:57)
[2017-08-28] MEDS: DOCUSATE SODIUM 50 MG/SENNA 8.6 MG TAB PO SCH ×2 (09:50→20:26)
[2017-08-28] MEDS: METOPROLOL TARTRATE 25 MG TAB PO SCH ×3 (09:50→17:35)
[2017-08-28] MEDS: ATORVASTATIN 40 MG TAB PO SCH (09:51)
[2017-08-28] MEDS: FUROSEMIDE 40 MG TAB PO SCH (09:51)
[2017-08-28] MEDS: PANTOPRAZOLE SOD 40 MG DELAYED RELEASE TAB PO SCH (09:51)
[2017-08-28] MEDS: SODIUM CHLORIDE 0.9% FLUSH 10 ML FLUSH IV FLUSH SCH ×2 (09:51→20:25)
--- NOTE | 2017-08-28 13:10 | HHI.PR ---
Subjective Remarks Some signs of improvement is seen, patient is not yet back to baseline. Breathing has improved. She remains oxygen dependent. Objective Vital Signs Date Time Temp Pulse Resp B/P (MAP) Pulse Ox O2 Delivery O2 Flow Rate FiO2 08/28/17 12:00 97.4 93 16 130/80 (97) 96 08/28/17 09:18 95 Nasal Cannula 3.00 08/28/17 08:00 97.2 100 16 134/80 (98) 94 08/28/17 04:07 105 08/28/17 03:50 97.8 105 18 125/64 (84) 95 08/28/17 03:50 Nasal Cannula 3.00 08/28/17 00:26 105 08/28/17 00:00 Nasal Cannula 3.00 08/28/17 00:00 97.8 109 124/64 (84) 95 08/27/17 21:00 97.6 111 18 115/59 (77) 97 08/27/17 20:00 98 Nasal Cannula 2.00 08/27/17 19:49 105 15 95 Nasal Cannula 3.00 08/27/17 19:46 105 18 131/65 (87) 95 Nasal Cannula 3.00 08/27/17 19:04 90 20 98 Nasal Cannula 3.00 08/27/17 17:49 102 18 118/67 (84) 98 Nasal Cannula 3.00 08/27/17 16:22 106 18 127/70 (89) 96 Room Air 08/27/17 16:22 96 Nasal Cannula 08/27/17 16:22 106 20 127/70 (89) 96 Room Air 08/27/17 15:01 97.4 105 20 121/59 (79) 89 I/O 08/27/17 08/27/17 08/27/17 08/28/17 08/28/17 08/28/17 07:00 15:00 23:00 07:00 15:00 23:00 Intake Total 240 ml Output Total 1200 ml Balance -960 ml Intake Oral 240 ml Output Urine Total 1200 ml # Bowel Movements 0 Result Diagram: 08/28/1741108/28/17411 Objective Remarks GENERAL: NAD, A&Ox3 HEAD: Normocephalic. NECK: Supple, trachea midline. No lymphadenopathy. EYES: No scleral icterus. No injection or drainage. CARDIOVASCULAR: Regular rate and rhythm without murmurs, gallops, or rubs. RESPIRATORY: Breath sounds equal bilaterally. No accessory muscle use. GASTROINTESTINAL: Abdomen soft, non-tender, nondistended. MUSCULOSKELETAL: No cyanosis, or edema. Midsternal open-heart surgery wound/ scar. SKIN: Warm and dry. NEURO: No focal neurological deficitis. A/P Problem List: (1) Healthcare-associated pneumonia ICD Code: J18.9 - Pneumonia, unspecified organism Status: Acute (2) Hypoxia ICD Code: R09.02 - Hypoxemia Status: Acute (3) Pleural effusion ICD Code: J90 - Pleural effusion, not elsewhere classified Status: Acute Assessment and Plan 79-year-old male admitted secondary to healthcare associated pneumonia with pleural effusion and acute dyspnea Healthcare associated pneumonia Acute dyspnea Pleural effusion Status post cardiothoracic surgery (subacute) CAD Continue Azithromycin Continue cefepime Continue Supplemental oxygen as needed Continue DuoNeb's Continue Incentive spirometry Patient status post CABG on 08/06/17 Cardiothoracic surgery following Continue physical therapy Hypertension Continue baseline treatment Follow blood pressures Adjust treatments as needed Hyperlipidemia Continue present treatment Follow as an outpatient Anemia Follow hemoglobin DVT prophylaxis SCDs Holding pharmacologic anticoagulation due to downward trend in hemoglobin Db Guillermo MD Aug 28, 2017 13:10
[2017-08-28] MEDS ORDERED: LIDOCAINE HCL 1% 20 ML VIAL ONE (16:35)
--- NOTE | 2017-08-28 16:48 | RADRPT ---
EXAM DATE/TIME: 08/28/2017 16:18 [facility] COMPARISON: No previous studies available for comparison. INDICATIONS : Post thoracentesis. MEDICAL HISTORY : Cerebrovascular disease. Cardiovascular disease. Hypertension. SURGICAL HISTORY : CABG. Pacemaker. ENCOUNTER: Initial ACUITY: 1 day PAIN SCORE: 0/10 LOCATION: Left chest FINDINGS: A single frontal expiratory view of the chest was performed. The lungs are symmetrically aerated and clear. No evidence of pneumothorax. Pacemaker is implanted in the left. Cardiomegaly with mild interstitial edema. Mediastinal structures are in the midline. The cardio-mediastinal contours and bronchopulmonary markings are unremarkable for an expiratory exam . Osseous structures are intact. CONCLUSION: There is no pneumothorax.. Sammy Melissa MD FACR on August 28, 2017 at 16:45 Board Certified Radiologist. This report was verified electronically.
--- NOTE | 2017-08-28 17:01 | RADRPT ---
EXAM DATE/TIME: 08/28/2017 12:45 [facility] COMPARISON: EXTERNAL COMPARISON: CHEST EXPIRATION ONLY, August 28, 2017, 16:18. [facility], XR CHEST PA & LAT, Aug 27 2017. INDICATIONS : Left pleural effusion. MEDICAL HISTORY : Stroke. Hypercholesterolemia. Hypertension. Irregular HR. GERD. Dyspnea. Bladder cancer. Arthritis. SURGICAL HISTORY : Pacemaker. Hernia repair. Bladder surgery x3. ENCOUNTER: Initial ACUITY: 2 days PAIN SCORE: 0/10 LOCATION: Left chest FLUID: Total volume of 650 cc of clear, red fluid was removed. Fluid was discarded. Thoracentesis was therapeutic only. TECHNIQUE: 1. Ultrasound guidance for thoracentesis. 2. Thoracentesis. The risks, benefits, and alternatives to ultrasound guided thoracentesis were explained to the patien t in lay simple terms, including the risk of bleeding and infection. Written and verbal informed con sent was obtained. Appropriate area for thoracentesis was marked under ultrasound guidance with the patient in the uprig ht position. Overlying skin was prepped and draped in the usual sterile fashion and with local anest hetic, a dermatotomy was made with an 11 blade scalpel. A 6 Occitan thoracentesis catheter was placed in the pleural space and fluid was removed. Catheter was then removed and a sterile dressing applie d. There were no immediate complications. The patient tolerated the procedure well and the left the ultrasound suite in stable condition. Chest radiograph is to be obtained. CONCLUSION: Uncomplicated ultrasound guided left thoracentesis. Primitivo Chance MD on August 28, 2017 at 16:57 Board Certified Radiologist. This report was verified electronically.
--- NOTE | 2017-08-28 18:07 | MB ---
cc: Juanita Cohen Carey MD DATE: 08/28/2017 HISTORY OF PRESENT ILLNESS: An 87-year-old male known to our service, had undergone coronary artery bypass graft x 3 on 08/06, VILCHIS to the LAD, SVG to the diagonal 1, saphenous vein graft to the OM1. Ejection fraction was 58% at that time. During the course of his hospitalization, he had required some pressors with dobutamine, which was then weaned off. He had some metabolic acidosis, which resolved. He was also postop respiratory failure requiring some BiPAP at night. He was finally discharged to rehab on the on 2 liters of O2 at that time. Per the family, he was weaned off his oxygen during the stay at his rehab, and the day after he went home, he became short of breath, and the family brought him into the emergency room. His O2 sat was in the high 80s on admission. They did a chest CT, which showed a moderate left pleural effusion, also some consolidation, concern for healthcare-acquired pneumonia. Despite that, his white cell count was only 5.6 and he was afebrile. However, he was admitted for pneumonia and left pleural effusion. He has since undergone left thoracentesis, which drained 650 mL. PAST MEDICAL HISTORY: Bradycardia, post pacer in situ, history of CVA in the past with some residual oral paresis, coronary artery disease, status post coronary artery bypass grafting x [address] Isa Medina. ALLERGIES: NO KNOWN ALLERGIES. HOME MEDICATIONS: Include Crestor, metoprolol, aspirin, Tylenol, potassium, Lasix, docusate, Protonix, multivitamin. FAMILY HISTORY: Noncontributory. SOCIAL HISTORY: The patient . No tobacco or alcohol. REVIEW OF SYSTEMS: As above in the HPI. Other 12 systems unremarkable. PHYSICAL EXAMINATION: GENERAL: Somewhat frail-appearing male. The patient is awake, alert, in no acute distress. VITAL SIGNS: Blood pressure 130/60, heart rate of 90-105, O2 saturation is now 98 on 2 L. HEENT: Head is normocephalic, atraumatic. Pupils equal and reactive. Oral mucosa pink, moist. NECK: Supple. No JVD. CARDIOVASCULAR: Heart sounds S1, S2. Regular rate and rhythm, slightly tachycardic. No rubs or gallops. LUNGS: Diminished in the left lower base versus the right. ABDOMEN: Soft, nontender. CHEST: His sternal incision is well healed, well approximated. EXTREMITIES: His right EVH site is well healed and well approximated. He has good distal pulses. LABORATORY DATA: Shows hemoglobin 10.2, hematocrit of 30, white cell count of 5.6, platelet count of 142. Sodium 139, potassium 4.1, BUN of 14, creatinine 0.82. INR 1.3. RADIOLOGICAL EXAMINATIONS: As above. IMPRESSION: This is an 87-year-old male known to our service, recent coronary artery bypass grafting x 3 on 08/06, who had additional ICU stay secondary to respiratory failure and some metabolic acidosis, which resolved. He had presented with shortness of breath. He was not sent home on oxygen post rehab discharge, was found to have left moderate effusion, which has since been drained with 650 mL of fluid. He is also being treated for healthcare-acquired pneumonia. RECOMMENDATIONS: To stabilize the patient and then discharge patient home on antibiotics and pulmonary walk test if needed for home O2. KAZ Velez MD JRT/TANIYA , 05:23 PM , 06:06 PM CHR[facility]
[2017-08-28] MEDS ORDERED: AZITHROMYCIN INJ 250 MG in SODIUM CHLOR 0.9% 250 ML INJ 250 ML IV SCH (20:00)
--- NOTE | 2017-08-28 21:33 | EKG ---
Date Performed: 08/27/2017 Time Performed: 16:03:01 PTAGE: 87 years EKG: Sinus rhythm WITH FIRST DEGREE AV BLOCK NONSPECIFIC T-WAVE ABNORMALITY ABNORMAL ECG PREVIOUS TRACING : 08/07/2017 17.14 Since the previous tracing, no significant change noted DOCTOR: Sunny Varela Interpretating Date/Time 08/28/2017 21:32:38
[2017-08-29] VITALS (8 sets, daily range): BP systolic 104–127; BP diastolic 60–78; PULSE 95–100; RESP 18; TEMP 97.4–97.9; O2SAT 93–97
[2017-08-29] MEDS: CEFEPIME INJ 2,000 MG in SODIUM CHLORIDE 0.9% INJ 100 ML IV SCH ×2 (05:24→13:25)
[2017-08-29] MEDS: RESP: ALBUTEROL 2.5 MG/IPRATROPIUM 0.5 MG NEB (SCH) NEB ×4 (07:51→19:43)
[2017-08-29] MEDS: FUROSEMIDE 40 MG TAB PO SCH (09:10)
[2017-08-29] MEDS: ATORVASTATIN 40 MG TAB PO SCH (09:10)
[2017-08-29] MEDS: DOCUSATE SODIUM 50 MG/SENNA 8.6 MG TAB PO SCH ×2 (09:10→20:15)
[2017-08-29] MEDS: METOPROLOL TARTRATE 25 MG TAB PO SCH ×3 (09:10→18:00)
[2017-08-29] MEDS: PANTOPRAZOLE SOD 40 MG DELAYED RELEASE TAB PO SCH (09:11)
[2017-08-29] MEDS: SODIUM CHLORIDE 0.9% FLUSH 10 ML FLUSH IV FLUSH SCH ×2 (09:11→20:15)
[2017-08-29 09:19] LABS: AUTOMATED NEUTROPHIL # 3.5 TH/MM3 (1.8-7.7); BASOPHIL # 0.1 TH/MM3 (0-0.2); BASOPHIL % 1.1 % (0.0-2.0); EOSINOPHIL # 0.3 TH/MM3 (0-0.4); EOSINOPHIL % 5.1 % (0.0-4.0); HEMATOCRIT 31.4 % (39.0-51.0); HEMOGLOBIN 10.6 GM/DL (13.0-17.0); LYMPH % 14.5 % (9.0-44.0); LYMPHOCYTE # 0.8 TH/MM3 (1.0-4.8); MEAN CELL VOLUME 103.5 FL (80.0-100.0); MEAN CORPUSCULAR HEMOGLOBIN 34.9 PG (27.0-34.0); MEAN CORPUSCULAR HGB CONC 33.8 % (32.0-36.0); MEAN PLATELET VOLUME 8.1 FL (7.0-11.0); MONOCYTE # 0.7 TH/MM3 (0-0.9); NEUT % 65.3 % (16.0-70.0); PLATELET COUNT 146 TH/MM3 (150-450); RED BLOOD COUNT 3.04 MIL/MM3 (4.50-5.90); WHITE BLOOD COUNT 5.3 TH/MM3 (4.0-11.0)
[2017-08-29 10:08] LABS: ALBUMIN 2.5 GM/DL (3.4-5.0); ALKALINE PHOSPHATASE 170 U/L (45-117); ALT (GPT) 25 U/L (12-78); AST (GOT) 23 U/L (15-37); BICARBONATE 24.9 MEQ/L (21.0-32.0); BLOOD UREA NITROGEN 16 MG/DL (7-18); CALCIUM 8.6 MG/DL (8.5-10.1); CHLORIDE 103 MEQ/L (98-107); CREATININE 0.85 MG/DL (0.60-1.30); GLOMERULAR FILTRATION RATE 85 ML/MIN (>89); GLUCOSE,RANDOM 97 MG/DL (74-106); SODIUM (NA) 136 MEQ/L (136-145); TOTAL BILIRUBIN ADULT 0.6 MG/DL (0.2-1.0); TOTAL PROTEIN 7.1 GM/DL (6.4-8.2)
--- NOTE | 2017-08-29 14:03 | HHI.PR ---
Subjective Remarks Patient reports he is feeling better today. Breathing more comfortable. Still requiring oxygen. Objective Vitals Vital Signs Date Time Temp Pulse Resp B/P (MAP) Pulse Ox O2 Delivery O2 Flow Rate FiO2 08/29/17 12:32 4.00 08/29/17 12:00 97.4 96 18 127/78 (94) 96 08/29/17 08:00 97.9 96 18 109/63 (78) 95 08/29/17 07:52 93 Nasal Cannula 3.00 08/29/17 03:52 100 08/29/17 03:50 97.4 98 18 104/60 (75) 95 08/28/17 23:48 101 08/28/17 23:35 97.3 104 18 100/57 (71) 94 08/28/17 20:57 92 Nasal Cannula 3.00 08/28/17 20:00 Nasal Cannula 3.00 08/28/17 20:00 98 08/28/17 19:00 97.2 94 20 117/82 (94) 97 08/28/17 16:45 82 18 118/74 (89) 94 08/28/17 16:30 97.3 85 16 113/75 (88) 94 08/28/17 16:00 97.4 91 16 138/77 (97) 92 08/28/17 15:28 97.7 89 16 128/82 (97) 93 I/O 08/28/17 08/28/17 08/28/17 08/29/17 08/29/17 08/29/17 07:00 15:00 23:00 07:00 15:00 23:00 Intake Total 240 ml 250 ml 820 ml Output Total 1200 ml 475 ml Balance -960 ml 250 ml 345 ml Intake Oral 240 ml 720 ml IV Total 250 ml 100 ml Output Urine Total 1200 ml 475 ml # Bowel Movements 0 0 Result Diagram: 08/29/1773608/29/17736 Objective Remarks GENERAL: Elderly male, in no apparent distress. CARDIOVASCULAR: Status post CABG. Normal rate and regular rhythm without murmurs, gallops, or rubs. RESPIRATORY: Good respiratory efforts. Diminished breath sounds at the bases. Breath sounds equal and clear to auscultation bilaterally. GASTROINTESTINAL: Abdomen soft, non-tender, non-distended. Normal active bowel sounds MUSCULOSKELETAL: Extremities without cyanosis, or edema. NEURO: Alert & Oriented x4 to person, place, time, situation. Moves all ext x4 PSYCH: Appropriate mood and affect. A/P Assessment and Plan 87-year-old male admitted secondary to healthcare associated pneumonia with pleural effusion and acute dyspnea Healthcare associated pneumonia Acute dyspnea Pleural effusion Status post cardiothoracic surgery (subacute) CAD Markedly improved. Patient had moderate left pleural effusion which has since been drained. Transition to oral antibiotics with Levaquin. Continue Supplemental oxygen as needed Continue DuoNeb's Continue Incentive spirometry Patient status post CABG on 08/06/17 Cardiothoracic surgery following Continue physical therapy Hypoxemia: Secondary to above. - Will likely need home oxygen. Home oxygen walk test ordered. Hypertension Continue baseline treatment Follow blood pressures Adjust treatments as needed Hyperlipidemia Continue present treatment Follow as an outpatient Anemia Follow hemoglobin DVT prophylaxis SCDs Discharge Planning Home oxygen walk test. Anticipate discharge tomorrow if remains stable. Will likely need home health Monika Gallegos MD Aug 29, 2017 14:03
[2017-08-29] MEDS ORDERED: COMMODE 3-IN-11 MIS (16:35)
[2017-08-29] MEDS ORDERED: OXYGENDME NAS.CANULA (16:35)
--- NOTE | 2017-08-29 16:46 | PD.CAR.PN ---
CVT Progress Note Subjective/Hospital Course: failed walk test today / will need home 02 drained 650cc fluid left thoracentesis yesterday OOb ambulate eval for dc soon with oral antibiotics Objective: GENERAL: A&O x 3 SKIN: Warm and dry. steranl incision intact and well approximated HEAD: Normocephalic. EYES: No scleral icterus. No injection or drainage. NECK: Supple, trachea midline. No JVD or lymphadenopathy. CARDIOVASCULAR: Regular rate and rhythm without murmurs, gallops, or rubs. RESPIRATORY: Breath sounds equal bilaterally. No accessory muscle use. diminished in bases, GASTROINTESTINAL: Abdomen soft, non-tender, nondistended. MUSCULOSKELETAL: No cyanosis, or edema. BACK: Nontender without obvious deformity. No CVA tenderness. Vital Signs Date Time Temp Pulse Resp B/P (MAP) Pulse Ox O2 Delivery O2 Flow Rate FiO2 08/29/17 12:32 4.00 08/29/17 12:00 97.4 96 18 127/78 (94) 96 08/29/17 08:00 97.9 96 18 109/63 (78) 95 08/29/17 07:52 93 Nasal Cannula 3.00 08/29/17 03:52 100 08/29/17 03:50 97.4 98 18 104/60 (75) 95 08/28/17 23:48 101 08/28/17 23:35 97.3 104 18 100/57 (71) 94 08/28/17 20:57 92 Nasal Cannula 3.00 08/28/17 20:00 Nasal Cannula 3.00 08/28/17 20:00 98 08/28/17 19:00 97.2 94 20 117/82 (94) 97 08/28/17 16:45 82 18 118/74 (89) 94 Labs: Laboratory Tests Test 08/29/17 07:37 White Blood Count 5.3 TH/MM3 (4.0-11.0) Red Blood Count 3.04 MIL/MM3 (4.50-5.90) Hemoglobin 10.6 GM/DL (13.0-17.0) Hematocrit 31.4 % (39.0-51.0) Mean Corpuscular Volume 103.5 FL (80.0-100.0) Mean Corpuscular Hemoglobin 34.9 PG (27.0-34.0) Mean Corpuscular Hemoglobin Concent 33.8 % (32.0-36.0) Red Cell Distribution Width 18.0 % (11.6-17.2) Platelet Count 146 TH/MM3 (150-450) Mean Platelet Volume 8.1 FL (7.0-11.0) Neutrophils (%) (Auto) 65.3 % (16.0-70.0) Lymphocytes (%) (Auto) 14.5 % (9.0-44.0) Monocytes (%) (Auto) 14.0 % (0.0-8.0) Eosinophils (%) (Auto) 5.1 % (0.0-4.0) Basophils (%) (Auto) 1.1 % (0.0-2.0) Neutrophils # (Auto) 3.5 TH/MM3 (1.8-7.7) Lymphocytes # (Auto) 0.8 TH/MM3 (1.0-4.8) Monocytes # (Auto) 0.7 TH/MM3 (0-0.9) Eosinophils # (Auto) 0.3 TH/MM3 (0-0.4) Basophils # (Auto) 0.1 TH/MM3 (0-0.2) CBC Comment DIFF FINAL Differential Comment Blood Urea Nitrogen 16 MG/DL (7-18) Creatinine 0.85 MG/DL (0.60-1.30) Random Glucose 97 MG/DL (74-106) Total Protein 7.1 GM/DL (6.4-8.2) Albumin 2.5 GM/DL (3.4-5.0) Calcium Level 8.6 MG/DL (8.5-10.1) Alkaline Phosphatase 170 U/L (45-117) Aspartate Amino Transf (AST/SGOT) 23 U/L (15-37) Alanine Aminotransferase (ALT/SGPT) 25 U/L (12-78) Total Bilirubin 0.6 MG/DL (0.2-1.0) Sodium Level 136 MEQ/L (136-145) Potassium Level 4.3 MEQ/L (3.5-5.1) Chloride Level 103 MEQ/L (98-107) Carbon Dioxide Level 24.9 MEQ/L (21.0-32.0) Anion Gap 8 MEQ/L (5-15) Estimat Glomerular Filtration Rate 85 ML/MIN (>89) Result Diagram: 08/29/17 0737 08/29/17 0737 (1) Healthcare-associated pneumonia Plan: on IV ABX / transition soon to po (2) S/P CABG x 3 Plan: continue home meds ASA, BB statin (3) Hypoxia Plan: improved after thoracentesis will need home 02 Juanita Cohen Aug 29, 2017 16:46
--- NOTE | 2017-08-29 17:11 | ECHRPT ---
Indication: S/P CABG,SOB CONCLUSIONS Normal left ventricular size. Moderate concentric left ventricular hypertrophy. The left ventricular systolic function is mildly reduced with an estimated ejection fraction in the range of 45- 50%. The right ventricle is mildly dilated. The right ventricular systoilc function is mildly decreased. The left atrial size is mildly dilated. The right atrial size is [id number] dilated. No atrial level shunt is demonstrated by color flow Doppler interrogation. The aortic root and proximal ascending aorta are not well visualized. Efaxa-[id number] mitral valve regurgitation. Mild mitral annular calcification. Aortic valve sclerosis is present. Moderate aortic valve stenosis (severe by aortic valve area, mild by mean gradient). Gradient may be low due to ejection fraction Aortic valve mean gradient is 21 mmHg. Aortic valve area is 0.68 cm. Diffuse calcification of the aortic valve. There is mild tricuspid valve regurgitation. The estimated pulmonary arterial pressure is 41 mmHg. The inferior vena cava was not well visualized. BP: 134 / 80 HR: 100 Rhythm: Sinus MEASUREMENTS (Male / Female) Normal Values Technical Quality:Fair 2D ECHO LV Diastolic Diameter PLAX 2.9 cm 4.2 - 5.9 / 3.9 - 5.3 cm LV Systolic Diameter PLAX 2.0 cm IVS Diastolic Thickness 1.4 cm 0.6 - 1.0 / 0.6 - 0.9 cm LVPW Diastolic Thickness 1.4 cm 0.6 - 1.0 / 0.6 - 0.9 cm LV Relative Wall Thickness 0.9 RV Internal Dim ED PLAX 3.3 cm LVOT Diameter 2.1 cm Aortic Root Diameter 3.5 cm LA Systolic Diameter LX 3.2 cm 3.0 - 4.0 / 2.7 - 3.8 cm M-MODE LV Diastolic Diameter MM 3.6 cm 4.2 - 5.9 / 3.9 - 5.3 cm LV Systolic Diameter MM 3.0 cm LV Ejection Fraction MM Teich 32.2 % IVS Diastolic Thickness MM 1.5 cm 0.6 - 1.0 / 0.6 - 0.9 cm LVPW Diastolic Thickness MM 1.5 cm 0.6 - 1.0 / 0.6 - 0.9 cm LV Relative Wall Thickness MM 0.8 0.24 - 0.42 / 0.22 - 0.42 RV Diastolic Diameter MM 2.6 cm DOPPLER AV Peak Velocity 292.0 cm/s AV Peak Gradient 34.1 mmHg AV Mean Gradient 21.0 mmHg AV Velocity Time Integral 56.8 cm LVOT Peak Velocity 62.4 cm/s LVOT Peak Gradient 1.6 mmHg LVOT Velocity Time Integral 11.2 cm AV Area Cont Eq vti 0.7 cm AV Area Cont Eq pk 0.7 cm Mitral E Point Velocity 83.9 cm/s Mitral A Point Velocity 73.1 cm/s Mitral E to A Ratio 1.1 LV E' Lateral Velocity 15.3 cm/s Mitral E to LV E' Lateral Ratio 5.5 LV E' Septal Velocity 4.8 cm/s Mitral E to LV E' Septal Ratio 17.6 TR Peak Velocity 280.0 cm/s TR Peak Gradient 31.4 mmHg Right Atrial Pressure 10.0 mmHg Pulmonary Artery Systolic Pressu 41.4 mmHg Right Ventricular Systolic Press 41.4 mmHg PV Peak Velocity 57.9 cm/s PV Peak Gradient 1.3 mmHg FINDINGS LEFT VENTRICLE Normal left ventricular size. Moderate concentric left ventricular hypertrophy. The left ventricular systolic function is mildly reduced with an estimated ejection fraction in the range of 45- 50%. RIGHT VENTRICLE The right ventricle is mildly dilated. The right ventricular systoilc function is mildly decreased. LEFT ATRIUM The left atrial size is mildly dilated. RIGHT ATRIUM The right atrial size is [id number] dilated. ATRIAL SEPTUM No atrial level shunt is demonstrated by color flow Doppler interrogation. AORTA The aortic root and proximal ascending aorta are not well visualized. MITRAL VALVE Yhpji-ss-wvgw mitral valve regurgitation. Mild mitral annular calcification. AORTIC VALVE Aortic valve sclerosis is present. Moderate aortic valve stenosis (severe by aortic valve area, mild by mean gradient). Gradient may be low due to ejection fraction Aortic valve mean gradient is 21 mmHg. Aortic valve area is 0.68 cm. Diffuse calcification of the aortic valve. TRICUSPID VALVE There is mild tricuspid valve regurgitation. The estimated pulmonary arterial pressure is 41 mmHg. PULMONARY VALVE No pulmonary valve regurgitation or stenosis. VESSELS The inferior vena cava was not well visualized. PERICARDIUM No pericardial effusion. Miguel Ventura MD, FACC (Electronically Signed) Final Date:29 August 2017 17:11
[2017-08-29] MEDS: ASPIRIN 81 MG CHEW TAB CHEW SCH (18:00)
[2017-08-30] VITALS: BP 113/56; PULSE 101; PULSE 99; RESP 18; TEMP 98.1; O2SAT 93
[2017-08-30 04:00] VITALS: BP 115/58; PULSE 97; PULSE 98; RESP 17; TEMP 98; O2SAT 93
[2017-08-30] MEDS: RESP: ALBUTEROL 2.5 MG/IPRATROPIUM 0.5 MG NEB (SCH) NEB ×2 (07:43→11:13)
[2017-08-30 07:44] VITALS: O2SAT 92
[2017-08-30 08:00] VITALS: BP 111/60; PULSE 89; PULSE 92; RESP 16; TEMP 97.6; O2SAT 95
[2017-08-30] MEDS: FUROSEMIDE 40 MG TAB PO SCH (08:10)
[2017-08-30] MEDS: ASPIRIN 81 MG CHEW TAB CHEW SCH (08:10)
[2017-08-30] MEDS: SODIUM CHLORIDE 0.9% FLUSH 10 ML FLUSH IV FLUSH SCH (08:10)
[2017-08-30] MEDS: METOPROLOL TARTRATE 25 MG TAB PO SCH ×2 (08:11→12:19)
[2017-08-30] MEDS: ATORVASTATIN 40 MG TAB PO SCH (08:11)
[2017-08-30] MEDS: DOCUSATE SODIUM 50 MG/SENNA 8.6 MG TAB PO SCH (08:11)
[2017-08-30] MEDS: PANTOPRAZOLE SOD 40 MG DELAYED RELEASE TAB PO SCH (08:11)
[2017-08-30] MEDS ORDERED: LEVOFLOXACIN 750 MG TAB PO SCH (09:00)
[2017-08-30] MEDS ORDERED: LEVA750T9 PO (09:09)
[2017-08-30] MEDS ORDERED: FURO40TA PO (09:09)
--- NOTE | 2017-08-30 09:10 | HHI.DCPOC ---
Discharge Care Plan Diagnosis: (1) Healthcare-associated pneumonia (2) Debility (3) Hypoxia (4) Pleural effusion (5) S/P CABG x 3 Goals to Promote Your Health * To prevent worsening of your condition and complications * To maintain your health at the optimal level Directions to Meet Your Goals Take your medications as prescribed Follow your dietary instruction Follow activity as directed Keep your appointments as scheduled Take your immunizations and boosters as scheduled If your symptoms worsen call your PCP, if no PCP go to Urgent Care Center or Emergency Room Smoking is Dangerous to Your Health. Avoid second hand smoke Call the 24-hour hour crisis hotline for domestic abuse at Monika Gallegos MD Aug 30, 2017 09:09
--- NOTE | 2017-08-30 09:11 | HHI.FF ---
Face to Face Verification Diagnosis: (1) Healthcare-associated pneumonia (2) Debility (3) Hypoxia (4) Pleural effusion (5) S/P CABG x 3 Physical Therapy Order: Evaluate and Treat, Improve ambulation, Strength and gait training Home Health Nursing Order: Medical education Medication education-adverse effect Nursing assessment with vital signs I have seen patient Steve Shaver on 08/30/17. My clinical findings support the need for the requested home health care services because: Ltd mobility - disease progression Need for psychosocial assistance High risk of falls I certify that my clinical findings support that this patient is homebound because: Unsteady gait/balance Poor cardiac reserve Monika Gallegos MD Aug 30, 2017 09:11
--- NOTE | 2017-08-30 10:53 | HHI.DS ---
Discharge Summary Admission Date Aug 27, 2017 at 19:28 Discharge Date: Aug 30, 2017 Admitting Diagnosis Pleural effusion, pneumonia, hypoxia (1) Pleural effusion ICD Code: J90 - Pleural effusion, not elsewhere classified Status: Acute (2) Healthcare-associated pneumonia ICD Code: J18.9 - Pneumonia, unspecified organism Status: Acute (3) Debility ICD Code: R53.81 - Other malaise (4) S/P CABG x 3 ICD Code: Z95.1 - Presence of aortocoronary bypass graft (5) Hypoxia ICD Code: R09.02 - Hypoxemia Status: Acute Procedures None Brief History - From Admission HPI from the admitting physician 87-year-old male with past medical history significant for CAD, hypertension, hyperlipidemia, history of CVA and history of bladder cancer presents to the emergency department for evaluation of acute on chronic shortness of breath. The patient had a [address] Vela on 08/06/17 and was discharged home from rehabilitation yesterday. The patient's family reports that the patient was on oxygen during his time at rehabilitation however he was never weaned from the oxygen and was sent home without any O2. The patient reports he has been feeling short of breath since his surgery however today it acutely worsened. Positive BETANCOURT. Patient also complains of a cough productive of green sputum. Denies fever but positive for chills. He denies any chest pain or diaphoresis. No abdominal pain. No nausea/vomiting/diarrhea. No lateralizing signs/symptoms. CBC/BMP: 08/29/17 0737 08/29/17 0737 Significant Findings Laboratory Tests Test 08/27/17 16:20 08/27/17 16:35 08/28/17 04:12 08/29/17 07:37 Red Blood Count 3.21 MIL/MM3 (4.50-5.90) 2.95 MIL/MM3 (4.50-5.90) 3.04 MIL/MM3 (4.50-5.90) Hemoglobin 11.3 GM/DL (13.0-17.0) 10.2 GM/DL (13.0-17.0) 10.6 GM/DL (13.0-17.0) Hematocrit 33.0 % (39.0-51.0) 30.6 % (39.0-51.0) 31.4 % (39.0-51.0) Mean Corpuscular Volume 102.9 FL (80.0-100.0) 103.6 FL (80.0-100.0) 103.5 FL (80.0-100.0) Mean Corpuscular Hemoglobin 35.3 PG (27.0-34.0) 34.5 PG (27.0-34.0) 34.9 PG (27.0-34.0) Red Cell Distribution Width 18.1 % (11.6-17.2) 18.0 % (11.6-17.2) 18.0 % (11.6-17.2) Neutrophils (%) (Auto) 72.3 % (16.0-70.0) Monocytes (%) (Auto) 11.3 % (0.0-8.0) 13.3 % (0.0-8.0) 14.0 % (0.0-8.0) Lymphocytes # (Auto) 0.8 TH/MM3 (1.0-4.8) 0.8 TH/MM3 (1.0-4.8) 0.8 TH/MM3 (1.0-4.8) Prothrombin Time 13.6 SEC (9.8-11.6) Activated Partial Thromboplast Time 32.3 SEC (24.3-30.1) D-Dimer Quantitative (PE/DVT) 3.83 MG/L FEU (0.00-0.50) Albumin 3.1 GM/DL (3.4-5.0) 2.5 GM/DL (3.4-5.0) Alkaline Phosphatase 224 U/L (45-117) 170 U/L (45-117) Estimat Glomerular Filtration Rate 80 ML/MIN (>89) 85 ML/MIN (>89) B-Type Natriuretic Peptide 254 PG/ML (0-100) Blood Gas Base Excess 3.0 mmol/L (-2-2) Blood Gas Oxygen Saturation 87 % (90-100) Arterial Blood pH 7.50 (7.380-7.420) Arterial Blood Partial Pressure CO2 34 mmHg (38-42) Arterial Blood Partial Pressure O2 55 mmHG (61-120) Blood Gas Hemoglobin 11.3 G/DL (12.0-16.0) Platelet Count 142 TH/MM3 (150-450) 146 TH/MM3 (150-450) Calcium Level 8.4 MG/DL (8.5-10.1) Eosinophils (%) (Auto) 5.1 % (0.0-4.0) Imaging Last Impressions Thoracentesis Ultrasound 08/28/17 0000 Signed Impressions: Service Date/Time: Monday, August 28, 2017 12:45 - CONCLUSION: Uncomplicated ultrasound guided left thoracentesis. Primitivo Chance MD Chest X-Ray 08/28/17 0000 Signed Impressions: Service Date/Time: Monday, August 28, 2017 16:18 - CONCLUSION: There is no pneumothorax.. Sammy Melissa MD FACR CT Angiography 08/27/17 1723 Signed Impressions: Service Date/Time: Sunday, August 27, 2017 18:53 - CONCLUSION: 1. No evidence of pulmonary embolism. 2. Moderate left effusion with mild consolidation in the left lower lobe. Esteban Stone MD PE at Discharge GENERAL: Elderly male, in no apparent distress. CARDIOVASCULAR: Status post CABG. Normal rate and regular rhythm without murmurs, gallops, or rubs. RESPIRATORY: Good respiratory efforts. Diminished breath sounds at the bases. Breath sounds equal and clear to auscultation bilaterally. GASTROINTESTINAL: Abdomen soft, non-tender, non-distended. Normal active bowel sounds MUSCULOSKELETAL: Extremities without cyanosis, or edema. NEURO: Alert & Oriented x4 to person, place, time, situation. Moves all ext x4 PSYCH: Appropriate mood and affect. Pt update on day of discharge Patient reports he is feeling better. Breathing more comfortably. Still requiring oxygen. Hospital Course 87-year-old male admitted secondary to healthcare associated pneumonia with pleural effusion and acute dyspnea. Evaluation and treatment course detailed below: Healthcare associated pneumonia Acute dyspnea Pleural effusion Status post cardiothoracic surgery (subacute) CAD Markedly improved. Patient had moderate left pleural effusion which has since been drained. Transition to oral antibiotics with Levaquin. Continue Supplemental oxygen. He does require home oxygen which was ordered. Continue DuoNeb's Continue Incentive spirometry Patient status post CABG on 08/06/17 Patient was followed by CT surgery. Continue physical therapy at home Hypoxemia: Secondary to above. -Home oxygen ordered. Hypertension Continue baseline treatment Hyperlipidemia Continue present treatment Follow as an outpatient Anemia: - Chronic. Stable. Pt Condition on Discharge: Good Discharge Disposition: Disch w/ Home Health Serv Discharge Time: > 30 minutes Discharge Instructions DIET: Follow Instructions for: Heart Healthy Diet Activities you can perform: Regular-No Restrictions Follow up Referrals: PCP Follow-up @ [facility] with DR. FOOTE Continued Follow up Referrals: PCP Follow-up with Dr Kehinde Powers [address] [place] [address] Drive; [address], [place] [address] Surgical - 2 Weeks with Juanita Cohen New Medications: Commode 3-in-1 (Commode 3-in-1) 1 Mis Mis EA .XX DIRECTED, #1 0 Refills Oxygen (O2) (Oxygen (O2)) Device LITER ARIELLA.CANULA CONTINUOUS for Prevent Hypoxemia, #2 Oxygen Concentrator Portable Gaseous 2 L/min via Nasal Canula Continuous For 99 months Furosemide (Furosemide) 40 Mg Tab 40 MG PO DAILY, #10 TAB Levofloxacin (Levaquin) 750 Mg Tablet 750 MG PO DAILY, #7 TAB Continued Medications: Acetaminophen (Tylenol) 325 Mg Tab 650 MG PO Q6H PRN for PAIN SCALE 1 TO 5, #30 TAB 0 Refills Artificial Tear Opth Ointment (Akwa Tears Opth Ointment) 2-15-83% Oint 1 APPLIC RIGHT EYE Q12HR for dry eyes, #1 TUBE Aspirin (Aspirin) 81 Mg Chew 81 MG CHEW DAILY, TAB 0 Refills Cholecalciferol (Vitamin D-3) 2,000 Unit Tab Cyanocobalamin (Vitamin B-12) 500 Mcg Tab 1000 MCG PO DAILY for Nutritional Supplement, #1 BOTTLE 0 Refills Docusate Sodium (Dok) 100 Mg Cap 100 MG PO BID PRN for CONSTIPATION, #60 CAP 0 Refills Metoprolol Tartrate (Metoprolol Tartrate) 25 Mg Tab 25 MG PO TID for Blood Pressure Management, #90 TAB 2 Refills Multiple Vitamins W/ Minerals (Multi For Him) 0.4 Mg-2 Mg-250 Mcg Tab Pantoprazole (Pantoprazole) 40 Mg Tab 40 MG PO DAILY for Reflux, #30 TAB 0 Refills Potassium Chloride ER (Klor-Con 10) 10 Meq Tab 10 MEQ PO ONCE for take with lasix, #7 TAB 1 Refill Rosuvastatin (Rosuvastatin) 20 Mg Tab 20 MG PO DAILY for Cholesterol Management, #30 TAB 0 Refills Discontinued Medications: Furosemide (Furosemide) 40 Mg Tab 40 MG PO DAILY for edema, #7 TAB 1 Refill Monika Gallegos MD Aug 30, 2017 10:53
[2017-08-30 12:00] VITALS: BP 105/58; PULSE 95; PULSE 97; RESP 17; TEMP 97.5; O2SAT 96
[2017-08-30] MEDS ORDERED: OXYGENDME NAS.CANULA (12:33)
--- NOTE | 2017-08-30 14:30 | PD.CAR.PN ---
CVT Progress Note Subjective/Hospital Course: failed walk test today / will need home 02 drained 650cc fluid left thoracentesis yesterday OOb ambulate eval for dc soon with oral antibiotics 08/30 on 2 liter nasal cannula stable for pt to be discharged home with antibiotics and home 02 Objective: GENERAL: SKIN: Warm and dry. sternal incision intact and well approximated HEAD: Normocephalic. EYES: No scleral icterus. No injection or drainage. NECK: Supple, trachea midline. No JVD or lymphadenopathy. CARDIOVASCULAR: Regular rate and rhythm without murmurs, gallops, or rubs. RESPIRATORY: Breath sounds equal bilaterally. No accessory muscle use. GASTROINTESTINAL: Abdomen soft, non-tender, nondistended. MUSCULOSKELETAL: No cyanosis, or edema. BACK: Nontender without obvious deformity. No CVA tenderness. Vital Signs Date Time Temp Pulse Resp B/P (MAP) Pulse Ox O2 Delivery O2 Flow Rate FiO2 08/30/17 12:00 95 08/30/17 09:56 Nasal Cannula 3.00 08/30/17 08:00 97.6 89 16 111/60 (77) 95 08/30/17 08:00 92 08/30/17 07:44 92 Nasal Cannula 2.00 08/30/17 04:00 98.0 97 17 115/58 (77) 93 08/30/17 04:00 98 08/30/17 00:00 99 08/30/17 00:00 Nasal Cannula 3.00 08/30/17 00:00 98.1 101 18 113/56 (75) 93 08/29/17 20:00 100 08/29/17 20:00 97.8 99 18 117/63 (81) 94 08/29/17 20:00 Nasal Cannula 3.00 08/29/17 19:44 93 Nasal Cannula 2.00 08/29/17 16:00 97.7 100 18 110/63 (79) 97 Result Diagram: 08/29/17 0737 08/29/17 0737 (1) Healthcare-associated pneumonia Plan: on IV ABX / transition soon to po (2) S/P CABG x 3 Plan: continue home meds ASA, BB statin (3) Hypoxia Plan: improved after thoracentesis home 02 ok to dc per [facility] Juanita Cohen Aug 30, 2017 14:30
== END 2017-08-30 15:53 | disposition home health service (06) | DRG 194 ==
LOC: NEPC 14:27 → NEDA 19:28 → N04A 20:47
PROVIDERS: ADMIT Family Medicine; ATTEND Family Medicine
PROC: 0W9B3ZZ Drainage of Left Pleural Cavity, Percutaneous Approach (ICD-10-PCS; principal; 2017-08-28)
DX: J18.9 Pneumonia, unspecified organism (principal); J90 Pleural effusion, not elsewhere classified; D64.9 Anemia, unspecified; Z95.1 Presence of aortocoronary bypass graft; I10 Essential (primary) hypertension; R09.02 Hypoxemia; Y95 Nosocomial condition; E78.5 Hyperlipidemia, unspecified; K21.9 Gastro-esophageal reflux disease without esophagitis; I25.10 Atherosclerotic heart disease of native coronary artery without angina pectoris; M19.90 Unspecified osteoarthritis, unspecified site; Z85.51 Personal history of malignant neoplasm of bladder; Z95.0 Presence of cardiac pacemaker; Z86.73 Personal history of transient ischemic attack (TIA), and cerebral infarction without residual deficits
CPT/HCPCS: 32555; 36600; 71045; 71046; 71275; 80048; 80053; 82550; 82805; 83735; 83880; 84484; 85025; 85379; 85610; 85730; 93005; 93306; 94150; 94618; 94640; 94664; 99285; C1729; J0456; J0692; J7050; Q9967